=== PATIENT | female | born 1960 | race Caucasian/White ===

== ENCOUNTER → 2018-06-28 07:49 | Outpatient (CLI) | payer SELFPAY ==
[2018-06-28 10:11] LABS: Absolute Lymphocyte Count 2.14 X10^3/ul (0.83-4.51); Absolute Neutrophil Count 3.8 X10^3/uL (2.0-7.7); Basophil# 0.11 X10^3/uL; Basophil% 1.6 % (0-1); Eosinophil# 0.27 X10^3/uL; Eosinophils% 3.9 % (0-5); Hematocrit 47.4 % (37-47); Hemoglobin 16.3 g/dl (12.0-15.0); Lymphocyte # 2.14 X10^3/ul (4.0); Lymphocyte % 30.6 % (19-41); Mean Corp Hgb Conc 34.4 g/gl (32-36); Mean Corpuscular Hgb 31.5 pg (27.0-32.0); Mean Corpuscular Volume 91.5 fL (81-99); Mean Platelet Vol. 11.3 fl (6.2-12.0); Monocyte# 0.69 X10^3/uL; Monocyte% 9.9 % (0-10); Neutrophil # 3.77 X10^3/uL (2.7-7.7); Neutrophil % 53.9 % (47-70); Platelet Count 237 K/mm3 (150-450); RBC Distribution Width CV 12.3 % (11.6-14.6); RBC Distribution Width SD 40.8 fl (35.1-43.9); Red Blood Count 5.18 M/mm3 (4.2-5.4)
[2018-06-28 10:18] LABS: POSITIVE COUNT NO; POSITIVE DIFFERENTIAL NO; POSITIVE MORPHOLOGY NO
[2018-06-28 10:26] LABS: Color, Urine Yellow (Yellow); Glucose, Dipstick 1000 mg/dl (Normal); Ketone-Dipstick 15 mg/dl (Negative); Leukocyte Esterase-Dipstick Negative /ul (Negative); Nitrite-Dipstick Negative (Negative); Occult Blood-Urine Negative /ul (Negative); Protein-Dipstick 15 mg/dl (Negative); Specific Gravity, Urine 1.015 (1.002-1.030); Urine Bilirubin Dipstick Negative (Negative); Urine Clarity Clear (Clear); Urine Urobilinogen Normal (Normal)
[2018-06-28 10:35] LABS: ALB/GLOB Ratio 1.1 RATIO (0.9-2.4); AST(SGOT) 26 U/L (15-37); Alanine Aminotransfer ALT/SGPT 46 U/L (13-56); Albumin, Serum 3.7 g/dL (3.2-5.0); Alkaline Phosphatase 126 U/L (45-117); Anion Gap 7 (5-15); BUN 12 mg/dL (7-18); BUN/Creat Ratio 13.8 RATIO (10-20); Calcium,Total 8.7 mg/dL (8.5-10.1); Chloride 102 mmol/L (98-107); Cholesterol 226 mg/dL (200); Creatinine, Serum 0.87 mg/dL (0.55-1.02); EST Glomerular Filtration Rate 71 mL/min (>60); Est Glom Filt Rate - Afr Amer 86 mL/min (>60); Globulin 3.4 g/dL (2.2-4.2); Glucose 357 mg/dL (74-106); High Density Lipoprotein 35 mg/dL; Potassium 4.3 mmol/L (3.5-5.1); Protein, Total 7.1 g/dL (6.4-8.2); Sodium Level 136 mmol/L (136-145); Thyroid Stim Hormone (TSH) 2.28 uIU/mL (0.358-3.74); Triglycerides 249 mg/dL; Very Low Density Lipoprotein 50 mg/dL (5-40)
[2018-06-28 11:22] LABS: Hemoglobin A1c 12.1 % (4.2-6.3)
== END ==
PROVIDERS: Family Provider Family Medicine; PCP Family Medicine; Referring Provider Family Medicine; Visit Provider Family Medicine
DX: Z00.00 Encounter for general adult medical examination without abnormal findings (principal); R73.02 Impaired glucose tolerance (oral); E78.1 Pure hyperglyceridemia; I25.10 Atherosclerotic heart disease of native coronary artery without angina pectoris; I10 Essential (primary) hypertension; E03.9 Hypothyroidism, unspecified
CPT/HCPCS: 36415; 80053; 80061; 81002; 83036; 84443; 85025

== ENCOUNTER → 2018-10-09 08:33 | Outpatient (CLI) | payer SELFPAY ==
[2018-09-19 14:58] VITALS: BMI 34.1
[2018-10-09 10:38] LABS: Thyroid Stim Hormone (TSH) 2.11 uIU/mL (0.358-3.74)
[2018-10-09 15:11] LABS: Hemoglobin A1c 6.5 % (4.2-6.3)
== END ==
PROVIDERS: Family Provider Family Medicine; PCP Family Medicine; Referring Provider Family Medicine; Visit Provider Family Medicine
DX: E11.65 Type 2 diabetes mellitus with hyperglycemia (principal); E03.9 Hypothyroidism, unspecified
CPT/HCPCS: 36415; 83036; 84443

== ENCOUNTER → 2018-10-15 10:04 | Outpatient (CLI) | payer SELFPAY ==
[2018-09-19 14:58] VITALS: BMI 34.1
--- NOTE | 2018-10-15 10:05 | ECHOCS_ITS ---
Reason For Study: CAD/ASHD Procedure This was a 2D Doppler, Color Flow transthoracic echocardiogram. The study was technically difficult. Contrast injection was performed. Exam performed in department. Left Ventricle Normal LV size. Left ventricular systolic function is normal. The estimated ejection fraction is 60 %. Stage 1 diastolic dysfunction. No regional wall motion abnormalities noted. Right Ventricle Normal RV size. Normal systolic function. Atria Normal left atrium. Normal right atrium. Mitral Valve Bileaflet diffuse mitral valve thickening. Mild (1+) eccentric mitral valve insufficiency. Tricuspid Valve Normal tricuspid valve. Mild (1+) tricuspid valve insufficiency. Pulmonary artery systolic pressure is 28 mmHg. Aortic Valve Normal aortic valve. Trisinus/trileaflet aortic valve. Great Vessels Normal aortic root. The pulmonary artery is normal size. Normal inferior vena cava. Pericardium/Pleural No pericardial effusion. Medication Diluted definity 2ml given slow IV push to enhance endocardial definition. MMode/2D Measurements & Calculations LVIDd: 4.7 cm IVSd: 1.0 cm Ao root diam: 3.4 cm LVIDs: 2.8 cm LVPWd: 1.1 cm RVDd: 3.5 cm FS: 40.7 % LAV(MOD-bp): 28.2 ml LVAd ap4: 29.8 cm2 SV(MOD-sp4): 63.7 ml LAV(MOD-bp) Indexed: 14.2 ml/m2 EDV(MOD-sp4): 105.0 ml LAV(MOD-sp2): 30.0 ml EDV(sp4-el): 108.7 ml LAV(MOD-sp4): 27.0 ml LVAs ap4: 16.4 cm2 ESV(MOD-sp4): 41.3 ml ESV(sp4-el): 42.1 ml EF(MOD-sp4): 60.7 % EF(sp4-el): 61.3 % SV(sp4-el): 66.6 ml LA A4 area: 11.8 cm2 LA dimension(2D): 4.0 cm RA A4 area: 11.5 cm2 Doppler Measurements & Calculations MV E max primo: 55.0 cm/sec Lat Peak E' Primo: 8.0 cm/sec Med Peak E' Primo: 4.4 cm/sec MV A max primo: 84.7 cm/sec E/E' lat: 6.9 E/E' med: 12.5 MV E/A: 0.65 Ao V2 max: 146.2 cm/sec LV V1 max: 98.4 cm/sec PA V2 max: 90.6 cm/sec Ao max P.6 mmHg LV V1 max P.9 mmHg Ao V2 mean: 104.8 cm/sec Ao mean P.8 mmHg Ao V2 VTI: 28.4 cm TR max primo: 244.4 cm/sec TR max P.9 mmHg Interpretation Summary Normal LV size. Left ventricular systolic function is normal. The estimated ejection fraction is 60 %. Stage 1 diastolic dysfunction. Bileaflet diffuse mitral valve thickening. Mild (1+) eccentric mitral valve insufficiency. Ordering Physician: Kaleb Thompson Referring Physician: Jad Acevedo Performed By: Elba Denise, WILLY, RVT
== END ==
PROVIDERS: Family Provider Family Medicine; PCP Family Medicine; Referring Provider Internal Medicine Cardiovascular Disease; Visit Provider Internal Medicine Cardiovascular Disease
DX: I25.119 Atherosclerotic heart disease of native coronary artery with unspecified angina pectoris (principal); R07.9 Chest pain, unspecified
CPT/HCPCS: 93306; Q9957; A4216; C8929

== ENCOUNTER 2018-11-12 15:48 | Emergency (ER) | payer SELFPAY ==
[2018-09-19 14:58] VITALS: BMI 34.1
[2018-11-12 15:49] VITALS: BP 135/73; PULSE 72; RESP 18; TEMP 36.6; O2SAT 97; BMI 33.4
--- NOTE | 2018-11-12 16:07 | ED.DCSUM_ITS ---
History of Present Illness Chief Complaint: Laceration Informant: Patient Occurred: Today Mechanism/Context: Incised Current Severity: Gone Maximum Severity: 2/10 Worsened by: Nothing Relieved by: Not applicable Associated Symptoms: Negative for: Parasthesia, Weakness, Loss of Funtion Narrative: Patient is a middle-age fnnbf-fjeq-tynelxkw woman who presents with a laceration radial side right little finger near the webspace of the ring and little finger. She denies paresthesia, anesthesia or motor weakness. Tetanus status is unknown. She has no other complaints. Tetanus Immunization: Unknown - Patient states she will go to the health department tomorrow to get tetanus updated since she has to pay for all of her medical care. 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 (2) Essential (primary) hypertension Status: Chronic (3) Hyperlipidemia Status: Chronic Past Medical History - Allergies and Home Meds Allergies/Adverse Reactions: Allergies Zhhxnjj-Xem-Xdh Reductase Inhibitor Adverse Reaction (Verified 09/19/18 15:02) myalgias Primary Care Physician: Jad Acevedo MD [Primary Care Provider] - Prior records reviewed: Yes Surgical History: noncontributory Lives: Alone Smoking Status: Former smoker Alcohol: None Drugs: None Review of Systems General: Denies: Chills, Fever Musculoskeletal: Denies: Myalgias, Arthralgias, Swelling, Extremity Pain Skin: Reports: Wounds. Denies: Rash Neurological: Denies: Weakness, Parasthesia, Numbness Hematologic: Denies: Easy bruising, Easy bleeding Physical Exam Vital Signs/Narrative: Vital Signs Temp Pulse Resp BP Pulse Ox 11/12/18 15:49 97.8 F 72 18 135/73 H 97 Right Wrist: Negative for: Abrasion, Contusion, Deformity, Edema, Hematoma, Limited ROM, - Right Hand: Negative for: Abrasion, Contusion, Deformity, Edema, Hematoma, Limited ROM, - Right Finger: - - There is a 1 cm laceration proximal radial side of the right little finger. The extensor minimize tendons intact. Two-point termination is normal. The flexor mechanism is intact. Capillary refill is normal. There is no other evidence of trauma to the digits or hands.. Negative for: Abrasion, Contusion, Deformity, Hematoma, Limited ROM General: Well nourished, Well developed Head: Normocephalic, Atraumatic Eyes: Perrl, EOMI. Negative for: Pale conjunctiva, Scleral icterus ENT: No Trauma Cardiovascular: Regular rate, Regular rhythm Respiratory: No distress Skin: Normal color, No rash, No Trauma, Trauma - 1 cm laceration. 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 Plan is to clean wound and closed with Dermabond. She does not work today or tomorrow. Procedures - Lacerations No standard instances Length: 13.2 in Depth: Sub Q Shape: Linear Prep: Ludin Laceration Repair: Dermabond Irrigated (ml): 100 ED Disposition - Plan for ED Patient: Disposition: Home or Assisted Living Diagnosis: Laceration of right little finger Instructions: LACERATION, Extremity (Skin Glue) Referrals: Jad Acevedo MD [Primary Care Provider] - As Needed
--- NOTE | 2018-11-12 16:20 | ED.RN ---
DISCHARGE INSTRUCTIONS GIVEN TO AND REVIEWED WITH PATIENT, PATIENT DENIES QUESTIONS OR CONCERNS AND VOICES UNDERSTANDING OF DISCHARGE INSTRUCTIONS. PT AMBULATES OUT OF ROOM WITHOUT DIFFICULTY.
== END 2018-11-12 16:20 | disposition home or self-care (01) ==
PROVIDERS: Emergency Provider Emergency Medicine; Family Provider Family Medicine; PCP Family Medicine
DX: S61.216A Laceration without foreign body of right little finger without damage to nail, initial encounter (principal); W45.8XXA Other foreign body or object entering through skin, initial encounter; Y93.9 Activity, unspecified; Y92.9 Unspecified place or not applicable; Y99.9 Unspecified external cause status; I25.10 Atherosclerotic heart disease of native coronary artery without angina pectoris; E78.5 Hyperlipidemia, unspecified; I10 Essential (primary) hypertension; Z79.899 Other long term (current) drug therapy; Z79.82 Long term (current) use of aspirin; Z87.891 Personal history of nicotine dependence
CPT/HCPCS: 12001; 99282

== ENCOUNTER → 2020-06-29 | Outpatient (CLI) | payer SELFPAY ==
[2020-06-29 09:48] VITALS: BMI 37.0
[2020-07-02 03:06] LABS: HPV Genotype 16, Aptima Negative (Negative)
[2020-07-02 17:00] LABS: HPV APTIMA, High Risk Positive (Negative); HPV Genotype 18,45 Aptima Negative (Negative)
== END | disposition home or self-care (01) ==
LOC: LABSPEC 12:13
PROVIDERS: PCP Family Medicine; Referring Provider Obstetrics & Gynecology; Visit Provider Obstetrics & Gynecology
DX: Z12.4 Encounter for screening for malignant neoplasm of cervix (principal)
CPT/HCPCS: 87624; 88175; G0145

== ENCOUNTER → 2021-08-12 | Outpatient (CLI) | payer MEDICAID, SELFPAY ==
--- NOTE | 2021-08-12 09:35 | US_ITS ---
STUDY: ULTRASOUND BREAST - LEFT REASON FOR EXAM: Female, 60 years old. Abnormal screening mammogram. TECHNIQUE: Axial and longitudinal images of the LEFT breast were performed with a high resolution ultrasound transducer. # OF IMAGES: 12 COMPARISON: Comparison is made with prior mammogram done earlier today. FINDINGS: LEFT Breast: The mammographic abnormality corresponds to a 1.5 cm x 1.7 cm x 1.3 cm hypoechoic lobular irregular mass at the 2 o''clock position of the breast at 1 cm from nipple. Increased vascularity seen within it. Biopsy recommended. US/Breast Limited Unilateral IMPRESSION: 1.5 cm x 1.7 cm x 1.3 cm hypoechoic lobular irregular mass at the 2 o''clock position of the breast at 17 some nipple. Biopsy recommended. ASSESSMENT CATEGORY: BIRADS Category 4: Suspicious - Biopsy Should Be Considered. A letter regarding these results will be sent to the patient by the facility within 30 days. Electronically Signed: Andrade Zapien MD at 11:11 EDT ,
--- NOTE | 2021-08-12 09:38 | BI_ITS ---
MAMMOGRAPHY - BILATERAL DIAGNOSTIC REASON FOR EXAM: Female, 60 years old. Left breast lump. PERTINENT HISTORY: Non-contributory. Remote right stereotactic breast biopsy. TECHNIQUE: Digital bilateral breast cassandra (3D mammographic acquisition) in the CC and MLO projections. 2-D mediolateral oblique (MLO) and craniocaudad (CC) views of both breasts were obtained. CAD: Full Field Digital Mammography with Computer Added Detection was performed. COMPARISON: Comparison is made with prior abdomen examination dated 05/14/2012. FINDINGS: Breast Composition: There are scattered areas of fibroglandular density. The palpable abnormality corresponds to a 1.3 cm x 0.8 cm spiculated nodule in the upper lateral aspect of the left breast. Correlation with ultrasound is recommended. Stable appearance of the left axillary lymph nodes. No other significant abnormalities are identified. BI/DIAG MAMM W/CAD, BILAT IMPRESSION: 1.3 cm x 0.8 cm spiculated nodule in the upper lateral aspect of the left breast as described. Correlation with ultrasound is recommended. ASSESSMENT CATEGORY: BIRADS Category 0: Incomplete. Need additional imaging evaluation. A letter regarding these results will be sent to the patient by the facility within 30 days. Approximately 10% of breast cancers are not detected by mammography. A normal mammogram should not delay biopsy of a clinically suspicious abnormality. Electronically Signed: Andrade Zapien MD at 11:10 EDT ,
== END | disposition home or self-care (01) ==
PROVIDERS: PCP Family Medicine; Visit Provider Obstetrics & Gynecology
DX: N63.21 Unspecified lump in the left breast, upper outer quadrant (principal)
CPT/HCPCS: 77062; 76642; 77066; G0279

== ENCOUNTER → 2021-08-17 | Outpatient (CLI) | payer MEDICAID, SELFPAY ==
--- NOTE | 2021-08-17 | IMM_PTH ---
PATIENT: JONAH CARO LOC: [facility] U#:[id number] AGE/SX: 60/F ROOM: RE08/17/[address]: Dr. Jorge Alberto Mckeon MD : 1960 BED: DIS: 08/17/2021 SPEC #: [id number] RECD: 08/19/21 11:56 STATUS: SAAD REQ #: [id number] PREMA: 08/17/21 00:[address]: Jorge Alberto Mckeon DEPT: IMMUNOHISTOCHEMISTRY RECD BY: Nguyen Marrero ENTERED: 08/19/21 11:57 SP TYPE: IMMUNO OTHR DR: Dr. Jad Aceveod MD Tissues: Left breast, NOS Procedures: CALPONIN-1 (add) CK5-6 (add) CK8 (add) E-CAD (add) HER2 ALYSHA (add) KI-67 (add) P53 (add) VT (add) P40 (add) ER (initial) PHYSICIAN & INSTITUTION [address] [address] SPECIMEN INFORMATION: Tissue Source: Left breast Clinical Info: Left breast mass Specimen Number: [id number] CPT code: 79706, 94654 x6, 04292 x3 METHODOLOGY: Deparaffinized sections of prefer/formalin-fixed tissue or PAP/DQ stained slides are incubated with monoclonal/polyclonal antibodies/oligonucleotide probes. Localization is made via biotin free immunoperoxidase method. Appropriate controls are performed and reacted as expected. Results on target cell population are indicated in the following table: RESULTS: ANTIBODY / CLONE RESULT E-Cad (ECH-6) positive CK8 (76jdnxG67) positive Calponin-1 (TX279T) negative CK5-6 (D5 & 1684) negative P40 (BC28) negative P53 (DO-7) positive, weak, <10% Ki-67 (30-9) positive, moderate, ~50% MORPHOMETRIC ANALYSIS ER (clone 6F11) >95%, strong intensity VT (clone 16/1E2) variable 15-65%, weak to moderate intensity Her-2Neu (clone CB11) 0 The prognostic test for HER2 is performed on formalin-fixed paraffin embedded tissue. A 3+ (positive) staining pattern is defined as intense, homogeneous, complete, circumferential membranous staining in >10% of contiguous tumor cells. A similar weak (2+) staining pattern is interpreted as equivocal. SUSAN follow-up testing is recommended for all equivocal cases. Positivity/negativity for ER/VT is reported if > or < 1% of the tumor cells are immuno- reactive, respectively. The ASCO/CAP criteria is used for scoring. Reference: Journal of Clinical Oncology, 2013; 31:9920-7631 & 2010; 16:9972-2335. Duration of fixation: 28.5 Hrs; Sample Adequate: Yes. These assays have not been validated on decalcified tissues. Results should be interpreted with caution given the likelihood of false negativity on decalcified specimens. These tests were developed and their performance characteristics determined by [facility]. They may not have been cleared or approved by the U.S. Food and Drug Administration. The FDA has determined that such clearance or approval is not necessary. The above immunohistochemical/dualISH markers are ordered and reviewed by the Pathologist. INTERPRETATION: Left breast, core biopsy: Invasive ductal carcinoma, nuclear grade 2. Positive for estrogen receptors (favorable prognostic indicator). Positive for progesterone receptors (favorable prognostic indicator). Negative for overexpression of UDX2vyp. SJ:kyle 08/20/2021
--- NOTE | 2021-08-17 15:15 | BRBX_PTH ---
PATIENT: JONAH CARO LOC: [facility] U#:[id number] AGE/SX: 60/F ROOM: RE08/17/[address]: Dr. Jorge Alberto Mckeon MD : 1960 BED: DIS: 08/17/2021 SPEC #: [id number] RECD: 08/17/21 15:48 STATUS: SAAD REGerry #: [id number] PREMA: 08/17/21 15:[address]: Jorge Alberto Mckeon DEPT: SURGICAL PATHOLOGY RECD BY: Tracy Dupont ENTERED: 08/18/21 08:21 SP TYPE: BREAST BX OTHR DR: Dr. Jad Acevedo MD Tissues: Left breast, NOS Procedures: Surgery Specimen Level IV HEADER OPERATION: Left breast biopsy PRE-OP DIAGNOSIS: Left breast mass TISSUE SUBMITTED: Left breast tissue MICROSCOPIC DIAGNOSIS Left breast, core biopsy: Invasive ductal carcinoma, nuclear grade 2 (0.8 cm in greatest length). See comment. SJ:kyle 08/19/2021 COMMENT Immunohistochemistry ([id number]) supports the above diagnosis. ER/VT/Cgn6nfx studies are being performed on sections of tumor and the results from this study will be reported separately ([id number]). MICROSCOPIC DESCRIPTION Slides are reviewed. GROSS DESCRIPTION Received in fixative is one container labeled with the patient's name and designated left breast. The specimen consists of multiple elongated fragments of moses-yellow fibroadipose tissue that in aggregate measure 1.5 x 0.5 x 0.1 cm. The entire specimen is submitted in one cassette. / ZEKE:kyle 08/18/2021 TC:0 CPT: 56094 ADDENDUM ADDENDUM ADDENDUM ADDENDUM ADDENDUM ADDENDUM ADDENDUM ADDENDUM 10/26/2021 13:55 ADDENDUM 08/09/2022 09:51 ADDENDUM 10/26/2021 13:55 ADDENDUM 10/26/2021 13:55 ADDENDUM 10/26/2021 13:55 ADDENDUM 10/26/2021 13:55 An order for Oncotype testing was received from . This necessitated case review, block and slide selection by pathologist at [facility]. Breast Cancer Recurrence Score = 25 Results of the complete Oncotype testing ([employer] report) are viewable in EMR under: Reports - Pathology - Lab Pathology Report, Scanned. This addendum is added to incorporate an outside pathology consultation report. The case was examined at [facility] (#[id number]) and the following diagnosis was rendered. Left breast, core biopsy: Invasive ductal carcinoma, grade 2 (score: tubule 3, nuclear 2 mitotic 2), 0.9 cm in greatest length. Please see complete above mentioned consultation report in EMR
== END | disposition home or self-care (01) ==
LOC: LABSPEC 15:58
PROVIDERS: PCP Family Medicine; Visit Provider Surgery
DX: D05.12 Intraductal carcinoma in situ of left breast (principal)
CPT/HCPCS: 88305; 88341; 88342

== ENCOUNTER 2021-09-15 09:32 | Day surgery (SDC) | payer MEDICAID, SELFPAY ==
--- NOTE | 2021-09-10 12:04 | EKG12_ITS ---
Test Reason : PRE-OP Blood Pressure : / mmHG Vent. Rate : 080 BPM Atrial Rate : 080 BPM P-R Int : 158 ms QRS Dur : 084 ms QT Int : 378 ms P-R-T Axes : 021 -43 002 degrees QTc Int : 435 ms Normal sinus rhythm with sinus arrhythmia Left axis deviation Low voltage QRS Poor R wave progression Abnormal ECG Confirmed by SHANIA SANDY, CELSO ([id number]), magazine editor BRITTANY MEYER ([id number]) on 09/14/2021 10:23:06 AM Referred By: Luis Griffith Confirmed By:CELSO JAUREGUI MD
[2021-09-10 12:39] LABS: Hematocrit 43.8 % (37-47); Mean Corp Hgb Conc 34.2 g/dL (32-36); Mean Corpuscular Hgb 31.4 pg (27.0-32.0); Mean Corpuscular Volume 91.6 fL (81-99); Mean Platelet Vol. 10.8 fl (6.2-12.0); Platelet Count 267 K/mm3 (150-450); RBC Distribution Width CV 12.3 % (11.6-14.6); Red Blood Count 4.78 M/mm3 (4.2-5.4); White Blood Count 8.1 K/mm3 (4.4-11.0)
[2021-09-10 13:02] LABS: Prothrombin Time (Protime)PT. 12.5 SECONDS (11.7-14.9)
[2021-09-10 13:10] LABS: Hemoglobin A1c 10.6 % (3.8-5.6)
[2021-09-10 13:24] LABS: AST(SGOT) 29 U/L (15-37); Alanine Aminotransfer ALT/SGPT 47 U/L (13-56); Albumin, Serum 3.7 g/dL (3.2-5.0); Alkaline Phosphatase 129 U/L (45-117); Anion Gap 9 (5-15); BUN 12 mg/dL (7-18); BUN/Creat Ratio 13.7 RATIO (10-20); Bilirubin, Direct 0.12 mg/dL (0.00-0.30); Calcium,Total 9.1 mg/dL (8.5-10.1); Chloride 101 mmol/L (98-107); Creatinine, Serum 0.87 mg/dL (0.55-1.02); EST Glomerular Filtration Rate 70 mL/min (>60); Est Glom Filt Rate - Afr Amer 85 mL/min (>60); Globulin 3.3 g/dL (2.2-4.2); Glucose 332 mg/dL (74-106); Potassium 4.3 mmol/L (3.5-5.1); Sodium Level 136 mmol/L (136-145)
[2021-09-15] VITALS (9 sets, daily range): BP systolic 111–141; BP diastolic 81–96; PULSE 87–94; RESP 16; TEMP 36.1–36.6; O2SAT 92–100; BMI 35.2
--- NOTE | 2021-09-15 | AXNB_PTH ---
PATIENT: JONAH CARO [place] [facility] [id number] AGE/SX: 61/F ROOM: RE09/15/[address]: Dr. Luis Griffith MD : 1960 BED: DIS: 09/15/2021 SPEC #: [id number] RECD: 09/15/21 12:27 STATUS: SAAD REGerry #: [id number] PREMA: 09/15/21 00:[address]: Jorge Alberto Mckeon DEPT: SURGICAL PATHOLOGY RECD BY: Nguyen Marrero ENTERED: 09/15/21 12:49 SP TYPE: AX NODE BX OTHR DR: MD Dr. Jad Elliott MD Tissues: A - Axillary lymph node, NOS B - Left breast, NOS C - Left breast, NOS Procedures: Frozen Section (charge) Surgery Specimen Level IV Surgery Specimen Level V HEADER OPERATION: Biopsy, breast needle localization sentinel node PRE-OP DIAGNOSIS: Breast cancer left breast TISSUE SUBMITTED: A ? Left breast axillary sentinel lymph node tissue, FS, B ? Left breast mass, C ? Left breast new additional inferior lateral margin FROZEN SECTION DIAGNOSIS A. Left axillary sentinel lymph nodes, biopsy: Four out of four lymph nodes negative for carcinoma. AM:kyle 09/15/2021 MICROSCOPIC DIAGNOSIS A. Left axillary sentinel lymph nodes, biopsy: Four out of four lymph nodes negative for metastatic carcinoma. See comment. B. Left breast mass, lumpectomy with needle localization: Invasive ductal carcinoma. See cancer summary in the comment section. C. Left breast, additional inferior lateral margin: Benign breast tissue with focal fibrocystic changes, negative for carcinoma. SJ:kyle 09/20/2021 COMMENT A. The lymph nodes are negative for metastatic carcinoma on multiple H & E levels and immunohisto-chemical stains for cytokeratins ([id number]). BREAST CANCER SUMMARY Procedure - excision with needle localization Specimen laterality - left Tumor site ? upper outer quadrant as per EMR. Tumor size ? 2 x 2 x 1.5 cm Histologic type ? invasive ductal carcinoma, no special type. Histologic grade ([place] grade): Glandular/tubular differentiation score - 3 Nuclear pleomorphism score - 3 Mitotic count score - 2 Overall grade - grade 3 (score of 8) Tumor focality ? single focus of invasive carcinoma Ductal carcinoma in situ - present Negative for extensive intraductal component (EIC). Size (extent) of DCIS ? DCIS comprise <5% of the total tumor volume. Number of blocks with DCIS - 3 Number of blocks examined - 10 Architectural pattern ? solid and cribriform Nuclear grade - grade 2 (intermediate) Necrosis ? not identified Lobular carcinoma in situ - not identified Tumor extension: Skin ? skin is not present Nipple ? not applicable Skeletal muscle ? no skeletal muscle present. Margins: Invasive ductal carcinoma and ductal carcinoma in situ are 0.2 cm away from the closest inferior margin in the lumpectomy specimen; however, additional specimen submitted inferior lateral margin is negative for carcinoma. Overall, the tumor is about 1.7 cm away from the inferior lateral margin. Regional lymph nodes: Total number of lymph nodes examined - 4 Total number of sentinel lymph nodes examined - 4 Number of lymph nodes with macrometastases, micrometastases or isolated tumor cells ? 0 Treatment effect ? no known presurgical therapy. Lymphvascular invasion ? not identified Dermal lymphvascular invasion ? not applicable Distant metastasis ? not applicable Additional Pathologic Findings ? fibrocystic change and intraductal hyperplasia with focal atypia. Ancillary Studies: Previously performed on same tumor ([id number] / [id number]) ER: positive (>95%, strong intensity [place]: positive (variable 15-65%, weak to moderate intensity Vpd9pck: negative (0) Microcalcifications ? present in ductal carcinoma in situ. Clinical History ? Please make reference to previous specimen ([id number]) left breast, core biopsy with diagnosis of ?invasive ductal carcinoma?. PATHOLOGIC STAGE: pT1c pN0(sn) pMx The above summary is in compliance with [employer] [place] Pathology (CAP) Cancer Protocols Checklist and [place] Joint Committee on Cancer (AJCC), Staging Manual, 8th Ed. Case has been reviewed in consultation with Dr. Tobar who concurs with the above diagnosis. IDC:AM MICROSCOPIC DESCRIPTION Slides are reviewed. GROSS DESCRIPTION A - Received fresh for frozen section diagnosis labeled with the patient's name is a specimen designated left axillary sentinel lymph nodes. The specimen consists of a piece of adipose tissue containing nodules consistent with lymph nodes measuring 4.2 x 2.6 x 0.6 cm. Four lymph nodes are identified measuring 0.5 to 2 cm in greatest dimension. The lymph nodes are submitted in entirety for frozen section diagnosis in two cassettes as follows: 1 - two lymph nodes, 2 - two lymph nodes. / AM: 09/15/2021 B - Received fresh for OR consultation labeled with the patient's name is a specimen designated left breast mass. The specimen consists of a wire-guided lumpectomy specimen measuring 7 x 5.5 x 2 cm and weighing 39.7 gm. The specimen is differentially inked as follows: anterior - yellow, posterior - black, superior - blue, inferior - green, medial - red and lateral - orange. Serial sections reveal a white speculated mass measuring 2 x 2 x 1.5 cm and located 0.2 cm from the closest (inferior) margin of resection. The proximity of the lesion to margin is conveyed to the surgeon intraoperatively. Transaction Coordinator sections are submitted as follows: 1 & 2 - perpendicular margins, 3 - tumor with adjacent inferior margin, 4-6 - remainder of tumor, 7-10 - sales representative facility services sections of uninvolved breast parenchyma. Note, sections are submitted after additional fixation. / AM: 09/16/2021 C - Received in fixative is one container labeled with the patient's name and designated left breast additional inferior lateral margin. The specimen consists of an irregular fragment of yellow fatty tissue measuring 9.3 x 4 x 1.5 cm. A suture is present along one surface. This surface is inked in black ink. The opposite surface is inked in blue ink. Serial sections do not reveal mass lesions. The specimen is serially sectioned and totally submitted in nine cassettes. Note, the specimen is submitted after additional fixation. / AM: 09/16/2021 TC:0 CPT: 59957 x2, 15217, 09318, 32226,38390 ADDENDUM ADDENDUM ADDENDUM ADDENDUM ADDENDUM ADDENDUM ADDENDUM ADDENDUM ADDENDUM ADDENDUM ADDENDUM ADDENDUM ADDENDUM ADDENDUM ADDENDUM 08/09/2022 09:58 ADDENDUM 08/09/2022 09:58 ADDENDUM 08/09/2022 09:58 ADDENDUM 08/09/2022 09:58 ADDENDUM 08/09/2022 09:58 This addendum is added to incorporate an outside pathology consultation report. The case was examined at [facility] (#[id number]) and the following diagnosis was rendered. A. Left axillary sentinel lymph nodes, biopsy: Four lymph nodes, negative for carcinoma. B. Left breast mass, lumpectomy with needle localization. Invasive ductal carcinoma, grade 3. Ductal carcinoma in situ, intermediate nuclear grade. Lymphvascular invasion not identified. Prior biopsy site changes. Please see complete above mentioned consultation report in EMR
--- NOTE | 2021-09-15 | IMM_PTH ---
PATIENT: JONAH CARO LOC: [facility] [place] U#:[id number] AGE/SX: 61/F ROOM: RE09/15/[address]: Dr. Luis Griffith MD : 1960 BED: DIS: 09/15/2021 SPEC #: [id number] RECD: 09/20/21 14:40 STATUS: SAAD REQ #: [id number] PREMA: 09/15/21 00:[address]: Jorge Alberto Mckeon DEPT: IMMUNOHISTOCHEMISTRY RECD BY: Nguyen Marrero ENTERED: 09/20/21 14:41 SP TYPE: IMMUNO OTHR DR: MD Dr. Jad Elliott MD Tissues: A - Axillary lymph node, NOS Procedures: CK7 (add) Pankeratin (initial) Pankeratin (add) PHYSICIAN & INSTITUTION [place] [id number] SPECIMEN INFORMATION: Tissue Source: A ? Left axillary sentinel lymph nodes Clinical Info: Breast cancer left breast Specimen Number: [id number] A1 & A2 CPT code: 31015, 69445 x3 METHODOLOGY: Deparaffinized sections of prefer/formalin-fixed tissue or PAP/DQ stained slides are incubated with monoclonal/polyclonal antibodies/oligonucleotide probes. Localization is made via biotin free immunoperoxidase method. Appropriate controls are performed and reacted as expected. Results on target cell population are indicated in the following table: RESULTS: ANTIBODY / CLONE RESULT Block A1 AE1-3 (AE1/AE3/PCK26) negative CK7 (OV-TL12/30) negative Block A2 AE1-3 (AE1/AE3/PCK26) negative CK7 (OV-TL12/30) negative These tests were developed and their performance characteristics determined by [facility]. They may not have been cleared or approved by the U.S. Food and Drug Administration. The FDA has determined that such clearance or approval is not necessary. The above immunohistochemical/dualISH markers are ordered and reviewed by the Pathologist. INTERPRETATION: A. Left axillary sentinel lymph nodes, biopsy: Four out of four lymph nodes, negative for metastatic carcinoma. SJ:kyle 09/21/2021
--- NOTE | 2021-09-15 09:30 | NM_ITS ---
PROCEDURE: NUCLEAR MEDICINE Injection [place] Node - LEFT breast(s). REASON FOR EXAM: Female, 61 years old. Left breast cancer. TECHNIQUE: [place] node localization using radionuclide methods of the LEFT breast(s) was performed following subcutaneous administration of 1.1 mCi of of sulfur colloid Tc-99m. FINDINGS: 1.1 mCi of technetium labeled sulfur colloid was injected subcutaneously in 4 equal aliquots in the left periareolar region. NM/Lymph Node Injection Only IMPRESSION: 1.1 mCi of things suitable sulfur colloid was injected subcutaneously in 4 equal aliquots in the left periareolar region for left sentinel node imaging. Electronically Signed: Andrade Zapien MD at 10:16 EDT ,
[2021-09-15] MEDS: Lactated Ringers 1,000 ML 15 ML IV ×2 (10:08→14:25)
--- NOTE | 2021-09-15 10:59 | HP.PCM_ITS ---
History and Physical Date of Admission: 09/15/21 Intake Vital Signs ? 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 Is patient in pain?: No Allergies Iintpcb-VGJ-ErH Reductase Inhibitor [Glvmulz-Gud-Wvq Reductase Inhibitor] Adverse Reaction (Verified 08/12/21 14:19) myalgias Medications aspirin 81 mg tablet,delayed release 81 mg PO DAILY 09/19/18 [History Confirmed 08/24/21] levothyroxine 25 mcg tablet 25 mcg PO DAILY #90 tab 09/19/18 [History Confirmed 08/24/21] lisinopril 10 mg tablet 10 mg PO DAILY #90 tab 09/19/18 [History Confirmed 08/24/21] venlafaxine 150 mg capsule,extended release 24 hr 150 mg PO DAILY #90 cap 09/19/18 [History Confirmed 08/24/21] PFSH Medical History?(Updated 08/24/21 @ 10:[address] Jorge Alberto Mckeon MD) Atherosclerotic heart disease [place] coronary artery w/angina pectoris Breast cancer, left Essential (primary) hypertension History of abnormal cervical Pap smear Hyperlipidemia Hypothyroidism Obesity Type 2 diabetes mellitus Surgical History? H/O LEEP History of coronary artery stent placement (12/15/03) Family History? Father CAD (coronary artery disease) ?? ? CABG Myocardial infarctionGrandmother Diabetes Social History? household members:? none number of children:? 2 current occupational status:? employed current occupation:? [employer] history of recent travel:? No sexually active:? No Smoking Status:? Former smoker alcohol intake:? current alcohol intake frequency: a few times a week substance use type:? does not use what type of physical activity do you participate in:? walking frequency:? 3-4 times per week seatbelt use:? always do you feel safe at home:? Yes additional social history:? single ? HPI HPI HPI: JONAH CARO, is a 60 F who presents to the office today for discussion of left breast cancer.? Patient had a biopsy last week which showed left breast cancer the patient is here to discuss surgery. ROS General General: No weight change, appetite, fatigue, colon cancer, breast cancer or weakness HEENT HEENT: No difficulty swallowing, eye injury, eye surgery, swollen glands or hoarseness Endo Endocrine: No thyroid disease, diabetes mellitus, thyroid cancer, Hair loss, heat intolerance or cold intolerance Skin Skin: No rash or changing moles Breast Breast: Yes left breast lump; No right breast lump, nipple discharge, breast pain, abnormal mammogram, abnormal US or breast enlargement Musc Musculoskeletal: No back problems, arthritis, rheumatoid arthritis, gout or joint pain Cardio Cardiovascular: Yes heart disease, high blood pressure and heart stent; No murmur, pacemaker, atrial fibrillation, heart attack, palpitations, shortness of breat with exertion or chest pain Psych Psychiatric: Yes depression; No anxiety or hearing voices Resp Respiratory: No shortness of breath, No sleep apnea, No cough, No COPD, No asthma, No emphysema and No wheezing Gastro Gastrointestinal: No abdominal pain, No nausea or vomiting, No diarrhea, No constipation, No blood in stool, Yes acid reflux, No hemorrhoids, No ulcers, No gallbladder problem and No black,tarry stools Bill Hematologic: No blood thinners, No blood disorders, No bleeding, No anemia and No blood clots Neuro Neurologic: No system reviewed and no additional complaints, except as documente d, No as per HPI, No abnormal gait, No abnormal hearing, No abnormal movements, No abnormal speech, No behavioral changes, No burning sensations, No confusion, No convulsions, No disequilibrium, No dizziness, No localized weakness, No frequent falls, No headache(s), No lack of coordination, No loss of vision, No memory loss, No numbness, No other visual disturbances, No radicular pain, No restless legs, No sensory deficit, No syncope, No tingling, No tremor(s), No weakness and No other Exam Const General: cooperative Orientation: alert and oriented x3 HENMT Head: normal to inspection Neck Neck: normal visual inspection and full ROM Chest Chest palpation & inspection: normal inspection of the chest Breast Palpation: Yes breast mass lrb: Left Resp Effort & Inspection: normal respiratory effort Auscultation: clear to auscultation bilaterally Cardio Rate: regular rate Rhythm: regular rhythm GI Inspection: non-distended Palpation: soft and nontender Skin General: no rashes or lesions noted Neuro General: patient alert and patient oriented x3 Extrem General: full ROM Psych Appearance: grossly normal Mental Status: mental status grossly normal Assessment and Plan Assessment and Plan (1) Breast cancer, left breast: ?Status:?Acute ?Qualifiers: ?Breast location:?upper outer quadrant of breast??Estrogen receptor status:?positive??Patient sex:?female? Qualified Code(s):?C50.412 - Malignant neoplasm of upper-outer quadrant of left female breast; Z17.0 - Estrogen receptor positive status [ER+] ?Plan - Dr. Jorge Alberto Mckeon MD: Patient has breast cancer in the left breast.? I discussed partial mastectomy with sentinel lymph node biopsy with her.? I discussed the procedure in detail I did discuss the alternative of mastectomy with reconstruction as well.? I discussed the procedure as well as the risks.? I discussed the risks including not limited to bleeding, infection, lymphedema, nerve injury, seroma formation.? I also discussed the possibility of positive margins or need for axillary dissection.? Patient understands the risks and is willing to proceed. Jorge Alberto Mckeon MD Pager: [facility] [address] [place] [address], [address] [place] [address] Office: I have re-examined the patient. There are no clinical changes since date of exam.
[2021-09-15] MEDS: Bupivacaine Mpf 0.5% 30 ML VIAL (11:07)
[2021-09-15] MEDS: Cefazolin 2 GM in 0.9% Normal Saline 100 ML IV (12:06)
[2021-09-15 12:16] LABS: Bedside Glucose 245 mg/dL (74-106)
--- NOTE | 2021-09-15 12:33 | BI_ITS ---
SURGICAL BREAST SPECIMEN RADIOGRAPH CLINICAL: Document presence of tissue clip marker in biopsy specimen. FINDINGS: Specimen shows presence of tissue clip marker. Electronically Signed: Andrade Zapien MD at 13:11 EDT , BI/Breast Biopsy Specimen IMPRESSION: undefined
--- NOTE | 2021-09-15 13:01 | PCM.OPRPT ---
Report of Operation Date of Procedure: 09/15/21 Pre-Operative Diagnosis: Left breast cancer of the upper outer quadrant Post-Operative Diagnosis: Same Surgery/Procedure Performed:: 1. Ultrasound-guided wire localization 2. Left partial mastectomy 3. Left axillary sentinel lymph node biopsy Specimen's removed: Left axillary sentinel lymph nodes Left partial mastectomy New left inferior lateral margin Description of Procedure: Patient was brought back to the operating room and general anesthesia was induced. The left breast was prepped and draped in usual sterile fashion and using ultrasound a wire was placed into the mass. Next 5 cc of Lymphazurin was injected in the retroareolar space as well as 5 cc of saline and then the breast was massaged. The breast and axilla were then reprepped and redraped and an axillary incision was marked and then injected with local anesthetic. Scalpel was used to make an incision and deepened to the axillary fascia was then incised. Blue lymph nodes were encountered as well as being radioactive. 4 sentinel lymph nodes were removed and there was no more radioactive material or blue lymph nodes in the axilla. There were no further palpable lymph nodes in the axilla. All of these lymph nodes came back negative. The axillary fascia was closed with interrupted 3-0 Vicryl suture. The skin was closed with interrupted 3-0 Vicryl suture and running 4-0 Monocryl suture. Next attention was paid to the left breast and a skin marker was used to alicia an incision and it was injected with local anesthetic. A scalpel was used to make the incision and flaps were raised and the wire was brought into the incision. The mass was encountered and dissected free circumferentially using electrocautery and then sent for mammogram which indicated that the entire wire and clip were included. The inferior margin was close so new inferior lateral margin was taken and marked and sent for permanent pathology. The cavity was irrigated and suctioned dry and hemostasis was obtained using electrocautery. Next the incision was closed with interrupted 3-0 Vicryl suture and 4-0 running Monocryl suture. Glue was applied to both incisions and the patient was awoken and taken to PACU in stable condition and tolerated the procedure well. Admit VTE Documentation VTE Mechan Device Prophylaxis: SCD's
--- NOTE | 2021-09-15 13:03 | DCINST_ITS ---
Discharge Instructions Diet Discharge Diet: No restrictions Activity Discharge Activity: May Shower (tomorrow) Lifting Restrictions: 10 lbs for 1 week Dressing / Incision Call your doctor if your incision/area has: Continuous Slow Oozing, Sudden Increased Bleeding, Increased Pain/ Swelling, Increased Redness, Foul Smelling Discharge and Swelling at the incision site Call your doctor if you observe: Fever of 101 or Higher Cleanse incision/area with: Soap & Water Follow Up Care Please Follow Up With: Jorge Alberto Mckeon MD When: Please call to schedule 2 week follow up appointment. [phone] Test Results: Test results from this visit will be discussed in further detail at your follow- up appointment, if applicable. Discharge Plan Admission Attending Provider: Luis Griffith Primary Care Provider: Jad Acevedo Discharge Orders/Prescriptions Prescriptions: New oxycodone-acetaminophen [Percocet] 5-325 mg tablet 1 tab PO Q4H PRN (Reason: pain) 5 Days Qty: 30 0RF No Action venlafaxine 150 mg capsule,extended release 24hr 150 mg PO DAILY Qty: 90 lisinopril 10 mg tablet 10 mg PO DAILY Qty: 90 levothyroxine 25 mcg tablet 25 mcg PO DAILY Qty: 90 aspirin [Adult Low Dose Aspirin] 81 mg tablet,delayed release (DR/EC) 81 mg PO DAILY red yeast rice 600 mg Capsule 1,200 mg PO DAILY Rx Instructions: give with meal/snack cholecalciferol (vitamin D3) [Vitamin D3] 125 mcg (5,000 unit) Tablet 125 mcg PO DAILY Referrals / Follow Up: Jad Acevedo MD [Primary Care Provider] - Disposition Disposition (needs filled in before D/C Order can be placed): Home, Self Care
[2021-09-15 15:29] LABS: Bedside Glucose 250 mg/dL (74-106)
== END 2021-09-15 15:26 | disposition home or self-care (01) ==
LOC: SDC 09:33 → AC 09:34
PROVIDERS: Surgery; PCP Family Medicine; Referring Provider Anesthesiology; Visit Provider Anesthesiology
PROC: (CPT 19101; principal; 2021-09-15 11:55)
PROC: (CPT 19301; 2021-09-15 11:55)
DX: C50.412 Malignant neoplasm of upper-outer quadrant of left female breast (principal); I25.119 Atherosclerotic heart disease of native coronary artery with unspecified angina pectoris; E11.9 Type 2 diabetes mellitus without complications; Z17.0 Estrogen receptor positive status [ER+]; I10 Essential (primary) hypertension; E78.5 Hyperlipidemia, unspecified; E03.9 Hypothyroidism, unspecified; E66.9 Obesity, unspecified; M19.90 Unspecified osteoarthritis, unspecified site; F32.A Depression, unspecified; Z68.34 Body mass index [BMI] 34.0-34.9, adult; Z95.5 Presence of coronary angioplasty implant and graft; Z79.82 Long term (current) use of aspirin; Z79.899 Other long term (current) drug therapy; Z87.891 Personal history of nicotine dependence
CPT/HCPCS: 19301; 38500; 19285; 00404; 38792; 36415; 76098; 80048; 80076; 82962; 83036; 84443; 85027; 85610; 85730; 88305; 88307; 88331; 88341; 88342; 93005; A9541; J7120; J2405; Q9968

== ENCOUNTER → 2021-10-19 | Outpatient (CLI) | payer MEDICAID, SELFPAY ==
--- NOTE | 2021-10-19 14:26 | BD_ITS ---
STUDY: DUAL ENERGY X-RAY ABSORPTIOMETRY / DXA REASON FOR EXAM: Female, 61 years old. SCREENING TECHNIQUE: Bone Mineral Density (BMD) measurements of lumbar spine and bilateral hips were obtained. COMPARISON: None. FINDINGS: Lumbar Spine (L1-L4): g/cm2 (1.466) / T-score (4.1) / Z-score (5.5) Findings are suggestive of normal bone density with a low fracture risk. Left Femur Total: g/cm2 (1.204) / T-score (2.1) / Z-score (3.1) Left Femoral Neck: g/cm2 (0.883) / T-score (0.3) / Z-score (1.6) Right Femur Total: g/cm2 (1.121) / T-score (1.5) / Z-score (2.4) Right Femoral Neck: g/cm2 (0.905) / T-score (0.5) / Z-score (1.8) BD/Dexa Bone Density Study IMPRESSION: The patient is considered normal as outlined below according to World [employer]onal[employer] Organization (WHO) criteria with a low fracture risk. Reference Information: The T-score is the number of standard deviations above or below the standard which is normal for young adults at their peak bone mineral density. The World Health Organization (WHO) interprets the T-scores as follows: Above -1 Normal bone density Between -1 and -2.5 Osteopenia Equal to / or below -2.5 Osteoporosis As a practical clinical guideline, osteopenia may be graded as follows: Mild -1 through -1.5 Moderate -1.6 through -2.0 Severe -2.1 through -2.4 The Z-score is the number of standard deviations above or below age-matched controls. A Z-score of less than -1.5 would be considered abnormal. References: 1. NIH Osteoporosis and Related Bone Diseases www osteo.org 2. International Society for Clinical Densitometry www iscd.org 3. National Osteoporosis Foundation www nof.org Electronically Signed: Andrade Zapien MD at 15:42 EDT ,
== END | disposition home or self-care (01) ==
LOC: OPBD 14:18
PROVIDERS: PCP Family Medicine; Visit Provider Internal Medicine Hematology & Oncology
DX: Z13.820 Encounter for screening for osteoporosis (principal)
CPT/HCPCS: 77080

== ENCOUNTER → 2021-11-02 | Outpatient (CLI) | payer MEDICAID, SELFPAY ==
[2021-11-10 22:07] LABS: HPV Genotype 16, Aptima Negative (Negative)
[2021-11-11 08:52] LABS: HPV APTIMA, High Risk Positive (Negative); HPV Genotype 18,45 Aptima Negative (Negative)
== END | disposition home or self-care (01) ==
LOC: LABSPEC 14:56
PROVIDERS: PCP Family Medicine; Visit Provider Obstetrics & Gynecology
DX: Z12.4 Encounter for screening for malignant neoplasm of cervix (principal)
CPT/HCPCS: 87624; 88175; G0145

== ENCOUNTER 2022-05-16 06:26 | Day surgery (SDC) | payer MEDICAID, SELFPAY ==
[2022-05-16] VITALS (7 sets, daily range): BP systolic 89–113; BP diastolic 54–76; PULSE 74–90; RESP 16–18; TEMP 36.6–36.9; O2SAT 94–98; BMI 33.8
--- NOTE | 2022-05-16 | COLBX_PTH ---
PATIENT: JONAH CARO LOC: EN U#:[id number] AGE/SX: 61/F ROOM: RE05/16/[address]: Dr. Hiral Shelton MD : 1960 BED: DIS: 05/16/2022 SPEC #: [id number] RECD: 05/16/22 11:53 STATUS: SAAD REGerry #: [id number] PREMA: 05/16/22 00:[address]: Hiral Shelton DEPT: SURGICAL PATHOLOGY RECD BY: Wayne Crystal ENTERED: 05/16/22 11:54 SP TYPE: COLON BX DEEPTI DR: Dr. Jad Acevedo MD Tissues: A - Descending colon B - Sigmoid colon biopsy C - Rectum, NOS Procedures: Surgery Specimen Level IV HEADER OPERATION: Colonoscopy with biopsies ? open access (MAC) PRE-OP DIAGNOSIS: Screening TISSUE SUBMITTED: A ? Descending colon polyp biopsy, B ? Sigmoid colon polyp biopsy, C ? Rectal polyp biopsy MICROSCOPIC DIAGNOSIS A. Descending colon polyp, biopsy: Fragments of tubular adenoma. B. Sigmoid colon polyp, biopsy: Fragments of hyperplastic polyp. C. Rectal polyp, biopsy: Fragments of hyperplastic polyp. ZEKE:kyle 05/17/2022 MICROSCOPIC DESCRIPTION Slides are reviewed. GROSS DESCRIPTION A - Received in fixative is one container labeled with the patient's name and designated descending colon polyp biopsy. The specimen consists of multiple irregular fragments of light moses soft tissue that in aggregate measure 1.0 x 0.2 x 0.1 cm. The specimen is totally submitted in one cassette. B - Received in fixative is one container labeled with the patient's name and designated sigmoid colon polyp biopsy. The specimen consists of multiple irregular fragments of light moses soft tissue that in aggregate measure 1.5 x 0.5 x 0.1 cm. The specimen is totally submitted in one cassette. C - Received in fixative is one container labeled with the patient's name and designated rectal polyp biopsy. The specimen consists of multiple irregular fragments of light moses soft tissue that in aggregate measure 1.0 x 0.4 x 0.1 cm. The specimen is totally submitted in one cassette. / ZEKE:kyle 05/16/2022 TC:1 CPT: 88508 x3
[2022-05-16] MEDS: Lactated Ringers 1,000 ML 15 ML IV (06:45)
--- NOTE | 2022-05-16 07:24 | H&P.OPEN ---
[facility] - General General Date of Admission: 05/16/22 HPI Narrative JONAH CARO, is a 61 F who presents for colonoscopy. Patient never had previous colonoscopy. Patient did recently have breast cancer and tested positive for BRCA2 gene mutation. Patient denies any family history of colon cancer. Patient's bowel movements daily denies any blood. Patient denies any chronic abdominal pain/nausea/vomiting/reflux. [facility] Medical History Alcohol use Arthritis Atherosclerotic heart disease [place] coronary artery w/angina pectoris Back pain BRCA2 gene mutation positive Breast cancer, left Cancer Cardiology follow-up encounter Depression Diabetes mellitus Dietary restriction Easy bruising Encounter for education ER+ (estrogen receptor positive status) Essential (primary) hypertension Former smoker Heartburn High cholesterol History of abnormal cervical Pap smear History of echocardiogram History of stress test Hyperlipidemia Hypertension Hypothyroidism Obesity Polycythemia, secondary Restless legs Shortness of breath on exertion Thyroid disease Type 2 diabetes mellitus Wears contact lenses Wears glasses Home Medications aspirin 81 mg tablet,delayed release (Adult Low Dose Aspirin) 81 mg PO DAILY 09/19/18 [History Last Taken 09/14/21] levothyroxine 25 mcg tablet 25 mcg PO DAILY #90 tabs 09/19/18 [History Last Taken 05/16/22] lisinopril 10 mg tablet 10 mg PO DAILY #90 tabs 09/19/18 [History Last Taken 05/16/22] venlafaxine 150 mg capsule,extended release 24 hr 150 mg PO DAILY #90 caps 09/19/18 [History Last Taken Unknown] cholecalciferol (vitamin D3) 125 mcg (5,000 unit) tablet (Vitamin D3) 125 mcg PO DAILY 09/08/21 [History Last Taken Unknown] red yeast rice 600 mg capsule 1,200 mg PO DAILY 09/08/21 [History Last Taken Unknown] ascorbate calcium (vitamin C) 500 mg tablet 500 mg PO DAILY 11/02/21 [History Last Taken Unknown] zinc 50 mg tablet 50 mg PO DAILY 11/02/21 [History Last Taken Unknown] anastrozole 1 mg tablet 1 mg PO DAILY #90 tabs 03/23/22 [Rx Last Taken Unknown] metformin 500 mg tablet 500 mg PO BID 05/11/22 [History Last Taken Unknown] Allergy/AdvReac Type Severity Reaction Status Date / Time Tyqdhxs-HJB-QiY Reductase AdvReac myalgias Verified 05/16/22 06:57 Inhibitor [Bquzxse-Aql-Bik Reductase Inhibitor] Family History Father CAD (coronary artery disease) CABG Myocardial infarction Grandmother Diabetes Surgical History H/O LEEP History of cardiac catheterization History of coronary artery stent placement (12/15/03) History of hysteroscopy Status post left breast lumpectomy Social History household members: none number of children: 2 current occupational status: employed current occupation: [employer] history of recent travel: No sexually active: No Smoking Status: Former smoker how long ago did patient quit smokin years ago; [id number] alcohol intake: current alcohol intake frequency: a few times a month substance use type: does not use caffeine: Yes Type: coffee Number of servings: 2 seatbelt use: always do you feel safe at home: Yes additional social history: single Past Medical/Surgical History Planned Operation Planned Operative Procedure/s: COLONOSCOPY Previous Hospitalizations/Surgeries HX Hospitalizations: No Any Problems With Anesthesia: No You/Your Family Experience Fever (Hyperthermia) With Anes: No Cholinesterase deficiency: No Cardiovascular Hx of Irregular Heartbeat and/or Afib: No Hx Heart Attack: No Hx Congestive Heart Failure: No Hx Hypertension: Yes (CONTROLLED WITH MED) Hx Pacemaker: No Respiratory Hx Chronic Obstructive Pulmonary Disease (COPD): No Hx Asthma: No Hx Emphysema: No Hx Sleep Apnea: No Hx Respiratory Tract Infection/Cold (presently): No Do You Snore Loudly (louder than talking or can be heard): No Do You Often Feel Tired/ Fatigued/ Sleepy Dring Daytime?: No Has Anyone Observed You Stop Breathing During Sleep?: No Result (for STOP score): Negative Smoking Status: Former smoker Gastrointestinal Hx Gastroesophageal Reflux: Yes Controlled With Meds: Yes Hx Ulcer: No Neurological Hx Seizures: No Hx Head/Neck Injury: No Hx Headaches: No Hx Back Injury/Pain: No Does patient have nerve stimulator: No Reproduction : No Psycho/Social Hx Substance Use: No Hx Alcohol Use: Yes Miscellaneous Recent Exposure to Contagious Disease: No Allergies Drczlcj-HQB-HiQ Reductase Inhibitor [Ofarkia-Jrn-Olr Reductase Inhibitor] Adverse Reaction (Verified 05/16/22 06:57) myalgias Discharge Is Pt Admitted From a Assisted, or a Mcfp: No Who Could Help: RACHEL After D/C, Where Do you Plan to Go: Return Home Vital Signs Vital Signs Vital Signs: 05/16/22 06:58 05/16/22 06:58 Temperature 97.9 F Temperature Source Temporal Pulse Rate 90 Respiratory Rate 16 Respiratory Pattern Normal Blood Pressure 113/76 Blood Pressure Mean 88 Blood Pressure Source Monitor Blood Pressure Position Semi-Fowlers Blood Pressure Location Right Arm Pulse Ox 94 Oxygen Delivery Method Room Air Weight Weight: 197 lb 2.55 oz Body Mass Index (BMI) 33.8 Physical Exam Const alert, oriented x3 and no apparent distress HEENT normocephalic and head/scalp atraumatic Resp normal respiratory effort Cardio regular rate GI soft to palpation and non-tender; Negative for non-distended Palpation: Negative for guarding Extremity no clubbing, cyanosis or edema Neuro CN's II-XII intact bilaterally Psych mental status grossly normal Assessment & Plan Assessment/Plan (1) Encounter for screening for malignant neoplasm of colon: Surgery Risks - Colonoscopy Risks Include but are not Limited To: Risks include but are not limited to: Bleeding, perforation requiring further surgery, inability to complete colonoscopy requiring barium enema.
--- NOTE | 2022-05-16 08:22 | OP.COLON_ITS ---
Patient Name: Kerry Will Procedure Date: 05/16/2022 7:16 AM Date of : 1960 Age: 61 Procedure: Colonoscopy Indications: Screening for colorectal malignant neoplasm Providers: Hiral Shelton MD Referring MD: Hiral Shelton MD Medicines: Monitored Anesthesia Care Patient Profile: This is a 61 year old female. Last Colonoscopy: none. The patient's first colonoscopy is today. Complications: No immediate complications. Procedure: Pre-Anesthesia Assessment: - Prior to the procedure, a History and Physical was performed, and patient medications and allergies were reviewed. The patient's tolerance of previous anesthesia was also reviewed. The risks and benefits of the procedure and the sedation options and risks were discussed with the patient. All questions were answered, and informed consent was obtained. Prior Anticoagulants: The patient has taken aspirin, last dose was 2 days prior to procedure. ASA Grade Assessment: Per anesthesia. After reviewing the risks and benefits, the patient was deemed in satisfactory condition to undergo the procedure. After I obtained informed consent, the scope was passed under direct vision. Throughout the procedure, the patient's blood pressure, pulse, and oxygen saturations were monitored continuously. The Colonoscope was introduced through the anus and advanced to the cecum, identified by appendiceal orifice and ileocecal valve. The colonoscopy was somewhat difficult due to a tortuous colon. Successful completion of the procedure was aided by applying abdominal pressure. The patient tolerated the procedure well. The quality of the bowel preparation was good. Scope In: 7:34:27 AM Scope Withdrawal Time 0 hours 20 minutes 33 seconds Scope Out: 8:10:14 AM Total Procedure Duration Time 0 hours 35 minutes 47 seconds Findings: The perianal and digital rectal examinations were normal. A few small-mouthed diverticula were found in the sigmoid colon. Seven sessile polyps were found in the rectum, sigmoid colon and descending colon. The polyps were less than 5 mm in size. These polyps were removed with a cold biopsy forceps. Resection and retrieval were complete. The exam was otherwise without abnormality on direct and retroflexion views. Impression: - Diverticulosis in the sigmoid colon. - Seven less than 5 mm polyps in the rectum, in the sigmoid colon and in the descending colon, removed with a cold biopsy forceps. Resected and retrieved. - The examination was otherwise normal on direct and retroflexion views. Recommendation: - Discharge patient to home. - High fiber diet. - Continue present medications. - Await pathology results. - Repeat colonoscopy in 3 - 5 years for surveillance based on pathology results. Procedure Code(s): --- Professional --- G0121, PT, Colorectal cancer screening; colonoscopy on individual not meeting criteria for high risk Diagnosis Code(s): --- Professional --- Z12.11, Encounter for screening for malignant neoplasm of colon K62.1, Rectal polyp D12.4, Benign neoplasm of descending colon D12.5, Benign neoplasm of sigmoid colon K57.30, Diverticulosis of large intestine without perforation or abscess without bleeding CPT copyright 2017 [employer]. All rights reserved. The codes documented in this report are preliminary and upon engine oiler review may be revised to meet current compliance requirements. MD Hiral Brumfield MD 05/16/2022 8:22:05 AM This report has been signed electronically. Number of Addenda: 0 Note Initiated On: 05/16/2022 7:16 AM
--- NOTE | 2022-05-16 08:23 | OP.CCLET_ITS ---
05/16/2022 Jad Acevedo Re : Colonoscopy procedure for Kerry Will Dear Curtis This procedure was performed on Monday, May 16, 2022. My impressions and recommendations are as follows: Impressions : - Diverticulosis in the sigmoid colon. - Seven less than 5 mm polyps in the rectum, in the sigmoid colon and in the descending colon, removed with a cold biopsy forceps. Resected and retrieved. - The examination was otherwise normal on direct and retroflexion views. Recommendations : - Discharge patient to home. - High fiber diet. - Continue present medications. - Await pathology results. - Repeat colonoscopy in 3 - 5 years for surveillance based on pathology results. My findings are described in the full procedure note, which is enclosed. If I can be of further assistance, please feel free to contact me at Doctor phone number(s): , Work: . Sincerely, MD Hiral Brumfield MD 05/16/2022 8:22:05 AM This report has been signed electronically.
== END 2022-05-16 09:09 | disposition home or self-care (01) ==
LOC: EN 06:26 → AC 06:27
PROVIDERS: PCP Family Medicine; Referring Provider Surgery; Visit Provider Surgery
PROC: 0DJD8ZZ Inspection of Lower Intestinal Tract, Via Natural or Artificial Opening Endoscopic (ICD-10-PCS; CPT 45378; principal; 2022-05-16 07:25)
DX: Z12.11 Encounter for screening for malignant neoplasm of colon (principal); E11.9 Type 2 diabetes mellitus without complications; D12.4 Benign neoplasm of descending colon; K57.30 Diverticulosis of large intestine without perforation or abscess without bleeding; I10 Essential (primary) hypertension; K62.1 Rectal polyp; I25.10 Atherosclerotic heart disease of native coronary artery without angina pectoris; F32.A Depression, unspecified; E03.9 Hypothyroidism, unspecified; Z87.891 Personal history of nicotine dependence; Z95.5 Presence of coronary angioplasty implant and graft; Z79.82 Long term (current) use of aspirin; Z79.84 Long term (current) use of oral hypoglycemic drugs; Z79.899 Other long term (current) drug therapy
CPT/HCPCS: 45380; 88305; J7120; J2405

== ENCOUNTER → 2022-05-17 | Outpatient (CLI) | payer MEDICAID, SELFPAY ==
[2022-05-18 15:16] LABS: Cancer Antigen 125 20.8 U/mL (0.0-38.1)
== END | disposition home or self-care (01) ==
LOC: PAVLAB 10:35
PROVIDERS: PCP Family Medicine; Referring Provider Obstetrics & Gynecology; Visit Provider Obstetrics & Gynecology
DX: C50.412 Malignant neoplasm of upper-outer quadrant of left female breast (principal); Z15.01 Genetic susceptibility to malignant neoplasm of breast; Z15.09 Genetic susceptibility to other malignant neoplasm; Z17.0 Estrogen receptor positive status [ER+]
CPT/HCPCS: 36415; 86304

== ENCOUNTER → 2022-06-01 | Outpatient (CLI) | payer MEDICAID, SELFPAY ==
--- NOTE | 2022-06-01 12:15 | US_ITS ---
STUDY: ULTRASOUND OF THE FEMALE PELVIS - COMPLETE REASON FOR EXAM: Female, 61 years old. Abnormal genetic testing. Breast cancer. LMP: Unknown. TECHNIQUE: Transabdominal and Transvaginal TECHNICAL QUALITY: Adequate. COMPARISON: None. FINDINGS: The uterus is anteverted and is in a midline position. The uterus measures 6.4 x 4.5 x 3.0 cm. Normal uterine cervix. The endometrium measures 2 mm in thickness, and is hyperechoic. There is no demonstrated endometrial mass. There is a 0.7 x 0.6 x 0.7 cm heterogenous fibroid in the left lateral fundus. I.U.D. - The patient does not have an I.U.D. The right ovary is visualized. The right ovary measures 1.7 x 2.5 x 1.2 cm. There are multiple follicles of the right ovary without a dominant cyst. There is no visualized right adnexal mass or complex lesion. There is normal arterial and normal venous vascularity. The left ovary is visualized. The left ovary measures 3.7 x 3.5 x 2.3 cm. There is a 2.3 x 2.9 x 1.1 cm left ovarian cyst. There is no visualized left adnexal mass or complex lesion. There is normal arterial and normal venous vascularity. There is no fluid in the cul-de-sac. The pre void volume of the bladder was 74 ml. The urinary bladder appears grossly normal. Polycystic ovary disease: No. US/Pelvic (Non ) IMPRESSION: 1. Small uterine fibroid. 2. Left ovarian cyst. The right ovary appears normal. Electronically Signed: Jordy Patel DO at 16:40 EDT ,
== END | disposition home or self-care (01) ==
LOC: US 12:13
PROVIDERS: PCP Family Medicine; Visit Provider Obstetrics & Gynecology
DX: C50.412 Malignant neoplasm of upper-outer quadrant of left female breast (principal); Z17.0 Estrogen receptor positive status [ER+]; Z15.01 Genetic susceptibility to malignant neoplasm of breast; Z15.09 Genetic susceptibility to other malignant neoplasm
CPT/HCPCS: 76830; 76856

== ENCOUNTER → 2022-11-04 | Outpatient (CLI) | payer MEDICAID, SELFPAY ==
--- NOTE | 2022-11-04 15:59 | US_ITS ---
STUDY: ULTRASOUND OF THE FEMALE PELVIS - COMPLETE REASON FOR EXAM: Female, 62 years old. BRCA2 POSITIVE, Ovarian Cyst LMP: TECHNIQUE: Transabdominal and Transvaginal TECHNICAL QUALITY: Adequate. COMPARISON: 06/01/2022. FINDINGS: The uterus is anteverted and is in a midline position. The uterus measures 7.4 x 4.3 x 3.0 cm. Normal uterine cervix. The endometrium measures 3 mm in thickness, and is hyperechoic. There is no demonstrated endometrial mass. The uterus is diffusely heterogeneous consistent with diffuse leiomyomatous change. There are also at least 2 small fibroids measuring 0.9 and 1.3 cm. The right ovary is visualized. The right ovary measures 2.2 x 1.7 x 1.6 cm. There is no right ovarian cyst or ovarian mass. There is no visualized right adnexal mass or complex lesion. There is normal arterial and normal venous vascularity. The left ovary is visualized. The left ovary measures 3.9 x 2.9 x 2.5 cm. There is no left ovarian cyst or ovarian mass. There is a 3.3 cm probable cyst. There is a 2.8 cm possible solid lesion. There is normal arterial and normal venous vascularity. There is no fluid in the cul-de-sac. The pre void volume of the bladder was 92 ml. US/Pelvic w/ Transvaginal IMPRESSION: Diffusely heterogeneous uterus consistent with diffuse leiomyomatous change. Nonspecific possible solid lesion of the left ovary measuring 2.8 cm. Electronically Signed: Nguyễn Almeida MD at 22:57 EDT ,
== END | disposition home or self-care (01) ==
LOC: US 15:58
PROVIDERS: PCP Family Medicine; Referring Provider Obstetrics & Gynecology; Visit Provider Obstetrics & Gynecology
DX: N83.209 Unspecified ovarian cyst, unspecified side (principal)
CPT/HCPCS: 76830; 76856

== ENCOUNTER → 2022-11-08 | Outpatient (CLI) | payer MEDICAID, SELFPAY ==
--- NOTE | 2022-11-08 14:04 | EKG12_ITS ---
Test Reason : PRE OP Blood Pressure : / mmHG Vent. Rate : 091 BPM Atrial Rate : 091 BPM P-R Int : 152 ms QRS Dur : 086 ms QT Int : 348 ms P-R-T Axes : 056 -50 018 degrees QTc Int : 428 ms Normal sinus rhythm Left axis deviation Low voltage QRS Abnormal ECG Confirmed by GARLAND PATEL ([id number]), editor greeting card ASHVIN MULLER ([id number]) on 11/23/2022 12:46:13 PM Referred By: Pamela Burch Confirmed By:GARLAND PATEL
[2022-11-08 15:12] LABS: Hematocrit 46.7 % (37-47); Hemoglobin 15.4 g/dL (12.0-15.0); Mean Corpuscular Hgb 31.6 pg (27.0-32.0); Mean Corpuscular Volume 95.9 fL (81-99); Mean Platelet Vol. 11.2 fl (6.2-12.0); Platelet Count 255 K/mm3 (150-450); RBC Distribution Width CV 12.2 % (11.6-14.6); RBC Distribution Width SD 43.3 fl (35.1-43.9); Red Blood Count 4.87 M/mm3 (4.2-5.4); White Blood Count 12.9 K/mm3 (4.4-11.0)
[2022-11-08 15:49] LABS: Anion Gap 10 (5-15); BUN 15 mg/dL (7-18); BUN/Creat Ratio 16.6 RATIO (10-20); Calcium,Total 10.1 mg/dL (8.5-10.1); Chloride 100 mmol/L (98-107); EST Glomerular Filtration Rate 68 mL/min (>60); Est Glom Filt Rate - Afr Amer 82 mL/min (>60); Glucose 258 mg/dL (74-106); Potassium 4.3 mmol/L (3.5-5.1); Sodium Level 135 mmol/L (136-145)
[2022-11-08 16:56] LABS: Hemoglobin A1c 9.9 % (3.8-5.6)
[2022-11-10 04:08] LABS: Cancer Antigen 125 38.9 U/mL (0.0-38.1); Carcinoembryonic Antigen 18.9 ng/mL (0.0-4.7)
== END | disposition home or self-care (01) ==
LOC: PAT 12-08 16:29
PROVIDERS: Anesthesiology; PCP Family Medicine; Referring Provider Obstetrics & Gynecology; Visit Provider Obstetrics & Gynecology
DX: Z01.812 Encounter for preprocedural laboratory examination (principal); Z01.811 Encounter for preprocedural respiratory examination; Z15.01 Genetic susceptibility to malignant neoplasm of breast; Z15.09 Genetic susceptibility to other malignant neoplasm; R94.31 Abnormal electrocardiogram [ECG] [EKG]
CPT/HCPCS: 36415; 80048; 82378; 83036; 84443; 85027; 86304; 93005

== ENCOUNTER → 2022-11-21 | Outpatient (CLI) | payer MEDICAID, SELFPAY ==
[2022-11-21 12:47] LABS: Mucous, Urine 0 SEEN /hpf (<or=2+); Red Blood Cells-Urine 0 SEEN /hpf (0-5); Squamous Epithelial Cells - UA 0 SEEN /hpf (5-10)
[2022-11-21 15:22] LABS: Color, Urine Yellow (Yellow); Glucose, Dipstick 1000 mg/dl (Normal); Ketone-Dipstick Negative (Negative); Leukocyte Esterase-Dipstick 100 /ul (Negative); Nitrite-Dipstick Negative (Negative); Occult Blood-Urine 50 /ul (Negative); Protein-Dipstick Negative (Negative); Specific Gravity, Urine 1.015 (1.002-1.030); Urine Bilirubin Dipstick Negative (Negative); Urine Clarity Clear (Clear); Urine Urobilinogen Normal (Normal)
[2022-11-21 15:30] LABS: Bacteria 3+ /hpf (None Seen); White Blood Cells >100 SEEN /hpf (0-5)
== END | disposition home or self-care (01) ==
LOC: MTLAB 12:40
PROVIDERS: PCP Family Medicine; Referring Provider Nurse Practitioner Gerontology; Visit Provider Nurse Practitioner Gerontology
DX: R30.0 Dysuria (principal)
CPT/HCPCS: 81001; 87077; 87086; 87088; 87186

== ENCOUNTER → 2022-12-06 | Outpatient (CLI) | payer MEDICAID, SELFPAY | END | disposition home or self-care (01) | LOC: MTLAB 11:48 | PROVIDERS: PCP Family Medicine; Referring Provider Nurse Practitioner Gerontology; Visit Provider Nurse Practitioner Gerontology | DX: R30.0 Dysuria (principal) | CPT/HCPCS: 87086 ==

== ENCOUNTER → 2022-12-08 | Outpatient (CLI) | payer MEDICAID, SELFPAY ==
--- NOTE | 2022-12-08 06:51 | MRI_ITS ---
STUDY: MRI BRAIN WITH AND WITHOUT CONTRAST REASON FOR EXAM: Female, 62 years old. METS BREAST CANCER TO LIVER, RESTAGING, NO HEAD COMPLAINTS TECHNIQUE: Standardized multiplanar fat and water weighted pulse sequences were obtained. IV 17 cc Clariscan was administered for the contrast portion of the examination. COMPARISON: None. FINDINGS: Normal size of the ventricles and extra-axial spaces for the patient''s age. Normal white matter tracts of the supratentorial brain. Normal bilateral basal ganglia. Normal thalami. There is no extra-axial fluid accumulation. Normal flow voids within the major intracranial circulation suggesting patency by spin echo criteria. Normal venous enhancement. There is no enhancing intra-axial or extra-axial abnormality. Normal sella turcica, pituitary gland, infundibular stalk, optic chiasm and hypothalamus. Normal tectal plate and pineal gland. Normal midbrain, caroline and medulla. Normal cerebellum. Normal basal cisterns. Normal bilateral temporal bones. Normal bilateral internal auditory canals. No demonstrated orbital abnormality, within the constraints of a routine brain study. Normal visualized paranasal sinuses. Normal calvarium and skull base. Normal visualized soft tissue structures. Normal visualized upper cervical spine. MRI/Brain W/WO Contrast IMPRESSION: Normal unenhanced and enhanced MRI of the brain. Electronically Signed: Gael Bahena MD at 16:49 EDT ,
== END | disposition home or self-care (01) ==
LOC: MRI 06:36
PROVIDERS: PCP Family Medicine; Referring Provider Internal Medicine Hematology & Oncology; Visit Provider Internal Medicine Hematology & Oncology
DX: C50.912 Malignant neoplasm of unspecified site of left female breast (principal); C78.7 Secondary malignant neoplasm of liver and intrahepatic bile duct
CPT/HCPCS: 70553; A9575

== ENCOUNTER 2023-04-07 23:10 | Inpatient (IN) | payer MEDICAID, SELFPAY ==
[2023-04-07 23:11] VITALS: PULSE 90; RESP 16; TEMP 36.2; O2SAT 95; BMI 35.2
[2023-04-07 23:18] VITALS: BP 115/66
--- NOTE | 2023-04-07 23:22 | EDS_ITS ---
HPI History of Present Illness Chief Complaint: Weakness Detail of Chief Complaint: Poor p.o. 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 She underwent radiation therapy. She is presently under the care of Dr. Dawson Oconnor. She has metastasis to liver and pelvic bones. Family noted change in color of her skin this past Monday. She has had no solid intake since Monday. Minimal p.o. intake, mainly ice chips. She was prescribed nystatin oral suspension by her oncologist for thrush. Patient states she cannot swallow. She pointed to her daughter to give history because it hurts too much to speak. She has had very little urine output. She does give orthostatic symptoms. Patient does complain of generalized weakness. She has had weight loss. There is no documented fever. Patient denies respiratory or cardiac symptoms. Patient denies diarrhea or vo miting. Prior similar symptoms: No Recent Illness/Hospitalization: Yes PFSH [facility] Medical History Alcohol use Arthritis Atherosclerotic heart disease [place] coronary artery w/angina pectoris Back pain BRCA2 gene mutation positive Breast cancer, left Cancer Cardiology follow-up encounter Depression Diabetes mellitus Dietary restriction Encounter for education ER+ (estrogen receptor positive status) Essential (primary) hypertension Former smoker Heartburn High cholesterol History of abnormal cervical Pap smear History of echocardiogram History of stress test Hyperlipidemia Hypertension Hypothyroidism Metastasis to bone Metastasis to liver Obesity Polycythemia, secondary Restless legs Shortness of breath on exertion Thyroid disease Type 2 diabetes mellitus Wears contact lenses Wears glasses Home Medications aspirin 81 mg tablet,delayed release (Adult Low Dose Aspirin) 81 mg PO DAILY 09/19/18 [History Last Taken 11/07/22] levothyroxine 25 mcg tablet 25 mcg PO DAILY #90 tabs 09/19/18 [History Last Taken 05/16/22] lisinopril 10 mg tablet 10 mg PO DAILY #90 tabs 09/19/18 [History Last Taken 05/16/22] venlafaxine 150 mg capsule,extended release 24 hr 150 mg PO DAILY #90 caps 09/19/18 [History Last Taken Unknown] cholecalciferol (vitamin D3) 125 mcg (5,000 unit) tablet (Vitamin D3) 125 mcg PO DAILY 09/08/21 [History Last Taken Unknown] red yeast rice 600 mg capsule 1,200 mg PO DAILY 09/08/21 [History Last Taken Unknown] zinc 50 mg tablet 50 mg PO DAILY 11/02/21 [History Last Taken Unknown] metformin 500 mg tablet 1,000 mg PO DAILY 05/11/22 [History Last Taken Unknown] metformin 500 mg tablet 500 mg PO QHS 11/08/22 [History Last Taken Unknown] Allergy/AdvReac Type Severity Reaction Status Date / Time Zivxylf-WRL-VcQ Reductase AdvReac myalgias Verified 04/07/23 23:11 Inhibitor [Jjctcjq-Aeh-Vlc Reductase Inhibitor] Family History Father CAD (coronary artery disease) CABG Myocardial infarction Grandmother Diabetes Surgical History H/O LEEP History of cardiac catheterization History of coronary artery stent placement (12/15/03) History of hysterectomy History of hysteroscopy Hx of colonoscopy Status post left breast lumpectomy Social History household members: none number of children: 2 current occupational status: employed current occupation: [employer] history of recent travel: No sexually active: No Smoking Status: Former smoker how long ago did patient quit smokin years ago; [id number] alcohol intake: current alcohol intake frequency: a few times a month substance use type: does not use caffeine: Yes Type: coffee Number of servings: 2 seatbelt use: always do you feel safe at home: Yes additional social history: single ROS ROS ED Constitutional Constitutional ED: Reports weight loss; Denies chills, fever(s), subjective or sweats Eyes Eyes: Denies blurry vision, change in vision or diplopia ENT ENT ED: Reports sore throat; Denies ear pain or rhinorrhea Cardiovascular Cardiovascular: Denies chest pain or palpitations Respiratory/Chest Respiratory/Chest: Denies cough, dyspnea or dyspnea on exertion Gastrointestinal Gastrointestinal: Denies abdominal pain, constipation, diarrhea, melena, nausea or vomiting Genitourinary Genitourinary ED: Reports other Details: Decreased urine output and darker colored urine. ; Denies dysuria, hematuria or urinary frequency Musculoskeletal Musculoskeletal: Reports arthralgias and myalgias Integumentary Denies rash Neurologic Neurologic: Reports weakness; Denies headache(s) Hematologic/Lymphatic Hematologic/Lymphatic: Reports systems reviewed and no addt'l complaints, except as documented EXAM Physical Exam Const Vital Signs: 04/07/23 23:11 04/07/23 23:16 04/07/23 23:18 Temperature 97.2 F L Temperature Source Temporal Pulse Rate 90 Respiratory Rate 16 Respiratory Pattern Normal Blood Pressure 115/66 Blood Pressure Mean 82 Pulse Ox 95 Positive well nourished, well developed and obese Constitutional Narrative: Patient does not appear well. She does not appear toxic either. She is in no obvious distress. General Appearance ED: well developed Nutritional Appearance: obese HEENT Reports dry mucous membranes HEENT Narrative: Patient does have thrush. Nares are patent. Ears are normal. Mouth ED: Yes dry mucous membranes Mouth: dry mucous membranes Eyes PERRL and EOMs intact bilaterally General Eye ED: Yes pale conjunctiva and scleral icterus Neck no lymphadenopathy, supple and no JVD Chest Wall inspection of chest normal and palpation of chest normal Resp normal respiratory effort and clear to auscultation bilaterally Cardio regular rate, regular rhythm, S1 normal heart sound, S2 normal heart sound and no murmurs GI normal to inspection, nondistended, normoactive bowel sounds, non-tender, non- distended and no masses Auscultation: hypoactive bowel sounds Palpation: soft Back/Spine no CVA tenderness Extremity Extremity Narrative: Otherwise unremarkable. There is no clubbing or acrocyanosis. There is no delayed capillary refill. General Extremety ED: Yes edema General Extremity: edema Neuro CN's II-XII intact bilaterally and no sensory deficits noted Neuro Narrative: Unable to determine orientation because she cannot speak. Sensorium / Orientation: alert Motor Exam: strength 5/5 throughout Psych Mood & Affect: depressed Skin no rashes or lesions noted, no wounds and No skin turgor normal General Skin Exam: jaundice MDM MDM MDM Narrative Medical decision making narrative: Clinically patient appears dehydrated. IV fluids were ordered. Viscous Xylocaine was ordered for her mouth and throat discomfort. Comprehensive metabolic panel was obtained to assess total protein as well as liver enzymes and she is jaundiced. BMP to assess renal function electrolytes. CBC to rule out anemia. History & Record Review Additional record(s) reviewed:: Prior outpatient record ([email or web address]~:text=(1)%20Breast%20cancer ,the%20left%20breast.) and Prior labs Lab Data Attestation: I reviewed the patient's lab results. Lab results narrative: White count is elevated 21.6 thousand. Platelet count is 175,000. PT is 21.4 with INR 1.8. Sodium is 129. CO2 is 20 with an anion gap of 9. BUN and creatinine are elevated at 41 and 1.05 with a estimated BUN to creatinine ratio of 39:1. Lactate is elevated at 2.9. Total bili is 13.2. Alkaline phosphatase is elevated at 577. Albumin is low at 1.8. Patient's liver enzymes are abnormal due to breast cancer with metastasis to liver. Labs: Laboratory Results - last 24 hr 04/07/23 23:39 WBC 21.6 H RBC 3.59 L Hgb 13.0 Hct 36.0 L MCV 100.3 H MCH 36.2 H MCHC 36.1 H RDW Std Deviation 70.4 H RDW Coeff of Jenn 19.2 H Plt Count 175 MPV 12.1 H Neut % (Auto) Not Reportable PT 21.4 H INR 1.8 Sodium 129 L Potassium 4.2 Chloride 100 Carbon Dioxide 20.0 L Anion Gap 9 BUN 41 H Creatinine 1.05 H Estim Creat Clear Calc 62.17 Est GFR (MDRD) Af Amer 68 Est GFR (MDRD) Non-Af 57 L BUN/Creatinine Ratio 39.0 H Glucose 155 H Lactic Acid 2.9 H* Calcium 8.0 L Total Bilirubin 13.20 H AST 220 H ALT 71 H Alkaline Phosphatase 577 H Total Protein 6.2 L Albumin 1.8 L Globulin 4.4 H Albumin/Globulin Ratio 0.4 L Management Discussion w/another healthcare provider: Hospitalist (Dr. Taveras was made aware of patient's history, physical discussion with Dr. Galindo.) and Sprinkling System Installer (Spoke with Dr. Pierce covering for Dr. Oconnor. She informed me that patient was neutropenic on the . Her bilirubin that time was 10.) Treatment and Re-Evaluation :: Because patient is a cancer patient and receiving chemo with elevated white count blood culture and urine cultures were obtained. Will treat empirically with Zosyn. The hospitalist has been paged for admission and patient's oncologist. Discharge Plan Dx/Rx/DC Orders Clinical Impression: Leukocytosis, Essential (primary) hypertension, Type 2 diabetes mellitus, Jaundice, Malignant neoplasm of breast metastatic to liver, Acidosis, lactic, Acute hyponatremia, Acute prerenal azotemia Disposition Disposition: Acute Care Hospital [facility]
[2023-04-07] MEDS: 0.9% Normal Saline (1000mL) 1,000 ML 1000 ML IV (23:31)
[2023-04-07 23:50] LABS: Mean Corp Hgb Conc 36.1 g/dL (32-36); Mean Corpuscular Hgb 36.2 pg (27.0-32.0); Mean Corpuscular Volume 100.3 fL (81-99); Mean Platelet Vol. 12.1 fl (6.2-12.0); POSITIVE COUNT YES; POSITIVE DIFFERENTIAL YES; POSITIVE MORPHOLOGY YES; Platelet Count 175 K/mm3 (150-450); RBC Distribution Width CV 19.2 % (11.6-14.6); RBC Distribution Width SD 70.4 fl (35.1-43.9); Red Blood Count 3.59 M/mm3 (4.2-5.4); White Blood Count 21.6 K/mm3 (4.4-11.0)
--- OUTSIDE RECORDS SUMMARY | 2023-04-07 23:56 | XMS RPT_ITS | CCD ---
Author Name Unknown Address [address] [place] [address] [facility] Care Team Providers Care Crop Specialist Name Role Phone Addie SANDY, Ron Gleason Primary Care Provider Juju Dexter DO Unavailable Cassia Masters RN Unavailable Unavailable Addie SANDY, Ron Gleason Primary Care Provider Ron Real MD Primary Care Provider JARAD RODRIGUEZ Attending Unavailable JUJU DEXTER Referring Unavailable JUJU DEXTER Referring Unavailable IGNACIO ORTEZ Attending Unavailable JARAD RODRIGUEZ Attending Unavailable YESSI VALDEZ Referring Unavailable YESSI VALDEZ Attending Unavailable YESSI VALDEZ Referring Unavailable Hiral Shelton Unavailable Jarad Saba MD Unavailable Ron Real Primary Care Provider Marcelo UX ARCHITECT - CHIEF OPERATING OFFICER, Mara Unavailable JARAD SABA Admitting Unavailable JARAD SABA Attending Unavailable RON REAL Primary Care Unavailable JARAD SABA Attending Unavailable PAMELA LOPES Referring Unavailable RON REAL Primary Care Unavailable JARAD SABA Attending Unavailable PAMELA LOPES Referring Unavailable JARAD SABA Attending Unavailable RON REAL Primary Care Unavailable Addie SANDY, Ron Gleason Primary Care Provider Hiral Shelton MD Unavailable Dawson Tipton MD Unavailable Sharla Smith RN Unavailable RON REALORY Attending Unavailab le ADDIE, RON GLEASON Primary Care Unavailab le ADDIE, RON GLEASON Referring Unavailab le ADDIE, RON GLEASON Primary Care Unavailab le ADDIE, RON GLEASON Attending Unavailab le ADDIE, RON GLEASON Primary Care Unavailab le ADDIE, RON GLEASON Attending Unavailab le ADDIE, RON GLEASON Primary Care Unavailab le ADDIE, RON GLEASON Referring Unavailab le ADDIE, RON GLEASON Primary Care Unavailab le ADDIE, RON GLEASON Attending Unavailab le ADDIE, RON GLEASON Referring Unavailab le ADDIE, RON GLEASON Primary Care Unavailab le ADDIE, RON GLEASON Referring Unavailab le ADDIE, RON GLEASON Primary Care Unavailab le ADDIE, RON GLEASON Attending Unavailab le ADDIE, RON GLEASON Primary Care Unavailab le ABRAMOVICH, DAWSON Referring Unavailable ADDIE, RON GLEASON Primary Care Unavailab le ABRAMOVICH, DAWSON Referring Unavailable ADDIERON Primary Care Unavailab le ABRAMOVICH, DAWSON Referring Unavailable ADDIERON Primary Care Unavailab le ADDIE, RON GLEASON Primary Care Unavailab TAYLOR Corona Attending Unavailable ADDIERON Primary Care Unavailab le ABRAMOVICH, DAWSON Referring Unavailable ADDIERON Primary Care Unavailab le ABRAMOVICH, DAWSON Referring Unavailable ADDIERON Primary Care Unavailab le ADDIE, RON GLEASON Primary Care Unavailab le ABRAMOVICH, DAWSON Attending Unavailable ADDIERON Primary Care Unavailab le ADDIE, RON GLEASON Primary Care Unavailab le ABRAMOVICH, DAWSON Referring Unavailable ADDIERON Primary Care Unavailab le HOLBROOKJOI GARVIN Attending Unavailable ABRAMOVICH, DAWSON Referring Unavailable ADDIERON Primary Care Unavailab le ABRAMOVICH, DAWSON Referring Unavailable ADDIERON Primary Care Unavailab le ABRAMOVICH, DAWSON Referring Unavailable ADDIERON Primary Care Unavailab le ADDIE, RON GLEASON Primary Care Unavailab le ABRAMOVICH, DAWSON Referring Unavailable ADDIE, RON GLEASON Primary Care Unavailab le HOLBROOKJOI Referring Unavailable ADDIERON Primary Care Unavailab le ABRAMOVICH, DAWSON Referring Unavailable ADDIERON Primary Care Unavailab le ABRAMOVICH, DAWSON Referring Unavailable ADDIERON Primary Care Unavailab le ABRAMOVICH, DAWSON Referring Unavailable ABRAMOVICH, DAWSON Attending Unavailable RON REAL Primary Care Unavailab le ABRAMOVICH, DAWSON Referring Unavailable ADDIE RON GLEASON Primary Care Unavailab le ABRAMOVICH, DAWSON Referring Unavailable ADDIERON Primary [facility] Unavailab le ABRAMOVICH, DAWSON Attending Unavailable ADDIERON Primary [facility] Unavailab le ABRAMOVICH, DAWSON Referring Unavailable ADDIE RON GLEASON Primary Care Unavailab le ABRAMOVICH, DAWSON Referring Unavailable ADDIERON Primary Care Unavailab le Allergies Allergy Classification Reported Allergen(s) Allergy Type Date of Onset Reaction(s) Facility (20 sources) atorvastatin; Translations: [ATORVASTATIN] Drug Allergy 8 Unknown [facility] (20 sources) ezetimibe / Simvastatin; Translations: [EZETIMIBE-SIMV ASTATIN] Drug Allergy 8 Unknown [facility] (20 sources) rosuvastatin; Translations: [ROSUVASTATIN] Drug Allergy 8 Unknown [facility] (20 sources) HMG-CoA reductase inhibitor; Translations: [LDEBWEY-RAQ-XB A REDUCTASE INHIBITORS] Drug Allergy 2 Myalgia, Itching [facility] (19 sources) Hmg-Coa Reductase Inhibitors (Statins) Propensity to adverse reactions to drug 8 Itching, Other [facility] Medications Current Medications Medication Drug Class(es) Dates Sig (Normalized) Sig (Original) acetaminophen 500 mg oral tablet (6 sources) Start: 11-17-2022 End: 11-27-2022 take 1 tablet by mouth every six hours as needed for pain acetaminophen (Tylenol Extra Strength) 500 MG tablet Take 1 tablet (500 mg) by mouth every 6 hours as needed for mild pain (1-3) for up to 10 days. 30 tablet 0 11/17/2022 11/27/2022 Active Completed/Discontinued Medications Medication Drug Class(es) Dates Sig (Normalized) Sig (Original) ALPRAZolam 0.25 mg disintegrating oral tablet (2 sources) Benzodiazepine Start: 11-17-2022 End: 11-17-2022 ALPRAZolam (Xanax) disintegrating tablet 0.25 mg anastrozole 1 mg oral tablet (20 sources) Aromatase Inhibitor take 1 tablet by mouth once daily anastrozole (ARIMIDEX) 1 mg tablet Take 1 mg by mouth once daily. 0 Active Problems Active Problems Problem Classification Problem Date Documented Da te Episodic/Chronic Anxiety disorders (14 sources) Anxiety about treatment; Translations: [Generalized anxiety disorder] Onset: 11-15-2022 11-15-2022 Chronic Cancer of breast (20 sources) Malignant tumor of breast ; Translations: [Malignant neoplasm of unspecified site of unspecified female breast] Onset: 08-24-2021 02-28-2022 Chronic Cancer of breast (5 sources) History of malignant neoplasm of breast; Translations: [Personal history of malignant neoplasm of breast] Onset: 07-13-2022 Episodic Coronary atherosclerosis and other heart disease (20 sources) Coronary atherosclerosis; Translations: [Atherosclerotic heart disease of [place] coronary artery without angina pectoris] Onset: 09-15-2017 08-03-2021 Chronic Diabetes mellitus with complications (20 sources) Type II diabetes mellitus uncontrolled; Translations: [Uncontrolled type 2 diabetes mellitus] Onset: 09-15-2017 08-03-2021 Chronic Diabetes mellitus without complication (6 sources) Type 2 diabetes mellitus; Translations: [Type 2 diabetes mellitus without complications] Onset: 02-28-2022 Chronic Diabetes mellitus without complication (2 sources) Hyperglycemia, unspecified; Translations: [Hyperglycemia, unspecified] Onset: 11-15-2022 Episodic Disorders of lipid metabolism (20 sources) Hypertriglyceridemia ; Translations: [Pure hyperglyceridemia] Onset: 09-15-2017 08-03-2021 Chronic Essential hypertension (20 sources) Essential hypertension; Translations: [Essential (primary) hypertension] Onset: 02-28-2022 02-28-2022 Chronic Genitourinary symptoms and ill-defined conditions (7 sources) Dysuria; Translations: [Dysuria] 11-21-2022 Episodic Other gastrointestinal disorders (2 sources) Pelvic mass; Translations: [Intra-abdominal and pelvic swelling, mass and lump, unspecified site] 11-17-2022 Episodic Other gastrointestinal disorders (3 sources) Finding of abdominopelvic segment of trunk; Translations: [Intra-abdominal and pelvic swelling, mass and lump, unspecified site] Onset: 11-17-2022 11-17-2022 Episodic Other gastrointestinal disorders (1 source) Intra-abdominal and pelvic swelling, mass and lump, unspecified site; Translations: [Intra-abdominal and pelvic swelling, mass and lump, unspecified site] Onset: 11-17-2022 Episodic Other nutritional; endocrine; and metabolic disorders (4 sources) Obese class II; Translations: [Obesity, unspecified] Onset: 07-13-2022 07-13-2022 Chronic Other upper respiratory disease (20 sources) Allergic rhinitis; Translations: [Allergic rhinitis, unspecified] Onset: 09-15-2017 08-03-2021 Chronic Residual codes; unclassified (3 sources) Estrogen receptor positive tumor; Translations: [Estrogen receptor positive status [ER+]] Onset: 07-13-2022 Episodic Residual codes; unclassified (2 sources) Genetic susceptibility to malignant neoplasm of breast; Translations: [Genetic susceptibility to malignant neoplasm of breast] Onset: 07-13-2022 Episodic Residual codes; unclassified (4 sources) Genetic susceptibility to other malignant neoplasm; Translations: [Genetic susceptibility to other malignant neoplasm] Onset: 07-13-2022 Episodic Residual codes; unclassified (2 sources) Genetic susceptibility to malignant neoplasm of ovary; Translations: [Genetic susceptibility to malignant neoplasm of ovary] Onset: 07-13-2022 Episodic Residual codes; unclassified (1 source) Postoperative state; Translations: [Other specified postprocedural states] 12-04-2022 Episodic Residual codes; unclassified (2 sources) Other specified postprocedural states; Translations: [Other specified postprocedural states] Onset: 12-07-2022 Episodic Residual codes; unclassified (2 sources) Acquired absence of both cervix and uterus; Translations: [Acquired absence of both cervix and uterus] Onset: 11-17-2022 Episodic Residual codes; unclassified (1 source) Edema, unspecified; Translations: [Edema, unspecified type] Onset: 04-06-2023 Episodic Residual codes; unclassified (1 source) Localized edema; Translations: [Bilateral lower extremity edema] Onset: 04-06-2023 Episodic Secondary malignancies (1 source) Secondary malignant neoplasm of liver and intrahepatic bile duct; Translations: [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)] Onset: 01-04-2023 Chronic Thyroid disorders (4 sources) Acquired hypothyroidism; Translations: [Hypothyroidism, unspecified] Onset: 10-31-2022 Chronic Urinary tract infections (2 sources) Urinary tract infectious disease; Translations: [Urinary tract infection, site not specified] 11-25-2022 Episodic Past or Other Problems Problem Classification Problem Date Documented Date Episodic/Chronic Cancer of cervix (20 sources) Carcinoma in situ of uterine cervix; Translations: [Carcinoma in situ of cervix uteri] Onset: 06-21-2012 06-21-2012 Episodic Mood disorders (4 sources) Mood disorders Onset: 07-13-2022 Resolved: 07-13-2022 07-13-2022 Nonmalignant breast conditions (20 sources) Mammographic breast mass; Translations: [Unspecified lump in unspecified breast] Onset: 08-21-2021 09-19-2022 Episodic Other screening for suspected conditions (not mental disorders or infectious disease) (20 sources) Mammography abnormal; Translations: [Other abnormal and inconclusive findings on diagnostic imaging of breast] Onset: 06-09-2008 06-09-2008 Episodic Residual codes; unclassified (20 sources) Genetic susceptibility to cancer; Translations: [Genetic susceptibility to malignant neoplasm of breast] Onset: 05-17-2022 Episodic Residual codes; unclassified (20 sources) BRCA2 gene mutation positive; Translations: [Genetic susceptibility to malignant neoplasm of breast] Onset: 05-17-2022 Episodic Residual codes; unclassified (2 sources) Estrogen receptor positive status [ER+]; Translations: [Estrogen receptor positive status (ER+)] Onset: 02-28-2022 Episodic Results Test Name Value Interpretation Reference Range Facil ity Vital Signs Date Time Vital Sign Value Performing Clinician Facility 02-15-2023 09:20-0500 Body height 160 cm Ron Real MD Work Phone: [facility] 02-15-2023 09:20-0500 Body temperature 97.59 [degF] Ron Real MD Work Phone: [facility] 02-15-2023 09:20-0500 Body weight 83.28 kg Ron Real MD Work Phone: [facility] 12-06-2023 09:20-0500 Diastolic blood pressure 88 mm[Hg] Ron Real MD Work Phone: [facility] 02-15-2023 09:20-0500 Heart rate 92 /min Ron Real MD Work Phone: [facility] 02-15-2023 09:20-0500 Respiratory rate 18 /min Rno Real MD Work Phone: [facility] 02-15-2023 09:20-0500 SaO2% (BldA) [Mass fraction] 96 % Ron Real MD Work Phone: [facility] 02-15-2023 09:20-0500 Systolic blood pressure 134 mm[Hg] Ron Real MD Work Phone: [facility] 02-10-2023 14:27-0500 Body temperature 98.01 [degF] Taylor Reinoso APRN.CHIEF OPERATING OFFICER Work Phone: [facility] 02-10-2023 14:27-0500 Body weight 84.82 kg Taylor Reinoso APRN.CHIEF OPERATING OFFICER Work Phone: [facility] 02-10-2023 14:27-0500 Diastolic blood pressure 84 mm[Hg] Taylor Reinoso APRN.CHIEF OPERATING OFFICER Work Phone: [facility] 02-10-2023 14:27-0500 Heart rate 72 /min Taylor Reinoso APRN.CHIEF OPERATING OFFICER Work Phone: [facility] 02-10-2023 14:27-0500 Respiratory rate 18 /min Taylor Reinoso APRN.CHIEF OPERATING OFFICER Work Phone: [facility] 02-10-2023 14:27-0500 SaO2% (BldA) [Mass fraction] 99 % Taylor Reinoso APRN.CHIEF OPERATING OFFICER Work Phone: [facility] 02-10-2023 14:27-0500 Systolic blood pressure 136 mm[Hg] Taylor Reinoso APRN.CHIEF OPERATING OFFICER Work Phone: [facility] 02-08-2023 08:42-0500 Body temperature 98.49 [degF] Dawson Tipton MD Work Phone: [facility] 02-08-2023 08:42-0500 Body weight 84.37 kg Dawson Tipton MD Work Phone: [facility] 02-08-2023 08:42-0500 Diastolic blood pressure 83 mm[Hg] Dawson Tipton MD Work Phone: [facility] 02-08-2023 08:42-0500 Heart rate 77 /min Dawson Tipton MD Work Phone: [facility] 02-08-2023 08:42-0500 SaO2% (BldA) [Mass fraction] 99 % Dawson Tipton MD Work Phone: [facility] 02-08-2023 08:42-0500 Systolic blood pressure 116 mm[Hg] Dawson Tipton MD Work Phone: [facility] 01-25-2023 15:09-0500 Body temperature 97.3 [degF] Injection Wstr Work Phone: [facility] 01-25-2023 15:09-0500 Body weight 85.28 kg Injection Wstr Work Phone: [facility] 01-25-2023 15:09-0500 Diastolic blood pressure 85 mm[Hg] Injection Wstr Work Phone: [facility] 01-25-2023 15:09-0500 Heart rate 82 /min Injection Wstr Work Phone: [facility] 01-25-2023 15:09-0500 Systolic blood pressure 130 mm[Hg] Injection Wstr Work Phone: [facility] 01-11-2023 11:38-0400 Body temperature 98.1 [degF] Injection Wstr Work Phone: [facility] 01-11-2023 11:38-0400 Body weight 85.73 kg Injection Wstr Work Phone: [facility] 01-11-2023 11:38-0400 Diastolic blood pressure 86 mm[Hg] Injection Wstr Work Phone: [facility] 01-11-2023 11:38-0400 Heart rate 72 /min Injection Wstr Work Phone: [facility] 01-11-2023 11:38-0400 Systolic blood pressure 144 mm[Hg] Injection Wstr Work Phone: [facility] 01-03-2023 09:08-0400 Body height 160.7 cm Dawson Tipton MD Work Phone: [facility] 01-03-2023 09:08-0400 Body temperature 97.11 [degF] Dawson Tipton MD Work Phone: [facility] 01-03-2023 09:08-0400 Body weight 85.96 kg Dawson Tipton MD Work Phone: [facility] 01-03-2023 09:08-0400 Diastolic blood pressure 89 mm[Hg] Dawson Tipton MD Work Phone: [facility] 01-03-2023 09:08-0400 Heart rate 77 /min Dawson Tipton MD Work Phone: [facility] 01-03-2023 09:08-0400 SaO2% (BldA) [Mass fraction] 98 % Dawson Tipton MD Work Phone: [facility] 01-03-2023 09:08-0400 Systolic blood pressure 132 mm[Hg] Dawson Tipton MD Work Phone: [facility] 12-24-2022 12:23-0400 Body temperature 98.1 [degF] Taylor Reinoso APRN.CHIEF OPERATING OFFICER Work Phone: [facility] 12-24-2022 12:23-0400 Body weight 86.91 kg Taylor Reinoso APRN.CHIEF OPERATING OFFICER Work Phone: [facility] 12-24-2022 12:23-0400 Diastolic blood pressure 86 mm[Hg] Taylor Reinoso APRN.CHIEF OPERATING OFFICER Work Phone: [facility] 12-24-2022 12:23-0400 Heart rate 77 /min Taylor Reinoso APRN.CHIEF OPERATING OFFICER Work Phone: [facility] 12-24-2022 12:23-0400 Respiratory rate 18 /min Taylor Reinoso UX ARCHITECT.CHIEF OPERATING OFFICER Work Phone: [facility] 12-24-2022 12:23-0400 SaO2% (BldA) [Mass fraction] 98 % Tayloryoly Reinoso APRN.CHIEF OPERATING OFFICER Work Phone: [facility] 12-24-2022 12:23-0400 Systolic blood pressure 134 mm[Hg] Taylor Kemar FENTON.CHIEF OPERATING OFFICER Work Phone: [facility] 12-07-2022 11:31-0400 Body height 162.6 cm Jarad Saba MD Work Phone: [facility] 12-07-2022 11:31-0400 Body mass index (BMI) [Ratio] 33.13 kg/m2 Jarad Saba MD Work Phone: [facility] 12-07-2022 11:31-0400 Body weight 87.54 kg Jarad Saba MD Work Phone: [facility] 12-07-2022 11:31-0400 Diastolic blood pressure 83 mm[Hg] Jarad Saba MD Work Phone: [facility] 12-07-2022 11:31-0400 Heart rate 79 /min Jarad Saba MD Work Phone: [facility] 12-07-2022 11:31-0400 Systolic blood pressure 120 mm[Hg] Jarad Saba MD Work Phone: [facility] 11-17-2022 17:15-0400 Diastolic blood pressure 89 mm[Hg] Jarad Saba MD Work Phone: [facility] 11-17-2022 17:15-0400 Heart rate 76 /min Jarad Saba MD Work Phone: [facility] 11-17-2022 17:15-0400 Respiratory rate 18 /min Jarad Saba MD Work Phone: [facility] 11-17-2022 17:15-0400 SaO2% (BldA) [Mass fraction] 94 % Jarad Saba MD Work Phone: [facility] 11-17-2022 17:15-0400 Systolic blood pressure 138 mm[Hg] Jarad Saba MD Work Phone: [facility] 11-17-2022 15:42-0400 Body temperature 97.2 [degF] Jarad Saba MD Work Phone: [facility] 10-31-2022 10:21-0400 Body height 162.6 cm Ron Real MD Work Phone: [facility] 10-31-2022 10:210400 Body temperature 98.1 [degF] Ron Real MD Work Phone: [facility] 10-31-2022 10:21-0400 Body weight 89.93 kg Ron Real MD Work Phone: [facility] 10-31-2022 10:21-0400 Diastolic blood pressure 78 mm[Hg] Ron Real MD Work Phone: [facility] 10-31-2022 10:21-0400 Heart rate 73 /min Ron Real MD Work Phone: [facility] 10-31-2022 10:21-0400 Respiratory rate 16 /min Ron Real MD Work Phone: [facility] 10-31-2022 10:21-0400 SaO2% (BldA) [Mass fraction] 99 % Ron Real MD Work Phone: [facility] 10-31-2022 10:21-0400 Systolic blood pressure 128 mm[Hg] Ron Real MD Work Phone: [facility] 07-13-2022 14:12-0400 Body temperature 97.9 [degF] Ignacio Ortez MD Work Phone: [facility] 07-13-2022 13:55-0400 Body height 161.3 cm Ignacio Ortez MD Work Phone: [facility] 07-13-2022 13:55-0400 Body mass index (BMI) [Ratio] 35.01 kg/m2 Ignacio Ortez MD Work Phone: [facility] 07-13-2022 13:55-0400 Body weight 91.1 kg Ignacio Ortez MD Work Phone: [facility] 07-13-2022 13:55-0400 Diastolic blood pressure 79 mm[Hg] Ignacio Ortez MD Work Phone: [facility] 07-13-2022 13:55-0400 Heart rate 85 /min Ignacio Ortez MD Work Phone: [facility] 07-13-2022 13:55-0400 Systolic blood pressure 139 mm[Hg] Ignacio Ortez MD Work Phone: [facility] 07-13-2022 10:43-0400 Body height 161.3 cm Jarad Rodriguez MD Work Phone: [facility] 07-13-2022 10:43-0400 Body mass index (BMI) [Ratio] 35.01 kg/m2 Jarad Rodriguez MD Work Phone: [facility] 07-13-2022 10:43-0400 Body temperature 97.59 [degF] Jarad Rodriguez MD Work Phone: [facility] 07-13-2022 10:43-0400 Body weight 91.08 kg Jarad Rodriguez MD Work Phone: [facility] 07-13-2022 10:43-0400 Diastolic blood pressure 79 mm[Hg] Jarad Rodriguez MD Work Phone: [facility] 07-13-2022 10:43-0400 Heart rate 85 /min Jarad Rodriguez MD Work Phone: [facility] 07-13-2022 10:43-0400 Systolic blood pressure 139 mm[Hg] Jarad Rodriguez MD Work Phone: [facility] 06-08-2022 16:35-0400 Body height 162.6 cm Ron Real MD Work Phone: [facility] 06-08-2022 16:35-0400 Body temperature 97.11 [degF] Ron Real MD Work Phone: [facility] 06-08-2022 16:35-0400 Body weight 91.17 kg Ron Real MD Work Phone: [facility] 06-08-2022 16:35-0400 Diastolic blood pressure 82 mm[Hg] Ron Real MD Work Phone: [facility] 06-08-2022 16:35-0400 Heart rate 81 /min Ron Real MD Work Phone: [facility] 06-08-2022 16:35-0400 Respiratory rate 18 /min Ron Real MD Work Phone: [facility] 06-08-2022 16:35-0400 SaO2% (BldA) [Mass fraction] 97 % Ron Real MD Work Phone: [facility] 06-08-2022 16:35-0400 Systolic blood pressure 130 mm[Hg] Ron Real MD Work Phone: [facility] 02-28-2022 10:07-0500 Body height 162.6 cm Ron Real MD Work Phone: [facility] 02-28-2022 10:07-0500 Body temperature 97.59 [degF] Ron Real MD Work Phone: [facility] 02-28-2022 10:07-0500 Body weight 90.99 kg Ron Real MD Work Phone: [facility] 02-28-2022 10:07-0500 Diastolic blood pressure 84 mm[Hg] Ron Real MD Work Phone: [facility] 02-28-2022 10:07-0500 Heart rate 84 /min Ron Real MD Work Phone: [facility] 02-28-2022 10:07-0500 Respiratory rate 18 /min Ron Real MD Work Phone: [facility] 02-28-2022 10:07-0500 SaO2% (BldA) [Mass fraction] 98 % Ron Real MD Work Phone: [facility] 02-28-2022 10:07-0500 Systolic blood pressure 124 mm[Hg] Ron Real MD Work Phone: [facility] 04-12-2021 13:19-0500 Body temperature 97.7 [degF] Ron Real MD Work Phone: [facility] 04-12-2021 13:19-0500 Body weight 97.64 kg Ron Real MD Work Phone: [facility] 04-12-2021 13:19-0500 Diastolic blood pressure 74 mm[Hg] Ron Real MD Work Phone: [facility] 04-12-2021 13:19-0500 Heart rate 80 /min Ron Real MD Work Phone: [facility] 04-12-2021 13:19-0500 Respiratory rate 14 /min Ron Real MD Work Phone: [facility] 04-12-2021 13:19-0500 SaO2% (BldA) [Mass fraction] 94 % Ron Real MD Work Phone: [facility] 04-12-2021 13:19-0500 Systolic blood pressure 122 mm[Hg] Ron Real MD Work Phone: [facility] Encounters Encounter Date Encounter Type Care Provider Facility Start: 04-06-2023 End: 04-06-2023 ambulatory JOI HOLBROOK Facility:[facility] Start: 04-06-2023 End: 04-06-2023 ambulatory RON REAL Facility:[facility] Start: 04-06-2023 End: 04-07-2023 ambulatory DAWSON LERNERMYAnastasiia Facility:[facility] Start: 04-02-2023 End: 04-02-2023 ambulatory RON REAL Facility:[facility] Start: 03-30-2023 End: 03-30-2023 ambulatory DAWSON TIPTON Facility:[facility] Start: 03-29-2023 End: 03-30-2023 ambulatory DAWSON HORAN Facility:[facility] Start: 03-28-2023 End: 03-28-2023 ambulatory DAWSON HORAN Facility:[facility] Start: 03-27-2023 End: 03-27-2023 [facility] Start: 03-24-2023 End: 03-25-2023 ambulatory DAWSON ELMY Facility:[facility] Start: 03-17-2023 End: 03-18-2023 ambulatory DAWSON HORAN Facility:[facility] Start: 03-08-2023 End: 03-08-2023 [facility] Start: 02-22-2023 Telephone encounter Ron Real MD Work Phone: [facility] [place] Procedures Date Procedure Procedure Detail Performing Clinician Start: 02-10-2023 Urnls dip stick/tabl et rgnt auto w/o microscopy Paige Perea PA-C Work Phone: Start: 12-24-2022 Urnls dip stick/tabl et rgnt auto w/o microscopy Kelsie Preston UX ARCHITECT.CHIEF OPERATING OFFICER Work Phone: Start: 11-17-2022 Glucose quantitative blood xcpt reagent strip Jarad Saba MD Work Phone: Start: 11-17-2022 Glucose quantitative blood xcpt reagent strip Jarad Saba MD Work Phone: Start: 07-13-2022 End: 07-13-2022 Diagnostic mammography computer-aided detcj bi Yessi Valdez UX ARCHITECT-CHIEF OPERATING OFFICER Work Phone: Start: 05-16-2022 Colonoscopy Ron cabrera MD Work Phone: Start: 08-12-2021 Mammography Jarad castellanos MD Work Phone: Start: 05-14-2012 Mammography Ron cabrera MD Work Phone: H/O: hysterectomy S/P hysterectomy Armando Saba MD Work Phone: Plan of Treatment Date Care Activity Detail Author Start: 05-16-2032 Screening for malignant neoplasm of colon [facility] Start: 05-16-2025 Colonoscopy COLONOSCOPY [facility] Start: 05-16-2025 COLORECTAL CANCER SCREENING COLORECTAL CANCER SCREENING [facility] Start: 05-16-2025 Screening for malignant neoplasm of colon [facility] Start: 02-16-2024 Annual PCP Team Chronic Disease Visit Annual PCP Team Chronic Disease Visit [facility] Start: 02-07-2024 Hepatitis B surface antibody level LDL Cholesterol [facility] Start: 11-01-2023 ANNUAL PCP TEAM CHRONIC DISEASE VISIT ANNUAL PCP TEAM CHRONIC DISEASE VISIT [facility] Start: 11-01-2023 BP CONTROLLED (<130/80) BP CONTROLLED (<130/80) [facility] Start: 09-20-2023 ANNUAL PCP TEAM CHRONIC DISEASE VISIT ANNUAL PCP TEAM CHRONIC DISEASE VISIT [facility] Start: 08-07-2023 Hemoglobin A1c measurement HbA1C [facility] Start: 08-07-2023 Hemoglobin A1c/Hemoglobin.total in Blood HbA1C [facility] Start: 07-14-2023 Mammography [facility] Start: 07-14-2023 Screening for malignant neoplasm of breast [facility] Start: 06-09-2023 ANNUAL PCP TEAM CHRONIC DISEASE VISIT ANNUAL PCP TEAM CHRONIC DISEASE VISIT [facility] Start: 05-17-2023 End: 08-16-2023 Comprehensive metabolic 2000 panel - Serum or Plasma COMP METABOLIC PANEL Lab Routine Pure hypercholesterolemia Diabetes beginning in adulthood (type 2/adult onset) (HCC) Expected: 05/17/2023, Expires: 08/16/2023 [facility] Work Phone: Payers Date Payer Category Payer Unknown ADRIEN JURADO xx [id number] 2022-Present [address] [address] [place] [address] [id number] 2020 Medicaid [id number] 2020 Unknown [id number] 1960 Unknown [id number] 1960 Unknown [id number] 1960 Unknown [id number] 1960 Unknown [id number] Social History Date Type Detail Facility Start: 03-26-2012 End: 01-03-2023 Tobacco smoking status NHIS Ex-smoker [facility] End: 03-13-2003 History of tobacco use Current smoker [facility] Start: 08-03-2021 End: 02-15-2023 Alcohol intake Current drinker of alcohol (finding) [facility] Start: 1960 Sex Assigned At Not on file C [facility] End: 03-13-2003 History of tobacco use Cigarette Smoker [facility] Start: 03-26-2012 End: 01-03-2023 Tobacco use and exposure Smokeless tobacco non-user [facility] Start: 07-13-2022 End: 09-19-2022 Cigarettes smoked current (pack per day) - Reported 0.5 [facility] Start: 09-19-2022 End: 02-15-2023 Tobacco use panel [facility] National Score (1-100), lower number is lower risk 99 [facility] Start: 09-19-2022 Education 15 [facility] Start: 09-19-2022 Gender identity Identifies as female gender (finding) [facility] Start: 09-19-2022 Sexual orientation Heterosexual (fin ding) [facility] Start: 11-11-2022 Tobacco smoking stat us NHIS Never smoked tobacco [facility] Start: 11-15-2022 Alcohol Comment 4 drinks a month [facility] Start: 11-07-2022 End: 11-17-2022 Exposure to SARS-CoV-2 (event) Not sure [facility] Start: 02-08-2023 Alcohol Comment occ [facility] NEGATED: Highlighted rowStart: JONOF History of tobacco use Passive smoker [facility] Medical Equipment Procedure Code Equipment Code Equipment Origin al Text Equipment Identifier Dates [id number] Start: 10-08-2018 Clinical Notes 11-25-2021 to 04-06-2023 Telephone Encounter - Denae Cervantes LPN - 02/22/2023 2:54 PM ESTTelephone Encounter - Denae Cervantes LPN - 02/20/2023 1:47 PM ESTTelephone Encounter - Shira Harman ARCH SUPPORT TECHNICIAN - 02/16/2023 2:09 PM EST Note Date & Type Note Facility 04-06-2023 Note HNO ID: [id number] Author: JOI HOLBROOK, ? Service: ? Author Type: Nurse Practitioner Type: Progress Notes Filed: 04/06/2023 17:07 Note Text: Kerry Will 1960 04/06/2023 HISTORY OF PRESENT ILLNESS: Kerry Will is a 62 year old female history of left breast cancer dx in August 2021, lumpectomy in October 2021 pT1cNo Oncotype 25, received adjuvant RT, then placed on anastrozole. She is BRCA2 positive. 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 ER+/RI-/Her2 0. PET show liver lesions, also breast uptake and several pelvic bone lesions. She saw her oncologist at [facility], recommended elacestrant. She came here for another opinion. Reviewed all findings, she feels well. Do not see ESR1 mutation assay was done. She elected to receive treatment here, faslodex and ibrance. Started January 2023 Here for follow up, family thought she looked yellow. Checked cmp, bili elevated. CT scan shows interval worsening of liver disease Interval History: Ms. Will presents today with her sister for evaluation prior to weekly taxol. Started C1D1 on 03/29/2023. She reports that since Monday she has had severe mouth pain, ulcerations and fatigue. Was seen in urgent care on Monday and dx with thrush. She was provided nystatin rinse, which she feels has helped mildly. Today she is barely able to open her mouth, due to pain and feels that this skin is stretching. Not eating or drinking more than a few oz since Monday. 04/01/23. She feels that she may be slightly more jaundice than she was last week. Bilateral lower extremities swollen. Labs pending: Plan to hold treatment. Continue with hydration today. Denies fevers, chills or NS. No SOB, CP, N/V/C/D. Denies DALY, dizziness. No abdominal pain. 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 03/13/2012 Coronary atherosclerosis of unspecified type of vessel, twin hills or graft Coronary artery disease Depression Diabetes mellitus (HCC) Esophageal reflux Hypothyroidism Mixed hyperlipidemia Hyperlipidemia PMH - PAST MEDICAL HISTORY OF abnormal pap-althea 1 Unspecified essential hypertension Essential hypertension PAST SURGICAL HISTORY Procedure Laterality Date BREAST LUMPECTOMY HX Left 2021 BX BREAST PERC VACUUM/ROTN 07/01/2008 right CONIZATION OF CERVIX; COLD KNIFE/LASER 03/13/2012 atypical endocervical glandular cells HYSTERECTOMY HX HYSTEROSCOPY WBX WWO D AND C ANDOR POLYPECTOMY 03/13/2012 INSERT INTRACORONARY STENT 03/13/2004 [facility] LOCALN CLIP,PERC,DURING BREAST BX 07/01/2008 right FAMILY HISTORY Problem Relation Age of Onset Skin Cancer Mother Heart disease Father Hypertension Father Dementia Father Kidney Disease Father Renal Disease Father Cancer Paternal Aunt OVARIAN Breast Cancer Paternal Aunt Social History Tobacco Use Smoking status: Former Packs/day: 0.50 Years: 10.00 Additional pack years: 0.00 Total pack years: 5.00 Types: Cigarettes Quit date: 02/14/2001 Years since quittin.1 Passive exposure: Never Smokeless tobacco: Never Vaping Use Vaping Use: Never used Substance Use Topics Alcohol use: Yes Comment: occ Drug use: No ALLERGIES: ALLERGIES Allergen Reactions Atorvastatin Unknown Rosuvastatin Unknown Vytorin 12/20 [Ezet* Unknown Ihbrnik-Eya-Bfo Red* Myalgia, Itching CURRENT OUTPATIENT MEDICATIONS: nystatin (MYCOSTATIN) 100,000 unit/mL suspension Take 5 mL by mouth four times daily. 1tsp swish in mouth for several minutes, then swallow (or expectorate) 4 times daily until gone. prochlorperazine (COMPAZINE) 10 mg tablet Take 1 tablet by mouth every 6 hours as needed. levothyroxine (SYNTHROID) 25 mcg tablet Take 1 tablet by mouth once daily lisinopril (ZESTRIL) 10 mg tablet Take 1 tablet by mouth once daily Coenzyme Q10 (CO Q-10) 200 mg cap Take 1 capsule by mouth once daily. ondansetron (ZOFRAN) 8 mg tablet Take 1 tablet by mouth every 8 hours as needed. Vitamin E, dl, acetate, 1,000 unit capsule Take 1 capsule by mouth once daily. Milk Thistle 150 mg cap Take 1 capsule by mouth once daily. venlafaxine ER (EFFEXOR XR) 150 mg 24 hr capsule Take 1 capsule by mouth once daily. metFORMIN ER (GLUCOPHAGE XR) 500 mg 24 hr tablet Take 2 tablets by mouth twice daily. loratadine (CLARITIN) 10 mg tablet Take 1 tablet by mouth once daily. Cinnamon Bark 500 mg cap Take 1 capsule by mouth once daily. Zinc 50 mg tab Take 1 tablet by mouth once daily. Red Yeast Rice Extract 600 mg cap Take 1 capsule by mouth once daily. cholecalciferol (VITAMIN D3) 5,000 unit tab Take 2,000 Units by mouth once daily. blood sugar diagnostic (FREESTYLE LITE STRIPS) test strip Use as instructed Lancets lancets [facility] LANCETS ORIGINAL ASPIRIN 81 (more content not included)... [facility] 04-02-2023 Note HNO ID: [id number] Author: BIBI BROUSSARD PA Service: ? Author Type: Physician Social Welfare Research Worker Type: Progress Notes Filed: 04/02/2023 14:58 Note Text: This note was created using [employer]. Subjective Kerry Will is a 62 year old female. HPI 62-year-old female presents for mouth pain. Patient states it started a couple of days ago. She is still to build to drink fluids. She reports pain with eating. She states she has a little bit of sore throat as well. No fevers. She does have cancer and is in chemotherapy. She states she was recently on steroids. No recent antibiotics. 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 03/13/2012 Coronary atherosclerosis of unspecified type of vessel, twin hills or graft Coronary artery disease Depression Diabetes mellitus (HCC) Esophageal reflux Hypothyroidism Mixed hyperlipidemia Hyperlipidemia PMH - PAST MEDICAL HISTORY OF abnormal pap-althea 1 Unspecified essential hypertension Essential hypertension PAST SURGICAL HISTORY Procedure Laterality Date BREAST LUMPECTOMY HX Left 2021 BX BREAST PERC VACUUM/ROTN 07/01/2008 right CONIZATION OF CERVIX; COLD KNIFE/LASER 03/13/2012 atypical endocervical glandular cells HYSTERECTOMY HX HYSTEROSCOPY WBX WWO D AND C ANDOR POLYPECTOMY 03/13/2012 INSERT INTRACORONARY STENT 03/13/2004 [facility] LOCALZTN CLIP,PERC,DURING BREAST BX 07/01/2008 right ALLERGIES Atorvastatin, Rosuvastatin, Vytorin 12/20 [Ezetimibe-Simvastatin], and Ycrsbfo-Ddl-Ykz Reductase Inhibitors MEDICATIONS prochlorperazine (COMPAZINE) 10 mg tablet Take 1 tablet by mouth every 6 hours as needed. levothyroxine (SYNTHROID) 25 mcg tablet Take 1 tablet by mouth once daily lisinopril (ZESTRIL) 10 mg tablet Take 1 tablet by mouth once daily Coenzyme Q10 (CO Q-10) 200 mg cap Take 1 capsule by mouth once daily. ondansetron (ZOFRAN) 8 mg tablet Take 1 tablet by mouth every 8 hours as needed. Vitamin E, dl, acetate, 1,000 unit capsule Take 1 capsule by mouth once daily. Milk Thistle 150 mg cap Take 1 capsule by mouth once daily. palbociclib (IBRANCE) 125 mg tablet Take 1 tablet (125 mg) by mouth once daily. Take for 21 days on, followed by 7 days off. Take with or without food. venlafaxine ER (EFFEXOR XR) 150 mg 24 hr capsule Take 1 capsule by mouth once daily. metFORMIN ER (GLUCOPHAGE XR) 500 mg 24 hr tablet Take 2 tablets by mouth twice daily. loratadine (CLARITIN) 10 mg tablet Take 1 tablet by mouth once daily. Cinnamon Bark 500 mg cap Take 1 capsule by mouth once daily. Zinc 50 mg tab Take 1 tablet by mouth once daily. Red Yeast Rice Extract 600 mg cap Take 1 capsule by mouth once daily. cholecalciferol (VITAMIN D3) 5,000 unit tab Take 2,000 Units by mouth once daily. blood sugar diagnostic (FREESTYLE LITE STRIPS) test strip Use as instructed Lancets lancets [facility] LANCETS ORIGINAL ASPIRIN 81 MG TAB Take 81 mg by mouth once daily. nystatin (MYCOSTATIN) 100,000 unit/mL suspension Take 5 mL by mouth four times daily. 1tsp swish in mouth for several minutes, then swallow (or expectorate) 4 times daily until gone. FAMILY HISTORY Problem Relation Age of Onset Skin Cancer Mother Heart disease Father Hypertension Father Dementia Father Kidney Disease Father Renal Disease Father Cancer Paternal Aunt OVARIAN Breast Cancer Paternal Aunt Social History Tobacco Use Smoking status: Former Packs/day: 0.50 Years: 10.00 Additional pack years: 0.00 Total pack years: 5.00 Types: Cigarettes Quit date: 02/14/2001 Years since quittin.1 Passive exposure: Never Smokeless tobacco: Never Vaping Use Vaping Use: Never used Substance Use Topics Alcohol use: Yes Comment: occ Drug use: No Review of Systems Constitutional: Negative for chills and fever. HENT: Positive for mouth sores and sore throat. Negative for congestion and ear pain. Respiratory: Negative for cough and shortness of breath. Cardiovascular: Negative for chest pain. Gastrointestinal: Negative for abdominal pain, diarrhea and vomiting. Objective BP 148/90 Pulse 110 Temp 36.5 ?C (97.7 ?F) Resp 21 Wt 92 kg (202 lb 12.8 oz) LMP 02/01/2010 SpO2 96% BMI 35.92 kg/m? Physical Exam Vitals and nursing note reviewed. Constitutional: General: She is not in acute distress. Appearance: Normal appearance. She is not toxic-appearing. HENT: Right Ear: Tympanic membrane and ear canal normal. Left Ear: Tympanic membrane and ear canal normal. Nose: Nose normal. Mouth/Throat: Mouth: Mucous membranes are moist. Oral lesions present. Pharynx: No oropharyngeal exudate or posterior oropharyngeal erythema. Comments: White lesions noted on the buccal mucosa and several white lesions noted on the tongue. No throat lesions. Mucous membranes slightly sticky, but not dry. Eyes: Conjunctiva/sclera: Conjunctivae normal. Cardiovascu (more content not included)... [facility] 03-29-2023 Note HNO ID: [id number] Author: SHANNON DOE RN Service: ? Author Type: Registered Nurse Type: Progress Notes Filed: 03/29/2023 13:29 Note Text: Assessment unchanged from Dr Tipton office visit on 03/28/23 [facility] 03-28-2023 Note HNO ID: [id number] Author: DAWSON TIPTON MD Service: ? Author Type: Physician Type: Progress Notes Filed: 03/28/2023 14:43 Note Text: (Elements copied from my note dated February 08, 2023, have been reviewed and updated where appropriate, and all reflect current assessment and medical decision making from today's encounter, March 28, 2023) HISTORY OF PRESENT ILLNESS: Kerry Will is a 62 year old female history of left breast cancer dx in August 2021, lumpectomy in October 2021 pT1cNo Oncotype 25, received adjuvant RT, then placed on anastrozole. She is BRCA2 positive. 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 ER+/RI-/Her2 0. PET show liver lesions, also breast uptake and several pelvic bone lesions. She saw her oncologist at [facility], recommended elacestrant. She came here for another opinion. Reviewed all findings, she feels well. Do not see ESR1 mutation assay was done. She elected to receive treatment here, faslodex and ibrance. Started January 2023 Here for follow up, family thought she looked yellow. Checked cmp, bili elevated. CT scan shows interval worsening of liver disease CLINICAL IMPRESSION: Recurrent breast cancer metastatic to liver and bone. Progressive liver mets. Concern for organ function impairment RECOMMENDATION/PLAN: 1. Stop endocrine therapy 2. Switch to weekly taxol 3. Consider subsequent switch to olaparib when LFT improved 4. Guardant testing Written and verbal health teaching given to patient, patient verbalizes understanding and agrees with treatment plan. 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 03/13/2012 Coronary atherosclerosis of unspecified type of vessel, twin hills or graft Coronary artery disease Depression Diabetes mellitus (HCC) Esophageal reflux Hypothyroidism Mixed hyperlipidemia Hyperlipidemia PMH - PAST MEDICAL HISTORY OF abnormal pap-althea 1 Unspecified essential hypertension Essential hypertension PAST SURGICAL HISTORY Procedure Laterality Date BREAST LUMPECTOMY HX Left 2021 BX BREAST PERC VACUUM/ROTN 07/01/2008 right CONIZATION OF CERVIX; COLD KNIFE/LASER 03/13/2012 atypical endocervical glandular cells HYSTERECTOMY HX HYSTEROSCOPY WBX WWO D AND C ANDOR POLYPECTOMY 03/13/2012 INSERT INTRACORONARY STENT 03/13/2004 [facility] LOCALZTN CLIP,PERC,DURING BREAST BX 07/01/2008 right FAMILY HISTORY Problem Relation Age of Onset Skin Cancer Mother Heart disease Father Hypertension Father Dementia Father Kidney Disease Father Renal Disease Father Cancer Paternal Aunt OVARIAN Breast Cancer Paternal Aunt Social History Tobacco Use Smoking status: Former Packs/day: 0.50 Years: 10.00 Additional pack years: 0.00 Total pack years: 5.00 Types: Cigarettes Quit date: 02/14/2001 Years since quittin.1 Passive exposure: Never Smokeless tobacco: Never Vaping Use Vaping Use: Never used Substance Use Topics Alcohol use: Yes Comment: occ Drug use: No ALLERGIES: ALLERGIES Allergen Reactions Atorvastatin Unknown Rosuvastatin Unknown Vytorin 12/20 [Ezet* Unknown Oiwucjj-Idi-Ruq Red* Myalgia, Itching CURRENT OUTPATIENT MEDICATIONS: levothyroxine (SYNTHROID) 25 mcg tablet Take 1 tablet by mouth once daily lisinopril (ZESTRIL) 10 mg tablet Take 1 tablet by mouth once daily Coenzyme Q10 (CO Q-10) 200 mg cap Take 1 capsule by mouth once daily. ondansetron (ZOFRAN) 8 mg tablet Take 1 tablet by mouth every 8 hours as needed. Vitamin E, dl, acetate, 1,000 unit capsule Take 1 capsule by mouth once daily. Milk Thistle 150 mg cap Take 1 capsule by mouth once daily. palbociclib (IBRANCE) 125 mg tablet Take 1 tablet (125 mg) by mouth once daily. Take for 21 days on, followed by 7 days off. Take with or without food. venlafaxine ER (EFFEXOR XR) 150 mg 24 hr capsule Take 1 capsule by mouth once daily. metFORMIN ER (GLUCOPHAGE XR) 500 mg 24 hr tablet Take 2 tablets by mouth twice daily. loratadine (CLARITIN) 10 mg tablet Take 1 tablet by mouth once daily. Cinnamon Bark 500 mg cap Take 1 capsule by mouth once daily. Zinc 50 mg tab Take 1 tablet by mouth once daily. Red Yeast Rice Extract 600 mg cap Take 1 capsule by mouth once daily. cholecalciferol (VITAMIN D3) 5,000 unit tab Take 2,000 Units by mouth once daily. blood sugar diagnostic (FREESTYLE LITE STRIPS) test strip Use as instructed Lancets lancets [facility] LANCETS ORIGINAL ASPIRIN 81 MG TAB Take 81 mg by mouth once daily. prochlorperazine (COMPAZINE) 10 mg tablet Take 1 tablet by mouth every 6 hours as needed. REVIEW OF SYSTEMS: GENERAL: No fever, night sweats, weight loss or malaise. All other reviewed and negative other than HPI. PHYSICAL EXAMINATION: VITAL SIGNS: BP 130/88 Pulse 1 (more content not included)... [facility] 03-27-2023 Note HNO ID: [id number] Author: MERA BURROWS RT(R) Service: ? Author Type: Rn Critical Care Type: Progress Notes Filed: 03/27/2023 14:59 Note Text: Radiology Service Progress Note DATE OF SERVICE: March 27, 2023 TIME: 2:59 PM PATIENT IDENTITY VERIFICATION COMPLETED USING TWO (2) STANDARD IDENTIFIERS: Name and Date of confirmed by patient verbally. FALL SCREENING: Has the patient had 2 falls in the last year or 1 fall with injury or currently using an Ambulatory Assistive Device (Walker, Cane, Wheelchair, Crutches, etc.)? No PATIENT GENDER DATA: Female. status: : No status: NO. PATIENT RELEVANT IMPLANT DATA REVIEWED: Yes ALLERGIES: Reviewed and unchanged CONTRAST ALLERGY: NO. EXAM: CT -CONTRAST INDUCED NEPHROPATHY RISK FACTORS: Patient age > 60 years CREATININE: Creatinine Date Value Ref Range Status 03/24/2023 0.79 0.58 - 0.96 mg/dL Final 02/06/2023 0.76 0.51 - 0.95 mg/dL Final Comment: Patients receiving either N-Acetylcysteine (NAC) or Metamizole prior to venipuncture, may have falsely depressed results. 02/28/2022 0.68 0.51 - 0.95 mg/dL Final Comment: Patients receiving either N-Acetylcysteine (NAC) or Metamizole prior to venipuncture, may have falsely depressed results. Estimated Glomerular Filtration Rate Date Value Ref Range Status 03/24/2023 85 >=60 mL/min/1.73m? Final Comment: Estimated Glomerular Filtration Rate (eGFR) is calculated using the 2020 CKD-EPI creatinine equation. This equation utilizes serum creatinine, sex, and age as parameters. The creatinine assay has traceable calibration to isotope dilution-mass spectrometry. Refer to KDIGO guidelines for clinical interpretation. In patients with unstable renal function, e.g. those with acute kidney injury, the eGFR may not accurately reflect actual GFR. P.O.C.T. RESULTS: POC done: Yes, See Lab Tab March 27, 2023 TREATMENT: N/A PERIPHERAL IV DATA: Ambulatory: A peripheral IV was started in the Right antecubital site with a Angio cath: 22 gauge. RADIOLOGY DEPARTMENT: CT; Exam(s) Completed: Chest Abdomen Pelvis SIGNATURE: RT Zana(R) PATIENT NAME: Kerry Will DATE: March 27, 2023 TIME: 2:59 PM [facility] 03-10-2023 Note HNO ID: [id number] Author: MICHAEL BEY RPh Service: ? Author Type: ? Type: Progress Notes Filed: 03/17/2023 14:33 Note Text: SHIPMENT RESCHEDULED: delivery on monday [facility] Refill Assessment Medication(s): Ibrance Reviewed telephone note on 02/16/23. Note states Per Dr. Tipton- yes she can start Monday. No new labs since last shipment. Next clinic visit is NOT scheduled. Will reach out to tx team regarding monitoring and f/u. ALLERGIES Allergen Reactions Atorvastatin Unknown Rosuvastatin Unknown Vytorin 12/20 [Ezet* Unknown Ldabrij-Jua-Uzs Red* Myalgia, Itching Ibrance cycles (28DS: 21 on / 7 off) are as follows: C1D1 ~01/20/23 C2D1 02/20/23 C3D1 03/20/23 C4D1 04/17/23 Addendum March 16, 2023 2:49 PM : FROILAN Magdaleno, states I will call patient and ask her to come in for labs. Thjorge LVM to pt about lab recommendation and to reschedule shipment to Monday. Will await pt call back to confirm plan Addendum March 17, 2023 2:31 PM : Reviewed 03/17 labs. [facility] will ship 03/17 for 03/18 delivery. Patient's current medication list and adherence status to current therapy were reviewed by Specialty Pharmacy clinical pharmacist to identify any new drug interactions or non-compliance to therapy. Therapy continues to be appropriate for disease, patient response, and medical condition. Verification of therapeutic benefit and effectiveness with current therapy was completed. Adverse events, barriers in adherence, and side effects were assessed and addressed if applicable. Will proceed with refill with no changes in therapy - patient progressing towards achieving therapeutic goals based on medication-specific laboratory parameters, disease state markers and outcomes. Rn Critical Care Assessment Patient confirmed: Yes Med/dose confirmed: Yes Supplies needed: No supplies needed Missed doses: No Estimated days supply on hand: 3 Next cycle/dose due: 03/20/22 Copay amount: 0 Delivery method: FedEx Signature required: Waived on patient request Delivery address: [address] [place] [address] [address] [facility] [id number] Delivery date: 03/16/23 Questions or concerns for the pharmacist?: No Michael Bey, AndreaD Clinical Pharmacist, Oncology [facility] P: , F: Pool: P [facility] Pool #: [id number] [facility] Visit Assessment - Hematology/Oncology: Assessment to use: Refill Vaccination Assessment: Date of influenza vaccination reminder: 01/12/2023 Date of most recent vaccination assessment: 01/12/2023 Treatment Plan Information: Treatment Plan Information: Dx: 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 Take for 21 days on, followed by 7 days off. Take with or without food. Admin/Storage: Take at same time each day, swallow whole, avoid grapefruit, keep in blister pack A/E: Bone marrow suppression, GI (nausea, vomiting, diarrhea, stomatitis), pulmonary toxicity, fatigue, alopecia, skin rash, asthenia Emetic potential: minimal-low D/I: No major Lab: CBC with differential (prior to treatment initiation, every 2 weeks for first 2 cycles, then prior to each cycle, and as clinically indicated; if neutropenia is limited to grades 1 or 2 in the first 6 cycles, monitor every 3 months [prior to the beginning of a cycle] and as clinically indicated for subsequent cycles); test prior to treatment initiation (in females of reproductive potential); monitor for signs/symptoms of interstitial lung disease/pneumonitis and infection. Vaccine assessment: Patient is overdue for some routine vaccinations, enrolled in rate[employer] reminders Please consider Hepatitis B screening if appropriate as recommended now per [facility] in patients anticipating systemic anticancer therapy. Estimated Start Date Info: Refill Assessment: Lab monitoring inclusive of CBC, Chem-7, and other labs as pertinent for therapy: Yes Chemo cycle timing assessment: Yes Screening for infection: Yes Adverse reactions and mitigation: Yes Medication changes and interaction assessment: Yes Assessment of injection issues: N/A Additional Assessment: Assessment of continued need for prophylactic medications at regular intervals: Yes Radiology procedure timing to assess for disease progression: Yes Scheduled future appointments: Yes Evita Modi (Sales Professional Bilingual) [facility] 02-22-2023 Miscellaneous Notes Referral sent to [facility] due to insurance Fax confirmation received Denae Cervantes LPN February 22, 2023 2:55 PM documented in this encounter [facility] 02-20-2023 Miscellaneous Notes Last Office Visit: 02-15-2023 Next Scheduled Office Visit: 08-21-2023 Requested Prescriptions Pending Prescriptions Disp Refills levothyroxine (SYNTHROID) 25 mcg tablet [Pharmacy Med Name: Levothyroxine Sodium 25 MCG Oral Tablet] 90 tablet 3 Sig: Take 1 tablet by mouth once daily lisinopril (ZESTRIL) 10 mg tablet [Pharmacy Med Name: Lisinopril 10 MG Oral Tablet] 90 tablet 3 Sig: Take 1 tablet by mouth once daily Denae Cervantes LPN February 20, 2023 1:49 PM documented in this encounter [facility] 02-16-[address] Tipton- yes she can start Monday. Patient informed she can start Ibrance on Monday. Shira Harman LPN Patient states she still has a little residual urinary frequency and burning but it's improving every day. Hold off on restarting Ibrance? Shira Harman LPN Left message on VM to call office back in regards to Dr Tipton's message. Pau Chavez LPN Images from the original note were not included. documented in this encounter [facility] 02-15-2023 Note HNO ID: [id number] Author: Ron Real MD Service: ? Author Type: Physician Type: Progress Notes Filed: 02/15/2023 10:50 AM Note Text: This note was created using [employer]. Subjective Kerry Will is a 62 year old female. Kerry presents today for follow-up for multiple medical problems. See list. Her chronic medical problems are stable. Her diabetes has improved. Her A1c was 7.5. However she has been noncompliant with the regimen. She stopped taking Amaryl because she did not like how it made her feel. Additionally she only increased her metformin to 1500 mg daily. She has lost weight. She has improved her diabetic diet. She is not taking any cholesterol medication and her LDL is 190. She declines referral to endocrinology for IV cholesterol therapy. She would like to try again to take Crestor. Her previous reaction was it made her muscles sore and skin itchy. She had a mild reaction to the medication. Review of Systems Constitutional: Negative. HENT: Negative. Eyes: Negative. Respiratory: Negative. Cardiovascular: Negative. Gastrointestinal: Negative. Endocrine: Negative. Genitourinary: Negative. Musculoskeletal: Negative. Skin: Negative. Allergic/Immunologic: Negative. Neurological: Negative. Hematological: Negative. Psychiatric/Behavioral: Negative. Objective BP 134/88 (BP Site: Right Arm, BP Position: Sitting, BP Cuff Size: Regular Adult) Pulse 92 Temp 36.4 ?C (97.6 ?F) (Temporal) Resp 18 Ht 160 cm (5' 3 ) Wt 83.3 kg (183 lb 9.6 oz) LMP 02/01/2010 SpO2 96% BMI 32.52 kg/m? Physical Exam Vitals reviewed. Constitutional: Appearance: Normal appearance. HENT: Head: Normocephalic and atraumatic. Nose: Nose normal. Eyes: Extraocular Movements: Extraocular movements intact. Pupils: Pupils are equal, round, and reactive to light. Cardiovascular: Rate and Rhythm: Normal rate and regular rhythm. Pulmonary: Effort: Pulmonary effort is normal. Breath sounds: Normal breath sounds. Abdominal: General: Bowel sounds are normal. Palpations: Abdomen is soft. Musculoskeletal: General: Normal range of motion. Cervical back: Normal range of motion and neck supple. Skin: General: Skin is warm and dry. Capillary Refill: Capillary refill takes less than 2 seconds. Neurological: General: No focal deficit present. Mental Status: She is alert and oriented to person, place, and time. Mental status is at baseline. Psychiatric: Mood and Affect: Mood normal. Behavior: Behavior normal. Assessment and Plan Encounter Diagnosis ICD-10-CM 1. Pure hypercholesterolemia E78.00 LIPID PANEL BASIC COMP METABOLIC PANEL 2. Diabetes beginning in adulthood (type 2/adult onset) ([facility]) E11.9 HGB A1C COMP METABOLIC PANEL Begin Crestor 10 mg daily. Increase metformin to 2000 mg daily. Add co-Q10. Recheck labs in 3 months. Improve diabetic diet. Increase exercise. Ron Real MD [facility] 02-15-2023 Note HNO ID: [id number] Author: Denae Cervantes LPN Service: ? Author Type: LICENSED NURSE Type: Progress Notes Filed: 02/15/2023 10:50 AM Note Text: Patient is in office for follow up for diabetes. Last Office Visit: 10-31-2022 Patient was advised: Increase her metformin to 1000 mg twice daily and add Amaryl 2 mg daily. Recheck A1c in 3 months. Labs completed on 02-06-2023 showed A1c is greatly improved. Cholesterol is elevated. Consult to endocrinology for possible IV therapy for treatment of her elevated cholesterol due to having allergy to statins was placed. Patient has been taking Metformin 1000 mg in the morning and 500 mg at night. Patient stated she has no idea what Amaryl is. Chart is noted that patient reported No longer taking 01-03-2023. Patient also is currently on Macrobid for a UTI. No refills needed Denae Cervantes LPN February 15, 2023 9:23 AM [facility] 02-15-2023 History of Present illness Narrative This note was created using [employer]. Subjective Kerry Will is a 62 year old female. Kerry presents today for follow-up for multiple medical problems. See list. Her chronic medical problems are stable. Her diabetes has improved. Her A1c was 7.5. However she has been noncompliant with the regimen. She stopped taking Amaryl because she did not like how it made her feel. Additionally she only increased her metformin to 1500 mg daily. She has lost weight. She has improved her diabetic diet. She is not taking any cholesterol medication and her LDL is 190. She declines referral to endocrinology for IV cholesterol therapy. She would like to try again to take Crestor. Her previous reaction was it made her muscles sore and skin itchy. She had a mild reaction to the medication. Review of Systems Constitutional: Negative. HENT: Negative. Eyes: Negative. Respiratory: Negative. Cardiovascular: Negative. Gastrointestinal: Negative. Endocrine: Negative. Genitourinary: Negative. Musculoskeletal: Negative. Skin: Negative. Allergic/Immunologic: Negative. Neurological: Negative. Hematological: Negative. Psychiatric/Behavioral: Negative. Objective BP 134/88 (BP Site: Right Arm, BP Position: Sitting, BP Cuff Size: Regular Adult) Pulse 92 Temp 36.4 C (97.6 F) (Temporal) Resp 18 Ht 160 cm (5' 3 ) Wt 83.3 kg (183 lb 9.6 oz) LMP 02/01/2010 SpO2 96% BMI 32.52 kg/m Physical Exam Vitals reviewed. Constitutional: Appearance: Normal appearance. HENT: Head: Normocephalic and atraumatic. Nose: Nose normal. Eyes: Extraocular Movements: Extraocular movements intact. Pupils: Pupils are equal, round, and reactive to light. Cardiovascular: Rate and Rhythm: Normal rate and regular rhythm. Pulmonary: Effort: Pulmonary effort is normal. Breath sounds: Normal breath sounds. Abdominal: General: Bowel sounds are normal. Palpations: Abdomen is soft. Musculoskeletal: General: Normal range of motion. Cervical back: Normal range of motion and neck supple. Skin: General: Skin is warm and dry. Capillary Refill: Capillary refill takes less than 2 seconds. Neurological: General: No focal deficit present. Mental Status: She is alert and oriented to person, place, and time. Mental status is at baseline. Psychiatric: Mood and Affect: Mood normal. Behavior: Behavior normal. Assessment and Plan Encounter Diagnosis ICD-10-CM 1. Pure hypercholesterolemia E78.00 LIPID PANEL BASIC COMP METABOLIC PANEL 2. Diabetes beginning in adulthood (type 2/adult onset) ([facility]ERLY [facility]) E11.9 HGB A1C COMP METABOLIC PANEL Begin Crestor 10 mg daily. Increase metformin to 2000 mg daily. Add co-Q10. Recheck labs in 3 months. Improve diabetic diet. Increase exercise. Ron Real MD Patient is in office for follow up for diabetes. Last Office Visit: 10-31-2022 Patient was advised: Increase her metformin to 1000 mg twice daily and add Amaryl 2 mg daily. Recheck A1c in 3 months. Labs completed on 02-06-2023 showed A1c is greatly improved. Cholesterol is elevated. Consult to endocrinology for possible IV therapy for treatment of her elevated cholesterol due to having allergy to statins was placed. Patient has been taking Metformin 1000 mg in the morning and 500 mg at night. Patient stated she has no idea what Amaryl is. Chart is noted that patient reported No longer taking 01-03-2023. Patient also is currently on Macrobid for a UTI. No refills needed Denae Cervantes LPN February 15, 2023 9:23 AM documented in this encounter [facility] 02-14-2023 Miscellaneous Notes Patient notified of result information on My Chart. Notification will be sent to this nurse if message has not been read within 2 days. Patient will be contacted by another form of communication if notification of not reading My Chart message is received. Denae Cervantes LPN February 14, 2023 9:14 AM Message left for patient to phone office at earliest convenience in regards to results. Denae Cervantes LPN February 10, 2023 12:53 PM Message left for patient to phone office at earliest convenience in regards to results. Denae Cervantes LPN February 07, 2023 2:36 PM ----- Message from Ron Real MD sent at 02/07/2023 10:29 AM EST ----- A1c is greatly improved. Good job. Cholesterol is elevated. Consult to endocrinology for possible IV therapy for treatment of her elevated cholesterol as she has allergy to statins. documented in this encounter [facility] 02-13-2023 Miscellaneous Notes Preethi Care Coordination FOLLOW-UP NOTE Patient identified by name and date of . YES Spoke to patient Summary: (Reason for follow-up) UTI and need a CBC this week Concerns: (New Barriers to care) Call to patient for update on UTI. She states she is feeling better, her UTI symptoms are better. Denies fever/chills. She is aware that she also needs to complete a CBC this week and will have that drawn on Monday. She is aware that we will watch for those results and call if abnormal and needs to hold next cycle. Patient verbalized when to seek Medical Attention and an understanding of after- hours phone number and process: Yes Care Coordination Plan: Will watch for CBC on Monday, check results prior to starting next cycle. Patient will also call in prior to start next cycle if UTI symptoms don't continue to improve or if any new/concerning symptoms. Sharla Smith RN February 13, 2023 documented in this encounter [facility] 02-11-2023 Miscellaneous Notes Patient given results and verbalized understanding of instructions given. Gale Pan Patient was negative for yeast, trichomonas, and bacterial vaginosis. Still waiting on urine culture documented in this encounter [facility] 02-10-2023 Note HNO ID: [id number] Author: Taylor Reinoso APRN.CNP Service: ? Author Type: Nurse Practitioner Type: Progress Notes Filed: 02/10/2023 2:45 PM Note Text: CC: Patient presents with: burning with urination: Burning and urgency off and on x 2 weeks HPI Kerry Will is a 62 year old female who presents with complaint of possible UTI. These symptoms have been present for 14 days on and off. Associated symptoms: burning and urgency Denies: fever, chills, sweats, abdominal pain, and flank pain Treatments: nothing The ROS was otherwise negative. PMH, Medications, labs, allergies, and recent past visits with PCP were reviewed and updated as able. PHYSICAL EXAM: BP 136/84 Pulse 72 Temp 36.7 ?C (98 ?F) (Tympanic) Resp 18 Wt 84.8 kg (187 lb) LMP 02/01/2010 SpO2 99% BMI 32.86 kg/m? 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 03/13/2012 Coronary atherosclerosis of unspecified type of vessel, twin hills or graft Coronary artery disease Depression Diabetes mellitus (HCC) Esophageal reflux Hypothyroidism Mixed hyperlipidemia Hyperlipidemia PMH - PAST MEDICAL HISTORY OF abnormal pap-althea 1 Unspecified essential hypertension Essential hypertension PAST SURGICAL HISTORY Procedure Laterality Date BREAST LUMPECTOMY HX Left 2021 BX BREAST PERC VACUUM/ROTN 07/01/2008 right CONIZATION OF CERVIX; COLD KNIFE/LASER 03/13/2012 atypical endocervical glandular cells HYSTERECTOMY HX HYSTEROSCOPY WBX WWO D AND C ANDOR POLYPECTOMY 03/13/2012 INSERT INTRACORONARY STENT 03/13/2004 [facility] LOCALZTN CLIP,PERC,DURING BREAST BX 07/01/2008 right ALLERGIES Atorvastatin, Rosuvastatin, Vytorin 12/20 [Ezetimibe-Simvastatin], and Mnwujkf-Ozi-Xwx Reductase Inhibitors MEDICATIONS ondansetron (ZOFRAN) 8 mg tablet Take 1 tablet by mouth every 8 hours as needed. Vitamin E, dl, acetate, 1,000 unit capsule Take 1 capsule by mouth once daily. Milk Thistle 150 mg cap Take 1 capsule by mouth once daily. palbociclib (IBRANCE) 125 mg tablet Take 1 tablet (125 mg) by mouth once daily. Take for 21 days on, followed by 7 days off. Take with or without food. venlafaxine ER (EFFEXOR XR) 150 mg 24 hr capsule Take 1 capsule by mouth once daily. metFORMIN ER (GLUCOPHAGE XR) 500 mg 24 hr tablet Take 2 tablets by mouth twice daily. loratadine (CLARITIN) 10 mg tablet Take 1 tablet by mouth once daily. Cinnamon Bark 500 mg cap Take 1 capsule by mouth once daily. Zinc 50 mg tab Take 1 tablet by mouth once daily. levothyroxine (SYNTHROID) 25 mcg tablet Take 1 tablet by mouth once daily lisinopril (ZESTRIL, PRINIVIL) 10 mg tablet Take 1 tablet by mouth once daily Red Yeast Rice Extract 600 mg cap Take 1 capsule by mouth once daily. cholecalciferol (VITAMIN D3) 5,000 unit tab Take 2,000 Units by mouth once daily. blood sugar diagnostic (FREESTYLE LITE STRIPS) test strip Use as instructed Lancets lancets [facility] LANCETS ORIGINAL ASPIRIN 81 MG TAB Take 81 mg by mouth once daily. FAMILY HISTORY Problem Relation Age of Onset Skin Cancer Mother Heart disease Father Hypertension Father Dementia Father Kidney Disease Father Renal Disease Father Cancer Paternal Aunt OVARIAN Breast Cancer Paternal Aunt Social History Tobacco Use Smoking status: Former Packs/day: 0.50 Years: 10.00 Additional pack years: 0.00 Total pack years: 5.00 Types: Cigarettes Quit date: 02/14/2001 Years since quittin.0 Passive exposure: Never Smokeless tobacco: Never Vaping Use Vaping Use: Never used Substance Use Topics Alcohol use: Yes Comment: occ Drug use: No ASSESSMENT/PLAN: 1. Burning with urination - ICD9: 788.1, ICD10: R30.0 - UA DIP, URINE (POC) - URINE CULTURE - BACTERIAL VAGINOSIS NAAT - GARDENIA/TRICHOMONAS NAAT Self swab NO TREATMENT AT THIS TIME. Potential red flag symptoms discussed with the patient. Reviewed appropriate action plan to take if red flag symptoms occur. Patient agreeable to treatment plan. Taylor Reinoso APRN.[facility] 02-10-2023 History of Present illness Narrative CC: Patient presents with: burning with urination: Burning and urgency off and on x 2 weeks HPI Kerry Will is a 62 year old female who presents with complaint of possible UTI. These symptoms have been present for 14 days on and off. Associated symptoms: burning and urgency Denies: fever, chills, sweats, abdominal pain, and flank pain Treatments: nothing The ROS was otherwise negative. PMH, Medications, labs, allergies, and recent past visits with PCP were reviewed and updated as able. 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 03/13/2012 Coronary atherosclerosis of unspecified type of vessel, twin hills or graft Coronary artery disease Depression Diabetes mellitus (HCC) Esophageal reflux Hypothyroidism Mixed hyperlipidemia Hyperlipidemia PMH - PAST MEDICAL HISTORY OF abnormal pap-althea 1 Unspecified essential hypertension Essential hypertension PAST SURGICAL HISTORY Procedure Laterality Date BREAST LUMPECTOMY HX Left 2021 BX BREAST PERC VACUUM/ROTN 07/01/2008 right CONIZATION OF CERVIX; COLD KNIFE/LASER 03/13/2012 atypical endocervical glandular cells HYSTERECTOMY HX HYSTEROSCOPY WBX WWO D AND C ANDOR POLYPECTOMY 03/13/2012 INSERT INTRACORONARY STENT 03/13/2004 [facility] LOCALZTN CLIP,PERC,DURING BREAST BX 07/01/2008 right ALLERGIES Atorvastatin, Rosuvastatin, Vytorin 10/10 [Ezetimibe-Simvastatin], and Acujwkg-Dkb-Xjq Reductase Inhibitors MEDICATIONS ondansetron (ZOFRAN) 8 mg tablet Take 1 tablet by mouth every 8 hours as needed. Vitamin E, dl, acetate, 1,000 unit capsule Take 1 capsule by mouth once daily. Milk Thistle 150 mg cap Take 1 capsule by mouth once daily. palbociclib (IBRANCE) 125 mg tablet Take 1 tablet (125 mg) by mouth once daily. Take for 21 days on, followed by 7 days off. Take with or without food. venlafaxine ER (EFFEXOR XR) 150 mg 24 hr capsule Take 1 capsule by mouth once daily. metFORMIN ER (GLUCOPHAGE XR) 500 mg 24 hr tablet Take 2 tablets by mouth twice daily. loratadine (CLARITIN) 10 mg tablet Take 1 tablet by mouth once daily. Cinnamon Bark 500 mg cap Take 1 capsule by mouth once daily. Zinc 50 mg tab Take 1 tablet by mouth once daily. levothyroxine (SYNTHROID) 25 mcg tablet Take 1 tablet by mouth once daily lisinopril (ZESTRIL, PRINIVIL) 10 mg tablet Take 1 tablet by mouth once daily Red Yeast Rice Extract 600 mg cap Take 1 capsule by mouth once daily. cholecalciferol (VITAMIN D3) 5,000 unit tab Take 2,000 Units by mouth once daily. blood sugar diagnostic (FREESTYLE LITE STRIPS) test strip Use as instructed Lancets lancets CVS LANCETS ORIGINAL ASPIRIN 81 MG TAB Take 81 mg by mouth once daily. FAMILY HISTORY Problem Relation Age of Onset Skin Cancer Mother Heart disease Father Hypertension Father Dementia Father Kidney Disease Father Renal Disease Father Cancer Paternal Aunt OVARIAN Breast Cancer Paternal Aunt Social History Tobacco Use Smoking status: Former Packs/day: 0.50 Years: 10.00 Additional pack years: 0.00 Total pack years: 5.00 Types: Cigarettes Quit date: 02/14/2001 Years since quittin.0 Passive exposure: Never Smokeless tobacco: Never Vaping Use Vaping Use: Never used Substance Use Topics Alcohol use: Yes Comment: occ Drug use: No ASSESSMENT/PLAN: 1. Burning with urination - ICD9: 788.1, ICD10: R30.0 - UA DIP, URINE (POC) - URINE CULTURE - BACTERIAL VAGINOSIS NAAT - GARDENIA/TRICHOMONAS NAAT Self swab NO TREATMENT AT THIS TIME. Potential red flag symptoms discussed with the patient. Reviewed appropriate action plan to take if red flag symptoms occur. Patient agreeable to treatment plan. Taylor Reinoso APRN.CHIEF OPERATING OFFICER documented in this encounter [facility] 02-10-2023 Note HNO ID: [id number] Author: Denae Ash Service: ? Author Type: ? Type: Progress Notes Filed: 02/17/2023 12:40 PM Note Text: SHIPMENT RESCHEDULED: delivery on 02/18/23 [facility] Refill Assessment Medication(s): Ibrance Reviewed OV note on 02/08, chart notes. Pt started on macrobid x 5 days for UTI. Labs reviewed. Next clinic visit scheduled 03/08 for faslodex.Messaged office regarding labs prior to cycle, starting macrobid. ALLERGIES Allergen Reactions Atorvastatin Unknown Rosuvastatin Unknown Vytorin 12/20 [Ezet* Unknown Rbxrync-Zuz-Efb Red* Myalgia, Itching Addendum February 14, 2023 8:06 AM : Will contact patient to discuss if delivery 02/15 ok Sharla Smith, Candis Hernandez, [facility] Dr. Tipton aware and ok to ship. We will also call patient to have labs this week prior to starting and review before she starts next cycle. thank you for making us aware. She was to have had a CBC on 02/06/23 but it was missed. Nydia Marques, Jessica, BCACP Clinical Pharmacist, Oncology [facility] P: , F: Pool: P [facility] Pool #: [id number] Addendum February 17, 2023 12:34 PM : 02/16/23 Telephone note states Patient states she still has a little residual urinary frequency and burning but it's improving every day...Per Dr. Tipton- yes she can start Monday. Reviewed 02/16 labs. Ibrance cycles (28DS: 21 on / 7 off) are as follows: C1D1 ~01/20/23 C2D1 02/20/23 C3D1 03/20/23 Michael Bey, AndreaD Clinical Pharmacist, Oncology [facility] P: , F: Pool: P [facility] Pool #: [id number] Patient's current medication list and adherence status to current therapy were reviewed by Specialty Pharmacy clinical pharmacist to identify any new drug interactions or non-compliance to therapy. Therapy continues to be appropriate for disease, patient response, and medical condition. Verification of therapeutic benefit and effectiveness with current therapy was completed. Adverse events, barriers in adherence, and side effects were assessed and addressed if applicable. Will proceed with refill with no changes in therapy - patient progressing towards achieving therapeutic goals based on medication-specific laboratory parameters, disease state markers and outcomes. Rn Critical Care Assessment Patient confirmed: Yes Med/dose confirmed: Yes Supplies needed: No supplies needed Missed doses: No Estimated days supply on hand: 0 (Took last dose yesterday) Next cycle/dose due: 02/17/23 Copay amount: 0 Delivery method: FedEx Signature required: Waived on patient request Delivery address: [address] [place] [address] [address] [facility] [id number] Delivery date: 02/14/23 Questions or concerns for the pharmacist?: No [facility] Visit Assessment - Hematology/Oncology: Ivent complete: No Assessment to use: Refill Vaccination Assessment: Date of influenza vaccination reminder: 01/12/2023 Date of most recent vaccination assessment: 01/12/2023 Treatment Plan Information: Treatment Plan Information: Dx: 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 Take for 21 days on, followed by 7 days off. Take with or without food. Admin/Storage: Take at same time each day, swallow whole, avoid grapefruit, keep in blister pack A/E: Bone marrow suppression, GI (nausea, vomiting, diarrhea, stomatitis), pulmonary toxicity, fatigue, alopecia, skin rash, asthenia Emetic potential: minimal-low D/I: No major Lab: CBC with differential (prior to treatment initiation, every 2 weeks for first 2 cycles, then prior to each cycle, and as clinically indicated; if neutropenia is limited to grades 1 or 2 in the first 6 cycles, monitor every 3 months [prior to the beginning of a cycle] and as clinically indicated for subsequent cycles); test prior to treatment initiation (in females of reproductive potential); monitor for signs/symptoms of interstitial lung disease/pneumonitis and infection. Vaccine assessment: Patient is overdue for some routine vaccinations, enrolled in [employer] reminders Please consider Hepatitis B screening if appropriate as recommended now per [facility] in patients anticipating systemic anticancer therapy. Estimated Start Date Info: Refill Assessment: Lab monitoring inclusive of CBC, Chem-7, and other labs as pertinent for therapy: Yes Chemo cycle timing assessment: Yes Screening for infection: Yes Adverse reactions and mitigation: Yes Medication changes and interaction assessment: Yes Assessment of injection issues: N/A Additional Assessment: Assessment of continued need for prophylactic medications at regular intervals: Jaime (more content not included)... [facility] 02-10-2023 History of Present illness Narrative [facility] Refill Assessment Medication(s): Ibrance Patient's current medication list and adherence status to current therapy were reviewed by Specialty Pharmacy clinical pharmacist to identify any new drug interactions or non-compliance to therapy. Therapy continues to be appropriate for disease, patient response, and medical condition. Verification of therapeutic benefit and effectiveness with current therapy was completed. Adverse events, barriers in adherence, and side effects were assessed and addressed if applicable. Will proceed with refill with no changes in therapy - patient progressing towards achieving therapeutic goals based on medication-specific laboratory parameters, disease state markers and outcomes. Rn Critical Care Assessment Patient confirmed: Yes Med/dose confirmed: Yes Supplies needed: No supplies needed Missed doses: No Estimated days supply on hand: 0 (Took last dose yesterday) Next cycle/dose due: 02/17/23 Copay amount: 0 Delivery method: FedEx Signature required: Waived on patient request Delivery address: [address] [place] [address] [address] [facility] [id number] Delivery date: 02/14/23 Questions or concerns for the pharmacist?: No [facility] Visit Assessment - Hematology/Oncology: Assessment to use: Refill Vaccination Assessment: Date of influenza vaccination reminder: 01/12/2023 Date of most recent vaccination assessment: 01/12/2023 Treatment Plan Information: Treatment Plan Information: Dx: 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 Take for 21 days on, followed by 7 days off. Take with or without food. Admin/Storage: Take at same time each day, swallow whole, avoid grapefruit, keep in blister pack A/E: Bone marrow suppression, GI (nausea, vomiting, diarrhea, stomatitis), pulmonary toxicity, fatigue, alopecia, skin rash, asthenia Emetic potential: minimal-low D/I: No major Lab: CBC with differential (prior to treatment initiation, every 2 weeks for first 2 cycles, then prior to each cycle, and as clinically indicated; if neutropenia is limited to grades 1 or 2 in the first 6 cycles, monitor every 3 months [prior to the beginning of a cycle] and as clinically indicated for subsequent cycles); test prior to treatment initiation (in females of reproductive potential); monitor for signs/symptoms of interstitial lung disease/pneumonitis and infection. Vaccine assessment: Patient is overdue for some routine vaccinations, enrolled in [employer] reminders Please consider Hepatitis B screening if appropriate as recommended now per [facility] in patients anticipating systemic anticancer therapy. Estimated Start Date Info: Denae Ash documented in this encounter [facility] 02-08-2023 Note HNO ID: [id number] Author: Gale Nelson RT(R) Service: ? Author Type: Technologist Type: Progress Notes Filed: 02/08/2023 9:47 AM Note Text: Radiology Service Progress Note PATIENT NAME: Kerry Will DATE OF SERVICE: February 08, 2023 TIME: 9:47 AM PATIENT IDENTITY VERIFICATION COMPLETED USING TWO (2) IDENTIFIERS: Name and Date of confirmed by patient verbally. FALL SCREENING: Has the patient had 2 falls in the last year or 1 fall with injury or currently using an Ambulatory Assistive Device (Walker, Cane, Wheelchair, Crutches, etc.)? No PATIENT GENDER DATA: Female. status: : No status: NO. PATIENT RELEVANT IMPLANT DATA REVIEWED: Not Applicable RADIOLOGY DEPARTMENT: General X-ray: Exam(s) Completed: Pelvis X-Ray: Pelvis with Hip Left PERIPHERAL IV DATA: Not applicable SIGNED BY: Gale Nelson, RT(R) February 08, 2023 9:47 AM [facility] 02-08-2023 Note HNO ID: [id number] Author: Dawson Tipton MD Service: ? Author Type: Physician Type: Progress Notes Filed: 02/09/2023 1:43 PM Note Text: (Elements copied from my note dated January 03, 2023, have been reviewed and updated where appropriate, and all reflect current assessment and medical decision making from today's encounter, February 08, 2023) HISTORY OF PRESENT ILLNESS: Kerry Will is a 62 year old female history of left breast cancer dx in August 2021, lumpectomy in October 2021 pT1cNo Oncotype 25, received adjuvant RT, then placed on anastrozole. She is BRCA2 positive. 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 ER+/RI-/Her2 0. PET show liver lesions, also breast uptake and several pelvic bone lesions. She saw her oncologist at [facility], recommended elacestrant. She came here for another opinion. Reviewed all findings, she feels well. Do not see ESR1 mutation assay was done. She elected to receive treatment here, faslodex and ibrance. She feels well, Reviewed TM Having some lateral left hip pain with standing for long time Discussed also that breast lesin seen on PET is in close approximation to her original cancer site, no lumpectomy planned at this time, we will need to re image down the line, if this does not respond to endocrine therapy, a biopsy is then warranted CLINICAL IMPRESSION: Recurrent breast cancer metastatic to liver and bone. Left iliac wing pain RECOMMENDATION/PLAN: 1. Continue faslodex and ibrance 2. PIK3CA testing also warranted. 3. Olaparib in event of ET refractoriness 4. Left hip films Written and verbal health teaching given to patient, patient verbalizes understanding and agrees with treatment plan. 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 03/13/2012 Coronary atherosclerosis of unspecified type of vessel, twin hills or graft Coronary artery disease Depression Diabetes mellitus (HCC) Esophageal reflux Hypothyroidism Mixed hyperlipidemia Hyperlipidemia PMH - PAST MEDICAL HISTORY OF abnormal pap-althea 1 Unspecified essential hypertension Essential hypertension PAST SURGICAL HISTORY Procedure Laterality Date BREAST LUMPECTOMY HX Left 2021 BX BREAST PERC VACUUM/ROTN 07/01/2008 right CONIZATION OF CERVIX; COLD KNIFE/LASER 03/13/2012 atypical endocervical glandular cells HYSTERECTOMY HX HYSTEROSCOPY WBX WWO D AND C ANDOR POLYPECTOMY 03/13/2012 INSERT INTRACORONARY STENT 03/13/2004 [facility] LOCALZTN CLIP,PERC,DURING BREAST BX 07/01/2008 right FAMILY HISTORY Problem Relation Age of Onset Skin Cancer Mother Heart disease Father Hypertension Father Dementia Father Kidney Disease Father Renal Disease Father Cancer Paternal Aunt OVARIAN Breast Cancer Paternal Aunt Social History Tobacco Use Smoking status: Former Packs/day: 0.50 Years: 10.00 Additional pack years: 0.00 Total pack years: 5.00 Types: Cigarettes Quit date: 02/14/2001 Years since quittin.9 Passive exposure: Never Smokeless tobacco: Never Vaping Use Vaping Use: Never used Substance Use Topics Alcohol use: Yes Comment: occ Drug use: No ALLERGIES: ALLERGIES Allergen Reactions Atorvastatin Unknown Rosuvastatin Unknown Vytorin 12/20 [Ezet* Unknown Ikavlie-Hwk-Mey Red* Myalgia, Itching CURRENT OUTPATIENT MEDICATIONS: ondansetron (ZOFRAN) 8 mg tabletTake 1 tablet by mouth every 8 hours as needed.Disp: 20 tabletRfl: 2 Vitamin E, dl, acetate, 1,000 unit capsuleTake 1 capsule by mouth once daily.Disp: Rfl: Milk Thistle 150 mg capTake 1 capsule by mouth once daily.Disp: Rfl: palbociclib (IBRANCE) 125 mg tabletTake 1 tablet (125 mg) by mouth once daily. Take for 21 days on, followed by 7 days off. Take with or without food.Disp: 21 tabletRfl: 11 venlafaxine ER (EFFEXOR XR) 150 mg 24 hr capsuleTake 1 capsule by mouth once daily.Disp: 90 capsuleRfl: 3 metFORMIN ER (GLUCOPHAGE XR) 500 mg 24 hr tabletTake 2 tablets by mouth twice daily.Disp: 360 tabletRfl: 3 loratadine (CLARITIN) 10 mg tabletTake 1 tablet by mouth once daily.Disp: Rfl: Cinnamon Bark 500 mg capTake 1 capsule by mouth once daily.Disp: Rfl: Zinc 50 mg tabTake 1 tablet by mouth once daily.Disp: Rfl: levothyroxine (SYNTHROID) 25 mcg tabletTake 1 tablet by mouth once dailyDisp: 30 tabletRfl: 11 lisinopril (ZESTRIL, PRINIVIL) 10 mg tabletTake 1 tablet by mouth once dailyDisp: 30 tabletRfl: 11 Red Yeast Rice Extract 600 mg capTake 1 capsule by mouth once daily.Disp: Rfl: cholecalciferol (VITAMIN D3) 5,000 unit tabTake 2,000 Units by mouth once daily.Disp: Rfl: ASPIRIN 81 MG TABTake 81 mg by mouth once daily.Disp: Rfl: 0 blood sugar diagnostic (FREESTYLE LITE STRIPS) test stripUse as instructedDisp: 100 EachRfl: 0 L (more content not included)... [facility] 02-08-2023 Nurse Note Pt here for injection of Faslodex. Given IM in B/L buttocks. Pt tolerated well. For all other information regarding today, see today's OV note with Dr Tipton. documented in this encounter [facility] 02-08-2023 History of Present illness Narrative Radiology Service Progress Note PATIENT NAME: Kerry Will DATE OF SERVICE: February 08, 2023 TIME: 9:47 AM PATIENT IDENTITY VERIFICATION COMPLETED USING TWO (2) IDENTIFIERS: Name and Date of confirmed by patient verbally. FALL SCREENING: Has the patient had 2 falls in the last year or 1 fall with injury or currently using an Ambulatory Assistive Device (Walker, Cane, Wheelchair, Crutches, etc.)? No PATIENT GENDER DATA: Female. status: : No status: NO. PATIENT RELEVANT IMPLANT DATA REVIEWED: Not Applicable RADIOLOGY DEPARTMENT: General X-ray: Exam(s) Completed: Pelvis X-Ray: Pelvis with Hip Left PERIPHERAL IV DATA: Not applicable SIGNED BY: RT Ismael(R) February 08, 2023 9:47 AM documented in this encounter [facility] 02-08-2023 History of Present illness Narrative (Elements copied from my note dated January 03, 2023, have been reviewed and updated where appropriate, and all reflect current assessment and medical decision making from today's encounter, February 08, 2023) HISTORY OF PRESENT ILLNESS: Kerry Will is a 62 year old female history of left breast cancer dx in August 2021, lumpectomy in October 2021 pT1cNo Oncotype 25, received adjuvant RT, then placed on anastrozole. She is BRCA2 positive. 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 ER+/RI-/Her2 0. PET show liver lesions, also breast uptake and several pelvic bone lesions. She saw her oncologist at [facility], recommended elacestrant. She came here for another opinion. Reviewed all findings, she feels well. Do not see ESR1 mutation assay was done. She elected to receive treatment here, faslodex and ibrance. She feels well, Reviewed TM Having some lateral left hip pain with standing for long time Discussed also that breast lesin seen on PET is in close approximation to her original cancer site, no lumpectomy planned at this time, we will need to re image down the line, if this does not respond to endocrine therapy, a biopsy is then warranted CLINICAL IMPRESSION: Recurrent breast cancer metastatic to liver and bone. Left iliac wing pain RECOMMENDATION/PLAN: 1. Continue faslodex and ibrance 2. PIK3CA testing also warranted. 3. Olaparib in event of ET refractoriness 4. Left hip films Written and verbal health teaching given to patient, patient verbalizes understanding and agrees with treatment plan. 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 03/13/2012 Coronary atherosclerosis of unspecified type of vessel, twin hills or graft Coronary artery disease Depression Diabetes mellitus (HCC) Esophageal reflux Hypothyroidism Mixed hyperlipidemia Hyperlipidemia PMH - PAST MEDICAL HISTORY OF abnormal pap-althea 1 Unspecified essential hypertension Essential hypertension PAST SURGICAL HISTORY Procedure Laterality Date BREAST LUMPECTOMY HX Left 2021 BX BREAST PERC VACUUM/ROTN 07/01/2008 right CONIZATION OF CERVIX; COLD KNIFE/LASER 03/13/2012 atypical endocervical glandular cells HYSTERECTOMY HX HYSTEROSCOPY WBX WWO D AND C ANDOR POLYPECTOMY 03/13/2012 INSERT INTRACORONARY STENT 03/13/2004 [facility] LOCALZTN CLIP,PERC,DURING BREAST BX 07/01/2008 right FAMILY HISTORY Problem Relation Age of Onset Skin Cancer Mother Heart disease Father Hypertension Father Dementia Father Kidney Disease Father Renal Disease Father Cancer Paternal Aunt OVARIAN Breast Cancer Paternal Aunt Social History Tobacco Use Smoking status: Former Packs/day: 0.50 Years: 10.00 Additional pack years: 0.00 Total pack years: 5.00 Types: Cigarettes Quit date: 02/14/2001 Years since quittin.9 Passive exposure: Never Smokeless tobacco: Never Vaping Use Vaping Use: Never used Substance Use Topics Alcohol use: Yes Comment: occ Drug use: No ALLERGIES: ALLERGIES Allergen Reactions Atorvastatin Unknown Rosuvastatin Unknown Vytorin 12/20 [Ezet* Unknown Yzivntx-Rxa-Qyh Red* Myalgia, Itching CURRENT OUTPATIENT MEDICATIONS: ondansetron (ZOFRAN) 8 mg tablet^Take 1 tablet by mouth every 8 hours as needed.^Disp: 20 tablet^Rfl: 2 Vitamin E, dl, acetate, 1,000 unit capsule^Take 1 capsule by mouth once daily.^Disp: ^Rfl: Milk Thistle 150 mg cap^Take 1 capsule by mouth once daily.^Disp: ^Rfl: palbociclib (IBRANCE) 125 mg tablet^Take 1 tablet (125 mg) by mouth once daily. Take for 21 days on, followed by 7 days off. Take with or without food.^Disp: 21 tablet^Rfl: 11 venlafaxine ER (EFFEXOR XR) 150 mg 24 hr capsule^Take 1 capsule by mouth once daily.^Disp: 90 capsule^Rfl: 3 metFORMIN ER (GLUCOPHAGE XR) 500 mg 24 hr tablet^Take 2 tablets by mouth twice daily.^Disp: 360 tablet^Rfl: 3 loratadine (CLARITIN) 10 mg tablet^Take 1 tablet by mouth once daily.^Disp: ^Rfl: Cinnamon Bark 500 mg cap^Take 1 capsule by mouth once daily.^Disp: ^Rfl: Zinc 50 mg tab^Take 1 tablet by mouth once daily.^Disp: ^Rfl: levothyroxine (SYNTHROID) 25 mcg tablet^Take 1 tablet by mouth once daily^Disp: 30 tablet^Rfl: 11 lisinopril (ZESTRIL, PRINIVIL) 10 mg tablet^Take 1 tablet by mouth once daily^Disp: 30 tablet^Rfl: 11 Red Yeast Rice Extract 600 mg cap^Take 1 capsule by mouth once daily.^Disp: ^Rfl: cholecalciferol (VITAMIN D3) 5,000 unit tab^Take 2,000 Units by mouth once daily.^Disp: ^Rfl: ASPIRIN 81 MG TAB^Take 81 mg by mouth once daily.^Disp: ^Rfl: 0 blood sugar diagnostic (FREESTYLE LITE STRIPS) test strip^Use as instructed^Disp: 100 Each^Rfl: 0 Lancets lancets^[employer] LANCETS ORIGINAL^Disp: ^Rfl: REVIEW OF SYSTEMS: GENERAL: No fever, night sweats, weight loss or malaise. All other reviewed and negative other than HPI. PHYSICAL EXAMINATION: VITAL SIGNS: BP 116/83 Pulse 77 Temp 98.5 Wt 186 lb (84.4kg) SpO2 99% LMP 02/01/2010 GENERAL APPEARANCE: Well appearing, in no acute distress, alert and oriented x3, well-hydrated, well nourished. I spent a total of 30 minutes on the date of the service which included preparing to see the patient, [id number] patient care, completing clinical documentation, obtaining and/or reviewing separately obtained history, counseling and educating the patient/family/caregiver, independently interpreting results (not separately reported), and communicating results to the patient/family/caregiver. Electronically Signed: Dawson Tipton MD February 08, 2023 documented in this encounter [facility] 01-30-2023 Note HNO ID: [id number] Author: Ann Diego RN Service: ? Author Type: Registered Nurse Type: Progress Notes Filed: 01/30/2023 10:26 AM Note Text: IRB #[id number] Randomized Non-Inferiority Trial Comparing Overall Survival of Patients Monitored with Serum Tumor Marker Directed Disease Monitoring (STMDDM) Versus Usual Care in Patients with Metastatic Hormone Receptor Positive Her-2 Negative Breast Cancer Registration Information: Informed Consent Signed 01/25/2023 Registered Step 1 01/30/2023 Randomization Date: TBD but can register by 03/08/2023 expires by 05/30/2022 Study ID: [id number] Treatment ARM: TBD Consent to optional samples N/A but Yes, to future research contact Treatment Ibrance 01/20/2023 Fulvestrant 01/11/2023 Ann Diego RN [facility] 01-27-2023 Miscellaneous Notes ORAL ANTI-CANCER AGENTS FOLLOW-UP PHONE CALL/VISIT Patient identified by name and date of . YES [facility] SYMPTOM ASSESSMENT Headache: No Visual Changes: No Dizziness: No Do you have any periods of confusion? No Mood changes: No Mouth or throat pain: No Appetite: no changes in appetite, appetite good Taste changes: No Nausea: No Vomiting: No Heartburn: No. Weight gain/loss: No Episodes of palpitations/chest discomfort/pressure/pain No Shortness of breath: No Cough: No Diarrhea: no Constipation: no Bladder/Urinary Changes: None Pain: No=0 (pain 0 on a scale of 0-10). Fever: No Chills: No Cold sensitivity: No Numbness/weakness: No Edema: No Skin changes: No Itching: No Yellowing of skin or eyes: No Musculoskeletal/joint changes/issues No Bleeding issues: No Activity Level (0-100%): same as baseline Does the patient need interventions or same day appointment:No ADDITIONAL FOLLOW UP: The next outreach call is due on: as needed and was scheduled No, appointment made The following lab tests are due: 02/08/23 Verified patient is aware of next appointment in the cancer center: Yes. Verified patient verbalized how to correctly refill the oral agent prescription. Yes Does the patient have any financial difficulties affording this medication? No Patient verbalizes understanding of when to seek Medical Attention? YES Patient verbalizes understanding of after-hours and weekend phone number? YES Patient verbalized importance of medication compliance in taking the oral agent as prescribed. Patient instructed to call if unable to comply. Sharla Smith RN documented in this encounter [facility] 01-26-2023 Note HNO ID: [id number] Author: Lillie Figueroa RN Service: ? Author Type: Registered Nurse Type: Progress Notes Filed: 01/26/2023 3:05 PM Note Text: Summary: RN 2nd Check for eligibility IRB# [id number] [facility] [place] [facility] 1703 2nd check for eligibility by RN completed. YES All inclusion / exclusion criteria have been reviewed and confirmed according to protocol. 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 YES Current informed consent signed. YES Lillie Figueroa RN [facility] 01-26-2023 History of Present illness Narrative Summary: RN 2nd Check for eligibility IRB# [id number] [facility] [place] [facility] 1703 2nd check for eligibility by RN completed. YES All inclusion / exclusion criteria have been reviewed and confirmed according to protocol. 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 YES Current informed consent signed. YES Lillie Figueroa RN IRB #[id number] Randomized Non-Inferiority Trial Comparing Overall Survival of Patients Monitored with Serum Tumor Marker Directed Disease Monitoring (STMDDM) Versus Usual Care in Patients with Metastatic Hormone Receptor Positive Her-2 Negative Breast Cancer Registration Information: Informed Consent Signed 01/25/2023 Registered Step 1 TBD Randomization Date: D Study ID: [id number] Treatment ARM: TBD Consent to optional samples N/A but Yes, to future research contact Pt presents for SCREENING VISIT for Step 1 for the S1703 Study. Informed Consent signed on 01/25/2023, prior to any study related procedures being performed that are not SOC. Patient is willing and able to comply with the protocol for the duration of the study including undergoing treatment and scheduled visits and examinations. 01/25/2023 Weight 85.3 kg (188 lb) BSA 0 BMI 0 Temp 36.3 C (97.3 F) Pulse 82 BP 130/85 5.1 STEP 1 REGISTRATION Disease Related Criteria a. Patients must have a diagnosis of hormone receptor positive (ER+ and/or RI+), HER-2 negative, metastatic (M1) breast cancer and must be receiving or plan to receive first-line systemic treatment for metastatic disease. (Systemic treatment is any treatment meant to treat the whole body such as endocrine therapy +/-targeted therapy +/- chemotherapy). NOTE: Participants are eligible if they have either de-samuel metastatic breast cancer and/or recurrent breast cancer from an earlier stage that is now metastatic. Per Dawson Tipton note 01/20/2023 - HER2 negative, RI -, ER pos. Ibrance started 01/20/2023 and Fulvestrant started 01/11/2023 All previous treatment was at [facility] - In exteral documents M1 - liver lesions and pelvic bone lesions. b. Patients must be registered to Step 1 between 14 days prior to and 60 days after start of first-line systemic treatment for metastatic disease. Registration exp 03/12/2023 Clinical/Laboratory Criteria c. Patients (women and men) must be ? 18 years of age : 1960 d. Patients must have been tested for the following breast cancer specific STMs after diagnosis of metastatic disease and within 14 days of initiation of first-line systemic treatment for metastatic disease: CEA (must be tested) CA 15-3 or CA27.29 (at least one of these must be tested). At least one of the tested STMs must have been ? 1.5 x the institutional upper limit of normal at this time. Testing all three STMs is encouraged but only two are required. Patients must plan to have the same two STMs tested for the duration that the patient is on protocol-specified disease monitoring. CEA was 60.1 on 01/11/2023. CA 15-3 was 1,339.0 on 01/11/2023. CA 27.29 was 2,533.0 on 01/11/2023. e. Patients must have systemic radiographic imaging at any time prior to initiation of systemic therapy or within 30 days after initiation of systemic therapy. Imaging must be done prior to Step 1 registration. Modality of imaging is at the discretion of the treating physician. NM whole body scan on 10/19/2022 MRI 12/08/2022 and PET 12/06/2022 Note: As this is a pragmatic trial, there is no limit on how long imaging may be done prior to Step 1 registration. Date of imaging will be collected on the S1703 Baseline Imaging Results form. Note: The treating physician may order additional imaging tests at any point prior to randomization at their discretion. f. Patients must be willing to obtain disease monitoring (imaging and/or serum tumor markers) from a consistent facility in which the registering site has access to the results for the duration of the study intervention (312 weeks after Step 2 randomization). Imaging and STMs do not need to be completed at the same facility. Patient agrees 01/25/2023 g. Patients with known cirrhosis, untreated B12 deficiency, thalassemia, or sickle cell anemia are not eligible as these could cause falsely elevated STM levels. Not noted in medical history/Patient denies 01/25/2023 h. Patients with known brain or leptomeningeal metastases are not eligible as they may require regular radiographic monitoring to assess treatment response.Not noted in medical history/Patient denies 01/25/2023 i. Patients must not be currently enrolled or plan to participate in a first-line treatment trial for metastatic breast cancer with a defined monitoring schedule.Not noted in medical history/Patient denies 01/25/2023 j. Patients who are able to complete questionnaires in Citizen [place] or [place] must participate in patient-reported outcome (PRO) assessments as outlined in Section Primary language is Citizen [place] k. Patients must not be due to the potential harm to the fetus from radiation exposure from radiographic imaging. (Postmenopausal) l. Except for breast cancer (and previous history of breast cancer), no other prior malignancy is allowed with the following exceptions: Adequately treated basal (or squamous cell) skin cancer Not noted in medical history/Patient denies 01/25/2023 Any cancer from which the patient has been disease free for five years Not noted in medical history/Patient denies 01/25/2023 Prior Stage 0 or pre-cancerous lesions that have been removed with clear margins Not noted in medical history/Patient denies 01/25/2023 Prior/Concurrent Therapy Criteria m. Patients must not have received prior systemic therapy for metastatic breast cancer, except for their current line of therapy.Not noted in medical history/Patient denies 01/25/2023 Regulatory Criteria n. Patients must have decision making capacity and be able to provide informed consent. The patient signed informed consent on 01/25/2023 o. Patients must be informed of the investigational nature of this study and must sign and give written informed consent in accordance with institutional and federal guidelines. Use of legally-authorized claims service representative is not permissible for this study. Remote consent is allowed with adequate documentation, as outlined in Section 18.2. The patient signed informed consent on 01/25/2023 p. As a part of the OPEN registration process (see Section 13.4 for OPEN access instructions) the treating institution's identity is provided in order to ensure that the current (within 365 days) date of institutional review board approval for this study has been entered in the system. 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 03/13/2012 Coronary atherosclerosis of unspecified type of vessel, twin hills or graft >5 years Coronary artery disease Depression Diabetes mellitus (HCC) >10 years Esophageal reflux >5 years Hypothyroidism Mixed hyperlipidemia >5 years Hyperlipidemia PMH - PAST MEDICAL HISTORY OF 2012 abnormal pap-althea 1 Unspecified essential hypertension >5 years Essential hypertension PAST SURGICAL HISTORY Procedure Laterality Date BREAST LUMPECTOMY HX Left 2021 BX BREAST PERC VACUUM/ROTN 07/01/2008 right CONIZATION OF CERVIX; COLD KNIFE/LASER 03/13/2012 atypical endocervical glandular cells HYSTERECTOMY HX HYSTEROSCOPY WBX WWO D AND C ANDOR POLYPECTOMY 03/13/2012 INSERT INTRACORONARY STENT 03/13/2004 [facility] LOCALZN CLIP,PERC,DURING BREAST BX 07/01/2008 right Current Outpatient Medications Medication Sig Start/Stop Use ondansetron (ZOFRAN) 8 mg tablet Take 1 tablet by mouth every 8 hours as needed. Start:01/20/2023 Nausea Vitamin E, dl, acetate, 1,000 unit capsule Take 1 capsule by mouth once daily. Start:01/12/2023 Supplement Milk Thistle 150 mg cap Take by mouth. EnejmF90/2/2023 Supplement palbociclib (IBRANCE) 125 mg tablet Take 1 tablet (125 mg) by mouth once daily. Take for 21 days on, followed by 7 days off. Take with or without food. Start:01/20/2023 Metastatic disease venlafaxine ER (EFFEXOR XR) 150 mg 24 hr capsule Take 1 capsule by mouth once daily. Start:11/28/2022 Depression metFORMIN ER (GLUCOPHAGE XR) 500 mg 24 hr tablet Take 2 tablets by mouth twice daily. Start:10/31/2022 Diabetes loratadine (CLARITIN) 10 mg tablet Take 1 tablet by mouth once daily. 2021 Allergies Cinnamon Bark 500 mg cap Take 1 capsule by mouth once daily. 2021 Supplement Zinc 50 mg tab Take 1 tablet by mouth once daily. Start:11/02/2022 levothyroxine (SYNTHROID) 25 mcg tablet Take 1 tablet by mouth once daily Start:04/25/2022 Thyroid lisinopril (ZESTRIL, PRINIVIL) 10 mg tablet Take 1 tablet by mouth once daily Start:04/25/2022 HTN Red Yeast Rice Extract 600 mg cap Take 1 capsule by mouth once daily. Start:09/08/2021 Supplement cholecalciferol (VITAMIN D3) 5,000 unit tab Take 2,000 Units by mouth once daily. Start:09/08/2021 Supplement blood sugar diagnostic (FREESTYLE LITE STRIPS) test strip Use as instructed Start:01/24/2022 Diabetes Lancets lancets [facility] LANCETS ORIGINAL Start:01/24/2022 Diabetes ASPIRIN 81 MG TAB Take one (1) tablet daily . Start:02/14/2005 Preventative No current facility-administered medications for this visit. RTC: 2 weeks for injection. Patient expresses understanding to call with any questions or concerns in the interim and understanding of all instructions provided. Patient has the contact information for treating physician, research staff and the 24-hour Bbivjuqtci-On-Gzsv number [phone]) for the Heme/Onc Fellow. Ann Diego RN January 25, 2023 documented in this encounter [facility] 01-25-2023 Note HNO ID: [id number] Author: Ann Diego RN Service: ? Author Type: Registered Nurse Type: Progress Notes Filed: 01/26/2023 3:05 PM Note Text: IRB #[id number] Randomized Non-Inferiority Trial Comparing Overall Survival of Patients Monitored with Serum Tumor Marker Directed Disease Monitoring (STMDDM) Versus Usual Care in Patients with Metastatic Hormone Receptor Positive Her-2 Negative Breast Cancer Registration Information: Informed Consent Signed 01/25/2023 Registered Step 1 TBD Randomization Date: TBD Study ID: TBD Treatment ARM: TBD Consent to optional samples N/A but Yes, to future research contact Pt presents for SCREENING VISIT for Step 1 for the S1703 Study. Informed Consent signed on 01/25/2023, prior to any study related procedures being performed that are not SOC. Patient is willing and able to comply with the protocol for the duration of the study including undergoing treatment and scheduled visits and examinations. 01/25/2023 Weight 85.3 kg (188 lb) BSA 0 BMI 0 Temp 36.3 ?C (97.3 ?F) Pulse 82 BP 130/85 5.1 STEP 1 REGISTRATION Disease Related Criteria a. Patients must have a diagnosis of hormone receptor positive (ER+ and/or RI+), HER-2 negative, metastatic (M1) breast cancer and must be receiving or plan to receive first-line systemic treatment for metastatic disease. (Systemic treatment is any treatment meant to treat the whole body such as endocrine therapy +/-targeted therapy +/- chemotherapy). NOTE: Participants are eligible if they have either de-samuel metastatic breast cancer and/or recurrent breast cancer from an earlier stage that is now metastatic. Per Dawson Tipton note 01/20/2023 - HER2 negative, RI -, ER pos. Ibrance started 01/20/2023 and Fulvestrant started 01/11/2023 All previous treatment was at [facility] - In exteral documents M1 - liver lesions and pelvic bone lesions. b. Patients must be registered to Step 1 between 14 days prior to and 60 days after start of first-line systemic treatment for metastatic disease. Registration exp 03/12/2023 Clinical/Laboratory Criteria c. Patients (women and men) must be ? 18 years of age : 1960 d. Patients must have been tested for the following breast cancer specific STMs after diagnosis of metastatic disease and within ?14 days of initiation of first-line systemic treatment for metastatic disease: CEA (must be tested) CA 15-3 or CA27.29 (at least one of these must be tested). At least one of the tested STMs must have been ? 1.5 x the institutional upper limit of normal at this time. Testing all three STMs is encouraged but only two are required. Patients must plan to have the same two STMs tested for the duration that the patient is on protocol-specified disease monitoring. CEA was 60.1 on 01/11/2023. CA 15-3 was 1,339.0 on 01/11/2023. CA 27.29 was 2,533.0 on 01/11/2023. e. Patients must have systemic radiographic imaging at any time prior to initiation of systemic therapy or within 30 days after initiation of systemic therapy. Imaging must be done prior to Step 1 registration. Modality of imaging is at the discretion of the treating physician. NM whole body scan on 10/19/2022 MRI 12/08/2022 and PET 12/06/2022 Note: As this is a pragmatic trial, there is no limit on how long imaging may be done prior to Step 1 registration. Date of imaging will be collected on the S1703 Baseline Imaging Results form. Note: The treating physician may order additional imaging tests at any point prior to randomization at their discretion. f. Patients must be willing to obtain disease monitoring (imaging and/or serum tumor markers) from a consistent facility in which the registering site has access to the results for the duration of the study intervention (312 weeks after Step 2 randomization). Imaging and STMs do not need to be completed at the same facility. Patient agrees 01/25/2023 g. Patients with known cirrhosis, untreated B12 deficiency, thalassemia, or sickle cell anemia are not eligible as these could cause falsely elevated STM levels. Not noted in medical history/Patient denies 01/25/2023 h. Patients with known brain or leptomeningeal metastases are not eligible as they may require regular radiographic monitoring to assess treatment response.Not noted in medical history/Patient denies 01/25/2023 i. Patients must not be currently enrolled or plan to participate in a first-line treatment trial for metastatic breast cancer with a defined monitoring schedule.Not noted in medical history/Patient denies 01/25/2023 j. Patients who are able to complete questionnaires in [place] or [place] must participate in patient-reported outcome (PRO) assessments as outlined in Section Primary language is [place] k. Patients must not be due to the potential harm to the fetus from radiation exposure from radiographic imaging. (Postmenopausal) l. Except for breast cancer (and previo (more content not included)... [facility] 01-25-2023 Nurse Note Pt here for injection of Faslodex. Given IM in B/L buttocks. Pt tolerated well. Pau Chavez LPN documented in this encounter [facility] 01-20-2023 Miscellaneous Notes The following approved medication requests have been transmitted electronically. Requested Prescriptions Signed Prescriptions Disp Refills ondansetron (ZOFRAN) 8 mg tablet 20 tablet 2 Sig: Take 1 tablet by mouth every 8 hours as needed. Authorizing Provider: NORA HERNANDEZ APRN.CHIEF OPERATING OFFICER Patient completed lab. She will start Ibrance on 01/20/23. Rx for Zofran attached. Melisa Smith RN Patient returned called and will be today 01/19 to complete labs Call to patient, no answer. Left message that we need to have baseline CBC prior to start if she could come in tomorrow. Ask patient to call me in the am to review instructions and verify when she can come in for lab. Melisa Smith RN Patient has received Ibrance. She is requesting instructions on when to start taking. documented in this encounter [facility] 01-19-2023 Miscellaneous Notes Patient started/will start taking Ibrance on 01/20/23. Melisa Smith RN ORAL ANTI-CANCER AGENTS EDUCATION patient called today for oral medication education of Ibrance for Breast Cancer READINESS TO LEARN Cognitive Ability: Alert and oriented Motivation to Learn: Interested Family Support: Unable to assess - Family not present Instruction Provided to: Patient Patient learns best by: Multiple Methods Factors affecting learning: None Physical limitation affecting learning: None KEARNEY ASSESSMENT: 1.) Verified that patient knows that the oral agents are for cancer and are taken by mouth. Yes 2.) Medication review completed during visit. Yes 3.) Patient is able to swallow pills. Yes 4.) Patient is able to read the drug label/information. Yes 5.) Patient is able to open the medication bottles and packages. Yes 6.) Has patient taken other pills for cancer? No 7.) Is patient experiencing any symptoms that would affect their ability to keep down pills, for example nausea or vomiting? No 8.) Verified that patient understands prescription delivery, benefit investigation and refill process. Yes DRUG-SPECIFIC EDUCATION: 1.) Verified patient knows the drug name. Yes 2.) Verified patient understands the dose and schedule of oral anti cancer agent. Yes 3.) Verified patient knows what to do if a medication dose is missed. Yes 4.) Verified patient understands where to store the drug. Yes 5.) Verified patient understands potential side effects and how to manage them. Yes 6.)Verified patient understands handling precautions of oral anti cancer agent. Yes 7.) Verified patient was given written instructions and understands when and whom to call with questions. Yes 8.) Verified patient understands where and how to return drug. Yes 9.) Verified patient received drug specific adult education handout and neutropenic wallet card Yes EVALUATE: The patient demonstrated an understanding of all the above education using the teach-back method. Yes Instructed to call us with any questions, concerns, and/or unresolved symptoms. Will continue to follow up and provide reinforcement of teaching topics as needed. Sharla Smith RN documented in this encounter [facility] 01-11-2023 Note HNO ID: [id number] Author: Ann Diego RN Service: ? Author Type: Registered Nurse Type: Progress Notes Filed: 01/11/2023 12:43 PM Note Text: Informed Consent Presentation IRB# [id number] Title: Randomized Non-Inferiority Trial Comparing Overall Survival of Patients Monitored with Serum Tumor Marker Directed Disease Monitoring (STMDDM) Versus Usual Care in Patients with Metastatic Hormone Receptor Positive Her-2 Negative Breast Cancer Consent expiration date 03/01/2023 Spoke with patient at the request of Dr. Dawson Tipton M.D. . Treatment plan, including all testing, potential risks/benefits, side effects and management, treatment alternatives, and follow-up explained. Roles of the clinical trial personnel to be involved and the financial responsibilities regarding procedures and medications were discussed. Discussed the importance of effective contraception during and following completion of active therapy for NA. Initial questions were answered and a copy of the informed consent was given to patient with the instructions to read it and call with any additional questions. Contact information for the research nurse was given to the patient. The patient verbalized appropriate understanding of all the aforementioned information presented. Time of Presentation: 11:20AM / January 11, 2023 Ann Diego RN [facility] 01-11-2023 History of Present illness Narrative Informed Consent Presentation IRB# [id number] Title: Randomized Non-Inferiority Trial Comparing Overall Survival of Patients Monitored with Serum Tumor Marker Directed Disease Monitoring (STMDDM) Versus Usual Care in Patients with Metastatic Hormone Receptor Positive Her-2 Negative Breast Cancer Consent expiration date 03/01/2023 Spoke with patient at the request of Dr. Dawson Tipton M.D. . Treatment plan, including all testing, potential risks/benefits, side effects and management, treatment alternatives, and follow-up explained. Roles of the clinical trial personnel to be involved and the financial responsibilities regarding procedures and medications were discussed. Discussed the importance of effective contraception during and following completion of active therapy for NA. Initial questions were answered and a copy of the informed consent was given to patient with the instructions to read it and call with any additional questions. Contact information for the research nurse was given to the patient. The patient verbalized appropriate understanding of all the aforementioned information presented. Time of Presentation: 11:20AM / January 11, 2023 Ann Diego RN documented in this encounter [facility] 01-11-2023 Nurse Note Patient presents with: Imm/Inj Pt is identified by name and birthdate: Yes. Allergies and medications reviewed. Latex allergy? No. Does this patient have: Unplanned weight loss or gain of greater than 10 pounds, or a change of appetite over the last year? No Does the patient have any concerns about safety in the home/falls? Not at risk for falls Has the patient fallen in the past year? No Does the patient have difficulty performing or completing routine daily living activities? No Does this patient have concerns about personal safety? No Is patient having pain? Pain: No=0 (pain 0 on a scale of 0-10). Health Maintenance: Reviewed and updated. Does patient have MyChart access or Caregiver proxy: yes Pt/Caregiver willingness and readiness to learn assessed: Yes. Barriers: none faslodex injection administered, bilateral buttocks,tolerated well, no immediate adverse reactions noted. Hilary Simms LPN documented in this encounter [facility] 01-06-2023 Miscellaneous Notes Spoke with patient and scheduled as directed. Annabella Payne PSS- schedule patient for Faslodex D1, D15 and D 29 with an OV on D29 as well. The healthcare insurance sales agent can contact the patient regarding the Ibrance. Shira Harman LPN Patient returned call and was not aware of her needing to take Ibrance. Please advise patient re: Ibrance and advise PSS as to when to schedule Faslodex in relation to Ibrance. Additionally, patient states she is having a tooth extracted on 01/10. Please advise. Annabella Payne 1ST ATTEMPT LM When pt returns call please assist in scheduling injections and follow up OV. START QMO FASLODEX /AUTH EXP 03/12/23* I can see with day 29 dose faslodex. Melisa she'll need to be on ibrance too. I'll send on rx to specialty. Dr Garcia Per note below please advise on when follow up apt is needed Ok lets start her when feasible, I'll place beacon order now, should have prior auth in a week or so. Dawson Tipton MD January 04, 2023 Patient called stating she would like to take Faslodex injections. Also asked when follow up appt is needed. Please enter orders and advise. documented in this encounter [facility] 01-04-2023 Note HNO ID: [id number] Author: Mariola Patiño, FROILAN Service: ? Author Type: Registered Nurse Type: Progress Notes Filed: 01/06/2023 12:29 PM Note Text: [facility] received prescription(s) for Ibrance from Dr. Tipton's office. The PA was initiated via CMM and pending signature from [facility]. Plan Name: [facility] [place]: [id number] Timeline: URGENT SHANTAL Dey, RN January 06, 2023 9:58 AM Addendum January 06, 2023 12:29 PM : Signed and submitted via fax. Artur Wells PharmD Clinical Pharmacist, Oncology [facility] P: ; F: Pool: P [facility] Pool #: [id number] [facility] 01-04-2023 Note HNO ID: [id number] Author: Candis Marques RPh Service: ? Author Type: Pharmacist Type: Progress Notes Filed: 01/13/2023 7:48 AM Note Text: [facility] received prescription(s) for Ibrance from Dr. Tipton's office. Benefits investigation was conducted, indicating that a prior authorization is required. PA was approved with details listed below. Plan Name: Jonnie Ferraro Agent/[place]: [id number] Phone/ PA reference number: [id number] Approval Dates: 01/06/23 - 01/05/24 Pt's copay is $0. Shipment has been arranged, and pt will receive medication(s) on 01/16. Pt has been instructed to follow-up with clinic to confirm start date. A full drug interaction report was conducted, and no major interactions. I reviewed with Kerry appropriate dose and dosing frequency, administration directions (Take 1 tablet (125 mg) by mouth once daily. Take for 21 days on, followed by 7 days off. Take with or without food.), potential side effects, ability to self-administer and proper storage and handling requirements. S/he expressed understanding of the information we provided today, and received our contact information for the pharmacy if s/he had any other questions. 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 03/13/2012 Coronary atherosclerosis of unspecified type of vessel, twin hills or graft Coronary artery disease Depression Diabetes mellitus (HCC) Esophageal reflux Hypothyroidism Mixed hyperlipidemia Hyperlipidemia PMH - PAST MEDICAL HISTORY OF abnormal pap-althea 1 Unspecified essential hypertension Essential hypertension ALLERGIES Allergen Reactions Atorvastatin Unknown Rosuvastatin Unknown Vytorin 12/20 [Ezet* Unknown Zrktimu-Nfl-Nju Red* Myalgia, Itching Problem List Noted Noted By Resolved Resolved By 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) 01/04/2023 Dawson Tipton MD No Genetic susceptibility to other malignant neoplasm 05/17/2022 Modesta Kamara LPN No BRCA2 gene mutation positive 05/17/2022 Modesta Kamara LPN No Essential (primary) hypertension 02/28/2022 Ron Real MD No Malignant neoplasm of breast (HCC) 08/24/2021 Ron Real MD No Breast mass seen on mammogram 08/21/2021 Modesta Kamara LPN No Allergic rhinitis 09/15/2017 Iqbal Pipe Cleaning Machine Operator, Ana Rosa No Atherosclerosis of coronary artery 09/15/2017 Iqbal Pipe Cleaning Machine Operator, Ana Rosa No Hypertriglyceridemia 09/15/2017 Iqbal Pipe Cleaning Machine Operator, Ana Rosa No Uncontrolled type 2 diabetes mellitus 09/15/2017 Iqbal Pipe Cleaning Machine Operator, Ana Rosa No 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 06/21/2012 Pamela Lopes MD No Atypical endocervical cells on Pap smear 04/23/2012 Pamela Lopes MD No Abnormal mammogram, unspecified 06/09/2008 Rod Alcazar MD No Diabetes beginning in adulthood (type 2/adult onset) (HCC) 02/28/2022 Ron Real MD 02/28/2022 Ron Real MD Rn Critical Care Assessment Patient confirmed: Yes Med/dose confirmed: Yes Supplies needed: Welcome packet Missed doses: No Estimated days supply on hand: 0 Next cycle/dose due: 01/16/23 Copay amount: 0 Copay form of payment: Credit card on file Payment confirmed: Yes Delivery method: FedEx Signature required: Waived on patient request Delivery address: [address] [place] [address] [address] [facility] [id number] Delivery date: 01/16/23 [facility] Visit Assessment - Hematology/Oncology: Ivent complete: No Assessment to use: Initial Vaccination Assessment: Annual influenza vaccination reminder: Yes Date of influenza vaccination reminder: 01/12/2023 Vaccination assessment completed: Yes Date of most recent vaccination assessment: 01/12/2023 Treatment Plan Information: Treatment Plan Information: Dx: 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 Take for 21 days on, followed by 7 days off. Take with or without food. Admin/Storage: Take at same time each day, swallow whole, avoid grapefruit, keep in blister pack A/E: Bone marrow suppression, GI (nausea, vomiting, diarrhea, stomatitis), pulmonary toxicity, fatigue, alopecia, skin rash, asthenia Emetic potential: minimal-low D/I: No major Lab: CBC with differential (prior to treatment initiation, every 2 weeks for first 2 cycles, then prior to each cycle, and as clinically indicated; if neutropenia is limited to grades 1 or 2 in the first 6 cycles, monitor every 3 months [prior to the beginning of a cycle] and as clinically indicated for subsequent cycles); test prior to treatment initiation (in females of reproductive potential); monitor for signs/symptoms of interstitial lung disease/pneumoniti (more content not included)... [facility] 01-04-2023 Note HNO ID: [id number] Author: Vipul Tobin Service: ? Author Type: ? Type: Progress Notes Filed: 01/04/2023 4:34 PM Note Text: [facility] received prescription(s) for Ibrance from Dr. Tipton's office. Benefits investigation was conducted, indicating that a prior authorization is required by patient's insurance plan with [place] [employer]. Encounter will be updated once prior authorization has been submitted by [facility]. Juju Tobin [facility] 01-04-2023 Note HNO ID: [id number] Author: Farhana Guillaume Service: ? Author Type: ? Type: Progress Notes Filed: 01/06/2023 5:00 PM Note Text: [facility] received prescription(s) for Ibrance from Dr. Tipton's office. Benefits investigation was conducted, indicating that a prior authorization is required. MARIFER was approved with details listed below. Plan Name: [facility] Plan Agent/[place]: [id number] Phone/ PA reference number: [id number] Approval Dates: 01/06/23 - 01/05/24 Prescriptions will now be processed through [facility] for determination of next steps. Farhana Guillaume Addendum January 06, 2023 5:00 PM : Pt's copay is $0. Note will be updated once pt is contacted and delivery is confirmed. Artur Wells PharmD Clinical Pharmacist, Oncology [facility] P: ; F: Pool: P CC [facility] ON[facility] Pool #: [id number] [facility] 01-04-2023 History of Present illness Narrative [facility] received prescription(s) for Ibrance from Dr. Tipton's office. Benefits investigation was conducted, indicating that a prior authorization is required by patient's insurance plan with [place] [employer]. Encounter will be updated once prior authorization has been submitted by [facility]. Juju Tobin neuro intensivist physician documented in this encounter [facility] 01-03-2023 Note HNO ID: [id number] Author: Dawson Tipton MD Service: ? Author Type: Physician Type: Progress Notes Filed: 01/03/2023 3:03 PM Note Text: HISTORY OF PRESENT ILLNESS: Kerry Will is a 62 year old female history of left breast cancer dx in August 2021, lumpectomy in October 2021 pT1cNo Oncotype 25, received adjuvant RT, then placed on anastrozole. She is BRCA2 positive. 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 ER+/RI-/Her2 0. PET show liver lesions, also breast uptake and several pelvic bone lesions. She saw her oncologist at [facility], recommended elacestrant. She is here for another opinion. Reviewed all findings, she feels well. Do not see ESR1 mutation assay was done. CLINICAL IMPRESSION: Recurrent breast cancer metastatic to liver and bone. RECOMMENDATION/PLAN: 1. Would favor stopping anastrozole, then faslodex along with palbocilib at this juncture, adding in bisphosphonate subsequently. Explained this is same idea as elcestrasant, but would add in CDK4/6 inhibitor. 2. She'll consider how and where she wishes to proceed, and let me know. 3. PIK3CA testing also warranted. 4. Olaparib in event of ET refractoriness Written and verbal health teaching given to patient, patient verbalizes understanding and agrees with treatment plan. 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 03/13/2012 Coronary atherosclerosis of unspecified type of vessel, twin hills or graft Coronary artery disease Depression Diabetes mellitus (HCC) Esophageal reflux Hypothyroidism Mixed hyperlipidemia Hyperlipidemia PMH - PAST MEDICAL HISTORY OF abnormal pap-althea 1 Unspecified essential hypertension Essential hypertension PAST SURGICAL HISTORY Procedure Laterality Date BREAST LUMPECTOMY HX Left 2021 BX BREAST PERC VACUUM/ROTN 07/01/2008 right CONIZATION OF CERVIX; COLD KNIFE/LASER 03/13/2012 atypical endocervical glandular cells HYSTERECTOMY HX HYSTEROSCOPY WBX WWO D AND C ANDOR POLYPECTOMY 03/13/2012 INSERT INTRACORONARY STENT 03/13/2004 [facility] LOCALZTN CLIP,PERC,DURING BREAST BX 07/01/2008 right FAMILY HISTORY Problem Relation Age of Onset Skin Cancer Mother Heart disease Father Hypertension Father Dementia Father Kidney Disease Father Renal Disease Father Cancer Paternal Aunt OVARIAN Breast Cancer Paternal Aunt Social History Tobacco Use Smoking status: Former Packs/day: 0.50 Years: 10.00 Additional pack years: 0.00 Total pack years: 5.00 Types: Cigarettes Quit date: 02/14/2001 Years since quittin.8 Passive exposure: Never Smokeless tobacco: Never Vaping Use Vaping Use: Never used Substance Use Topics Alcohol use: Yes Drug use: No ALLERGIES: ALLERGIES Allergen Reactions Atorvastatin Unknown Rosuvastatin Unknown Vytorin 12/20 [Ezet* Unknown Fmcmzhh-Viy-Fbq Red* Myalgia, Itching CURRENT OUTPATIENT MEDICATIONS: venlafaxine ER (EFFEXOR XR) 150 mg 24 hr capsule Take 1 capsule by mouth once daily. metFORMIN ER (GLUCOPHAGE XR) 500 mg 24 hr tablet Take 2 tablets by mouth twice daily. loratadine (CLARITIN) 10 mg tablet Take 1 tablet by mouth once daily. Cinnamon Bark 500 mg cap Take 1 capsule by mouth once daily. Zinc 50 mg tab Take 1 tablet by mouth once daily. anastrozole (ARIMIDEX) 1 mg tablet Take 1 mg by mouth once daily. levothyroxine (SYNTHROID) 25 mcg tablet Take 1 tablet by mouth once daily lisinopril (ZESTRIL, PRINIVIL) 10 mg tablet Take 1 tablet by mouth once daily Red Yeast Rice Extract 600 mg cap Take 1 capsule by mouth once daily. cholecalciferol (VITAMIN D3) 5,000 unit tab Take 2,000 Units by mouth once daily. blood sugar diagnostic (FREESTYLE LITE STRIPS) test strip Use as instructed Lancets lancets [facility] LANCETS ORIGINAL ASPIRIN 81 MG TAB Take one (1) tablet daily . glimepiride (AMARYL) 2 mg tablet Take 1 tablet by mouth daily with breakfast. dulaglutide (TRULICITY) 0.75 mg/0.5 mL pen injector Inject 0.75 mg subcutaneously one time a week. (Patient not taking: Reported on 10/31/2022) REVIEW OF SYSTEMS: GENERAL: No fever, night sweats, weight loss or malaise. All other reviewed and negative other than HPI. PHYSICAL EXAMINATION: VITAL SIGNS: BP 132/89 Pulse 77 Temp (Src) 97.1 (Temporal) Ht 5' 3.25 (1.61m) Wt 189 lb 8 oz (86.0kg) SpO2 98% LMP 02/01/2010 BMI 33.29 kg/(m2). GENERAL APPEARANCE: Well appearing, in no acute distress, alert and oriented x3, well-hydrated, well nourished. I spent a total of 60 minutes on the date of the service which included preparing to see the patient, [id number] patient care, completing clinical documentation, obtaining and/or reviewing separately obtained history, counseling and educating the patient/family/caregiver, (more content not included)... [facility] 01-03-2023 History of Present illness Narrative HISTORY OF PRESENT ILLNESS: Kerry Will is a 62 year old female history of left breast cancer dx in August 2021, lumpectomy in October 2021 pT1cNo Oncotype 25, received adjuvant RT, then placed on anastrozole. She is BRCA2 positive. 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 ER+/RI-/Her2 0. PET show liver lesions, also breast uptake and several pelvic bone lesions. She saw her oncologist at [facility], recommended elacestrant. She is here for another opinion. Reviewed all findings, she feels well. Do not see ESR1 mutation assay was done. CLINICAL IMPRESSION: Recurrent breast cancer metastatic to liver and bone. RECOMMENDATION/PLAN: 1. Would favor stopping anastrozole, then faslodex along with palbocilib at this juncture, adding in bisphosphonate subsequently. Explained this is same idea as elcestrasant, but would add in CDK4/6 inhibitor. 2. She'll consider how and where she wishes to proceed, and let me know. 3. PIK3CA testing also warranted. 4. Olaparib in event of ET refractoriness Written and verbal health teaching given to patient, patient verbalizes understanding and agrees with treatment plan. 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 03/13/2012 Coronary atherosclerosis of unspecified type of vessel, twin hills or graft Coronary artery disease Depression Diabetes mellitus (HCC) Esophageal reflux Hypothyroidism Mixed hyperlipidemia Hyperlipidemia PMH - PAST MEDICAL HISTORY OF abnormal pap-althea 1 Unspecified essential hypertension Essential hypertension PAST SURGICAL HISTORY Procedure Laterality Date BREAST LUMPECTOMY HX Left 2021 BX BREAST PERC VACUUM/ROTN 07/01/2008 right CONIZATION OF CERVIX; COLD KNIFE/LASER 03/13/2012 atypical endocervical glandular cells HYSTERECTOMY HX HYSTEROSCOPY WBX WWO D AND C ANDOR POLYPECTOMY 03/13/2012 INSERT INTRACORONARY STENT 03/13/2004 [facility] LOCALN CLIP,PERC,DURING BREAST BX 07/01/2008 right FAMILY HISTORY Problem Relation Age of Onset Skin Cancer Mother Heart disease Father Hypertension Father Dementia Father Kidney Disease Father Renal Disease Father Cancer Paternal Aunt OVARIAN Breast Cancer Paternal Aunt Social History Tobacco Use Smoking status: Former Packs/day: 0.50 Years: 10.00 Additional pack years: 0.00 Total pack years: 5.00 Types: Cigarettes Quit date: 02/14/2001 Years since quittin.8 Passive exposure: Never Smokeless tobacco: Never Vaping Use Vaping Use: Never used Substance Use Topics Alcohol use: Yes Drug use: No ALLERGIES: ALLERGIES Allergen Reactions Atorvastatin Unknown Rosuvastatin Unknown Vytorin 12/20 [Ezet* Unknown Ctksjmt-Xij-Ruh Red* Myalgia, Itching CURRENT OUTPATIENT MEDICATIONS: venlafaxine ER (EFFEXOR XR) 150 mg 24 hr capsule Take 1 capsule by mouth once daily. metFORMIN ER (GLUCOPHAGE XR) 500 mg 24 hr tablet Take 2 tablets by mouth twice daily. loratadine (CLARITIN) 10 mg tablet Take 1 tablet by mouth once daily. Cinnamon Bark 500 mg cap Take 1 capsule by mouth once daily. Zinc 50 mg tab Take 1 tablet by mouth once daily. anastrozole (ARIMIDEX) 1 mg tablet Take 1 mg by mouth once daily. levothyroxine (SYNTHROID) 25 mcg tablet Take 1 tablet by mouth once daily lisinopril (ZESTRIL, PRINIVIL) 10 mg tablet Take 1 tablet by mouth once daily Red Yeast Rice Extract 600 mg cap Take 1 capsule by mouth once daily. cholecalciferol (VITAMIN D3) 5,000 unit tab Take 2,000 Units by mouth once daily. blood sugar diagnostic (FREESTYLE LITE STRIPS) test strip Use as instructed Lancets lancets [facility] LANCETS ORIGINAL ASPIRIN 81 MG TAB Take one (1) tablet daily . glimepiride (AMARYL) 2 mg tablet Take 1 tablet by mouth daily with breakfast. dulaglutide (TRULICITY) 0.75 mg/0.5 mL pen injector Inject 0.75 mg subcutaneously one time a week. (Patient not taking: Reported on 10/31/2022) REVIEW OF SYSTEMS: GENERAL: No fever, night sweats, weight loss or malaise. All other reviewed and negative other than HPI. PHYSICAL EXAMINATION: VITAL SIGNS: BP 132/89 Pulse 77 Temp (Src) 97.1 (Temporal) Ht 5' 3.25 (1.61m) Wt 189 lb 8 oz (86.0kg) SpO2 98% LMP 02/01/2010 BMI 33.29 kg/(m^2). GENERAL APPEARANCE: Well appearing, in no acute distress, alert and oriented x3, well-hydrated, well nourished. I spent a total of 60 minutes on the date of the service which included preparing to see the patient, [id number] patient care, completing clinical documentation, obtaining and/or reviewing separately obtained history, counseling and educating the patient/family/caregiver, independently interpreting results (not separately reported), and communicating results to the patient/family/caregiver. Electronically Signed: Dawson Tipton MD January 03, 2023 2:40 PM documented in this encounter [facility] 12-30-2022 Note HNO ID: [id number] Author: Ann Diego RN Service: ? Author Type: Registered Nurse Type: Progress Notes Filed: 12/30/2022 11:36 AM Note Text: Kerry Will was reviewed for potential clinical trial [id number] by the [facility] on 12/30/22. Per initial review, patient has disease type Breast and appears to be preliminarily eligible and further testing/procedures required to determine final eligibility. Requesting green party notified. Ann Diego RN [facility] 12-30-2022 Note HNO ID: [id number] Author: Ann Diego RN Service: ? Author Type: Registered Nurse Type: Progress Notes Filed: 12/30/2022 11:36 AM Note Text: Kerry Will was reviewed for potential clinical trial enrollment [id number] by the [facility] on 12/30/22. Per initial review, patient has disease type Breast and appears to be not eligible based on started treatment elsewhere . Requesting green party notified. Ann Diego RN [facility] 12-30-2022 History of Present illness Narrative Kerry Will was reviewed for potential clinical trial enrollment on [facility] #[id number] by the [facility] on 12/30/22. Per initial review, patient has disease type Breast and appears to be preliminarily eligible and further testing/procedures required to determine final eligibility. Requesting green party notified. Ann Diego RN Kerry Will was reviewed for potential clinical trial enrollment on [facility] #[id number] by the [facility] on 12/30/22. Per initial review, patient has disease type Breast and appears to be not eligible based on started treatment elsewhere . Requesting green party notified. Ann Diego RN documented in this encounter [facility] 12-24-2022 Note HNO ID: [id number] Author: Taylor Reinoso APRN.CHIEF OPERATING OFFICER Service: ? Author Type: Nurse Practitioner Type: Progress Notes Filed: 12/24/2022 12:32 PM Note Text: CC: Patient presents with: UTI: Dysuria, burning with urination x1 day HPI Kerry Will is a 62 year old female who presents with complaint of possible UTI. These symptoms have been present for 1 days. Associated symptoms: burning, urgency, and pressure Denies: fever, chills, sweats, abdominal pain, and flank pain Treatments: nothing The ROS was otherwise negative. PMH, Medications, labs, allergies, and recent past visits with PCP were reviewed and updated as able. PHYSICAL EXAM: BP 134/86 Pulse 77 Temp 36.7 ?C (98.1 ?F) Resp 18 Wt 86.9 kg (191 lb 9.6 oz) LMP 02/01/2010 SpO2 98% BMI 32.89 kg/m? 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 2012 Coronary atherosclerosis of unspecified type of vessel, twin hills or graft Coronary artery disease Esophageal reflux Hypothyroidism Mixed hyperlipidemia Hyperlipidemia PMH - PAST MEDICAL HISTORY OF abnormal pap-althea 1 Unspecified essential hypertension Essential hypertension PAST SURGICAL HISTORY Procedure Laterality Date BX BREAST PERC VACUUM/ROTN 07/01/08 right CONIZATION OF CERVIX; COLD KNIFE/LASER 2012 atypical endocervical glandular cells HYSTEROSCOPY WBX WWO D AND C ANDOR POLYPECTOMY 2013 INSERT INTRACORONARY STENT 2004 [facility] LOCALZTN CLIP,PERC,DURING BREAST BX 07/01/08 right ALLERGIES Atorvastatin, Rosuvastatin, Vytorin 12/20 [Ezetimibe-Simvastatin], and Tkqbkbq-Uji-Nam Reductase Inhibitors MEDICATIONS anastrozole (ARIMIDEX) 1 mg tablet Take 1 mg by mouth once daily. ASPIRIN 81 MG TAB Take one (1) tablet daily . blood sugar diagnostic (FREESTYLE LITE STRIPS) test strip Use as instructed cholecalciferol (VITAMIN D3) 5,000 unit tab Take 2,000 Units by mouth once daily. Cinnamon Bark 500 mg cap Take 1,000 mg by mouth. dulaglutide (TRULICITY) 0.75 mg/0.5 mL pen injector Inject 0.75 mg subcutaneously one time a week. (Patient not taking: Reported on 10/31/2022) glimepiride (AMARYL) 2 mg tablet Take 1 tablet by mouth daily with breakfast. Lancets lancets [facility] LANCETS ORIGINAL levothyroxine (SYNTHROID) 25 mcg tablet Take 1 tablet by mouth once daily lisinopril (ZESTRIL, PRINIVIL) 10 mg tablet Take 1 tablet by mouth once daily loratadine (CLARITIN) 10 mg tablet Take 1 tablet by mouth once daily. metFORMIN ER (GLUCOPHAGE XR) 500 mg 24 hr tablet Take 2 tablets by mouth twice daily. nitrofurantoin monohydrate and macrocrystal (MACROBID) 100 mg capsule Take 1 capsule by mouth two times a day for 5 days. Red Yeast Rice Extract 600 mg cap Take by mouth. venlafaxine ER (EFFEXOR XR) 150 mg 24 hr capsule Take 1 capsule by mouth once daily. Zinc 50 mg tab Take 1 tablet by mouth once daily. FAMILY HISTORY Problem Relation Age of Onset Skin Cancer Mother Heart disease Father Hypertension Father Dementia Father Kidney Disease Father Renal Disease Father Cancer Paternal Aunt OVARIAN Social History Tobacco Use Smoking status: Former Types: Cigarettes Quit date: 02/14/2001 Years since quittin.8 Passive exposure: Never Smokeless tobacco: Never Vaping Use Vaping Use: Never used Substance Use Topics Alcohol use: Yes Drug use: No ASSESSMENT/PLAN: 1. Burning with urination - ICD9: 788.1, ICD10: R30.0 - UA DIP, URINE (POC) - URINE CULTURE - NITROFURANTOIN MONOHYDRATE AND MACROCRYSTAL 100 MG ORAL CAP Prescription instructions reviewed with patient as applicable. Potential red flag symptoms discussed with the patient. Reviewed appropriate action plan to take if red flag symptoms occur. Patient agreeable to treatment plan. Taylor Reinoso APRN.[facility] 12-24-2022 History of Present illness Narrative CC: Patient presents with: UTI: Dysuria, burning with urination x1 day HPI Kerry Will is a 62 year old female who presents with complaint of possible UTI. These symptoms have been present for 1 days. Associated symptoms: burning, urgency, and pressure Denies: fever, chills, sweats, abdominal pain, and flank pain Treatments: nothing The ROS was otherwise negative. PMH, Medications, labs, allergies, and recent past visits with PCP were reviewed and updated as able. 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 2012 Coronary atherosclerosis of unspecified type of vessel, twin hills or graft Coronary artery disease Esophageal reflux Hypothyroidism Mixed hyperlipidemia Hyperlipidemia PMH - PAST MEDICAL HISTORY OF abnormal pap-althea 1 Unspecified essential hypertension Essential hypertension PAST SURGICAL HISTORY Procedure Laterality Date BX BREAST PERC VACUUM/ROTN 07/01/08 right CONIZATION OF CERVIX; COLD KNIFE/LASER 2012 atypical endocervical glandular cells HYSTEROSCOPY WBX WWO D AND C ANDOR POLYPECTOMY 2013 INSERT INTRACORONARY STENT 2004 [facility] LOCALTN CLIP,PERC,DURING BREAST BX 07/01/08 right ALLERGIES Atorvastatin, Rosuvastatin, Vytorin 12/20 [Ezetimibe-Simvastatin], and Tadwucy-Ogs-Woe Reductase Inhibitors MEDICATIONS anastrozole (ARIMIDEX) 1 mg tablet Take 1 mg by mouth once daily. ASPIRIN 81 MG TAB Take one (1) tablet daily . blood sugar diagnostic (FREESTYLE LITE STRIPS) test strip Use as instructed cholecalciferol (VITAMIN D3) 5,000 unit tab Take 2,000 Units by mouth once daily. Cinnamon Bark 500 mg cap Take 1,000 mg by mouth. dulaglutide (TRULICITY) 0.75 mg/0.5 mL pen injector Inject 0.75 mg subcutaneously one time a week. (Patient not taking: Reported on 10/31/2022) glimepiride (AMARYL) 2 mg tablet Take 1 tablet by mouth daily with breakfast. Lancets lancets [facility] LANCETS ORIGINAL levothyroxine (SYNTHROID) 25 mcg tablet Take 1 tablet by mouth once daily lisinopril (ZESTRIL, PRINIVIL) 10 mg tablet Take 1 tablet by mouth once daily loratadine (CLARITIN) 10 mg tablet Take 1 tablet by mouth once daily. metFORMIN ER (GLUCOPHAGE XR) 500 mg 24 hr tablet Take 2 tablets by mouth twice daily. nitrofurantoin monohydrate and macrocrystal (MACROBID) 100 mg capsule Take 1 capsule by mouth two times a day for 5 days. Red Yeast Rice Extract 600 mg cap Take by mouth. venlafaxine ER (EFFEXOR XR) 150 mg 24 hr capsule Take 1 capsule by mouth once daily. Zinc 50 mg tab Take 1 tablet by mouth once daily. FAMILY HISTORY Problem Relation Age of Onset Skin Cancer Mother Heart disease Father Hypertension Father Dementia Father Kidney Disease Father Renal Disease Father Cancer Paternal Aunt OVARIAN Social History Tobacco Use Smoking status: Former Types: Cigarettes Quit date: 02/14/2001 Years since quittin.8 Passive exposure: Never Smokeless tobacco: Never Vaping Use Vaping Use: Never used Substance Use Topics Alcohol use: Yes Drug use: No ASSESSMENT/PLAN: 1. Burning with urination - ICD9: 788.1, ICD10: R30.0 - UA DIP, URINE (POC) - URINE CULTURE - NITROFURANTOIN MONOHYDRATE & MACROCRYSTAL 100 MG ORAL CAP Prescription instructions reviewed with patient as applicable. Potential red flag symptoms discussed with the patient. Reviewed appropriate action plan to take if red flag symptoms occur. Patient agreeable to treatment plan. 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 She also is having some nausea after she eats. She is going to try small frequent meals and see if that helps. She is also going to take it easier as wont probably feel back to normal for 6 to 8 weeks. She will call if sxs do not improve. 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 She also is having some nausea after she eats. She is going to try small frequent meals and see if that helps. She is also going to take it easier as wont probably feel back to normal for 6 to 8 weeks. She will call if sxs do not improve. Patient called stating she had a hysterectomy 3 weeks ago, but ever since then, she keeps being nauseous after eating. States the nausea is getting worse and worse. Concerned because she doesn't know if this is because of the hysterectomy or her liver cancer. Told patient a message was going to be sent to the nurses. Please advise pt how to proceed. documented in this encounter [facility] 12-13-2022 Telephone encounter Note Patient called stating she had a hysterectomy 3 weeks ago, but ever since then, she keeps being nauseous after eating. States the nausea is getting worse and worse. Concerned because she doesn't know if this is because of the hysterectomy or her liver cancer. Told patient a message was going to be sent to the nurses. Please advise pt how to proceed. [facility] 12-08-2022 Telephone encounter Note Called pt with negative culture. Pt is feeling much better today. [facility] 12-08-2022 Miscellaneous Notes Called pt with negative culture. Pt is feeling much better today. Addended by: HANNA VELASQUEZ on: 12/06/2022 09:29 AM Modules accepted: Orders Spoke with pt and she would like to have orders faxed to [facility] on [facility]. Faxed [phone] Pt mentioned that she had surgery a few weeks ago. Pt mentioned that she had a UTI and it went away. Pt mentioned that the UTI is back. Pt mentioned that she would like to do a urine sample. Pt mentioned that the last medication (the bactrim) that she took made her sick and had to throw it away. Patient wants to know if there is anything that she can take to. Patient mentioned that she have a PET scan at 9:45 am and she might be away from her phone for about an hour to an hour and a half. Called patient and told patient ok to stop taking Bactrim. Patient did complete 5 days. Symptoms have resolved. Patient verbalizes understanding Bactrim is making pt throw up past two nights. Takes pt two hours to start feeling better in the am. Pt took 5 of the 7 prescribed days. Has 4 pills left. Wants to know if she should take something else. Pt states all her UTI all all gone. Patient mentioned that she have 4 prescription left. Her prescription is Smz-tempef 800 mg. Patient mentioned that it makes her feel sick. Patient wants to know if there is something else she needs to take. Patient would like a call back. documented in this encounter [facility] 12-08-2022 Telephone encounter Note Patient with negative urine culture results. Patient states she is feeling better today. Encouraged to call with any new symptoms or concerns [employer] Phone: 12-08-2022 Miscellaneous Notes Patient with negative urine culture results. Patient states she is feeling better today. Encouraged to call with any new symptoms or concerns documented in this encounter [employer] 12-07-2022 Telephone encounter Note Call the lab and erick to find out about urinary analysis results. They did state that they only did the culture and it will not be resulted until tomorrow. We will follow-up with them tomorrow to get results of urine culture. [employer] Phone: 12-07-2022 Miscellaneous Notes Call the lab and erick to find out about urinary analysis results. They did state that they only did the culture and it will not be resulted until tomorrow. We will follow-up with them tomorrow to get results of urine culture. documented in this encounter [employer] 12-07-2022 History of Present illness Narrative Postop visit Patient underwent robotic hysterectomy BSO for BRCA2 positivity as well as a pelvic mass. Since surgery she has noted some discomfort with passing her water. Was placed on an antibiotic that did not help. A repeat urinalysis is pending. Intraoperatively she is noted to have multiple liver metastasis. Biopsy of the liver was performed. Final Diagnosis A - Peritoneal Washings - Washing, Cytology: NO MALIGNANT CELLS IDENTIFIED. Lymphocytosis present. A. LIVER, BIOPSY: -METASTATIC CARCINOMA CONSISTENT WITH PATIENT'S KNOWN HISTORY OF BREAST CARCINOMA B. UTERUS CERVIX BILATERAL TUBES AND OVARIES: -CERVIX WITH ACUTE AND CHRONIC CERVICITIS -INACTIVE/ATROPHIC ENDOMETRIUM -SEROSAL ENDOMETRIOSIS -BILATERAL OVARIES WITH ENDOMETRIOTIC CYSTS -BILATERAL FALLOPIAN TUBES WITH NO SIGNIFICANT HISTOPATHOLOGIC CHANGES Patient does have an appointment with her medical oncologist and is undergone a PET scan. On exam the abdominal incisions are healing nicely A) status post robotic hysterectomy BSO and liver biopsy, finding of metastatic breast cancer. Results have been sent to her medical oncologist. P) we will follow-up on the urinalysis and culture. documented in this encounter [facility] 12-06-2022 Note Addended by: HANNA JAMIL on: 12/06/2022 09:29 AM Modules accepted: Orders [facility] 12-06-2022 Note Addended by: HANNA JAMIL on: 12/06/2022 09:29 AM Modules accepted: Orders [facility] 12-06-2022 Note Addended by: HANNA JAMIL on: 12/06/2022 09:29 AM Modules accepted: Orders [facility] 12-06-2022 Note Addended by: HANNA JAMIL on: 12/06/2022 09:29 AM Modules accepted: Orders [facility] 12-06-2022 Miscellaneous Notes Addended by: HANNA VELASQUEZ on: 12/06/2022 09:29 AM Modules accepted: Orders Spoke with pt and she would like to have orders faxed to [facility] on [facility]. Faxed [phone] Pt mentioned that she had surgery a few weeks ago. Pt mentioned that she had a UTI and it went away. Pt mentioned that the UTI is back. Pt mentioned that she would like to do a urine sample. Pt mentioned that the last medication (the bactrim) that she took made her sick and had to throw it away. Patient wants to know if there is anything that she can take to. Patient mentioned that she have a PET scan at 9:45 am and she might be away from her phone for about an hour to an hour and a half. Called patient and told patient ok to stop taking Bactrim. Patient did complete 5 days. Symptoms have resolved. Patient verbalizes understanding Bactrim is making pt throw up past two nights. Takes pt two hours to start feeling better in the am. Pt took 5 of the 7 prescribed days. Has 4 pills left. Wants to know if she should take something else. Pt states all her UTI all all gone. Patient mentioned that she have 4 prescription left. Her prescription is Smz-tempef 800 mg. Patient mentioned that it makes her feel sick. Patient wants to know if there is something else she needs to take. Patient would like a call back. documented in this encounter [facility] 12-06-2022 Telephone encounter Note Spoke with pt and she would like to have orders faxed to [facility] on [facility]. Faxed [phone] [facility] 12-06-2022 Telephone encounter Note Pt mentioned that she had surgery a few weeks ago. Pt mentioned that she had a UTI and it went away. Pt mentioned that the UTI is back. Pt mentioned that she would like to do a urine sample. Pt mentioned that the last medication (the bactrim) that she took made her sick and had to throw it away. Patient wants to know if there is anything that she can take to. Patient mentioned that she have a PET scan at 9:45 am and she might be away from her phone for about an hour to an hour and a half. [employer] [facility] 11-30-2022 Telephone encounter Note Called patient and told patient ok to stop taking Bactrim. Patient did complete 5 days. Symptoms have resolved. Patient verbalizes understanding [employer] [facility] Work Phone: 11-30-2022 Miscellaneous Notes Called patient and told patient ok to stop taking Bactrim. Patient did complete 5 days. Symptoms have resolved. Patient verbalizes understanding Bactrim is making pt throw up past two nights. Takes pt two hours to start feeling better in the am. Pt took 5 of the 7 prescribed days. Has 4 pills left. Wants to know if she should take something else. Pt states all her UTI all all gone. Patient mentioned that she have 4 prescription left. Her prescription is Smz-tempef 800 mg. Patient mentioned that it makes her feel sick. Patient wants to know if there is something else she needs to take. Patient would like a call back. documented in this encounter [facility] 11-30-2022 Telephone encounter Note Bactrim is making pt throw up past two nights. Takes pt two hours to start feeling better in the am. Pt took 5 of the 7 prescribed days. Has 4 pills left. Wants to know if she should take something else. Pt states all her UTI all all gone. [facility] 11-30-2022 Telephone encounter Note Patient mentioned that she have 4 prescription left. Her prescription is Smz-tempef 800 mg. Patient mentioned that it makes her feel sick. Patient wants to know if there is something else she needs to take. Patient would like a call back. [facility] 11-28-2022 Miscellaneous Notes Patient called requesting the following refill. Requested Prescriptions Pending Prescriptions Disp Refills venlafaxine ER (EFFEXOR XR) 150 mg 24 hr capsule 90 capsule 3 Sig: Take 1 capsule by mouth once daily. Patient last appointment: 10/31/2022 Next appointment 02/06/2023 Patient Phone numbers: [phone] (home) [phone] (work) Request is for script(s) to be escript to [facility] pharmacy. Modesta Kamara LPN documented in this encounter [facility] 11-25-2022 Note Addended by: FATOU MCCORMACK on: 11/25/2022 01:40 PM Modules accepted: Orders [facility] 11-25-2022 Note Addended by: FATOU MCCORMACK on: 11/25/2022 01:40 PM Modules accepted: Orders [facility] 11-25-2022 Note Addended by: FATOU MCCORMACK on: 11/25/2022 01:40 PM Modules accepted: Orders [facility] 11-25-2022 Miscellaneous Notes Addended by: FATOU MAXWELL on: 11/25/2022 01:40 PM Modules accepted: Orders Spoke to patient and urine is positive. Will call in Bactrim per Rachelle Arredondo CNP. Patient verbalizes understanding. Patient called into the office to get her results from the urine test. Patient mentioned that she took the test on Monday (November 21) in [place]. Patient would like a call back. Pt had surgery on 11/17/22. Pt has burning with voiding. Pt informed to drinks lots of fluids. Order put in for U/A and urine culture for [facility] lab in [place]. Faxed orders to [phone]. While on the phone with patient to r/s her appointment, patient mentioned that she doesn't know if she have a UTI or something. Patient mentioned that she is having burning feeling. Patient would like a call back. documented in this encounter [facility] 11-25-2022 Telephone encounter Note Spoke to patient and urine is positive. Will call in Bactrim per Rachelle Arredondo CNP. Patient verbalizes understanding. T [facility] 11-25-2022 Telephone encounter Note Patient called into the office to get her results from the urine test. Patient mentioned that she took the test on Monday (November 21) in [place]. Patient would like a call back. [facility] 11-21-2022 Telephone encounter Note Pt had surgery on 11/17/22. Pt has burning with voiding. Pt informed to drinks lots of fluids. Order put in for U/A and urine culture for [facility] lab in [place]. Faxed orders to [phone]. T [facility] 11-21-2022 Telephone encounter Note While on the phone with patient to r/s her appointment, patient mentioned that she doesn't know if she have a UTI or something. Patient mentioned that she is having burning feeling. Patient would like a call back. T [facility] 11-17-2022 Note Patient's family to bedside. Discharge instructions and educational material provided to patient. All questions answered at this time [facility] 11-17-2022 Note Formatting of this n ote might be different from the original. Patient ambulated to bathroom, tolerated fairly well.Discharge criteria met. Patient states she is ready to go home. T [facility] 11-17-2022 Note Formatting of this n ote might be different from the original. Patient ambulated to bathroom, tolerated fairly well.Discharge criteria met. Patient states she is ready to go home. [facility] 11-17-2022 Miscellaneous Notes Patient ambulated to bathroom, tolerated fairly well.Discharge criteria met. Patient states she is ready to go home. Patient's family to bedside. Discharge instructions and educational material provided to patient. All questions answered at this time Date of surgery 11/17/2022 Preoperative diagnosis BRCA2 positive, pelvic mass Postop diagnosis same plus liver lesions consistent with metastasis Surgery robotic hysterectomy BSO, liver biopsy Surgeon Jayant Anesthesia General Description of findings; the patient had multiple umbilicated and nodular growths on the liver capsule in both lobes. There was no peritoneal disease found. There appeared to be a left endometrioma with evidence of old endometriosis in the cul-de-sac. No evidence of ovarian carcinoma was found. Description of operation Patient identified brought to the operating room and after ministration of general anesthetic underwent abdominal perineal vaginal prep and drape Moody cath is inserted and compression stockings on a running sponge stick was placed in the vagina the Moody catheter in the bladder. She was in the [facility]. Using a knife a small incision made in the left upper quadrant using the mySBX system abdominal cavity was entered under direct vision insufflated with CO2 and under direct vision da David ports were placed under direct vision. A 5 mm port was placed in the right upper quadrant as well. Washings were obtained the above findings were noted in the liver and using the punch biopsy instrument, several biopsies were obtained of the liver lesions. These were handed off the field. Trendelenburg was then used to displace the bowel about the pelvis. No intraperitoneal disease was found. The omentum and peritoneal surfaces were all smooth and normal. The left tube and ovary was adherent to the sigmoid colon consistent with endometriosis. The right round ligament was identified, it was open the anterior process of the broad ligament open the ureter identified the ovarian vessels on the right were coagulated and divided above the ureter. Similar dissection then ensued on the left side. The bladder was dissected inferiorly. This then allowed the ovary to be dissected out of the cul-de-sac using monopolar and bipolar cautery a. No evidence of enterotomy was noted. The uterine vessels were then skeletonized coagulated and divided as were the upper cardinal ligaments. Colpotomy incision was then made on top of the sponge and the the uterus cervix tubes and ovaries removed out through the vagina. The cuff was closed using a running 0 V-Loc suture the pelvis was irrigated hemostasis was noted. All inches removed the abdominal cavity the da David undocked the trocars removed the defects in the skin were closed subcuticular 4-0 Monocryl and Dermabond. The Moody was removed to 400 cc of clear urine and she was taken to the cover room in stable condition by anesthesia. 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 (Removed) Specimens ID Source Type Tests Collected By Collected At Frozen? Priority Lab ID 1 Liver Tissue TISSUE EXAM Jarad Saba MD 11/17/22 [id number] No Routine Description: LIVER BIOPSIES 2 Peritoneal Washings Wash NON-GYNECOLOGIC CYTOLOGY Jarad Saba MD 11/17/22 1451 No Routine Description: PELVIC WASHINGS 3 Uterus Tissue TISSUE EXAM Jarad Saba MD 11/17/22 1511 No Routine Description: UTERUS, CERVIX, BILATERAL TUBES AND OVARIES Implants Staff: Blanket Folder: Rosa Oakes RN Scrub Person: Gina Mccartney; Mary Reich Findings: liver lesions c/w mets Complications: None; patient tolerated the procedure well. Specimens Collected: Order Name Source Comment Collection Info Order Time HCG QUALITATIVE URINE Urine, Clean Catch Discontinue this order if: 1. patient is older than 55 years old 2. has had a prior hysterectomy 3. today's surgery is for treatment of known or suspected ectopic or loss. 4. patient has a known intrauterine but this is a needed surgery. 11/17/2022 12:43 PM POTASSIUM WITH MG REFLEX For patients on dialysis to draw potassium day of surgery 11/17/2022 12:43 PM PROTHROMBIN TIME If patient on coumadin within 4 days prior. 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 HX OF BREAST CANCER WITH LIVER LESIONS. BREAST CANCER AT [place]. 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 HX OF BREAST CANCER WITH LIVER LESIONS. BREAST CANCER AT [place]. Collected By: Jarad Saba MD 11/17/2022 2:51 PM Wound Class: Class II: Clean-Contaminated Blood Products: None Prophylactic Antibiotics: Procedure appropriate prophylactic antibiotic(s) given within 1 hour of surgical incision (two hours if receiving Vancomycin or flouroquinolone) PRE-PROCEDURE ROUNDING COMPLETE. documented in this encounter [facility] 11-17-2022 Note Patient: Kerry monk Procedure Summary Date: 11/17/22 Room / Location: [address] Operating Room Anesthesia Start: 1410 Anesthesia Stop: 154 Procedures: ROBOTIC ASSISTED TOTAL LAPAROSCOPIC HYSTERECTOMY, BILATERAL SALPINGO-OOPHORECTOMY, POSSIBLE STAGING (Abdomen) LYMPHADENECTOMY FOR STAGING PELVIC AND PARA-AORTIC (Abdomen) Diagnosis: Intra-abdominal and pelvic swelling, mass and lump, unspecified site 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 (Intra-abdominal and pelvic swelling, mass and lump, unspecified site [R19.00]) (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 Anesthesia Post Evaluation Patient location during evaluation: PACU Patient participation: waiting for patient participation Level of consciousness: sleepy but conscious Pain management: satisfactory to patient Airway patency: patent Dental Injury: no Cardiovascular status: acceptable, blood pressure returned to baseline and hemodynamically stable Respiratory status: acceptable, spontaneous ventilation, nasal airway and face mask Hydration status: euvolemic Nausea/Vomiting: controlled No notable events documented. Patient can be discharged once all PACU criteria has been met. [facility] 11-17-2022 Note Patient: Kerry monk Procedure Summary Date: 11/17/22 Room / Location: [address] Operating Room Anesthesia Start: 1410 Anesthesia Stop: 154 Procedures: ROBOTIC ASSISTED TOTAL LAPAROSCOPIC HYSTERECTOMY, BILATERAL SALPINGO-OOPHORECTOMY, POSSIBLE STAGING (Abdomen) LYMPHADENECTOMY FOR STAGING PELVIC AND PARA-AORTIC (Abdomen) Diagnosis: Intra-abdominal and pelvic swelling, mass and lump, unspecified site 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 (Intra-abdominal and pelvic swelling, mass and lump, unspecified site [R19.00]) (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 Anesthesia Post Evaluation Patient location during evaluation: PACU Patient participation: waiting for patient participation Level of consciousness: sleepy but conscious Pain management: satisfactory to patient Multimodal analgesia pain management approach Airway patency: patent Two or more strategies used to mitigate risk of obstructive sleep apnea Cardiovascular status: acceptable and hemodynamically stable Respiratory status: acceptable, face mask and nasal airway Hydration status: acceptable No notable events documented. MIPS #430 PONV Patient received an inhalational anesthetic (4554F) Patient does not exhibit three or more risk factors for PONV (X0430)) MIPS # 424 Perioperative Temperature Management Anesthesia time was 60 minutes or longer (4255F) Anesthesai administered was General (inhalational or TIVA) or Neuraxial block (X0424) At least one body temperature greater than 95.8F/35.5C achieved within the 30 mins immediately prior to or the 15 minutes immediately following anesthesia end time (G9771) MIPS #477 Multimodal Pain Management Emergent case Exlusion- Stop here (M1142) MIPS #404 Anesthesiology Smoking Abstinence The patient is not a current smoker (e.g. cigarette, cigar, pipe, e-cigarette/vaping/marijuana) If no stop here (G9644) I completed my handoff to the receiving clinician during which we: 1. Identified the patient 2. Identified the responsible provider 3. Reviewed the pertinent medical history 4. Discussed the surgical course 5. Reviewed intra-op anesthesia management and issues during anesthesia 6. Set expectations for post-procedure period 7. Allowed opportunity for questions and acknowledgement of understanding. [facility] 11-17-2022 Note Formatting of this n ote might be different from the original. Patient's family to bedside. Discharge instructions and educational material provided to patient. All questions answered at this time [facility] 11-17-2022 Note Formatting of this n ote might be different from the original. Patient's family to bedside. Discharge instructions and educational material provided to patient. All questions answered at this time [facility] 11-17-2022 Note Airway Date/Time: 11/17/2022 2:25 PM Urgency: scheduled Airway not difficult General Information and Staff Patient location during procedure: Procedural Resident/FIRE WARDEN: Thee Winter CRNA Performed: FIRE WARDEN Performed by: Thee Winter FIRE WARDEN Authorized by: Thee Winter CRNA Indications and Patient Condition Indications for airway management: anesthesia Sedation level: Asleep Preoxygenated: yes Patient position: sniffing MILS maintained throughout Mask difficulty assessment: 1 - vent by mask Final Airway Details Final airway type: endotracheal airway Successful airway: ETT Cuffed: yes Successful intubation technique: direct laryngoscopy Facilitating devices/methods: intubating stylet Endotracheal tube insertion site: oral Blade: Allison Blade size: #3 ETT size (mm): 7.0 Cormack-Lehane Classification: grade I - full view of glottis Placement verified by: chest auscultation and capnometry Measured from: lips ETT to lips (cm): 21 Number of attempts at approach: 1 [facility] 11-17-2022 Note Peripheral Block Time Out: 11/17/2022 2:15 PM Patient location during procedure: Procedural Start time: 11/17/2022 2:15 PM End time: 11/17/2022 2:17 PM Reason for block: at surgeon's request and post-op pain management Staffing Performed: [place] Resident/FIRE WARDEN: Sam Haile APRN - [place] Preanesthetic Checklist Completed: patient identified, IV checked, site marked, risks and benefits discussed, surgical consent, monitors and equipment checked, pre-op evaluation and timeout performed Region: [place] Primary: TAP (Bupivacaine 0.375%/ Epi 1:200,000/ Dex 0.1mg/mL 40ml divided evenly bilateral) Secondary: Upper rectus (Bupivacaine 0.375%/ Epi 1:200,000/ Dex 0.1mg/mL 20ml divided evenly bilateral) Peripheral Block Patient position: supine Prep: ChloraPrep Patient monitoring: heart rate, phototypesetting equipment monitor, continuous pulse ox and continuous capnometry O2: ETT/LMA Laterality: bilateral Injection technique: single-shot Guidance: ultrasound guided -image retained in chart, tip of the needle identified by ultraound during injection. Needle Needle: 21G X 110 mm Additional Notes 11/17/2022 2:15 PM Assessment Injection assessment: negative aspiration for heme, no paresthesia on injection and incremental injection Heart rate change: no Slow fractionated injection: yes Required Documentation: Relevant anatomy identified (Nerves, Vessels, Muscles), Negative for blood on aspiration, Local anesthetic injected incrementally with intermittent aspiration every 5 mL, Normal resistance with injection, No EKG changes noted, No symptoms of toxicity, Local anesthetic spread visualized around nerves or plane. and Local anesthetic injected without difficultyMedications [id number]-dessushoawg-jznpjnkg ine (TAP) syringe - Injection 60 mL - 11/17/2022 2:15:00 PM [facility] 11-17-2022 Note H&P reviewed. The pa tient was examined and there are no changes to the H&P. [facility] 11-17-2022 Note PRE-PROCEDURE ROUNDING COMPLETE. [facility] 11-17-2022 Note Formatting of this n ote might be different from the original. Date of surgery 11/17/2022 Preoperative diagnosis BRCA2 positive, pelvic mass Postop diagnosis same plus liver lesions consistent with metastasis Surgery robotic hysterectomy BSO, liver biopsy Surgeon Jayant Anesthesia General Description of findings; the patient had multiple umbilicated and nodular growths on the liver capsule in both lobes. There was no peritoneal disease found. There appeared to be a left endometrioma with evidence of old endometriosis in the cul-de-sac. No evidence of ovarian carcinoma was found. Description of operation Patient identified brought to the operating room and after ministration of general anesthetic underwent abdominal perineal vaginal prep and drape Moody cath is inserted and compression stockings on a running sponge stick was placed in the vagina the Moody catheter in the bladder. She was in the [facility]. Using a knife a small incision made in the left upper quadrant using the mySBX system abdominal cavity was entered under direct vision insufflated with CO2 and under direct vision da David ports were placed under direct vision. A 5 mm port was placed in the right upper quadrant as well. Washings were obtained the above findings were noted in the liver and using the punch biopsy instrument, several biopsies were obtained of the liver lesions. These were handed off the field. Trendelenburg was then used to displace the bowel about the pelvis. No intraperitoneal disease was found. The omentum and peritoneal surfaces were all smooth and normal. The left tube and ovary was adherent to the sigmoid colon consistent with endometriosis. The right round ligament was identified, it was open the anterior process of the broad ligament open the ureter identified the ovarian vessels on the right were coagulated and divided above the ureter. Similar dissection then ensued on the left side. The bladder was dissected inferiorly. This then allowed the ovary to be dissected out of the cul-de-sac using monopolar and bipolar cautery a. No evidence of enterotomy was noted. The uterine vessels were then skeletonized coagulated and divided as were the upper cardinal ligaments. Colpotomy incision was then made on top of the sponge and the the uterus cervix tubes and ovaries removed out through the vagina. The cuff was closed using a running 0 V-Loc suture the pelvis was irrigated hemostasis was noted. All inches removed the abdominal cavity the da David undocked the trocars removed the defects in the skin were closed subcuticular 4-0 Monocryl and Dermabond. The Moody was removed to 400 cc of clear urine and she was taken to the cover room in stable condition by anesthesia. [facility] 11-17-2022 Note Formatting of this n ote is different from the original. 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 (Removed) Specimens ID Source Type Tests Collected By Collected At Frozen? Priority Lab ID 1 Liver Tissue TISSUE EXAM Jarad Saba MD 11/17/22 1445 No Routine Description: LIVER BIOPSIES 2 Peritoneal Washings Wash NON-GYNECOLOGIC CYTOLOGY Jarad Saba MD 11/17/22 1451 No Routine Description: PELVIC WASHINGS 3 Uterus Tissue TISSUE EXAM Jarad Saba MD 11/17/22 1511 No Routine Description: UTERUS, CERVIX, BILATERAL TUBES AND OVARIES Implants Staff: Blanket Folder: Rosa Oakes RN Scrub Person: Gina Reich Findings: liver lesions c/w mets Complications: None; patient tolerated the procedure well. Specimens Collected: Order Name Source Comment Collection Info Order Time HCG QUALITATIVE URINE Urine, Clean Catch Discontinue this order if: 1. patient is older than 55 years old 2. has had a prior hysterectomy 3. today's surgery is for treatment of known or suspected ectopic or loss. 4. patient has a known intrauterine but this is a needed surgery. 11/17/2022 12:43 PM POTASSIUM WITH MG REFLEX For patients on dialysis to draw potassium day of surgery 11/17/2022 12:43 PM PROTHROMBIN TIME If patient on coumadin within 4 days prior. 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 HX OF BREAST CANCER WITH LIVER LESIONS. BREAST CANCER AT [place]. 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 HX OF BREAST CANCER WITH LIVER LESIONS. BREAST CANCER AT [place]. Collected By: Jarad Saba MD 11/17/2022 2:51 PM Wound Class: Class II: Clean-Contaminated Blood Products: None Prophylactic Antibiotics: Procedure appropriate prophylactic antibiotic(s) given within 1 hour of surgical incision (two hours if receiving Vancomycin or flouroquinolone) [facility] 11-17-2022 Note Formatting of this n ote might be different from the original. Date of surgery 11/17/2022 Preoperative diagnosis BRCA2 positive, pelvic mass Postop diagnosis same plus liver lesions consistent with metastasis Surgery robotic hysterectomy BSO, liver biopsy Surgeon Jayant Anesthesia General Description of findings; the patient had multiple umbilicated and nodular growths on the liver capsule in both lobes. There was no peritoneal disease found. There appeared to be a left endometrioma with evidence of old endometriosis in the cul-de-sac. No evidence of ovarian carcinoma was found. Description of operation Patient identified brought to the operating room and after ministration of general anesthetic underwent abdominal perineal vaginal prep and drape Moody cath is inserted and compression stockings on a running sponge stick was placed in the vagina the Moody catheter in the bladder. She was in the [facility]. Using a knife a small incision made in the left upper quadrant using the mySBX system abdominal cavity was entered under direct vision insufflated with CO2 and under direct vision da David ports were placed under direct vision. A 5 mm port was placed in the right upper quadrant as well. Washings were obtained the above findings were noted in the liver and using the punch biopsy instrument, several biopsies were obtained of the liver lesions. These were handed off the field. Trendelenburg was then used to displace the bowel about the pelvis. No intraperitoneal disease was found. The omentum and peritoneal surfaces were all smooth and normal. The left tube and ovary was adherent to the sigmoid colon consistent with endometriosis. The right round ligament was identified, it was open the anterior process of the broad ligament open the ureter identified the ovarian vessels on the right were coagulated and divided above the ureter. Similar dissection then ensued on the left side. The bladder was dissected inferiorly. This then allowed the ovary to be dissected out of the cul-de-sac using monopolar and bipolar cautery a. No evidence of enterotomy was noted. The uterine vessels were then skeletonized coagulated and divided as were the upper cardinal ligaments. Colpotomy incision was then made on top of the sponge and the the uterus cervix tubes and ovaries removed out through the vagina. The cuff was closed using a running 0 V-Loc suture the pelvis was irrigated hemostasis was noted. All inches removed the abdominal cavity the da David undocked the trocars removed the defects in the skin were closed subcuticular 4-0 Monocryl and Dermabond. The Moody was removed to 400 cc of clear urine and she was taken to the cover room in stable condition by anesthesia. [facility] 11-17-2022 Note Formatting of this n ote is different from the original. 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] * Genetic susceptibility to other malignant neoplasm [Z15.09] Post-op Diagnosis * Intra-abdominal and pelvic swelling, mass and lump, unspecified site [R19.00] * Genetic susceptibility to malignant neoplasm of breast [Z15.01] * Genetic susceptibility to other malignant neoplasm [Z15.09] Procedures ROBOTIC ASSISTED TOTAL LAPAROSCOPIC HYSTERECTOMY, BILATERAL SALPINGO-OOPHORECTOMY, POSSIBLE STAGING 51710 - RI LAPS TOTAL HYSTERECT 250 GM/< W/RMVL TUBE/OVARY LYMPHADENECTOMY FOR STAGING PELVIC AND PARA-AORTIC 36060 - RI LMTD LMPHADEC STAGING SPX PEL&PARA-AORTIC Liver biopsy Surgeons * Jarad Saba - Primary Procedure Summary Anesthesia: General ASA: II Estimated Blood Loss: 10 mL Drains: [REMOVED] Urethral Catheter Non-latex 16 Fr. (Removed) Specimens ID Source Type Tests Collected By Collected At Frozen? Priority Lab ID 1 Liver Tissue TISSUE EXAM Jarad Saba MD 11/17/22 1445 No Routine Description: LIVER BIOPSIES 2 Peritoneal Washings Wash NON-GYNECOLOGIC CYTOLOGY Jarad Saba MD 11/17/22 1451 No Routine Description: PELVIC WASHINGS 3 Uterus Tissue TISSUE EXAM Jarad Saba MD 11/17/22 1511 No Routine Description: UTERUS, CERVIX, BILATERAL TUBES AND OVARIES Implants Staff: Blanket Folder: Rosa Oakes RN Scrub Person: Gina Reich Findings: liver lesions c/w mets Complications: None; patient tolerated the procedure well. Specimens Collected: Order Name Source Comment Collection Info Order Time HCG QUALITATIVE URINE Urine, Clean Catch Discontinue this order if: 1. patient is older than 55 years old 2. has had a prior hysterectomy 3. today's surgery is for treatment of known or suspected ectopic or loss. 4. patient has a known intrauterine but this is a needed surgery. 11/17/2022 12:43 PM POTASSIUM WITH MG REFLEX For patients on dialysis to draw potassium day of surgery 11/17/2022 12:43 PM PROTHROMBIN TIME If patient on coumadin within 4 days prior. 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 HX OF BREAST CANCER WITH LIVER LESIONS. BREAST CANCER AT [place]. 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 HX OF BREAST CANCER WITH LIVER LESIONS. BREAST CANCER AT [place]. Collected By: Jarad Saba MD 11/17/2022 2:51 PM Wound Class: Class II: Clean-Contaminated Blood Products: None Prophylactic Antibiotics: Procedure appropriate prophylactic antibiotic(s) given within 1 hour of surgical incision (two hours if receiving Vancomycin or flouroquinolone) [facility] 11-17-2022 Attending History and physical note H&P reviewed. The patient was examined and there are no changes to the H&P. Source Note - Ermelinda Wytat APRN - CHIEF OPERATING OFFICER - 11/15/2022 11:00 AM EDT Comprehensive Pre Surgical History and Physical ?1350 11/15/22- ADDENDUM: Lab called and CBC/ A1c clotted- orders placed for re-draw on DOS Name: Kerry Will : 1960 (Age-62 y.o.) Date of Service: Pt seen/examined on 11/15/2022 Procedure Information Date/Time: 11/17/22 1430 Procedures: ROBOTIC ASSISTED TOTAL LAPAROSCOPIC HYSTERECTOMY, BILATERAL SALPINGO-OOPHORECTOMY, POSSIBLE STAGING (Abdomen) LYMPHADENECTOMY FOR STAGING PELVIC AND PARA-AORTIC (Abdomen) Location: [facility] OR [address] [place] [address] Operating Room Surgeons: Jarad Saba MD Chief Complaint: Intra-abdominal and pelvic swelling, mass and lump, unspecified site 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 ASSESSMENT/PLAN: Patient is considered low/intermediate risk for this intermediate risk procedure/surgery () with no reducible risk factors. Based on the above evaluation, the benefits of the planned procedure likely exceed the risks. The patient is medically optimized to proceed with the planned procedure without any further cardiopulmonary testing. 1) Intra-abdominal and pelvic swelling, mass and lump, unspecified site 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 - Managed per surgery 2) Diabetes Metformin Amaryl Trulicity A1c collected in PAT EKG/ labs completed in PAT 3) HTN/ CAD/ Hx stent 19 years ago Lisinopril ASA 81mg (will continue d/t hx of stent) BP Readings from Last 3 Encounters: 11/15/22 (!) 146/92 4) Hypothyroidism Synthroid 25mcg Visit Type: Pre-Admission Testing Visit Labs Ordered: YES - PER PAT PROTOCOL Sleep Referral Ordered: NO - NEGATIVE SCREEN PER SLEEP REFERRAL PROTOCOL Total time spent (which include face to face and non face to face encounters) : 30 minutes Toxic drug monitoring/narrow therapeutic index drug monitoring : # Drug name : multiple # Route administered : oral # Method of monitoring : labs/ ekg PAT Protocol referenced includes: 1. Anesthesia Lab Protocol Orders 2. Perioperative Cardiovascular Risk Assessment 3. Anesthesia Assessment 4. Pain Assessment and Acute Pain Service Consult (if appropriate) 5. Medical Clearance/Consult from Internal Medicine (IMS) 6. Shower/Wash Order (for designated surgeries) 7. MERY Screen and Sleep Clinic Referral (if appropriate) History Of Present Illness: 62 y.o. female who we are asked to see/evaluate by Dr. Sabafor pre-operative evaluation prior to above procedure. ? Denies history of [place], CHF, TIA, CVA Past Medical History: Past Medical History: No date: Alcohol use No date: Anemia No date: Atherosclerotic heart disease No date: BRCA2 gene mutation positive No date: Breast cancer, left (HCC) No date: Diabetes mellitus (HCC) No date: GERD (gastroesophageal reflux disease) No date: High cholesterol No date: Hyperlipemia No date: Hypertension No date: Hypotension No date: RLS (restless legs syndrome) No date: SOB (shortness of breath) on exertion No date: Thyroid disease Past Surgical History: Past Surgical History: 2021: BREAST LUMPECTOMY; Left Comment: with radiation No date: CARDIAC CATH PROCEDURE (HISTORICAL) No date: CERVICAL BIOPSY W/ LOOP ELECTRODE EXCISION No date: CORONARY ANGIOPLASTY WITH STENT PLACEMENT Comment: x1 age 43 No date: HYSTEROSCOPY Medications Prior to Admission: Prior to Admission medications Medication Sig Start Date End Date Taking? Authorizing Provider amoxicillin (Amoxil) 875 MG tablet Take 875 mg by mouth 2 times daily. 01/25/22 Historical Provider, anastrozole (Arimidex) 1 MG tablet Take 1 mg by mouth in the morning. Historical Provider, ascorbic acid (Vitamin C) 1000 MG tablet Take by mouth. Historical Provider, aspirin 81 MG chewable tablet Chew 81 mg in the morning. Historical Provider, Calcium Ascorbate 500 MG tablet Take 500 mg by mouth. 11/02/21 Historical Provider, cholecalciferol (D3-5) 5,000 Units tablet Take by mouth. 09/08/21 Historical Provider, cinnamon 500 MG capsule Take 1,000 mg by mouth. Historical Provider, dulaglutide (Trulicity) 0.75 MG/0.5ML solution pen-injector Inject 0.75 mg under the skin once a week. 08/25/22 08/25/23 Historical Provider, glimepiride (Amaryl) 2 MG tablet Take 1 tablet by mouth daily (with breakfast). 10/31/22 10/31/23 Historical Provider, glucose blood (FREESTYLE LITE) test strip Use as instructed 01/24/22 Historical Provider, levothyroxine (Synthroid, Levoxyl) 25 MCG tablet Take 1 tablet by mouth daily. 04/25/22 Historical Provider, lisinopril 10 MG tablet Take 1 tablet by mouth daily. 04/25/22 Historical Provider, loratadine (Claritin) 10 MG tablet Take 1 tablet by mouth in the morning. Historical Provider, metFORMIN XR (Glucophage-XR) 500 MG 24 hr tablet Take 1,000 mg by mouth in the morning and 1,000 mg in the evening. 10/31/22 10/31/23 Historical Provider, Red Yeast Rice Extract 600 MG capsule Take by mouth. Historical Provider, Specialty Vitamins Products (Anton R3) tablet Take by mouth. Historical Provider, venlafaxine XR (Effexor XR) 150 MG 24 hr capsule Take 150 mg by mouth in the morning. Historical Provider, zinc, chelated, 50 MG tablet Take by mouth. Historical Provider, CHRONIC NARCOTIC USE: No Allergies: Statins If patient has opioid allergy, is it okay to take Acetaminophen: Yes Social History: TOBACCO: reports that she quit smoking about 21 years ago. Her smoking use included cigarettes. She has a 7.50 pack-year smoking history. She has never used smokeless tobacco. ETOH: reports current alcohol use. Social History Substance and Sexual Activity Drug Use Never Family History: No family history on file. REVIEW OF SYSTEMS: Review of Systems Constitutional: Negative for chills and fever. HENT: Negative for trouble swallowing. Respiratory: Negative for cough and shortness of breath. Cardiovascular: Negative for chest pain and leg swelling. Gastrointestinal: Negative for abdominal pain, nausea and vomiting. Skin: Negative for rash. Neurological: Negative for seizures and weakness. Physical Exam: Physical Exam Constitutional: Appearance: Normal appearance. HENT: Head: Normocephalic and atraumatic. Mouth/Throat: Mouth: Mucous membranes are moist. Pharynx: Oropharynx is clear. Eyes: Pupils: Pupils are equal, round, and reactive to light. Cardiovascular: Rate and Rhythm: Normal rate. Pulses: Normal pulses. Pulmonary: Effort: Pulmonary effort is normal. Abdominal: General: Bowel sounds are normal. Musculoskeletal: General: Normal range of motion. Cervical back: Normal range of motion. Skin: General: Skin is warm and dry. Capillary Refill: Capillary refill takes less than 2 seconds. Neurological: General: No focal deficit present. Mental Status: She is alert and oriented to person, place, and time. Psychiatric: Behavior: Behavior normal. Vitals: Vitals Value Taken Time BP 146/92 11/15/22 1133 Temp 36.4 C (97.5 F) 11/15/22 1133 Pulse 85 11/15/22 1133 Resp 18 11/15/22 1133 SpO2 97 % 11/15/22 1133 Labs: Per surgeon and PAT protocol Pete's Simple Cardiac Risk Index: PETE'S SIMPLE CARDIAC RISK SCORE: 1 Interpretation: 0 Points Class I 0.5% 1 Point Class II 1.3% 2 Points Class III 3.6% 3+ Points Class IV 9.1% PAT Pain Score: Postop Pain Management Plan (Pain consult ordered?): Pain consult not indicated at this time ? EKG: per PAT protocol Interpretation Summary IMPRESSION: Sinus rhythm Left anterior fascicular block Low voltage, precordial leads Consider anterior infarct ECG Measurements QRSD Interval: 91 ms QT Interval: 363 ms QTC Interval: 421 ms Heart Rate: 81 bpm P [place]: 34 degrees QRS [place]: -51 degrees T Wave [place]: -2 degrees ECHO and EF:None on file No components found for: LVEF, LVEFMODE METS >4 Electronically signed by: JOSSY Gold CNP Date: 11/15/2022 at 11:54 AM [employer] Phone: 11-17-2022 History and physical note H&P reviewed. The patient was examined and there are no changes to the H&P. Source Note - JOSSY Gold CNP - 11/15/2022 11:00 AM EDT Comprehensive Pre Surgical History and Physical ?1350 11/15/22- ADDENDUM: Lab called and CBC/ A1c clotted- orders placed for re-draw on DOS Name: Kerry Will : 1960 (Age-62 y.o.) Date of Service: Pt seen/examined on 11/15/2022 Procedure Information Date/Time: 11/17/22 1430 Procedures: ROBOTIC ASSISTED TOTAL LAPAROSCOPIC HYSTERECTOMY, BILATERAL SALPINGO-OOPHORECTOMY, POSSIBLE STAGING (Abdomen) LYMPHADENECTOMY FOR STAGING PELVIC AND PARA-AORTIC (Abdomen) Location: [facility] OR [address] [place] [address] Operating Room Surgeons: Jarad Saba MD Chief Complaint: Intra-abdominal and pelvic swelling, mass and lump, unspecified site 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 ASSESSMENT/PLAN: Patient is considered low/intermediate risk for this intermediate risk procedure/surgery () with no reducible risk factors. Based on the above evaluation, the benefits of the planned procedure likely exceed the risks. The patient is medically optimized to proceed with the planned procedure without any further cardiopulmonary testing. 1) Intra-abdominal and pelvic swelling, mass and lump, unspecified site 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 - Managed per surgery 2) Diabetes Metformin Amaryl Trulicity A1c collected in PAT EKG/ labs completed in PAT 3) HTN/ CAD/ Hx stent 19 years ago Lisinopril ASA 81mg (will continue d/t hx of stent) BP Readings from Last 3 Encounters: 11/15/22 (!) 146/92 4) Hypothyroidism Synthroid 25mcg Visit Type: Pre-Admission Testing Visit Labs Ordered: YES - PER PAT PROTOCOL Sleep Referral Ordered: NO - NEGATIVE SCREEN PER SLEEP REFERRAL PROTOCOL Total time spent (which include face to face and non face to face encounters) : 30 minutes Toxic drug monitoring/narrow therapeutic index drug monitoring : # Drug name : multiple # Route administered : oral # Method of monitoring : labs/ ekg PAT Protocol referenced includes: 1. Anesthesia Lab Protocol Orders 2. Perioperative Cardiovascular Risk Assessment 3. Anesthesia Assessment 4. Pain Assessment and Acute Pain Service Consult (if appropriate) 5. Medical Clearance/Consult from Internal Medicine (IMS) 6. Shower/Wash Order (for designated surgeries) 7. MERY Screen and Sleep Clinic Referral (if appropriate) History Of Present Illness: 62 y.o. female who we are asked to see/evaluate by Dr. Sabafor pre-operative evaluation prior to above procedure. ? Denies history of [place], CHF, TIA, CVA Past Medical History: Past Medical History: No date: Alcohol use No date: Anemia No date: Atherosclerotic heart disease No date: BRCA2 gene mutation positive No date: Breast cancer, left (HCC) No date: Diabetes mellitus (HCC) No date: GERD (gastroesophageal reflux disease) No date: High cholesterol No date: Hyperlipemia No date: Hypertension No date: Hypotension No date: RLS (restless legs syndrome) No date: SOB (shortness of breath) on exertion No date: Thyroid disease Past Surgical History: Past Surgical History: 2021: BREAST LUMPECTOMY; Left Comment: with radiation No date: CARDIAC CATH PROCEDURE (HISTORICAL) No date: CERVICAL BIOPSY W/ LOOP ELECTRODE EXCISION No date: CORONARY ANGIOPLASTY WITH STENT PLACEMENT Comment: x1 age 43 No date: HYSTEROSCOPY Medications Prior to Admission: Prior to Admission medications Medication Sig Start Date End Date Taking? Authorizing Provider amoxicillin (Amoxil) 875 MG tablet Take 875 mg by mouth 2 times daily. 01/25/22 Historical Provider, anastrozole (Arimidex) 1 MG tablet Take 1 mg by mouth in the morning. Historical Provider, ascorbic acid (Vitamin C) 1000 MG tablet Take by mouth. Historical Provider, aspirin 81 MG chewable tablet Chew 81 mg in the morning. Historical Provider, Calcium Ascorbate 500 MG tablet Take 500 mg by mouth. 11/02/21 Historical Provider, cholecalciferol (D3-5) 5,000 Units tablet Take by mouth. 09/08/21 Historical Provider, cinnamon 500 MG capsule Take 1,000 mg by mouth. Historical Provider, dulaglutide (Trulicity) 0.75 MG/0.5ML solution pen-injector Inject 0.75 mg under the skin once a week. 08/25/22 08/25/23 Historical Provider, glimepiride (Amaryl) 2 MG tablet Take 1 tablet by mouth daily (with breakfast). 10/31/22 10/31/23 Historical Provider, glucose blood (FREESTYLE LITE) test strip Use as instructed 01/24/22 Historical Provider, levothyroxine (Synthroid, Levoxyl) 25 MCG tablet Take 1 tablet by mouth daily. 04/25/22 Historical Provider, lisinopril 10 MG tablet Take 1 tablet by mouth daily. 04/25/22 Historical Provider, loratadine (Claritin) 10 MG tablet Take 1 tablet by mouth in the morning. Historical Provider, metFORMIN XR (Glucophage-XR) 500 MG 24 hr tablet Take 1,000 mg by mouth in the morning and 1,000 mg in the evening. 10/31/22 10/31/23 Historical Provider, Red Yeast Rice Extract 600 MG capsule Take by mouth. Historical Provider, Specialty Vitamins Products ([place] R3) tablet Take by mouth. Historical Provider, venlafaxine XR (Effexor XR) 150 MG 24 hr capsule Take 150 mg by mouth in the morning. Historical Provider, zinc, chelated, 50 MG tablet Take by mouth. Historical Provider, CHRONIC NARCOTIC USE: No Allergies: Statins If patient has opioid allergy, is it okay to take Acetaminophen: Yes Social History: TOBACCO: reports that she quit smoking about 21 years ago. Her smoking use included cigarettes. She has a 7.50 pack-year smoking history. She has never used smokeless tobacco. ETOH: reports current alcohol use. Social History Substance and Sexual Activity Drug Use Never Family History: No family history on file. REVIEW OF SYSTEMS: Review of Systems Constitutional: Negative for chills and fever. HENT: Negative for trouble swallowing. Respiratory: Negative for cough and shortness of breath. Cardiovascular: Negative for chest pain and leg swelling. Gastrointestinal: Negative for abdominal pain, nausea and vomiting. Skin: Negative for rash. Neurological: Negative for seizures and weakness. Physical Exam: Physical Exam Constitutional: Appearance: Normal appearance. HENT: Head: Normocephalic and atraumatic. Mouth/Throat: Mouth: Mucous membranes are moist. Pharynx: Oropharynx is clear. Eyes: Pupils: Pupils are equal, round, and reactive to light. Cardiovascular: Rate and Rhythm: Normal rate. Pulses: Normal pulses. Pulmonary: Effort: Pulmonary effort is normal. Abdominal: General: Bowel sounds are normal. Musculoskeletal: General: Normal range of motion. Cervical back: Normal range of motion. Skin: General: Skin is warm and dry. Capillary Refill: Capillary refill takes less than 2 seconds. Neurological: General: No focal deficit present. Mental Status: She is alert and oriented to person, place, and time. Psychiatric: Behavior: Behavior normal. Vitals: Vitals Value Taken Time BP 146/92 11/15/22 1133 Temp 36.4 C (97.5 F) 11/15/22 1133 Pulse 85 11/15/22 1133 Resp 18 11/15/22 1133 SpO2 97 % 11/15/22 1133 Labs: Per surgeon and PAT protocol Pete's Simple Cardiac Risk Index: PETE'S SIMPLE CARDIAC RISK SCORE: 1 Interpretation: 0 Points Class I 0.5% 1 Point Class II 1.3% 2 Points Class III 3.6% 3+ Points Class IV 9.1% PAT Pain Score: Postop Pain Management Plan (Pain consult ordered?): Pain consult not indicated at this time ? EKG: per PAT protocol Interpretation Summary IMPRESSION: Sinus rhythm Left anterior fascicular block Low voltage, precordial leads Consider anterior infarct ECG Measurements QRSD Interval: 91 ms QT Interval: 363 ms QTC Interval: 421 ms Heart Rate: 81 bpm P [place]: 34 degrees QRS [place]: -51 degrees T Wave [place]: -2 degrees ECHO and EF:None on file No components found for: LVEF, LVEFMODE METS >4 Electronically signed by: Ermelinda Wyatt, UX ARCHITECT - CHIEF OPERATING OFFICER Date: 11/15/2022 at 11:54 AM documented in this encounter [facility] 11-17-2022 Note Formatting of this n ote might be different from the original. PRE-PROCEDURE ROUNDING COMPLETE. [facility] 11-17-2022 Note Formatting of this n ote might be different from the original. PRE-PROCEDURE ROUNDING COMPLETE. [facility] 11-15-2022 Note Patient: Kerry monk Procedure Information Date/Time: 11/17/22 1430 Procedures: ROBOTIC ASSISTED TOTAL LAPAROSCOPIC HYSTERECTOMY, BILATERAL SALPINGO-OOPHORECTOMY, POSSIBLE STAGING (Abdomen) LYMPHADENECTOMY FOR STAGING PELVIC AND PARA-AORTIC (Abdomen) Location: [facility] [address] [place] [address] Operating Room Surgeons: Jarad Saba MD Past Medical History: Past Medical History: No date: Alcohol use No date: Anemia No date: Atherosclerotic heart disease No date: BRCA2 gene mutation positive No date: Breast cancer, left (HCC) No date: Diabetes mellitus (HCC) No date: GERD (gastroesophageal reflux disease) No date: High cholesterol No date: Hyperlipemia No date: Hypertension No date: Hypotension No date: RLS (restless legs syndrome) No date: SOB (shortness of breath) on exertion No date: Thyroid disease Past Surgical History: Past Surgical History: 2021: BREAST LUMPECTOMY; Left Comment: with radiation No date: CARDIAC CATH PROCEDURE (HISTORICAL) No date: CERVICAL BIOPSY W/ LOOP ELECTRODE EXCISION No date: CORONARY ANGIOPLASTY WITH STENT PLACEMENT Comment: x1 age 43 No date: HYSTEROSCOPY Social History: TOBACCO: reports that she quit smoking about 21 years ago. Her smoking use included cigarettes. She has a 7.50 pack-year smoking history. She has never used smokeless tobacco. ETOH: reports current alcohol use. Social History Substance and Sexual Activity Drug Use Never Family History: No family history on file. Screening: Postmenopausal Clinical information reviewed: Tobacco Allergies Meds Med Hx Surg Hx OB Status Fam Hx Soc Hx Physical Exam Airway Mallampati: II TM distance: >3 FB Neck ROM: full Mouth Open: normal Cardiovascular Dental (+) Upper Partials Pulmonary Abdominal Anesthesia Plan patient is NPO appropriate Any family history or previous problems with anesthesia no ASA 2 general and regional Any family history or previous problems with anesthesia no The patient is not a current smoker. Anesthetic plan and risks discussed with patient. Blood Glucose Bgt 223 4 units given Insulin Sliding Scale: low ERAS Type Short ERAS MERY Screening negative Labs: Per protocol/ surgeon's orders EKG per protocol [facility] 11-15-2022 Note Comprehensive Pre [place] rgical History and Physical ?1350 11/15/22- ADDENDUM: Lab called and CBC/ A1c clotted- orders placed for re-draw on DOS Name: Kerry Will : 1960 (Age-62 y.o.) Date of Service: Pt seen/examined on 11/15/2022 Procedure Information Date/Time: 11/17/22 1430 Procedures: ROBOTIC ASSISTED TOTAL LAPAROSCOPIC HYSTERECTOMY, BILATERAL SALPINGO-OOPHORECTOMY, POSSIBLE STAGING (Abdomen) LYMPHADENECTOMY FOR STAGING PELVIC AND PARA-AORTIC (Abdomen) Location: [facility] [address] [place] [address] Operating Room Surgeons: Jarad Saba MD Chief Complaint: Intra-abdominal and pelvic swelling, mass and lump, unspecified site 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 ASSESSMENT/PLAN: Patient is considered low/intermediate risk for this intermediate risk procedure/surgery () with no reducible risk factors. Based on the above evaluation, the benefits of the planned procedure likely exceed the risks. The patient is medically optimized to proceed with the planned procedure without any further cardiopulmonary testing. 1) Intra-abdominal and pelvic swelling, mass and lump, unspecified site 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 - Managed per surgery 2) Diabetes Metformin Amaryl Trulicity A1c collected in PAT EKG/ labs completed in PAT 3) HTN/ CAD/ Hx stent 19 years ago Lisinopril ASA 81mg (will continue d/t hx of stent) BP Readings from Last 3 Encounters: 11/15/22 (!) 146/92 4) Hypothyroidism Synthroid 25mcg Visit Type: Pre-Admission Testing Visit Labs Ordered: YES - PER PAT PROTOCOL Sleep Referral Ordered: NO - NEGATIVE SCREEN PER SLEEP REFERRAL PROTOCOL Total time spent (which include face to face and non face to face encounters) : 30 minutes Toxic drug monitoring/narrow therapeutic index drug monitoring : # Drug name : multiple # Route administered : oral # Method of monitoring : labs/ ekg PAT Protocol referenced includes: 1. Anesthesia Lab Protocol Orders 2. Perioperative Cardiovascular Risk Assessment 3. Anesthesia Assessment 4. Pain Assessment and Acute Pain Service Consult (if appropriate) 5. Medical Clearance/Consult from Internal Medicine ([facility]) 6. Shower/Wash Order (for designated surgeries) 7. MERY Screen and Sleep Clinic Referral (if appropriate) History Of Present Illness: 62 y.o. female who we are asked to see/evaluate by Dr. Sabafor pre-operative evaluation prior to above procedure. ? Denies history of [place], CHF, TIA, CVA Past Medical History: Past Medical History: No date: Alcohol use No date: Anemia No date: Atherosclerotic heart disease No date: BRCA2 gene mutation positive No date: Breast cancer, left (HCC) No date: Diabetes mellitus (HCC) No date: GERD (gastroesophageal reflux disease) No date: High cholesterol No date: Hyperlipemia No date: Hypertension No date: Hypotension No date: RLS (restless legs syndrome) No date: SOB (shortness of breath) on exertion No date: Thyroid disease Past Surgical History: Past Surgical History: 2021: BREAST LUMPECTOMY; Left Comment: with radiation No date: CARDIAC CATH PROCEDURE (HISTORICAL) No date: CERVICAL BIOPSY W/ LOOP ELECTRODE EXCISION No date: CORONARY ANGIOPLASTY WITH STENT PLACEMENT Comment: x1 age 43 No date: HYSTEROSCOPY Medications Prior to Admission: Prior to Admission medications Medication Sig Start Date End Date Taking? Authorizing Provider amoxicillin (Amoxil) 875 MG tablet Take 875 mg by mouth 2 times daily. 01/25/22 Historical Provider, anastrozole (Arimidex) 1 MG tablet Take 1 mg by mouth in the morning. Historical Provider, ascorbic acid (Vitamin C) 1000 MG tablet Take by mouth. Historical Provider, aspirin 81 MG chewable tablet Chew 81 mg in the morning. Historical Provider, Calcium Ascorbate 500 MG tablet Take 500 mg by mouth. 11/02/21 Historical Provider, cholecalciferol (D3-5) 5,000 Units tablet Take by mouth. 09/08/21 Historical Provider, cinnamon 500 MG capsule Take 1,000 mg by mouth. Historical Provider, dulaglutide (Trulicity) 0.75 MG/0.5ML solution pen-injector Inject 0.75 mg under the skin once a week. 08/25/22 08/25/23 Historical Provider, glimepiride (Amaryl) 2 MG tablet Take 1 tablet by mouth daily (with breakfast). 10/31/22 10/31/23 Historical Provider, glucose blood (FREESTYLE LITE) test strip Use as instructed 01/24/22 Historical Provider, levothyroxine (Synthroid, Levoxyl) 25 MCG tablet Take 1 tablet by mouth daily. 04/25/22 Historical Provider, lisinopril 10 MG tablet Take 1 tablet by mouth daily. 04/25/22 Historical Provider, loratadine (Claritin) 10 MG tablet Take 1 tablet by mouth in the morning. Historical Provider, MD Nye (more content not included)... [facility] 11-15-2022 Note Comprehensive Pre [place] rgical History and Physical ?1350 11/15/22- ADDENDUM: Lab called and CBC/ A1c clotted- orders placed for re-draw on DOS Name: Kerry Will : 1960 (Age-62 y.o.) Date of Service: Pt seen/examined on 11/15/2022 Procedure Information Date/Time: 11/17/22 1430 Procedures: ROBOTIC ASSISTED TOTAL LAPAROSCOPIC HYSTERECTOMY, BILATERAL SALPINGO-OOPHORECTOMY, POSSIBLE STAGING (Abdomen) LYMPHADENECTOMY FOR STAGING PELVIC AND PARA-AORTIC (Abdomen) Location: [address] Operating Room Surgeons: Jarad Saba MD Chief Complaint: Intra-abdominal and pelvic swelling, mass and lump, unspecified site 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 ASSESSMENT/PLAN: Patient is considered low/intermediate risk for this intermediate risk procedure/surgery () with no reducible risk factors. Based on the above evaluation, the benefits of the planned procedure likely exceed the risks. The patient is medically optimized to proceed with the planned procedure without any further cardiopulmonary testing. 1) Intra-abdominal and pelvic swelling, mass and lump, unspecified site 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 - Managed per surgery 2) Diabetes Metformin Amaryl Trulicity A1c collected in PAT EKG/ labs completed in PAT 3) HTN/ CAD/ Hx stent 19 years ago Lisinopril ASA 81mg (will continue d/t hx of stent) BP Readings from Last 3 Encounters: 11/15/22 (!) 146/92 4) Hypothyroidism Synthroid 25mcg Visit Type: Pre-Admission Testing Visit Labs Ordered: YES - PER PAT PROTOCOL Sleep Referral Ordered: NO - NEGATIVE SCREEN PER SLEEP REFERRAL PROTOCOL Total time spent (which include face to face and non face to face encounters) : 30 minutes Toxic drug monitoring/narrow therapeutic index drug monitoring : # Drug name : multiple # Route administered : oral # Method of monitoring : labs/ ekg PAT Protocol referenced includes: 1. Anesthesia Lab Protocol Orders 2. Perioperative Cardiovascular Risk Assessment 3. Anesthesia Assessment 4. Pain Assessment and Acute Pain Service Consult (if appropriate) 5. Medical Clearance/Consult from Internal Medicine ([facility]) 6. Shower/Wash Order (for designated surgeries) 7. MERY Screen and Sleep Clinic Referral (if appropriate) History Of Present Illness: 62 y.o. female who we are asked to see/evaluate by Dr. Sabafor pre-operative evaluation prior to above procedure. ? Denies history of [place], CHF, TIA, CVA Past Medical History: Past Medical History: No date: Alcohol use No date: Anemia No date: Atherosclerotic heart disease No date: BRCA2 gene mutation positive No date: Breast cancer, left (HCC) No date: Diabetes mellitus (HCC) No date: GERD (gastroesophageal reflux disease) No date: High cholesterol No date: Hyperlipemia No date: Hypertension No date: Hypotension No date: RLS (restless legs syndrome) No date: SOB (shortness of breath) on exertion No date: Thyroid disease Past Surgical History: Past Surgical History: 2021: BREAST LUMPECTOMY; Left Comment: with radiation No date: CARDIAC CATH PROCEDURE (HISTORICAL) No date: CERVICAL BIOPSY W/ LOOP ELECTRODE EXCISION No date: CORONARY ANGIOPLASTY WITH STENT PLACEMENT Comment: x1 age 43 No date: HYSTEROSCOPY Medications Prior to Admission: Prior to Admission medications Medication Sig Start Date End Date Taking? Authorizing Provider amoxicillin (Amoxil) 875 MG tablet Take 875 mg by mouth 2 times daily. 01/25/22 Historical Provider, anastrozole (Arimidex) 1 MG tablet Take 1 mg by mouth in the morning. Historical Provider, ascorbic acid (Vitamin C) 1000 MG tablet Take by mouth. Historical Provider, aspirin 81 MG chewable tablet Chew 81 mg in the morning. Historical Provider, Calcium Ascorbate 500 MG tablet Take 500 mg by mouth. 11/02/21 Historical Provider, cholecalciferol (D3-5) 5,000 Units tablet Take by mouth. 09/08/21 Historical Provider, cinnamon 500 MG capsule Take 1,000 mg by mouth. Historical Provider, dulaglutide (Trulicity) 0.75 MG/0.5ML solution pen-injector Inject 0.75 mg under the skin once a week. 08/25/22 08/25/23 Historical Provider, glimepiride (Amaryl) 2 MG tablet Take 1 tablet by mouth daily (with breakfast). 10/31/22 10/31/23 Historical Provider, glucose blood (FREESTYLE LITE) test strip Use as instructed 01/24/22 Historical Provider, levothyroxine (Synthroid, Levoxyl) 25 MCG tablet Take 1 tablet by mouth daily. 04/25/22 Historical Provider, lisinopril 10 MG tablet Take 1 tablet by mouth daily. 04/25/22 Historical Provider, loratadine (Claritin) 10 MG tablet Take 1 tablet by mouth in the morning. Historical Provider, MD Nye (more content not included)... [facility] 11-11-2022 Telephone encounter Note PAT: 11.15.2022 at 11 am SX: 11.17.2022 at 2:30 pm arrival at 12:30 Post op 12.07.2022 at 8 am Folder and instructions given [facility] 11-11-2022 Miscellaneous Notes PAT: 11.15.2022 at 11 am SX: 11.17.2022 at 2:30 pm arrival at 12:30 Post op 12.07.2022 at 8 am Folder and instructions given documented in this encounter [facility] 11-11-2022 Note HPI: Kerry Will is a pleasant 62 y.o. female who presents in consultation from Dr. Lopes for further evaluation and management of BRCA2 positivity along with an increasing left ovarian mass. She initiallypresented with breast carcinoma. The patient is BRCA2 positive. Recently underwent ultrasound that showed an increased size of the left ovarian mass from 2.5 to 3.5 cm with a solid component. Noted a gummy greenish discharge last week. However denies any vaginal bleeding. Denies any left lower quadrant pain, abdominal bloating, distention, change in bowel or bladder habits or appetite. Had a cardiac stent placed a long time ago. Denies any current history of angina. 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 Most recent Paps have been negative. Past Medical History: Diagnosis Date ? Alcohol use ? Anemia ? Atherosclerotic heart disease ? BRCA2 gene mutation positive ? Breast cancer, left (HCC) ? Diabetes mellitus (HCC) ? GERD (gastroesophageal reflux disease) ? High cholesterol ? Hyperlipemia ? Hypertension ? Hypotension ? RLS (restless legs syndrome) ? SOB (shortness of breath) on exertion ? Thyroid disease Past Surgical History: Procedure Laterality Date ? BREAST LUMPECTOMY ? CARDIAC CATH PROCEDURE (HISTORICAL) ? CERVICAL BIOPSY W/ LOOP ELECTRODE EXCISION ? CORONARY ANGIOPLASTY WITH STENT PLACEMENT ? HYSTEROSCOPY Stent 18 years ago No family history on file. 2 pat aunts with breast cancer Social History Tobacco Use ? Smoking status: Never ? Smokeless tobacco: Never Substance and Sexual Activity ? Alcohol use: Yes ? Drug use: Never Current Outpatient Medications Medication Sig Dispense Refill ? anastrozole (Arimidex) 1 MG tablet Take 1 mg by mouth in the morning. ? ascorbic acid (Vitamin C) 1000 MG tablet Take by mouth. ? aspirin 81 MG chewable tablet Chew 81 mg in the morning. ? Calcium Ascorbate 500 MG tablet Take 500 mg by mouth. ? cholecalciferol (D3-5) 5,000 Units tablet Take by mouth. ? cinnamon 500 MG capsule Take 1,000 mg by mouth. ? dulaglutide (Trulicity) 0.75 MG/0.5ML solution pen-injector Inject 0.75 mg under the skin once a week. ? glimepiride (Amaryl) 2 MG tablet Take 1 tablet by mouth daily (with breakfast). ? glucose blood (FREESTYLE LITE) test strip Use as instructed ? levothyroxine (Synthroid, Levoxyl) 25 MCG tablet Take 1 tablet by mouth daily. ? lisinopril 10 MG tablet Take 1 tablet by mouth daily. ? loratadine (Claritin) 10 MG tablet Take 1 tablet by mouth in the morning. ? metFORMIN XR (Glucophage-XR) 500 MG 24 hr tablet Take 1,000 mg by mouth in the morning and 1,000 mg in the evening. ? Red Yeast Rice Extract 600 MG capsule Take by mouth. ? Specialty Vitamins Products ([place] R3) tablet Take by mouth. ? venlafaxine XR (Effexor XR) 150 MG 24 hr capsule Take 150 mg by mouth in the morning. ? zinc, chelated, 50 MG tablet Take by mouth. ? amoxicillin (Amoxil) 875 MG tablet Take 875 mg by mouth 2 times daily. No current facility-administered medications for this visit. Allergies as of 11/11/2022 - Reviewed 11/11/2022 Allergen Reaction Noted ? Statins Itching and Other 09/15/2017 Review of Systems: Review of Systems Constitutional: Negative for appetite change and unexpected weight change. Gastrointestinal: Negative for abdominal distention and abdominal pain. Genitourinary: Positive for vaginal discharge. Negative for vaginal bleeding. Hematological: Negative for adenopathy. Ht 1.626 m (5' 4 ) Wt 70.8 kg (156 lb) BMI 26.78 kg/m? Physical Exam: Physical Exam Vitals and nursing note reviewed. Exam conducted with a broadband engineer present. Constitutional: Appearance: Normal appearance. Cardiovascular: Rate and Rhythm: Normal rate and regular rhythm. Pulmonary: Effort: Pulmonary effort is normal. Breath sounds: Normal breath sounds. Abdominal: General: Abdomen is flat. Palpations: Abdomen is soft. Genitourinary: General: Normal vulva. Labia: Right: No lesion. Left: No lesion. Urethra: No urethral lesion. Vagina: Normal. No vaginal discharge. Cervix: No discharge, lesion or cervical bleeding. Uterus: Normal. Adnexa: Right adnexa normal and left adnexa normal. Lymphadenopathy: Lower Body: No right inguinal adenopathy. No left inguinal adenopathy. Skin: General: Skin is warm and dry. Neurological: Mental Status: She is alert. Psychiatric: Mood and Affect: Mood normal. Behavior: Behavior normal. Radiology review; most recent ultrasound is personally been reviewed. It does show a very suspicious looking left ovary with a large solid component, and what appears to be an excrescence inside as well. ASSESSMENT/PLAN: Diagnosis Plan 1. Pelvic mass in female 2. BRCA2 gene mutation positive Discussed with patient that we should move with at least laparoscopic BSO but with positive high risk HPV we al (more content not included)... [facility] 10-31-2022 Note HNO ID: [id number] Author: Ron Real MD Service: ? Author Type: Physician Type: Progress Notes Filed: 10/31/2022 11:12 AM Note Text: This note was created using NoteWriter. Subjective Kerry Will is a 62 year old female presenting today for preoperative clearance prior to laparoscopic bilateral salpingo-oophorectomy related to BRCA 2 gene mutation positive status with personal history of breast cancer. She is not having a hysterectomy at this time. Laparoscopic bilateral salpingo-oophorectomy surgery is scheduled for 11/15/[address] Pamela Lopes. Kerry denies previous history of difficulty with anesthesia. She has no personal or familial history of malignant hyperthermia. She denies cardiac, neurologic, and pulmonary symptoms today. Kerry does have type 2 diabetes and continues on metformin. She was previously on Trulicity but discontinued this medication 3 to 4 weeks ago due to adverse effects. Her current fasting blood sugars are reading between 116 to 200 mg/dL. Her most recent A1c was 10.2 on 06/08/2022. Review of Systems Constitutional: Negative. HENT: Negative. Eyes: Negative. Respiratory: Negative. Cardiovascular: Negative. Gastrointestinal: Negative. Endocrine: Negative. Genitourinary: Negative. Musculoskeletal: Negative. Skin: Negative. Allergic/Immunologic: Negative. Neurological: Negative. Hematological: Negative. Psychiatric/Behavioral: Negative. Objective BP 128/78 (BP Site: Right Arm, BP Position: Sitting, BP Cuff Size: Large Adult) Pulse 73 Temp 36.7 ?C (98.1 ?F) (Temporal) Resp 16 Ht 162.6 cm (5' 4 ) Wt 89.9 kg (198 lb 4 oz) LMP 02/01/2010 SpO2 99% BMI 34.03 kg/m? Physical Exam Constitutional: General: She is not in acute distress. Appearance: Normal appearance. HENT: Head: Normocephalic and atraumatic. Right Ear: External ear normal. Left Ear: External ear normal. Nose: Nose normal. Mouth/Throat: Mouth: Mucous membranes are moist. Pharynx: Oropharynx is clear. Eyes: Extraocular Movements: Extraocular movements intact. Pupils: Pupils are equal, round, and reactive to light. Cardiovascular: Rate and Rhythm: Normal rate and regular rhythm. Pulses: Normal pulses. Heart sounds: Normal heart sounds. Pulmonary: Effort: Pulmonary effort is normal. No respiratory distress. Breath sounds: Normal breath sounds. Abdominal: General: Bowel sounds are normal. Palpations: Abdomen is soft. Musculoskeletal: General: Normal range of motion. Cervical back: Normal range of motion and neck supple. Skin: General: Skin is warm and dry. Capillary Refill: Capillary refill takes less than 2 seconds. Neurological: General: No focal deficit present. Mental Status: She is alert and oriented to person, place, and time. Psychiatric: Mood and Affect: Mood normal. Behavior: Behavior normal. Assessment and Plan Encounter Diagnosis ICD-10-CM 1. Preoperative clearance Z01.818 2. Personal history of breast cancer Z85.3 3. BRCA2 gene mutation positive Z15.01 Z15.09 4. Diabetes beginning in adulthood (type 2/adult onset) (HCC) E11.9 COMP METABOLIC PANEL HGB A1C 5. Acquired hypothyroidism E03.9 TSH BLD 6. Pure hypercholesterolemia E78.00 LIPID PANEL BASIC (Z01.818) Preoperative clearance (primary encounter diagnosis) Comment: Patient is medically maximized for surgical procedure. Plan: Surgical clearance for bilateral laparoscopic salpingo-oophorectomy is granted. (Z85.3) Personal history of breast cancer Comment: Stable. Per patient, mastectomy and reconstruction to take place after ovaries and tubes have been removed. Plan: Continue to follow with oncology and surgery. (Z15.01, Z15.09) BRCA2 gene mutation positive Comment: Ongoing. Plan: Continue to follow with oncology. (E11.9) Diabetes beginning in adulthood (type 2/adult onset) (HCC) Comment: Ongoing. Most recent A1c of 10.2 on 06/08/2022. Patient reports fasting blood sugars are currently ranging between 116 and 200 mg/dL. Plan: COMP METABOLIC PANEL, HGB A1C Labs as above in 3 months. Initiate diabetic diet. Continue to monitor sugars at home and record. Increase metformin XR to 2 tabs twice daily and add Amaryl 2 mg daily. (E03.9) Acquired hypothyroidism Comment: Stability to be determined. Plan: TSH BLD Labs as above in 3 months. Continue present medications. (E78.00) Pure hypercholesterolemia Comment: Stability to be determined. Plan: LIPID PANEL BASIC Labs as above in 3 months. Continue low-fat, low-cholesterol diet. Kerry will follow-up in 3 months or sooner as needed. Obtain lab work prior to visit. Melissa Miranda APRN.KULDEEP Patient was seen and examined in conjunction with Melissa Miranda CNP. I agree with the above assessment evaluation. Patient is medically maximized for procedure. She is to increase her metformin to 1000 mg twice daily and add Amaryl 2 mg daily. Rechec (more content not included)... [facility] 10-31-2022 Note HNO ID: [id number] Author: Leela Douglas LPN Service: ? Author Type: LICENSED NURSE Type: Progress Notes Filed: 10/31/2022 11:12 AM Note Text: Patient in the office today for a pre-op exam. She scheduled for a laparoscopic bilateral salpingo-oophorectomy for BRCA 2 positive on 11/15/[address] Pamela Lopes MD. No refills needed today. Patient denies any concerns with the up coming procedure today. Patient reports surgery was scheduled on 11/29/2022 but was moved up to 11/15/2022. Our office has surgical clearance. Leela Douglas LPN October 31, 2022 10:24 AM [facility] 10-31-2022 Miscellaneous Notes No surgical clearance provided for patient's up coming procedure. Today's signed and dated office note containing surgical clearance approval successfully faxed today to [facility] at fax # [phone]. All documentation noted above to be scanned into patient's chart. Leela Douglas LPN October 31, 2022 11:49 AM documented in this encounter [facility] 10-31-2022 History of Present illness Narrative This note was created using [employer]. Subjective Kerry Will is a 62 year old female presenting today for preoperative clearance prior to laparoscopic bilateral salpingo-oophorectomy related to BRCA 2 gene mutation positive status with personal history of breast cancer. She is not having a hysterectomy at this time. Laparoscopic bilateral salpingo-oophorectomy surgery is scheduled for 11/15/[address] Pamela Lopes. Kerry denies previous history of difficulty with anesthesia. She has no personal or familial history of malignant hyperthermia. She denies cardiac, neurologic, and pulmonary symptoms today. Kerry does have type 2 diabetes and continues on metformin. She was previously on Trulicity but discontinued this medication 3 to 4 weeks ago due to adverse effects. Her current fasting blood sugars are reading between 116 to 200 mg/dL. Her most recent A1c was 10.2 on 06/08/2022. Review of Systems Constitutional: Negative. HENT: Negative. Eyes: Negative. Respiratory: Negative. Cardiovascular: Negative. Gastrointestinal: Negative. Endocrine: Negative. Genitourinary: Negative. Musculoskeletal: Negative. Skin: Negative. Allergic/Immunologic: Negative. Neurological: Negative. Hematological: Negative. Psychiatric/Behavioral: Negative. Objective BP 128/78 (BP Site: Right Arm, BP Position: Sitting, BP Cuff Size: Large Adult) Pulse 73 Temp 36.7 C (98.1 F) (Temporal) Resp 16 Ht 162.6 cm (5' 4 ) Wt 89.9 kg (198 lb 4 oz) LMP 02/01/2010 SpO2 99% BMI 34.03 kg/m Physical Exam Constitutional: General: She is not in acute distress. Appearance: Normal appearance. HENT: Head: Normocephalic and atraumatic. Right Ear: External ear normal. Left Ear: External ear normal. Nose: Nose normal. Mouth/Throat: Mouth: Mucous membranes are moist. Pharynx: Oropharynx is clear. Eyes: Extraocular Movements: Extraocular movements intact. Pupils: Pupils are equal, round, and reactive to light. Cardiovascular: Rate and Rhythm: Normal rate and regular rhythm. Pulses: Normal pulses. Heart sounds: Normal heart sounds. Pulmonary: Effort: Pulmonary effort is normal. No respiratory distress. Breath sounds: Normal breath sounds. Abdominal: General: Bowel sounds are normal. Palpations: Abdomen is soft. Musculoskeletal: General: Normal range of motion. Cervical back: Normal range of motion and neck supple. Skin: General: Skin is warm and dry. Capillary Refill: Capillary refill takes less than 2 seconds. Neurological: General: No focal deficit present. Mental Status: She is alert and oriented to person, place, and time. Psychiatric: Mood and Affect: Mood normal. Behavior: Behavior normal. Assessment and Plan Encounter Diagnosis ICD-10-CM 1. Preoperative clearance Z01.818 2. Personal history of breast cancer Z85.3 3. BRCA2 gene mutation positive Z15.01 Z15.09 4. Diabetes beginning in adulthood (type 2/adult onset) (HCC) E11.9 COMP METABOLIC PANEL HGB A1C 5. Acquired hypothyroidism E03.9 TSH BLD 6. Pure hypercholesterolemia E78.00 LIPID PANEL BASIC (Z01.818) Preoperative clearance (primary encounter diagnosis) Comment: Patient is medically maximized for surgical procedure. Plan: Surgical clearance for bilateral laparoscopic salpingo-oophorectomy is granted. (Z85.3) Personal history of breast cancer Comment: Stable. Per patient, mastectomy and reconstruction to take place after ovaries and tubes have been removed. Plan: Continue to follow with oncology and surgery. (Z15.01, Z15.09) BRCA2 gene mutation positive Comment: Ongoing. Plan: Continue to follow with oncology. (E11.9) Diabetes beginning in adulthood (type 2/adult onset) ([facility]) Comment: Ongoing. Most recent A1c of 10.2 on 06/08/2022. Patient reports fasting blood sugars are currently ranging between 116 and 200 mg/dL. Plan: COMP METABOLIC PANEL, HGB A1C Labs as above in 3 months. Initiate diabetic diet. Continue to monitor sugars at home and record. Increase metformin XR to 2 tabs twice daily and add Amaryl 2 mg daily. (E03.9) Acquired hypothyroidism Comment: Stability to be determined. Plan: TSH BLD Labs as above in 3 months. Continue present medications. (E78.00) Pure hypercholesterolemia Comment: Stability to be determined. Plan: LIPID PANEL BASIC Labs as above in 3 months. Continue low-fat, low-cholesterol diet. Kerry will follow-up in 3 months or sooner as needed. Obtain lab work prior to visit. Melissa Miranda APRN.KULDEEP Patient was seen and examined in conjunction with Melissa Miranda CNP. I agree with the above assessment evaluation. Patient is medically maximized for procedure. She is to increase her metformin to 1000 mg twice daily and add Amaryl 2 mg daily. Recheck A1c in 3 months. Patient in the office today for a pre-op exam. She scheduled for a laparoscopic bilateral salpingo-oophorectomy for BRCA 2 positive on 11/15/[address] Pamela Lopes MD. No refills needed today. Patient denies any concerns with the up coming procedure today. Patient reports surgery was scheduled on 11/29/2022 but was moved up to 11/15/2022. Our office has surgical clearance. Leela Douglas LPN October 31, 2022 10:24 AM documented in this encounter [facility] 10-10-2022 Miscellaneous Notes Patient notified of information, verbalized understanding Denae Cervantes LPN October 10, 2022 4:05 PM Half life is 5 days so it will take 20-25 days for medication to be completely out of the system. If she is on this for diabetes I would recommend she make a follow up with Dr. Real to be put on an additional medication for diabetic control Patient believed that Trulicity was causing her panic attacks, therefore patient took herself off of medication. Patient would like to know how long until medication is out of her system completely Denae Cervantes LPN October 10, 2022 9:55 AM documented in this encounter [facility] 09-19-2022 Note HNO ID: [id number] Author: Ron Real MD Service: ? Author Type: Physician Type: Progress Notes Filed: 09/19/2022 1:28 PM Note Text: This note was created using CiR[employer]. Subjective Kerry Will is a 62 year old female. Kerry presents today for follow-up for her diabetes. She has only been on a Trulicity for 1 month. Her sugars have improved so far on her current dose. She is tolerating medication well now. She has no other complaints today. Review of Systems Constitutional: Negative. HENT: Negative. Eyes: Negative. Respiratory: Negative. Cardiovascular: Negative. Gastrointestinal: Negative. Endocrine: Negative. Genitourinary: Negative. Musculoskeletal: Negative. Skin: Negative. Allergic/Immunologic: Negative. Neurological: Negative. Hematological: Negative. Psychiatric/Behavioral: Negative. Objective [facility] 02/01/2010 Physical Exam Vitals reviewed. Constitutional: Appearance: Normal appearance. HENT: Head: Normocephalic and atraumatic. Nose: Nose normal. Eyes: Extraocular Movements: Extraocular movements intact. Pupils: Pupils are equal, round, and reactive to light. Cardiovascular: Rate and Rhythm: Normal rate and regular rhythm. Pulmonary: Effort: Pulmonary effort is normal. Breath sounds: Normal breath sounds. Abdominal: General: Bowel sounds are normal. Palpations: Abdomen is soft. Musculoskeletal: General: Normal range of motion. Cervical back: Normal range of motion and neck supple. Skin: General: Skin is warm and dry. Capillary Refill: Capillary refill takes less than 2 seconds. Neurological: General: No focal deficit present. Mental Status: She is alert and oriented to person, place, and time. Mental status is at baseline. Psychiatric: Mood and Affect: Mood normal. Behavior: Behavior normal. Assessment and Plan Encounter Diagnosis ICD-10-CM 1. Diabetes beginning in adulthood (type 2/adult onset) ([facility]) E11.9 HGB A1C 2. Pure hypercholesterolemia E78.00 COMP METABOLIC PANEL LIPID PANEL BASIC 3. Hypertension, essential I10 COMP METABOLIC PANEL 4. Acquired hypothyroidism E03.9 TSH BLD Continue present medications. Monitor sugars regularly. Check A1c in 2 months along with TSH. Ron Real MD [facility] 09-19-2022 History of Present illness Narrative This note was created using [employer]. Subjective Kerry Will is a 62 year old female. Kerry presents today for follow-up for her diabetes. She has only been on a Trulicity for 1 month. Her sugars have improved so far on her current dose. She is tolerating medication well now. She has no other complaints today. Review of Systems Constitutional: Negative. HENT: Negative. Eyes: Negative. Respiratory: Negative. Cardiovascular: Negative. Gastrointestinal: Negative. Endocrine: Negative. Genitourinary: Negative. Musculoskeletal: Negative. Skin: Negative. Allergic/Immunologic: Negative. Neurological: Negative. Hematological: Negative. Psychiatric/Behavioral: Negative. Objective [facility] 02/01/2010 Physical Exam Vitals reviewed. Constitutional: Appearance: Normal appearance. HENT: Head: Normocephalic and atraumatic. Nose: Nose normal. Eyes: Extraocular Movements: Extraocular movements intact. Pupils: Pupils are equal, round, and reactive to light. Cardiovascular: Rate and Rhythm: Normal rate and regular rhythm. Pulmonary: Effort: Pulmonary effort is normal. Breath sounds: Normal breath sounds. Abdominal: General: Bowel sounds are normal. Palpations: Abdomen is soft. Musculoskeletal: General: Normal range of motion. Cervical back: Normal range of motion and neck supple. Skin: General: Skin is warm and dry. Capillary Refill: Capillary refill takes less than 2 seconds. Neurological: General: No focal deficit present. Mental Status: She is alert and oriented to person, place, and time. Mental status is at baseline. Psychiatric: Mood and Affect: Mood normal. Behavior: Behavior normal. Assessment and Plan Encounter Diagnosis ICD-10-CM 1. Diabetes beginning in adulthood (type 2/adult onset) (HCC) E11.9 HGB A1C 2. Pure hypercholesterolemia E78.00 COMP METABOLIC PANEL LIPID PANEL BASIC 3. Hypertension, essential I10 COMP METABOLIC PANEL 4. Acquired hypothyroidism E03.9 TSH BLD Continue present medications. Monitor sugars regularly. Check A1c in 2 months along with TSH. Ron Real MD Patient is in office for follow up for diabetes. Patient was last seen in office on 06-08-2022. Patient was started on Trulicity She is tolerating Trulicity well now, the first week she was nauseated and very tired, this week she is feeling better Modesta Kamara LPN September 19, 2022 10:58 AM documented in this encounter [facility] 09-19-2022 Note HNO ID: [id number] Author: Modesta Kamara LPN Service: ? Author Type: LICENSED NURSE Type: Progress Notes Filed: 09/19/2022 1:28 PM Note Text: Patient is in office for follow up for diabetes. Patient was last seen in office on 06-08-2022. Patient was started on Trulicity She is tolerating Trulicity well now, the first week she was nauseated and very tired, this week she is feeling better Modesta Kamara LPN September 19, 2022 10:58 AM [facility] 08-25-2022 Miscellaneous Notes Patient notified of change by VM Changed to Trulicity. Ozempic has been denied, coverage is provided when the patient has 120 day trial with 3 of the preferred. Byetta (5 mcg and 10 mcg),Victoza (18 mg/3mL pen),Trulicity (0.75 mg, 1.5 mg, 3 mg, and 4.5 mg), Farxiga 5 and 10 mg, Invokana 100 and 300 mg, Jardiance 10 and 25 mg. PENDING, Ozempic (0.25 or 0.5 MG/DOSE) 2MG/3ML pen-injectors [place]: [id number] Cover My Meds documented in this encounter [facility] 07-28-2022 Note Request received for second opinion consultation by Yessi Valdez APRN-KULDEEP. Please review breast slides from outside institution. Dr. Rodriguez 07/13. Preoperative Diagnosis: Breast cancer left breast. [facility] documented as of this encounter (statuses as of 02/28/2022) [facility]12-19-2022 History of Past illness Narrative* Problem Noted Date Resolved Date Diabetes beginning in adulthood (type 2/adult on set) 02/28/2022 02/28/2022 documented as of this encounter (statuses as of 03/04/2022) [facility]2022 History of Past illness Narrative* Problem Noted Date Resolved Date Diabetes beginning in adulthood (type 2/adult on set) 02/28/2022 02/28/2022 documented as of this encounter (statuses as of 03/16/2022) [facility]20[facility] History of Past illness Narrative* Problem Noted Date Resolved Date Diabetes beginning in adulthood (type 2/adult on set) 02/28/2022 02/28/2022 documented as of this encounter (statuses as of 04/25/2022) [facility] History of Past illness Narrative* Problem Noted Date Resolved Date Diabetes beginning in adulthood (type 2/adult on set) 02/28/2022 02/28/2022 documented as of this encounter (statuses as of 05/04/2022) [facility] History of Past illness Narrative* Problem Noted Date Resolved Date Diabetes beginning in adulthood (type 2/adult on set) 02/28/2022 02/28/2022 documented as of this encounter (statuses as of 05/13/2022) [facility] History of Past illness Narrative* Problem Noted Date Resolved Date Diabetes beginning in adulthood (type 2/adult on set) 02/28/2022 02/28/2022 documented as of this encounter (statuses as of 06/09/2022) [facility] History of Past illness Narrative* Problem Noted Date Resolved Date Diabetes beginning in adulthood (type 2/adult on set) 02/28/2022 02/28/2022 documented as of this encounter (statuses as of 06/11/2022) [facility] History of Past illness Narrative* Problem Noted Date Resolved Date Diabetes beginning in adulthood (type 2/adult on set) 02/28/2022 02/28/2022 documented as of this encounter (statuses as of 06/21/2022) [facility] History of Past illness Narrative* Problem Noted Date Resolved Date Diabetes beginning in adulthood (type 2/adult on set) 02/28/2022 02/28/2022 documented as of this encounter (statuses as of 08/25/2022) [address]19-2022 History of Past illness Narrative* Problem Noted Date Diagnosed Date Resolved Date Diabetes beginning in adulth ood (type 2/adult onset) 02/28/2022 02/28/2022 documented as of this encounter (statuses as of 09/19/2022) [facility] History of Past illness Narrative* Problem Noted Date Diagnosed Date Resolved Date Diabetes beginning in adulth ood (type 2/adult onset) 02/28/2022 02/28/2022 documented as of this encounter (statuses as of 10/11/2022) [facility] History of Past illness Narrative* Problem Noted Date Diagnosed Date Resolved Date Diabetes beginning in adulth ood (type 2/adult onset) 02/28/2022 02/28/2022 documented as of this encounter (statuses as of 10/31/2022) [facility] History of Past illness Narrative* Problem Noted Date Diagnosed Date Resolved Date Diabetes beginning in adulth ood (type 2/adult onset) 02/28/2022 02/28/2022 documented as of this encounter (statuses as of 10/31/2022) [facility] History of Past illness Narrative* Problem Noted Date Diagnosed Date Resolved Date Diabetes beginning in adulth ood (type 2/adult onset) 02/28/2022 02/28/2022 documented as of this encounter (statuses as of 11/10/2022) [facility] History of Past illness Narrative* Problem Noted Date Diagnosed Date Resolved Date Diabetes beginning in adulth ood (type 2/adult onset) 02/28/2022 02/28/2022 documented as of this encounter (statuses as of 11/25/2022) [facility] History of Past illness Narrative* Problem Noted Date Diagnosed Date Resolved Date Diabetes beginning in adulth ood (type 2/adult onset) 02/28/2022 02/28/2022 documented as of this encounter (statuses as of 11/29/2022) [facility] History of Past illness Narrative* Problem Noted Date Diagnosed Date Resolved Date Diabetes beginning in adulth ood (type 2/adult onset) 02/28/2022 02/28/2022 documented as of this encounter (statuses as of 12/24/2022) [facility] History of Past illness Narrative* Problem Noted Date Diagnosed Date Resolved Date Diabetes beginning in adulth ood (type 2/adult onset) 02/28/2022 02/28/2022 documented as of this encounter (statuses as of 12/30/2022) [facility] History of Past illness Narrative* Problem Noted Date Diagnosed Date Resolved Date Diabetes beginning in adulth ood (type 2/adult onset) 02/28/2022 02/28/2022 documented as of this encounter (statuses as of 01/03/2023) [facility] History of Past illness Narrative* Problem Noted Date Diagnosed Date Resolved Date Diabetes beginning in adulth ood (type 2/adult onset) 02/28/2022 02/28/2022 documented as of this encounter (statuses as of 01/05/2023) [facility] History of Past illness Narrative* Problem Noted Date Diagnosed Date Resolved Date Diabetes beginning in adulth ood (type 2/adult onset) 02/28/2022 02/28/2022 documented as of this encounter (statuses as of 01/10/2023) [facility] History of Past illness Narrative* Problem Noted Date Diagnosed Date Resolved Date Diabetes beginning in adulth ood (type 2/adult onset) 02/28/2022 02/28/2022 documented as of this encounter (statuses as of 01/11/2023) [facility] History of Past illness Narrative* Problem Noted Date Diagnosed Date Resolved Date Diabetes beginning in adulth ood (type 2/adult onset) 02/28/2022 02/28/2022 documented as of this encounter (statuses as of 01/12/2023) [facility] History of Past illness Narrative* Problem Noted Date Diagnosed Date Resolved Date Diabetes beginning in adulth ood (type 2/adult onset) 02/28/2022 02/28/2022 documented as of this encounter (statuses as of 01/20/2023) [facility] History of Past illness Narrative* Problem Noted Date Diagnosed Date Resolved Date Diabetes beginning in adulth ood (type 2/adult onset) 02/28/2022 02/28/2022 documented as of this encounter (statuses as of 01/25/2023) [facility] History of Past illness Narrative* Problem Noted Date Diagnosed Date Resolved Date Diabetes beginning in adulth ood (type 2/adult onset) 02/28/2022 02/28/2022 documented as of this encounter (statuses as of 01/26/2023) [facility] History of Past illness Narrative* Problem Noted Date Diagnosed Date Resolved Date Diabetes beginning in adulth ood (type 2/adult onset) 02/28/2022 02/28/2022 documented as of this encounter (statuses as of 01/27/2023) [facility] History of Past illness Narrative* Problem Noted Date Diagnosed Date Resolved Date Diabetes beginning in adulth ood (type 2/adult onset) 02/28/2022 02/28/2022 documented as of this encounter (statuses as of 02/01/2023) [facility] History of Past illness Narrative* Problem Noted Date Diagnosed Date Resolved Date Diabetes beginning in adulth ood (type 2/adult onset) 02/28/2022 02/28/2022 documented as of this encounter (statuses as of 02/06/2023) [facility] History of Past illness Narrative* Problem Noted Date Diagnosed Date Resolved Date Diabetes beginning in adulth ood (type 2/adult onset) 02/28/2022 02/28/2022 documented as of this encounter (statuses as of 02/07/2023) [facility] History of Past illness Narrative* Problem Noted Date Diagnosed Date Resolved Date Diabetes beginning in adulth ood (type 2/adult onset) 02/28/2022 02/28/2022 documented as of this encounter (statuses as of 02/08/2023) [facility] History of Past illness Narrative* Problem Noted Date Diagnosed Date Resolved Date Diabetes beginning in adulth ood (type 2/adult onset) 02/28/2022 02/28/2022 documented as of this encounter (statuses as of 02/09/2023) [facility] History of Past illness Narrative* Problem Noted Date Diagnosed Date Resolved Date Diabetes beginning in adulth ood (type 2/adult onset) 02/28/2022 02/28/2022 documented as of this encounter (statuses as of 02/09/2023) [facility] History of Past illness Narrative* Problem Noted Date Diagnosed Date Resolved Date Diabetes beginning in adulth ood (type 2/adult onset) 02/28/2022 02/28/2022 documented as of this encounter (statuses as of 02/10/2023) [facility]12-19-2022 History of Past illness Narrative* Problem Noted Date Diagnosed Date Resolved Date Diabetes beginning in adulth ood (type 2/adult onset) 02/28/2022 02/28/2022 documented as of this encounter (statuses as of 02/11/2023) [facility]12-19-2022 History of Past illness Narrative* Problem Noted Date Diagnosed Date Resolved Date Diabetes beginning in adulth ood (type 2/adult onset) 02/28/2022 02/28/2022 documented as of this encounter (statuses as of 02/14/2023) [facility]-19[facility]2022 History of Past illness Narrative* Problem Noted Date Diagnosed Date Resolved Date Diabetes beginning in adulth ood (type 2/adult onset) 02/28/2022 02/28/2022 documented as of this encounter (statuses as of 02/14/2023) [facility]2022 History of Past illness Narrative* Problem Noted Date Diagnosed Date Resolved Date Diabetes beginning in adulth ood (type 2/adult onset) 02/28/2022 02/28/2022 documented as of this encounter (statuses as of 02/15/2023) [facility]20[facility] History of Past illness Narrative* Problem Noted Date Diagnosed Date Resolved Date Diabetes beginning in adulth ood (type 2/adult onset) 02/28/2022 02/28/2022 documented as of this encounter (statuses as of 02/16/2023) [facility]20[facility] History of Past illness Narrative* Problem Noted Date Diagnosed Date Resolved Date Diabetes beginning in adulth ood (type 2/adult onset) 02/28/2022 02/28/2022 documented as of this encounter (statuses as of 02/21/2023) [facility] History of Past illness Narrative* Problem Noted Date Diagnosed Date Resolved Date Diabetes beginning in adulth ood (type 2/adult onset) 02/28/2022 02/28/2022 documented as of this encounter (statuses as of 02/23/2023) [place] [address]-19-2022 NoteHNO ID: [id number] Author: Ron Real MD Service: ? Author Type: Physician Type: Progress Notes Filed: 02/28/2022 1:16 PM Note Text: This note was created using [employer]. Subjective Kerry Will is a 61 year old female. Kerry presents today for follow-up for multiple medical problems. See list. Her chronic medical problems have been stable. She has had recent breast cancer surgery and radiation. During this time her sugars were elevated she reports. They have been in the 250-300 range. She was off her medicines due to lack of insurance. She now has insurance. Review of Systems Constitutional: Negative. HENT: Negative. Eyes: Negative. Respiratory: Negative. Cardiovascular: Negative. Gastrointestinal: Negative. Endocrine: Negative. Genitourinary: Negative. Musculoskeletal: Negative. Skin: Negative. Allergic/Immunologic: Negative. Neurological: Negative. Hematological: Negative. Psychiatric/Behavioral: Negative. Objective BP 124/84 (BP Site: Right Arm, BP Position: Sitting, BP Cuff Size: Large Adult) Pulse 84 Temp 36.4 ?C (97.6 ?F) (Temporal) Resp 18 Ht 162.6 cm (5' 4 ) Wt 91 kg (200 lb 9.6 oz) LMP 02/01/2010 SpO2 98% BMI 34.43 kg/m? Physical Exam Vitals reviewed. Constitutional: Appearance: Normal appearance. HENT: Head: Normocephalic and atraumatic. Nose: Nose normal. Eyes: Extraocular Movements: Extraocular movements intact. Pupils: Pupils are equal, round, and reactive to light. Cardiovascular: Rate and Rhythm: Normal rate and regular rhythm. Pulmonary: Effort: Pulmonary effort is normal. Breath sounds: Normal breath sounds. Abdominal: General: Bowel sounds are normal. Palpations: Abdomen is soft. Musculoskeletal: General: Normal range of motion. Cervical back: Normal range of motion and neck supple. Skin: General: Skin is warm and dry. Capillary Refill: Capillary refill takes less than 2 seconds. Neurological: General: No focal deficit present. Mental Status: She is alert and oriented to person, place, and time. Mental status is at baseline. Psychiatric: Mood and Affect: Mood normal. Behavior: Behavior normal. Assessment and Plan Kerry was seen today for follow up. Diagnoses and all orders for this visit: Diabetes beginning in adulthood (type 2/adult onset) (FORMERLY [facility]) - COMP METABOLIC PANEL; Future - HGB A1C; Future Hypertriglyceridemia - LIPID PANEL BASIC; Future - COMP METABOLIC PANEL; Future Atherosclerosis of [place] coronary artery of [place] heart without angina pectoris Screening for deficiency anemia - CBC + DIFF; Future Labs as above. Adjust medications as necessary.[facility]12-[facility]2022 NoteHNO ID: [id number] Author: Denae Cervantes LPN Service: ? Author Type: LICENSED NURSE Type: Progress Notes Filed: 02/28/2022 1:16 PM Note Text: Patient stated that she had recent lumpectomy of left breast. Patient stated that during blood work for procedure she was informed her blood sugar was too high. Patient is currently not on any Diabetic medications. Patient currently taking medication for the next 5 years since cancer, but does not know the name of medication Denae Cervantes LPN February 28, 2022 10:04 [facility]12-19-2022 History of Present illness Narrative* Ron Real MD - 02/28/2022 10:26 AM EST This note was created using [employer]. Subjective Kerry Will is a 61 year old female. Kerry presents today for follow- up for multiple medical problems. See list. Her chronic medical problems have been stable. She has had recent breast cancer surgery and radiation. During this time her sugars were elevated she reports. They have been in the 250-300 range. She was off her medicines due to lack of insurance. She now has insurance. Review of Systems Constitutional: Negative. HENT: Negative. Eyes: Negative. Respiratory: Negative. Cardiovascular: Negative. Gastrointestinal: Negative. Endocrine: Negative. Genitourinary: Negative. Musculoskeletal: Negative. Skin: Negative. Allergic/Immunologic: Negative. Neurological: Negative. Hematological: Negative. Psychiatric/Behavioral: Negative. Objective BP 124/84 (BP Site: Right Arm, BP Position: Sitting, BP Cuff Size: Large Adult) Pulse 84 Temp 36.4 C (97.6 F) (Temporal) Resp 18 Ht 162.6 cm (5' 4 ) Wt 91 kg (200 lb 9.6 oz) LMP 02/01/2010 SpO2 98% BMI 34.43 kg/m Physical Exam Vitals reviewed. Constitutional: Appearance: Normal appearance. HENT: Head: Normocephalic and atraumatic. Nose: Nose normal. Eyes: Extraocular Movements: Extraocular movements intact. Pupils: Pupils are equal, round, and reactive to light. Cardiovascular: Rate and Rhythm: Normal rate and regular rhythm. Pulmonary: Effort: Pulmonary effort is normal. Breath sounds: Normal breath sounds. Abdominal: General: Bowel sounds are normal. Palpations: Abdomen is soft. Musculoskeletal: General: Normal range of motion. Cervical back: Normal range of motion and neck supple. Skin: General: Skin is warm and dry. Capillary Refill: Capillary refill takes less than 2 seconds. Neurological: General: No focal deficit present. Mental Status: She is alert and oriented to person, place, and time. Mental status is at baseline. Psychiatric: Mood and Affect: Mood normal. Behavior: Behavior normal. Assessment and Plan Kerry was seen today for follow up. Diagnoses and all orders for this visit: Diabetes beginning in adulthood (type 2/adult onset) (FORMERLY [facility]) - COMP METABOLIC PANEL; Future - HGB A1C; Future Hypertriglyceridemia - LIPID PANEL BASIC; Future - COMP METABOLIC PANEL; Future Atherosclerosis of [place] coronary artery of [place] heart without angina pectoris Screening for deficiency anemia - CBC + DIFF; Future Labs as above. Adjust medications as necessary. * Denae Cervantes LPN - 02/28/2022 9:58 AM EST Patient stated that she had recent lumpectomy of left breast. Patient stated that during blood workfor procedure she was informed her blood sugar was too high. Patient is currently not on any Diabetic medications. Patient currently taking medication for the next 5 years since cancer, but does not know the name of medication Denae Cervantes LPN February 28, 2022 10:04 AM [facility] Miscellaneous Notes* Telephone Encounter - Denae Cervantes LPN - 01/24/2022 10:14 AM EST Patient phoned office requesting Freestyle Lite test strips. Stated that she has been checking blood sugar, per Dr. Real's request to avoid medication. Patient aware of needing an appointment, she is due. Denae Cervantes LPN January 24, 2022 10:15 AM [facility] Miscellaneous Notes* Telephone Encounter - Denae Cervantes LPN - 11/25/2021 2:21 PM EDT Requested Prescriptions Pending Prescriptions Disp Refills venlafaxine ER (EFFEXOR XR) 150 mg 24 hr capsule [Pharmacy Med Name: Venlafaxine HCl ER 150 MG OralCapsule Extended Release 24 Hour] 90 capsule 3 Sig: Take 1 capsule by mouth once daily Denae Cervantes LPN November 25, 2021 2:22 PM [facility]* Diagnosis Diabetes beginning in adulthood (type 2/adult onset) (FORM[facility]LY [facility])- Primary Hypertriglyceridemia Pure hyperglyceridemia Atherosclerosis of [place] coronary artery of [place] heart without angina pectoris Screening for deficiency anemia Screening for other and unspecified deficiency anemia [facility]* Diagnosis Diabetes beginning in adulthood (type 2/adult onset) (FORM[facility]LY [facility])- Primary Acquired hypothyroidism Unspecified hypothyroidism Atherosclerosis of [place] coronary artery of [place] heart without angina pectoris [facility]* Diagnosis 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, unspecified estrogen receptor status Estrogen receptor positive status (ER+) Estrogen receptor positive status [ER+] [facility] Personal history of malignant neoplasm of breast- Primary 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, unspecified estrogen receptor status Estrogen receptor positive status (ER+) Estrogen receptor positive status [ER+] 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 Pre-op testing Preoperative examination, unspecified Genetic susceptibility to malignant neoplasm of breast Personal history of malignant neoplasm of breast 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 [facility] Diagnosis Genetic susceptibility to malignant neoplasm of breast Personal history of malignant neoplasm of breast 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 [facility]* Diagnosis Diabetes beginning in adulthood (type 2/adult onset) (HCC)- Primary Pure hypercholesterolemia Hypertension, essential Unspecified essential hypertension Acquired hypothyroidism Unspecified hypothyroidism [facility]* Diagnosis Preoperative clearance- Primary Preoperative examination, unspecified Personal history of breast cancer Personal history of malignant neoplasm of breast BRCA2 gene mutation positive Diabetes beginning in adulthood (type 2/adult onset) (HCC) Acquired hypothyroidism Unspecified hypothyroidism Pure hypercholesterolemia [facility]* Diagnosis Pelvic mass in female- Primary Intra-abdominal and pelvic swelling, mass and lump, unspecified site 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 S/P hysterectomy Acquired absence of both cervix and uterus [facility] Diagnosis Dysuria Urinary tract infection with hematuria, site unspecified [facility]* Diagnosis Dysuria Post-operative state- Primary Other postprocedural status documented [facility]* Diagnosis Post-operative state- Primary Other postprocedural status [facility]* Diagnosis Dysuria [facility]* Diagnosis Burning with urination- Primary Dysuria [facility]* Diagnosis 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)- Primary [facility]* Diagnosis 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) (HCC)- Primary [facility]* Diagnosis 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)- Primary [facility]* Diagnosis 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)- Primary [facility]* Diagnosis 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)- Primary [facility]* Diagnosis Pure hypercholesterolemia- Primary [facility]* Diagnosis 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)- Primary [facility]* Diagnosis 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) documented [facility]* Diagnosis 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)- Primary [facility]* Diagnosis 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 note* Diagnosis Pure hypercholesterolemia- Primary Diabetes beginning in adulthood (type 2/adult onset) (HCC) documented in this encounter [facility] Discharge instructions* Attachments The following attachments cannot be sent through Care Everywhere. * Hysterectomy Discharge Instructions (Citizen Of [place]) [facility] Diagnostic Procedure Only (Routine) - Closed Specialty Diagnoses / Procedures Referred By Mary cee Referred To Contact XR IMAGING Diagnoses 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) Procedures XR HIP GENERAL 3V PELV/AP/LAT LEFT RADEX HIP UNILATERAL WITH PELVIS 2-[address] [place] [address] [place] [address] [place] [address] Referral ID Status Reason Start Date Expiration Date V isits Requested Visits Authorized [id number] Closed Auto-Generate d Referral 02/08/2023 03/09/2024 1 1 [facility] for visit Narrative* Diagnostic Procedure Only (Routine) - Closed Specialty Diagnoses / Procedures Referred By Mary cee Referred To Contact XR IMAGING Diagnoses 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) Procedures XR HIP GENERAL 3V PELV/AP/LAT LEFT RADEX HIP UNILATERAL WITH PELVIS 2-[place] [address] [place] [id number] [place] [address] Referral ID Status Reason Start Date Expiration Date V isits Requested Visits Authorized [id number] Closed Auto-Generate d Referral 02/08/2023 03/09/2024 1 1 [facility] Reason for Referral Specialty Diagnoses / Procedures Referred By Contac t Referred To Contact Ron Real MD [address] [place] [address] Referral ID Status Reason Start Date Expiration Date Visits Re quested Visits Authorized [id number] Closed 1 1 Specialty Diagnoses / Procedures Referred By Contac t Referred To Contact Diagnoses Pre-op testing Procedures ECG Yessi Valdez APRN-CHIEF OPERATING OFFICER [address] [facility] [address] [place] [address] Referral ID Status Reason Start Date Expiration Date V isits Requested Visits Authorized [id number] New Request 07/13/2022 08/07/2023 1 1 Specialty Diagnoses / Procedures Referred By Contac t Referred To Contact Diagnoses Genetic susceptibility to malignant neoplasm of breast Personal history of malignant neoplasm of breast 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 Procedures MRI BREAST BILATERAL WITH AND WITHOUT CONTRAST CHG MRI BREAST WITHOUT&WITH CONTRAST W/CAD BILATERAL Yessi Valdez APRN-CHIEF OPERATING OFFICER [address] [facility] [address] [place] [address] Referral ID Status Reason Start Date Expiration Date V isits Requested Visits Authorized [id number] New Request 07/13/2022 08/07/2023 1 1 Specialty Diagnoses / Procedures Referred By Contac t Referred To Contact Diagnoses Genetic susceptibility to malignant neoplasm of breast Personal history of malignant neoplasm of breast 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 Procedures MAMMO DIAGNOSTIC WITH YANE BILATERAL Yessi Valdez APRN-CHIEF OPERATING OFFICER [address] [facility] [address] [place] [address] Referral ID Status Reason Start Date Expiration Date V isits Requested Visits Authorized [id number] New Request 07/13/2022 08/07/2023 1 1 Specialty Diagnoses / Procedures Referred By Contac t Referred To Contact Endocrinology Diagnoses Pure hypercholesterolemia Procedures CONSULT TO ENDOCRINOLOGY OFFICE/OUTPATIENT NEW HIGH MDM 60-74 MINUTES Ron Real MD [address] [place] [address] Referral ID Status Reason Start Date Expiration Date Visits Requested Visits Authorized [id number] Authorized PCP Requested Referral 3 02/07/2024 1 1 Summary Purpose Family History No Family History Records FoundNo Family History Records FoundNo Family History Records FoundNo Family History Records Found Advance Directives No Advanced Directives Records FoundLatest Code Status on File Code Status Date Activated Date Inactivated Comments Full Code 11/17/2022 12:43 PM 11/17/2022 8:01 PM Latest Code Status on File Code Status Date Activated Date Inactivated Comments Full Code 11/17/2022 12:43 PM 11/17/2022 8:01 PM Medications Administered Section Inactive Administered Medications - up to 3 most recent administrations Medication Order MAR Action Action Date Dose Rate Site fulvestrant 500 mg injection (FASLODEX) 500 mg, INTRAMUSCULAR, ONCE, 1 dose, On Mon01/11/23 at 1130, Hazardous Chemotherapy Drug: Use appropriate PPE. Refrigerate. Given 01/11/2023 11:41 AM EDT 500 mg Buttocks, Left Inactive Administered Medications - up to 3 most recent administrations Medication Order MAR Action Action Date Dose Rate Site fulvestrant 500 mg injection (FASLODEX) 500 mg, INTRAMUSCULAR, ONCE, 1 dose, On Mon01/25/23 at 1530, Hazardous Chemotherapy Drug: Use appropriate PPE. Refrigerate. Given 01/25/2023 3:30 PM EST 500 mg Buttocks, Left Inactive Administered Medications - up to 3 most recent administrations Medication Order MAR Action Action Date Dose Rate Site fulvestrant 500 mg injection (FASLODEX) 500 mg, INTRAMUSCULAR, ONCE, 1 dose, On Mon02/08/23 at 0900, Hazardous Chemotherapy Drug: Use appropriate PPE. Refrigerate. Given 02/08/2023 9:10 AM EST 500 mg Buttocks, Left Additional Source Comments Source Comments (unrecognize d section and content) In the event this informatio n is protected by the Federal Confidentiality of Alcohol and Drug Abuse Patient Records regulations: The Federal rules restrict any use of the information to criminally investigate or prosecute any alcohol or drug abuse patient.[facility] the event this information is protected by the Federal Confidentiality of Alcohol and Drug Abuse Patient Records regulations: The Federal rules restrict any use of the information to criminally investigate or prosecute any alcohol or drug abuse patient.[facility] the event this information is protected by the Federal Confidentiality of Alcohol and Drug Abuse Patient Records regulations: The Federal rules restrict any use of the information to criminally investigate or prosecute any alcohol or drug abuse patient.[facility] the event this information is protected by the Federal Confidentiality of Alcohol and Drug Abuse Patient Records regulations: The Federal rules restrict any use of the information to criminally investigate or prosecute any alcohol or drug abuse patient.[facility]In the event this information is protected by the Federal Confidentiality of Alcohol and Drug Abuse Patient Records regulations: The Federal rules restrict any use of the information to criminally investigate or prosecute any alcohol or drug abuse patient.[facility]In the event this information is protected by the Federal Confidentiality of Alcohol and Drug Abuse Patient Records regulations: The Federal rules restrict any use of the information to criminally investigate or prosecute any alcohol or drug abuse patient.[facility] the event this information is protected by the Federal Confidentiality of Alcohol and Drug Abuse Patient Records regulations: The Federal rules restrict any use of the information to criminally investigate or prosecute any alcohol or drug abuse patient.[facility] the event this information is protected by the Federal Confidentiality of Alcohol and Drug Abuse Patient Records regulations: The Federal rules restrict any use of the information to criminally investigate or prosecute any alcohol or drug abuse patient.[facility] the event this information is protected by the Federal Confidentiality of Alcohol and Drug Abuse Patient Records regulations: The Federal rules restrict any use of the information to criminally investigate or prosecute any alcohol or drug abuse patient.[facility] the event this information is protected by the Federal Confidentiality of Alcohol and Drug Abuse Patient Records regulations: The Federal rules restrict any use of the information to criminally investigate or prosecute any alcohol or drug abuse patient.[facility] the event this information is protected by the Federal Confidentiality of Alcohol and Drug Abuse Patient Records regulations: The Federal rules restrict any use of the information to criminally investigate or prosecute any alcohol or drug abuse patient.[facility] the event this information is protected by the Federal Confidentiality of Alcohol and Drug Abuse Patient Records regulations: The Federal rules restrict any use of the information to criminally investigate or prosecute any alcohol or drug abuse patient.[facility] the event this information is protected by the Federal Confidentiality of Alcohol and Drug Abuse Patient Records regulations: The Federal rules restrict any use of the information to criminally investigate or prosecute any alcohol or drug abuse patient.[facility] the event this information is protected by the Federal Confidentiality of Alcohol and Drug Abuse Patient Records regulations: The Federal rules restrict any use of the information to criminally investigate or prosecute any alcohol or drug abuse patient.[facility] the event this information is protected by the Federal Confidentiality of Alcohol and Drug Abuse Patient Records regulations: The Federal rules restrict any use of the information to criminally investigate or prosecute any alcohol or drug abuse patient.[facility] the event this information is protected by the Federal Confidentiality of Alcohol and Drug Abuse Patient Records regulations: The Federal rules restrict any use of the information to criminally investigate or prosecute any alcohol or drug abuse patient.[facility] HealthIn the event this information is protected by the Federal Confidentiality of Alcohol and Drug Abuse Patient Records regulations: The Federal rules restrict any use of the information to criminally investigate or prosecute any alcohol or drug abuse patient.[facility] HealthIn the event this information is protected by the Federal Confidentiality of Alcohol and Drug Abuse Patient Records regulations: The Federal rules restrict any use of the information to criminally investigate or prosecute any alcohol or drug abuse patient.[facility] HealthIn the event this information is protected by the Federal Confidentiality of Alcohol and Drug Abuse Patient Records regulations: The Federal rules restrict any use of the information to criminally investigate or prosecute any alcohol or drug abuse patient.[facility] HealthIn the event this information is protected by the Federal Confidentiality of Alcohol and Drug Abuse Patient Records regulations: The Federal rules restrict any use of the information to criminally investigate or prosecute any alcohol or drug abuse patient.[facility] HealthIn the event this information is protected by the Federal Confidentiality of Alcohol and Drug Abuse Patient Records regulations: The Federal rules restrict any use of the information to criminally investigate or prosecute any alcohol or drug abuse patient.[facility] HealthIn the event this information is protected by the Federal Confidentiality of Alcohol and Drug Abuse Patient Records regulations: The Federal rules restrict any use of the information to criminally investigate or prosecute any alcohol or drug abuse patient.[facility] HealthIn the event this information is protected by the Federal Confidentiality of Alcohol and Drug Abuse Patient Records regulations: The Federal rules restrict any use of the information to criminally investigate or prosecute any alcohol or drug abuse patient.[facility] HealthIn the event this information is protected by the Federal Confidentiality of Alcohol and Drug Abuse Patient Records regulations: The Federal rules restrict any use of the information to criminally investigate or prosecute any alcohol or drug abuse patient.[facility] HealthIn the event this information is protected by the Federal Confidentiality of Alcohol and Drug Abuse Patient Records regulations: The Federal rules restrict any use of the information to criminally investigate or prosecute any alcohol or drug abuse patient.[facility] HealthIn the event this information is protected by the Federal Confidentiality of Alcohol and Drug Abuse Patient Records regulations: The Federal rules restrict any use of the information to criminally investigate or prosecute any alcohol or drug abuse patient.[facility] HealthIn the event this information is protected by the Federal Confidentiality of Alcohol and Drug Abuse Patient Records regulations: The Federal rules restrict any use of the information to criminally investigate or prosecute any alcohol or drug abuse patient.[facility] HealthIn the event this information is protected by the Federal Confidentiality of Alcohol and Drug Abuse Patient Records regulations: The Federal rules restrict any use of the information to criminally investigate or prosecute any alcohol or drug abuse patient.[facility] HealthIn the event this information is protected by the Federal Confidentiality of Alcohol and Drug Abuse Patient Records regulations: The Federal rules restrict any use of the information to criminally investigate or prosecute any alcohol or drug abuse patient.[facility] HealthIn the event this information is protected by the Federal Confidentiality of Alcohol and Drug Abuse Patient Records regulations: The Federal rules restrict any use of the information to criminally investigate or prosecute any alcohol or drug abuse patient.[facility] HealthIn the event this information is protected by the Federal Confidentiality of Alcohol and Drug Abuse Patient Records regulations: The Federal rules restrict any use of the information to criminally investigate or prosecute any alcohol or drug abuse patient.[facility] HealthIn the event this information is protected by the Federal Confidentiality of Alcohol and Drug Abuse Patient Records regulations: The Federal rules restrict any use of the information to criminally investigate or prosecute any alcohol or drug abuse patient.[facility] HealthIn the event this information is protected by the Federal Confidentiality of Alcohol and Drug Abuse Patient Records regulations: The Federal rules restrict any use of the information to criminally investigate or prosecute any alcohol or drug abuse patient.[facility] HealthIn the event this information is protected by the Federal Confidentiality of Alcohol and Drug Abuse Patient Records regulations: The Federal rules restrict any use of the information to criminally investigate or prosecute any alcohol or drug abuse patient.[facility] HealthIn the event this information is protected by the Federal Confidentiality of Alcohol and Drug Abuse Patient Records regulations: The Federal rules restrict any use of the information to criminally investigate or prosecute any alcohol or drug abuse patient.[facility] HealthIn the event this information is protected by the Federal Confidentiality of Alcohol and Drug Abuse Patient Records regulations: The Federal rules restrict any use of the information to criminally investigate or prosecute any alcohol or drug abuse patient.[facility] HealthIn the event this information is protected by the Federal Confidentiality of Alcohol and Drug Abuse Patient Records regulations: The Federal rules restrict any use of the information to criminally investigate or prosecute any alcohol or drug abuse patient.[facility] HealthIn the event this information is protected by the Federal Confidentiality of Alcohol and Drug Abuse Patient Records regulations: The Federal rules restrict any use of the information to criminally investigate or prosecute any alcohol or drug abuse patient.[facility] HealthIn the event this information is protected by the Federal Confidentiality of Alcohol and Drug Abuse Patient Records regulations: The Federal rules restrict any use of the information to criminally investigate or prosecute any alcohol or drug abuse patient.[facility] HealthIn the event this information is protected by the Federal Confidentiality of Alcohol and Drug Abuse Patient Records regulations: The Federal rules restrict any use of the information to criminally investigate or prosecute any alcohol or drug abuse patient.[facility] the event this information is protected by the Federal Confidentiality of Alcohol and Drug Abuse Patient Records regulations: The Federal rules restrict any use of the information to criminally investigate or prosecute any alcohol or drug abuse patient.[facility] HealthIn the event this information is protected by the Federal Confidentiality of Alcohol and Drug Abuse Patient Records regulations: The Federal rules restrict any use of the information to criminally investigate or prosecute any alcohol or drug abuse patient.[facility] HealthIn the event this information is protected by the Federal Confidentiality of Alcohol and Drug Abuse Patient Records regulations: The Federal rules restrict any use of the information to criminally investigate or prosecute any alcohol or drug abuse patient.[facility] HealthIn the event this information is protected by the Federal Confidentiality of Alcohol and Drug Abuse Patient Records regulations: The Federal rules restrict any use of the information to criminally investigate or prosecute any alcohol or drug abuse patient.[facility] HealthIn the event this information is protected by the Federal Confidentiality of Alcohol and Drug Abuse Patient Records regulations: The Federal rules restrict any use of the information to criminally investigate or prosecute any alcohol or drug abuse patient.[facility] HealthIn the event this information is protected by the Federal Confidentiality of Alcohol and Drug Abuse Patient Records regulations: The Federal rules restrict any use of the information to criminally investigate or prosecute any alcohol or drug abuse patient.[facility] Care Teams (unrecognized sec tion and content) Crop Specialist Relationship Specialty Start Date End Date Ron Real MD [address] [place], [place] [address] PCP - General 05/28/03 Crop Specialist Relationship Specialty Start Date End Date Ron Real MD [address] [place] [address] PCP - General 05/28/03 Crop Specialist Relationship Specialty Start Date End Date Ron Real MD [address] [place] [address] PCP - General 05/28/03 Crop Specialist Relationship Specialty Start Date End Date Ron Real MD [address] [place] [address] PCP - General 05/28/03 Crop Specialist Relationship Specialty Start Date End Date Ron Real MD [address] [place] [address] PCP - General 05/28/03 Crop Specialist Relationship Specialty Start Date End Date Ron Real MD [address] [place] [address] PCP - General 05/28/03 Crop Specialist Relationship Specialty Start Date End Date Ron Real MD [address] [place] [address] PCP - General 05/28/03 Crop Specialist Relationship Specialty Start Date End Date Ron Real MD [address] [place] [address] PCP - General 05/28/03 Crop Specialist Relationship Specialty Start Date End Date Ron Real MD [address] [place] [address] PCP - General 05/28/03 Crop Specialist Relationship Specialty Start Date End Date Juju Dexter DO [address] [place] [phone] Radiation Oncologist Radiation Oncology 05/17/22 Cassia Masters, FROILAN Registered Nurse 05/17/22 Crop Specialist Relationship Specialty Start Date End Date Juju Dexter DO [address] [place] [phone] Radiation Oncologist Radiation Oncology 05/17/22 Cassia Masters, RN Registered Nurse 05/17/22 Crop Specialist Relationship Specialty Start Date End Date Juju Dexter, DO [address] [place] [phone] Radiation Oncologist Radiation Oncology 05/17/22 Cassia Masters, RN Registered Nurse 05/17/22 Crop Specialist Relationship Specialty Start Date End Date Juju Dexter, DO [address] [place] [phone] Radiation Oncologist Radiation Oncology 05/17/22 Cassia Masters, RN Registered Nurse 05/17/22 Crop Specialist Relationship Specialty Start Date End Date Ron Real MD [address] [place] [address] PCP - General 05/28/03 Crop Specialist Relationship Specialty Start Date End Date Ron Real MD [address] [place] [address] PCP - General 05/28/03 Crop Specialist Relationship Specialty Start Date End Date Ron Real MD [address] [place] [address] PCP - General 05/28/03 Crop Specialist Relationship Specialty Start Date End Date Ron Real MD [address] [place] [address] PCP - General 05/28/03 Hiral Shelton [address] [place] [phone] General Surgery 05/16/22 Crop Specialist Relationship Specialty Start Date End Date Ron Real MD [address] [place] [address] PCP - General 05/28/03 Hiral Shelton [address] [facility] [address] [place] [phone] General Surgery 05/16/22 Crop Specialist Relationship Specialty Start Date End Date Ron Real MD [address] [place], [place] [address] PCP - General 05/28/03 Hiral Shelton [address] [place] [phone] General Surgery 05/16/22 Crop Specialist Relationship Specialty Start Date End Date Ron Real [address] [place] [phone] PCP - General Family Medicine 11/11/22 Jarad Saba MD [facility], [address] [place], [place] [phone] Consulting Physician Gynecologic Oncology 11/10/22 Crop Specialist Relationship Specialty Start Date End Date Ron Real [address] [place] [phone] PCP - General Family Medicine 11/11/22 Jarad Saba MD [address] [facility], [address] [place], [place] [phone] Consulting Physician Gynecologic Oncology 11/10/22 Crop Specialist Relationship Specialty Start Date End Date Ron Real [address] [place] [phone] PCP - General Family Medicine 11/11/22 Jarad Saba MD [address] [facility] [place], [place] [phone] Consulting Physician Gynecologic Oncology 11/10/22 Crop Specialist Relationship Specialty Start Date End Date Ron Real MD [address] [place], [place] [address] PCP - General 05/28/03 Hiral Shelton [address] [place] [phone] General Surgery 05/16/22 Crop Specialist Relationship Specialty Start Date End Date Ron Real [address] [place] [phone] PCP - General Family Medicine 11/11/22 Jarad Saba MD [address] [facility], [address] [place], [place] [phone] Consulting Physician Gynecologic Oncology 11/10/22 Crop Specialist Relationship Specialty Start Date End Date Ron Real [address] [place] [phone] PCP - General Family Medicine 11/11/22 Jarad Saba MD [address] [facility], [address] [place], [place] [id number] Consulting Physician Gynecologic Oncology 11/10/22 Crop Specialist Relationship Specialty Start Date End Date Ron Real [address] [place] [phone] PCP - General Family Medicine 11/11/22 Jarad Saba MD [address] [facility] [place] [address] Consulting Physician Gynecologic Oncology 11/10/22 Mara Robertson APRN - CHIEF OPERATING OFFICER [address] [facility] [address] [place] [address] Nurse Practitioner Nurse Practitioner 12/07/22 Crop Specialist Relationship Specialty Start Date End Date AddieRon lock [address] [place] [phone] PCP - General Family Medicine 11/11/22 Jarad Saba MD [address] [facility] [place] [address] Consulting Physician Gynecologic Oncology 11/10/22 Mara Robertson APRN - CHIEF OPERATING OFFICER [address] [facility] [address] [place] [address] Nurse Practitioner Nurse Practitioner 12/07/22 Crop Specialist Relationship Specialty Start Date End Date Ron Real [address] [place] [phone] PCP - General Family Medicine 11/11/22 Jarad Saba MD [address] [facility] [place] [address] Consulting Physician Gynecologic Oncology 11/10/22 Mara Robertson APRN - CHIEF OPERATING OFFICER [address] [facility] [place] [address] Nurse Practitioner Nurse Practitioner 12/07/22 Crop Specialist Relationship Specialty Start Date End Date Ron Real MD [address] [place] [address] PCP - General 05/28/03 Hiral Shelton [address] [place] [address] General Surgery 05/16/22 Crop Specialist Relationship Specialty Start Date End Date Ron Real MD [address] [place] [address] PCP - General 05/28/03 Hiral Shelton MD [address] [place] [address] General Surgery 05/16/22 Dawson Tipton MD [address] [place] [address] Hematology/Oncology 01/04/23 Sharla Smith, FROILAN [address] [place] [address] Hematology/Oncology 01/04/23 Crop Specialist Relationship Specialty Start Date End Date Ron Real MD [address] [place] [address] PCP - General 05/28/03 Hiral Shelton MD [address] [place] [address] General Surgery 05/16/22 Dawson Tipton MD [address] [place] [address] Hematology/Oncology 01/04/23 Sharla Smith RN [address] [place] [address] Hematology/Oncology 01/04/23 Crop Specialist Relationship Specialty Start Date End Date Ron Real MD [address] [place] [address] PCP - General 05/28/03 Hiral Shelton MD [address] [place] [address] General Surgery 05/16/22 Dawson Tipton MD [address] [place] [address] Hematology/Oncology 01/04/23 Sharla Smith RN [address] [place] [address] Hematology/Oncology 01/04/23 Crop Specialist Relationship Specialty Start Date End Date Ron Real MD [address] [place] [address] PCP - General 05/28/03 Hiral Shelton MD [address] [place] [address] General Surgery 05/16/22 Dawson Tipton MD [address] [place] [address] Hematology/Oncology 01/04/23 Sharla Smith, FROILAN [address] [place] [address] Hematology/Oncology 01/04/23 Crop Specialist Relationship Specialty Start Date End Date Ron Real MD [address] [place] [address] PCP - General 05/28/03 Hiral Shelton MD [address] [place] [address] General Surgery 05/16/22 Dawson Tipton MD [address] [place] [address] Hematology/Oncology 01/04/23 Sharla Smith, FROILAN [address] [place] [address] Hematology/Oncology 01/04/23 Crop Specialist Relationship Specialty Start Date End Date Ron Real MD [address] [place] [address] PCP - General 05/28/03 Hiral Shelton MD [address] [place] [address] General Surgery 05/16/22 Dawson Tipton MD [address] [place] [address] Hematology/Oncology 01/04/23 Sharla Smith, RN [address] [place] [address] Hematology/Oncology 01/04/23 Crop Specialist Relationship Specialty Start Date End Date Ron Real MD [address] [place] [address] PCP - General 05/28/03 Hiral Shelton MD [address] [place] [address] General Surgery 05/16/22 Dawson Titpon MD [address] [place] [address] Hematology/Oncology 01/04/23 Sharla Smith, FROILAN [address] [place] [address] Hematology/Oncology 01/04/23 Crop Specialist Relationship Specialty Start Date End Date Ron Real MD [address] [place] [address] PCP - General 05/28/03 Hiral Shelton MD [address] [place] [address] General Surgery 05/16/22 Dawson Tipton MD [address] [place] [address] Hematology/Oncology 01/04/23 Sharla Smith, FROILAN [address] [place] [address] Hematology/Oncology 01/04/23 Crop Specialist Relationship Specialty Start Date End Date Ron Real MD [address] [place] [address] PCP - General 05/28/03 Hiral Shelton MD [address] [place] [address] General Surgery 05/16/22 Dawson Tipton MD [address] [place] [address] Hematology/Oncology 01/04/23 Sharla Smith RN [address] [place] [address] Hematology/Oncology 01/04/23 Crop Specialist Relationship Specialty Start Date End Date Ron Real MD [address] [place] [address] PCP - General 05/28/03 Hiral Shelton MD [address] [place] [address] General Surgery 05/16/22 Dawson Tipton MD [address] [place] [address] Hematology/Oncology 01/04/23 Sharla Smith, FROILAN [address] [place] [address] Hematology/Oncology 01/04/23 Crop Specialist Relationship Specialty Start Date End Date Ron Real MD [address] [place] [address] PCP - General 05/28/03 Hiral Shelton MD [address] [place] [address] General Surgery 05/16/22 Dawson Tipton MD [address] [place] [address] Hematology/Oncology 01/04/23 Sharla Smith RN [address] [place] [address] Hematology/Oncology 01/04/23 Crop Specialist Relationship Specialty Start Date End Date Ron Real MD [address] [place] [address] PCP - General 05/28/03 Hiral Shelton MD [address] [place] [address] General Surgery 05/16/22 Dawson Tipton MD [address] [place] [address] Hematology/Oncology 01/04/23 Sharla Smith, FROILAN [address] [place] [address] Hematology/Oncology 01/04/23 Crop Specialist Relationship Specialty Start Date End Date Ron Real MD [address] [place] [address] PCP - General 05/28/03 Hiral Shelton MD [address] [place] [address] General Surgery 05/16/22 Dawson Tipton MD [address] [place] [address] Hematology/Oncology 01/04/23 Sharla Smith, RN [address] [place] [address] Hematology/Oncology 01/04/23 Crop Specialist Relationship Specialty Start Date End Date Ron Real MD [address] [place] [address] PCP - General 05/28/03 Hiral Shelton MD [address] [place] [address] General Surgery 05/16/22 Dawson Tipton MD [address] [place] [address] Hematology/Oncology 01/04/23 Sharla Smith, RN [address] [place] [address] Hematology/Oncology 01/04/23 Reason for Visit (unrecogniz ed section and content) Specialty Diagnoses / Procedures Referred By Contac t Referred To Contact Family Medicine / FAMILY MEDICINE Diagnoses 3 Month Follow Up Procedures EST PATIENT Ron Real MD [address] [place] [address] Ron Real MD [address] [place] [address] Referral ID Status Reason Start Date Expiration Date Visits Requested Visits Authorized [id number] Pending Review OON/Self Pay Override 06/08/2022 09/06/2022 1 1 Reason Comments Refill Request Reason Comments Orders Reason Comments Results Reason Comments Orders Reason Comments New Patient Specialty Diagnoses / Procedures Referred By [facility] Referred To Contact Plastic Surgery Diagnoses 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, unspecified estrogen receptor status Estrogen receptor positive status (ER+) Juju Dexter DO [address] [facility] [address] [place] [address] [facility] [address] [place] [address] Referral ID Status Reason Start Date Expiration Date V isits Requested Visits Authorized [id number] New Request 05/17/2022 06/11/2023 1 1 Reason Comments New Patient Surgical consultatio n for possible lazara mastectomies - BRCA2 mutation positive Specialty Diagnoses / Procedures Referred By [facility] Referred To Contact Breast Clinic Diagnoses 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, unspecified estrogen receptor status Estrogen receptor positive status (ER+) Juju Dexter DO [address] [facility] [address] [place] [address] [facility] [address] [place] [address] Referral ID Status Reason Start Date Expiration Date V isits Requested Visits Authorized [id number] New Request 05/17/2022 06/11/2023 1 1 Specialty Diagnoses / Procedures Referred By [facility] Referred To Contact Diagnoses Genetic susceptibility to malignant neoplasm of breast Personal history of malignant neoplasm of breast 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 Procedures MAMMO DIAGNOSTIC WITH YANE Yessi Ya UX ARCHITECT-CHIEF OPERATING OFFICER [address] [facility] [address] [place] [address] Referral ID Status Reason Start Date Expiration Date V isits Requested Visits Authorized [id number] New Request 07/13/2022 08/07/2023 1 1 Specialty Diagnoses / Procedures Referred By Contac t Referred To Contact Diagnoses Genetic susceptibility to malignant neoplasm of breast Personal history of malignant neoplasm of breast 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 Procedures MRI BREAST BILATERAL WITH AND WITHOUT CONTRAST CHG MRI BREAST WITHOUT&WITH CONTRAST W/CAD BILATERAL Nisha Valdeze Cori, UX ARCHITECT-CHIEF OPERATING OFFICER [address] [facility] [address] [place] [address] Referral ID Status Reason Start Date Expiration Date Visits Requested Visits Authorized [id number] Authorized - Kemar 07/13/2022 08/07/2023 1 1 Reason Comments DENIED, Ozempic Orders Reason Comments Alcohol Problem F/U Diabetes 3 Month Reason Comments Medication Problem Reason Comments Pre-Op Exam Reason Comments Office Note with Clearance Approval Reason Onset Date Comments surgery scheduling 11/11/2022 Scheduled at [facility] Specialty Diagnoses / Procedures Referred By Contac t Referred To Contact Diagnoses Intra-abdominal and pelvic swelling, mass and lump, unspecified site 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 Intra-abdominal and pelvic swelling, mass and lump, unspecified site [R19.00] Genetic susceptibility to malignant neoplasm of breast [Z15.01] Genetic susceptibility to other malignant neoplasm [Z15.09] Procedures RI LAPS TOTAL HYSTERECT 250 GM/< W/RMVL TUBE/OVARY RI LMTD LMPHADEC STAGING SPX PEL&PARA-AORTIC ROBOTIC ASSISTED TOTAL LAPAROSCOPIC HYSTERECTOMY, BILATERAL SALPINGO-OOPHORECTOMY, POSSIBLE STAGING LYMPHADENECTOMY FOR STAGING PELVIC AND PARA-AORTIC Jarad Saba MD [address] [place] [address] [facility] [address] [place] [address] Referral ID Status Reason Start Date Expiration Date Visits Re quested Visits Authorized [id number] Reason Onset Date Comments Refill Request 11/28/2022 Reason Comments Post-op Visit Reason Onset Date Comments Nausea 12/13/2022 Reason Comments UTI Dysuria, burning wit h urination x1 day Reason Comments Research Reason Comments New Patient Evaluation Reason Onset Date Comments SPP Oral Oncology/hematology - Treatment Referra l 01/04/2023 Ibrance 125mg Insurance Authorization 01/04/2023 Pending PA Reason Comments Appointment Reason Comments Research Consent Presentation [id number] Reason Comments Imm/Inj Specialty Diagnoses / Procedures Referred By Contac t Referred To Contact Diagnoses 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) Procedures INJECTION, [place] [id number] [place] [id number] [facility] [address] [place] [address] Referral ID Status Reason Start Date Expiration Date V isits Requested Visits Authorized [id number] Authorized 01/04/2023 03/12/2023 1 99 Reason Comments Care Coordination Reason Comments Research Step 1 Screening Reason Comments Care Coordination ORAL ANTI-CANCER AGE NTS FOLLOW-UP PHONE CALL/VISIT Reason Comments Patient Update Reason Comments Established Patient Specialty Diagnoses / Procedures Referred By Contac t Referred To Contact Diagnoses 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) Procedures INJECTION, [place] [id number] [address] [id number] [facility] [address] [place] [address] Reason Onset Date Comments SPP Oral Oncology/hematology - Medication Refill 02/10/2023 Ibrance 125mg Reason Comments burning with urination Burning and urgen cy off and on x 2 weeks Reason Comments Care Coordination Follow Up Note Reason Comments Referral Information INFORMATION SOURCE (unrecogn ized section and content) DATE CREATED AUTHOR AUTHOR'S ORGANIZ ATION 12/17/2022 [employer] [facility] DATE CREATED AUTHOR AUTHOR'S ORGANIZ ATION 02/24/2023 [facility] DATE CREATED AUTHOR AUTHOR'S ORGANIZ ATION 04/07/2023 [facility] Scheduled Active and Recently Administ ered Medications (unrecognized section and content) Continuous Medication Order 11/15/2022 11/16/2022 11/17/2022 lactated Ringer's (LR) infusion 50 mL/hr, IntraVENous, Continuous, Starting on Nohemi 11/17/22 at 1245, Preprocedure, Upon admission to sameday - please start iv if patient does not have iv access. Use 500ml NS for patients on dialysis. 1301 (New Bag - Prov ider: Carolina Hansen, RN)1311 (New Bag - Provider: Carolina Hansen RN)1411 (Continued by Anesthesia - Provider: Thee Winter CRNA)1507 (New Bag - Provider: Francois Nix APRN - FLORENTINO)1522 (Anesthesia Volume Adjustment - Provider: JOSSY Sin CRNA) PRN Medication Order 11/15/2022 11/16/2022 11/17/2022 ALPRAZolam (Xanax) disintegrating tablet 0.25 mg 0.25 mg, Oral, PRN, anxiety, Starting on Nohemi 11/17/22 at 1243, For 1 dose, Preprocedure, Using dry hands, place tablet on top of tongue and allow to disintegrate. Administration with water is not necessary. dextrose 5 % infusion 100 mL/hr, IntraVENous, PRN, Blood sugar less than 70mg/dL, Starting on Nohemi 11/17/22 at 1243, Preprocedure, Start infusion following administration of dextrose 50% or glucagon. dextrose 50 % solution 12.5 g 12.5 g, IntraVENous, PRN, low blood sugar, Blood glucose less than 70 mg/dL and patient NOT ALERT or NPO., Starting on Nohemi 11/17/22 at 1243, Preprocedure, If patient does not respond within 5 minutes, repeat dose x1. Start D5W at 100 mL/hour until ordering provider can be reached. Repeat blood glucose in 15 minutes. If blood glucose is less than 70 mg/dL, repeat treatment and recheck blood glucose in 15 minutes x2. If using Glucostabilizer, dose as instructed per system. fentaNYL (Sublimaze) injection 25 mcg (CANCELED) 25 mcg, IntraVENous, Every 5 min PRN, moderate pain (4-6), Starting on Nohemi 11/17/22 at 1545, For 3 doses, Recovery (only), Phase I and Phase II- Initial therapy for moderate pain (4-6). Restricted to a 90 minute time frame starting when the patient can verbally state their pain score. If after 2 doses the pain score does not decrease by more than one point, then call the provider. If oral meds are utilized, do not return to initial therapy medications. 1656 (Given - Provid er: Annabella Silvestre RN) fentaNYL (Sublimaze) injection 50 mcg (CANCELED) 50 mcg, IntraVENous, Every 5 min PRN, severe pain (7-10), Starting on Nohemi 11/17/22 at 1545, For 3 doses, Recovery (only), Phase I and Phase II- Initial therapy for severe pain (7-10). Restricted to a 90 minute time frame starting when the patient can verbally state their pain score. If after 2 doses the pain score does not decrease by more than one point, then call the provider. If oral meds are utilized, do not return to initial therapy medications. 1620 (Given - Provid er: Annabella Silvestre RN) glucagon (human recombinant) injection 1 mg 1 mg, IntraMUSCular, PRN, low blood sugar, Blood glucose less than 70 mg/dL and patient NOT ALERT or NPO and does not have IV access., Starting on Mon11/17/22 at 1243, Preprocedure, After administration, attempt intravenous access and start D5W at 100 mL/hr. Repeat blood glucose in 15 minutes x2 and notify provider. glucose oral gel 15 g 15 g, Oral, As needed, low blood sugar, Starting on Mon11/17/22 at 1243, Preprocedure, If blood glucose less than 50 mg/dL and patient ALERT and NOT NPO, give 2 tubes glucose gel. If blood glucose less than 70 mg/dL and patient ALERT and NOT NPO, give 1 tube glucose gel. Repeat blood glucose in 15 minutes. If blood glucose is less than 70 mg/dL, repeat treatment and recheck blood glucose in 15 minutes x2 and notify provider. Insulin Lispro (Humalog) injection 0-12 Units 0-12 Units, SubCUTAneous, PRN, high blood sugar, Surgery patient, Starting on Mon11/17/22 at 1243, For 3 doses, Preprocedure, Corrective Low Dose Algorithm Glucose: Dose: 70-180 No Insulin 181-240 4 Unit 241-300 6 Units 301-350 8 Units 351-400 10 Units Over 400 12 Units and notify physician 1311 (Given - Provid er: Carolina Hansen, FROILAN - Comment: blood sugar of 223)1555 (Given - Provider: Chery Villaseñor, FROILAN - Comment: BGT 224) oxyCODONE (Roxicodone) immediate release tablet 10 mg (COMPLETED) 10 mg, Oral, PRN, severe pain (7-10), Starting on Nohemi 11/17/22 at 1545, For 1 dose, Recovery (only), PHASE II 1712 (Given - Provid er: Annabella Silvestre RN) sodium chloride 0.9 % infusion 5-250 mL/hr, IntraVENous, PRN, if patient receiving piggyback infusions and maintenance fluids are not ordered OR KVO fluids to protect IV site / prevent frequent line interruptions / long duration, Starting on Nohemi 11/17/22 at 1243, Preprocedure, For piggyback infusion, administer at same rate as piggyback for a total of 25 mL. Enter 25 mL into dose field and piggyback rate into rate field of order. If piggyback is infusing at a rate less than 100 mL/hr, enter 25 mL into dose field and 100 mL/hr into rate field of order. For KVO fluids, enter rate of 20 mL/hr or less into rate field of order. 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 If following IV push medication, administer flush at same rate as the IV push. Flush volume is determined by type of infusion therapy being given. For non-viscous solutions use: Peripheral IV = 5 mL Midline or Central Line = 10 mL/lumen For viscous solutions (i.e. blood components, parenteral nutrition, contrast media, or after obtaining blood sample) use: Peripheral IV = 10 mL Midline or Central Line = 20 mL/lumen sterile water irrigation solution (CANCELED) As needed, Starting on Nohemi 11/17/22 at 1428, Intraprocedure 1428 (Given - Provid er: Jarad Saba MD - Comment: FOR INSTRUMENTS) FOR RECORDS PERTAINING TO PATIENTS WHO ARE OR HAVE BEEN ENROLLED IN A CHEMICAL DEPENDENCY/SUBSTANCEABUSE PROGRAM, SOME INFORMATION MAY BE OMITTED. This clinical summary was aggregated from multiple sources. Caution should be exercised in using it in the provision of clinical care. This summary normalizes information from multiple sources, and as a consequence, information in this document may materially change the coding, format and clinical context of patient data. In addition, data may be omitted in some cases. CLINICAL DECISIONS SHOULD BE BASED ON THE PRIMARY CLINICAL RECORDS. [employer] provides no warranty or guarantee of the accuracy or completeness of information in this document.
[2023-04-08] VITALS (9 sets, daily range): BP systolic 114–128; BP diastolic 62–76; PULSE 83–90; RESP 16–25; TEMP 35.8–36.8; O2SAT 94–100; BMI 35.2
[2023-04-08 00:01] LABS: Differential Indicated MANUAL DIFF
[2023-04-08 00:11] LABS: International Normalized Ratio 1.8; Prothrombin Time (Protime)PT. 21.4 SECONDS (11.7-14.9)
[2023-04-08 00:13] LABS: ALB/GLOB Ratio 0.4 RATIO (0.9-2.4); AST(SGOT) 220 U/L (15-37); Alanine Aminotransfer ALT/SGPT 71 U/L (13-56); Albumin, Serum 1.8 g/dL (3.2-5.0); Alkaline Phosphatase 577 U/L (45-117); Anion Gap 9 (5-15); BUN 41 mg/dL (7-18); Chloride 100 mmol/L (98-107); Creatinine, Serum 1.05 mg/dL (0.55-1.02); EST Glomerular Filtration Rate 57 mL/min (>60); Est Glom Filt Rate - Afr Amer 68 mL/min (>60); Estimated Creatinine Clearance 62.17 ml/min; Globulin 4.4 g/dL (2.2-4.2); Glucose 155 mg/dL (74-106); Potassium 4.2 mmol/L (3.5-5.1); Protein, Total 6.2 g/dL (6.4-8.2); Sodium Level 129 mmol/L (136-145)
[2023-04-08 00:23] LABS: Lactic Acid 2.9 mmol/L (0.4-1.9)
[2023-04-08] MEDS: 0.9% Normal Saline (1000mL) 1,000 ML 250 ML IV (01:21)
--- NOTE | 2023-04-08 01:26 | PCM.HP.STD ---
HPI - General General Date of Admission: 04/08/23 Date of Service: 04/08/23 Chief Complaint: Fatigue, malaise, worsening jaundice, odynophagia, poor intake, decreased UOP. HPI Narrative The patient is a 62 y/o F w/ PMHx: CAD s/p PCI, Chronic anemia, Anxiety and Depression, Hypothyroidism, HTN, HLD, Diabetes mellitus type II, RLS, Former tobacco use, L 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 Oconnor who presents to the [facility] ED on 04/08/23 with history of family recently noting onset of jaundice the prior Monday with worsening oral intake and recent diagnosis of significant oral thrush prescribed oral nystatin suspension with difficulty swallowing and inability to speak secondary to discomfort with decreased urine output and orthostasis type symptoms with associated weight loss but no fevers or chills but given decline prompted family to bring her in for evaluation. From review of [facility] records patient has most recently been seen 04/07/2023 with IV hydration at that visit of note. Also recently because of the severity of her presentation she was switched to Taxol but was unable to tolerate this given her worsening status. Workup in the ED included T97.2, heart rate 90, BP 115/66, respiratory rate 16, 95% on room air, CBC with WBC 21.6, hemoglobin 13, MCV 100.3, platelet 175 without differential, CBC with WBC 21.6, hemoglobin 13, MCV 100.3, platelet 175 without differential, coags with INR 1.8, PT 21.4, CMP with sodium 129, carbon dioxide 20, BUN/creatinine 41/1.05, glucose 155, calcium 8, T. bili 13.20, AST/ALT 220/71, alk phos 577. In the ED patient administered maintenance IV fluids, 1 L normal saline as well as viscous oral lidocaine. [facility] Medical History Alcohol use Arthritis Atherosclerotic heart disease igiugig coronary artery w/angina pectoris Back pain BRCA2 gene mutation positive Breast cancer, left Cancer Cardiology follow-up encounter Depression Diabetes mellitus Dietary restriction Encounter for education ER+ (estrogen receptor positive status) Essential (primary) hypertension Former smoker Heartburn High cholesterol History of abnormal cervical Pap smear History of echocardiogram History of stress test Hyperlipidemia Hypertension Hypothyroidism Metastasis to bone Metastasis to liver Obesity Polycythemia, secondary Restless legs Shortness of breath on exertion Thyroid disease Type 2 diabetes mellitus Wears contact lenses Wears glasses Home Medications aspirin 81 mg tablet,delayed release (Adult Low Dose Aspirin) 81 mg PO DAILY heart 09/19/18 [History Last Taken 11/07/22] levothyroxine 25 mcg tablet 25 mcg PO DAILY hypothyroidism #90 tabs 09/19/18 [History Last Taken 05/16/22] lisinopril 10 mg tablet 10 mg PO DAILY htn #90 tabs 09/19/18 [History Last Taken 05/16/22] venlafaxine 150 mg capsule,extended release 24 hr 150 mg PO DAILY #90 caps 09/19/18 [History Last Taken Unknown] cholecalciferol (vitamin D3) 125 mcg (5,000 unit) tablet (Vitamin D3) 125 mcg PO DAILY osteoporosis 09/08/21 [History Last Taken Unknown] red yeast rice 600 mg capsule 1,200 mg PO DAILY supplement 09/08/21 [History Last Taken Unknown] zinc 50 mg tablet 50 mg PO DAILY . 11/02/21 [History Last Taken Unknown] metformin 500 mg tablet 1,000 mg PO DAILY 05/11/22 [History Last Taken Unknown] metformin 500 mg tablet 1,500 mg PO BID diabetes 11/08/22 [History Last Taken Unknown] glimepiride 4 mg tablet 4 mg PO DAILY diabetes 04/08/23 [History Last Taken Unknown] Allergy/AdvReac Type Severity Reaction Status Date / Time Hjcyptl-GYX-LpV Reductase AdvReac myalgias Verified 04/07/23 23:11 Inhibitor [Vhrmhoy-Ruh-Izm Reductase Inhibitor] Family History Father CAD (coronary artery disease) CABG Myocardial infarction Grandmother Diabetes Surgical History H/O LEEP History of cardiac catheterization History of coronary artery stent placement (12/15/03) History of hysterectomy History of hysteroscopy Hx of colonoscopy Status post left breast lumpectomy Social History household members: none number of children: 2 current occupational status: employed current occupation: [employer] history of recent travel: No sexually active: No Smoking Status: Former smoker how long ago did patient quit smokin years ago; [id number] alcohol intake: current alcohol intake frequency: a few times a month substance use type: does not use caffeine: Yes Type: coffee Number of servings: 2 seatbelt use: always do you feel safe at home: Yes additional social history: single ROS ROS Narrative Admission Review of Systems: CONSTITUTIONAL: No weight loss, fever, chills, + weakness or fatigue. HEENT: + Scleral icterus, oral thrush, odynophagia. Eyes: No visual loss, blurred vision, double vision. Ears, Nose, Throat: No hearing loss, sneezing, congestion, runny nose or sore throat. SKIN: No rash or itching, lesions, wounds except + jaundice, distal extremities telangiectasia-like appearing extremity skin changes. CARDIOVASCULAR: + LH/dizziness. No chest pain, chest pressure or chest discomfort, palpitations, edema, orthopnea, syncopal events. RESPIRATORY: No shortness of breath, cough or sputum, wheezing, hemoptysis. GASTROINTESTINAL: + anorexia, nausea. No vomiting or diarrhea, abdominal pain, melena, BRBPR. GENITOURINARY: No dysuria, frequency, urgency or retention. NEUROLOGICAL: + LH/Dizziness. No headache, syncope, paralysis, ataxia, numbness or tingling in the extremities, focal weakness, change in bowel or bladder control, seizure. MUSCULOSKELETAL: + muscle, back pain, joint pain or stiffness. HEMATOLOGIC: + anemia, easy bleeding/bruising. LYMPHATICS: No enlarged nodes. No history of splenectomy. PSYCHIATRIC: + history of depression and anxiety. ENDOCRINOLOGIC: No reports of sweating, cold or heat intolerance. No polyuria or polydipsia. ALLERGIES: No history of asthma, hives, eczema or rhinitis. Vital Signs Vital Signs Vital Signs: 04/07/23 23:11 04/07/23 23:16 04/07/23 23:18 Temperature 97.2 F L Temperature Source Temporal Pulse Rate 90 Respiratory Rate 16 Respiratory Pattern Normal Blood Pressure 115/66 Blood Pressure Mean 82 Pulse Ox 95 Weight Weight: 204 lb 14.4 oz Body Mass Index (BMI) 35.2 Physical Exam Narrative Physical Examination: General: Awake, alert, oriented to self, place and recent events, remains cooperative, seated upright in the ED bed, fatigued, ill appearing, severely jaundiced, notes some improvement in pain with talking/swallowing with viscous lidocaine. Skin: Decreased turgor, + icterus, no cyanosis, various staged ecchymoses, abrasions, significant jaundice as well as extremities telangiectasia-like appearing extremity skin changes.. HEENT: AT/NC, EOMI, PERRLA, severely dry MM, oral thrush and oral ulcerations, no carotid bruits or JVD noted. Lungs: Diminished, > decrease BL bases, no rales, ronchi or wheezing. Heart: Regular rate and rhythm; no gallop, rub audible. Abdomen: Soft, NTTP, no marked distention, no marked fluid wave noted, hypoactive BS, + HM. Extremities: No cyanosis, no clubbing, notable pedal to proximal BL LE pitting edema, 3+. Neurological: Patient awake, alert, oriented as noted, cognitive function intact; pupils equally reactive to light and accommodation, cranial nerves grossly normal, moving all 4 extremities, no focal deficits, strength severely globally decreased. Psychiatric: Affect appears flat, fatigued, no acute evidence of depressive or anxiety feelings. Results Lab / Micro Data 04/07/23 23:39 04/07/23 23:39 Labs: Laboratory Results - last 24 hr 04/07/23 23:39: WBC 21.6 H, RBC 3.59 L, Hgb 13.0, Hct 36.0 L, MCV 100.3 H, MCH 36.2 H, MCHC 36.1 H, RDW Std Deviation 70.4 H, RDW Coeff of Jenn 19.2 H, Plt Count 175, MPV 12.1 H, Neut % (Auto) Not Reportable, PT 21.4 H, INR 1.8, Sodium 129 L, Potassium 4.2, Chloride 100, Carbon Dioxide 20.0 L, Anion Gap 9, BUN 41 H, Creatinine 1.05 H, Estim Creat Clear Calc 62.17, Est GFR (MDRD) Af Amer 68, Est GFR (MDRD) Non-Af 57 L, BUN/Creatinine Ratio 39.0 H, Glucose 155 H, Lactic Acid 2.9 H*, Calcium 8.0 L, Total Bilirubin 13.20 H, AST 220 H, ALT 71 H, Alkaline Phosphatase 577 H, Total Protein 6.2 L, Albumin 1.8 L, Globulin 4.4 H, Albumin/Globulin Ratio 0.4 L Assessment & Plan Assessment/Plan (1) Hyperbilirubinemia: PLAN: Plan The patient is a 62 y/o F w/ PMHx: CAD s/p PCI, Chronic anemia, Anxiety and Depression, Hypothyroidism, HTN, HLD, Diabetes mellitus type II, RLS, Former tobacco use, L 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 Oconnor who presents to the [facility] ED on 04/08/23 with history of family recently noting onset of jaundice the prior Monday with worsening oral intake and recent diagnosis of significant oral thrush prescribed oral nystatin suspension with difficulty swallowing and inability to speak secondary to discomfort with decreased urine output and orthostasis type symptoms with associated weight loss but no fevers or chills but given decline prompted family to bring her in for evaluation. #1. L breast Invasive Ductal Cancer w/ metastatic disease to liver and bones (sacrum and left ilium) in addition to local regional recurrence in the left breast upstaged to stage IV with progressively worsening hyperbilirubinemia, transaminitis with notable jaundice onset: Patient initially with diagnosis L invasive ductal cancer of the left breast stage I (T1c, N0, M0) ER positive (over 95%, strong), ME positive (variable 15 to 65%, weak) HER2/emerald negative (0) overall grade 3, Ki-67 moderate 50%, s/p left partial mastectomy with sentinel lymph node biopsy September 2021, 04/2022 testing w/ + BRCA2 mutation. Treated w/ radiation therapy and started adjuvant hormonal therapy with an aromatase inhibitor 12/2021. 11/2022 prophylactic laparoscopic total hysterectomy with bilateral salpingo-oophorectomy w/ incidental liver lesion noted w/ Bx w/ metastatic breast cancer ER positive, ME negative HER2 negative (0, mismatch repair intact by IHC. Restaging by PET/CT confirmed metastatic disease to liver and bones (sacrum and left ilium) in addition to local regional recurrence in the left breast, upstaged to stage IV. Last noted Oncology visitation w/ Lyubov May[employer] 12/26/22 with discussions for initiation palliative Elacestrant 345 Mg. Patient transitioned from [facility]-->CC with Dr. Green with then initiation of Faslodex and Ibrance started 01/2023. Most recent CT imaging noted CT abdomen and pelvis 03/27/2023 with a stable size spiculated nodule left lateral breast, subcentimeter pulmonary nodules left lower lobe, findings of progressive osseous metastatic disease, numerous bilateral lobar hepatic metastases which have progressed with nodular hepatic contour potentially reflecting pseudocirrhosis in the setting of underlying metastases, mild increased retroperitoneal lymphadenopathy at that time new moderate volume abdominal pelvic ascites noted. Following this endocrine therapy was stopped and patient was switched to weekly Taxol starting 03/29/2023 although this was held secondary to severe stomatitis. 04/06/2023 [facility] labs including CBC with WBC 1.93, hemoglobin 12.7, MCV 96.9, platelet 124 with evidence of neutropenia, CMP with sodium 130, potassium 4.4, chloride 95, CO2 19, anion gap 16, BUN/creatinine 28/0.84, T. bili 10.5, AST/ALT 132/61, alk phos 429, calcium 7.9, albumin 2.7, protein 6.3, glucose 126--> 04/07/2023 CMP with sodium 129, BUN/creatinine 41/1.05, glucose 155, calcium 8, T. bili 13.20, AST/ALT 220/71, alk phos 577. Will admit to medical surgical floor, maintain on fall precautions, will allow clears but as noted given significant oropharyngeal possibly esophageal candidiasis will transition to also IV fluconazole and continue BMX with aggressive oral care, will trend CMP as well as CBC, will obtain NH level for baseline, magnesium and phosphorus levels requested with supplementation if necessary, recent CT abdomen and pelvis as noted thus will defer immediate imaging, given possibility of pseudocirrhosis may need to consider paracentesis but will continue to monitor, will judiciously hydrate given this history, will have nausea as well as pain regimen as needed, will need to continue to discuss possibility of palliative/hospice given patient's extensive metastatic disease her prognosis is poor. #2. Leukocytosis, unclear etiology, possibly dehydration component with lactic acidosis, possibly certainly could be primarily secondary to dehydration but infectious etiology unable to be at this time ruled out: Patient with recent labs 04/06/2023 at [facility] and at that time WBC was 1.93, given significant rise some concern for infection, recent CT abdomen and pelvis with no overt findings, urinalysis will be requested, will place on broad-spectrum antibiotic therapy with IV vancomycin and IV Zosyn in the interim with requested sputum culture, blood culture x 2 pending, urinalysis/urine culture pending, procalcitonin requested with de-escalation of abx therapy once assure no infectious etiology. Will continue hydration and repeat CBC in AM. #3. Hyponatremia, hypovolemic component given poor oral intake: Admission sodium 129, chloride 100, recently 130, patient has been requiring outpatient IV transfusions to maintain appropriate hydration, will continue judicious hydration with interventions as noted. #4. Acute renal insufficiency secondary to poor oral intake, dehydration: Admission BUN/creatinine 41/1.05, 04/06/2023 BUN/creatinine 28/0.84, will continue to hydrate as noted, repeat CMP in AM. #5. Oropharyngeal candidiasis, possibly esophageal involvement with severe odynophagia with resulting severe protein-calorie malnutrition: Recent outpatient evaluation at urgent care the Monday prior with diagnosis of thrush with initiation of nystatin rinse, will initiate BMX in addition and continue aggressive oral care, given severity of symptoms at this time and difficulty tolerating oral intake will initiate on IV fluconazole until able to transition to oral. Nutrition consulted for recommendations. Pending responsiveness may need to consider GI consultation/endoscopy. #6. Bilateral lower extremity edema, secondary to underlying metastatic cancer and poor nutritional status: Will place neck Baljinder wraps with elevation as able to tolerate. Of note recent 04/06/2023 bilateral lower extremity duplex ultrasound negative for DVT. #7. Chronic macrocytic anemia: Recent [facility] 04/06/2023 labs with hemoglobin 12.7, MCV 96.9, current presentation with hemoglobin 13, MCV 100.3, do suspect falsely elevated and again notable leukocytosis thus certainly dehydration playing a component, will repeat CBC in AM. #8. Diabetes mellitus type II: Hold oral home regimen, given difficulty with oral intake pending ST will allow clears, maintain on every 6 hours accu checks w/ ISS until diet transition. Most recent noted hemoglobin A1c in system 12/22/2022 9.4%. #9. Anxiety and depression: We will continue patient on venlafaxine regimen but decrease by 50% given liver findings. May need to further alter or hold pending further trending. #10. Hypothyroidism: Looking patient home levothyroxine regimen. #11. Hypertension: Hold lisinopril, PRN hydralazine. #12. Hyperlipidemia: Not on regimen, defer especially given presentation. #13. Former tobacco use: Encourage continued tobacco cessation, quit 02/14/2001 with prior to that 1/2 pack/day x 10 years. #14. CAD: s/p PCI 2003 PCI JOSE mid RCA, continue asa cautiously, not on BB, holding ACEI given renal insufficiency, not on statin but defer given acute presentation as noted. #15. DVT prophylaxis: Heparin cautiously given some component of auto anticoagulation with liver mets. #16. CODE status: Patient HCPOA and LW is reported in place per patient but she is unsure if it is both her children and her mother. Recommended she clarify upon her discharge and review. Discussed CODE status at length including difference between FULL code, DNR-CCA and DNR-CC status. Following discussions about the differences in these status, requested DNR-CCA, no intubation status. Advanced Care Planning Face to Face Time: 16 minutes. Charges/Coding Visit Charges Inpatient E&M: 52313 Init Hosp L3 Procedures Hospitalists Procedures: 60216 Advncd Care Plan 30 Min
[2023-04-08 02:01] LABS: Bacteria 0 SEEN /hpf (None Seen); Mucous, Urine 0 SEEN /hpf (<or=2+); Squamous Epithelial Cells - UA 0 SEEN /hpf (5-10)
[2023-04-08] MEDS: Piperacil/Tazobactam 4.5 GM in 0.9% Normal Saline (100mL MB+) 100 ML IV (02:01)
[2023-04-08 02:02] LABS: Color, Urine Yellow (Yellow); Glucose, Dipstick Normal (Normal); Ketone-Dipstick 15 mg/dl (Negative); Leukocyte Esterase-Dipstick 25 /ul (Negative); Nitrite-Dipstick Negative (Negative); Occult Blood-Urine 150 /ul (Negative); Protein-Dipstick 30 mg/dl (Negative); Specific Gravity, Urine 1.015 (1.002-1.030); Urine Clarity Sl. Cloudy (Clear); Urine Urobilinogen 8 mg/dl (Normal)
--- NOTE | 2023-04-08 02:05 | NURSING ---
Blood cultures and urine sent prior to Antibiotics being started.
[2023-04-08 02:06] LABS: Neutrophil-Segmented 63 % (47-70); Total Cells Counted 100 (MANUAL DIFF)
[2023-04-08 02:07] LABS: Myelocyte 13 % (0-0); Promyelocyte 2 % (0-0)
[2023-04-08 02:09] LABS: Lymphocyte 14 % (19-41); Monocyte 13 % (0-10)
[2023-04-08 02:10] LABS: Absolute Neutrophil Count 13.6 X10^3/uL (2.0-7.7); Anisocytosis 1+; Differential Comment SCANNED
[2023-04-08 02:11] LABS: Absolute Lymphocyte Count 3.03 X10^3/uL (0.83-4.51)
[2023-04-08 02:14] LABS: Magnesium 3.2 mg/dL (1.6-2.6); Phosphorus 1.8 mg/dL (2.5-4.9)
[2023-04-08 02:28] LABS: Red Blood Cells-Urine 0-5 SEEN /hpf (0-5); Urine Bilirubin Dipstick 6 mg/dL (Negative); White Blood Cells 0-5 SEEN /hpf (0-5)
[2023-04-08 02:40] LABS: Procalcitonin 3.08 ng/mL (0.00-0.09)
[2023-04-08] MEDS: 0.9% Normal Saline (1000mL) 1,000 ML 125 ML IV (03:25)
[2023-04-08] MEDS: Pantoprazole Sodium 40 MG in 0.9% Normal Saline (100mL MB+) 100 ML 330 MG IV ×3 (03:32→19:51)
[2023-04-08 03:47] LABS: Reflex Lactate? Y
[2023-04-08] MEDS: Vancomycin HCl 2,000 MG in 0.9% Normal Saline (500mL Bag) 500 ML 250 MG IV (03:58)
--- NOTE | 2023-04-08 04:01 | PCM.RX.CS ---
Consult Antibiotic Management Pharmacy has been consulted to manage selected antibiotic: Vancomycin Type of Intervention Type of Consult: New start Labs Labs: Sodium 129 mmol/L (136-145) L 04/07/23 23:39 Potassium 4.2 mmol/L (3.5-5.1) 04/07/23 23:39 Chloride 100 mmol/L (98-107) 04/07/23 23:39 Carbon Dioxide 20.0 mmol/L (21.0-32.0) L 04/07/23 23:39 Anion Gap 9 (5-15) 04/07/23 23:39 BUN 41 mg/dL (7-18) H 04/07/23 23:39 Creatinine 1.05 mg/dL (0.55-1.02) H 04/07/23 23:39 Est GFR (MDRD) Af Amer 68 mL/min (>60) 04/07/23 23:39 Est GFR (MDRD) Non-Af 57 mL/min (>60) L 04/07/23 23:39 BUN/Creatinine Ratio 39.0 RATIO (10-20) H 04/07/23 23:39 Glucose 155 mg/dL (74-106) H 04/07/23 23:39 Dosing Weight Weight used for dosin.3 kg Estimated Creatinine Clearance Estimated Creatinine Clearance: 60 Pharmacy Plan for Drug Dosing Pharmacy Plan for Drug Dosing: Pharmacy Service will continue to monitor and adjust dosing as required. Follow-Up Labs Follow-Up Labs: Trough: Vancomycin Date/Time Labs Ordered Labs to be done on [date and time ordered]: 04/09 @ 7031
[2023-04-08 04:24] LABS: Ammonia < 10.0 umol/L (11-32)
[2023-04-08 05:32] LABS: Hematocrit 31.9 % (37-47); Hemoglobin 11.3 g/dL (12.0-15.0); Mean Corp Hgb Conc 35.4 g/dL (32-36); Mean Corpuscular Hgb 35.9 pg (27.0-32.0); Mean Corpuscular Volume 101.3 fL (81-99); POSITIVE COUNT YES; POSITIVE DIFFERENTIAL YES; POSITIVE MORPHOLOGY YES; Platelet Count 148 K/mm3 (150-450); RBC Distribution Width CV 19.4 % (11.6-14.6); RBC Distribution Width SD 71.5 fl (35.1-43.9); Red Blood Count 3.15 M/mm3 (4.2-5.4); White Blood Count 23.2 K/mm3 (4.4-11.0)
[2023-04-08 05:48] LABS: Differential Indicated MANUAL DIFF
[2023-04-08] MEDS: 0.9% Saline Lock 10 ML Syringe IV (05:53)
[2023-04-08] MEDS: Piperacil/Tazobactam 3.375 GM in 0.9% Normal Saline (50mL MB+) 50 ML IV ×3 (05:58→22:29)
[2023-04-08 06:01] LABS: Lactic Acid 2.1 mmol/L (0.4-1.9)
[2023-04-08 06:05] LABS: ALB/GLOB Ratio 0.4 RATIO (0.9-2.4); AST(SGOT) 209 U/L (15-37); Alanine Aminotransfer ALT/SGPT 65 U/L (13-56); Albumin, Serum 1.6 g/dL (3.2-5.0); Alkaline Phosphatase 550 U/L (45-117); Anion Gap 8 (5-15); BUN 38 mg/dL (7-18); BUN/Creat Ratio 45.5 RATIO (10-20); Chloride 105 mmol/L (98-107); Creatinine, Serum 0.84 mg/dL (0.55-1.02); EST Glomerular Filtration Rate 74 mL/min (>60); Est Glom Filt Rate - Afr Amer 89 mL/min (>60); Estimated Creatinine Clearance 75.01 ml/min; Globulin 3.9 g/dL (2.2-4.2); Glucose 135 mg/dL (74-106); Potassium 4.1 mmol/L (3.5-5.1); Protein, Total 5.5 g/dL (6.4-8.2); Sodium Level 131 mmol/L (136-145)
[2023-04-08 06:12] LABS: Bedside Glucose 127 mg/dL (74-106)
[2023-04-08 06:44] LABS: M R Staph aureus DNA By PCR Negative (Negative); Probe Check PASS; Specimen Processing Control PASS
[2023-04-08 07:12] LABS: Lymphocyte 18 % (19-41); Metamyelocyte 2 % (0-1); Monocyte 6 % (0-10); Myelocyte 12 % (0-0); Neutrophil-Band 3 % (0-5); Neutrophil-Segmented 56 % (47-70); Promyelocyte 3 % (0-0); Total Cells Counted 100 (MANUAL DIFF)
[2023-04-08 07:13] LABS: Absolute Neutrophil Count 13.7 X10^3/uL (2.0-7.7)
[2023-04-08 07:14] LABS: Absolute Lymphocyte Count 4.17 X10^3/uL (0.83-4.51)
[2023-04-08 07:15] LABS: Atypical Lymphocyte 2+ %; Differential Comment SCANNED
[2023-04-08 07:16] LABS: Anisocytosis 2+
--- NOTE | 2023-04-08 08:50 | PCM.PN.HOSP ---
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 who presented with progressive generalized weakness with increasing decreased appetite and oral intake admitted to a monitored bed for further management Objective Data Objective Data Vital Signs: Vital Signs Temp Pulse Resp BP Pulse Ox O2 Del Method 97.6 F L 84 18 123/74 H 97 Room Air 04/08/23 08:01 04/08/23 08:01 04/08/23 08:01 04/08/23 08:01 04/08/23 08:03 04/08/23 08:03 Oxygen Delivery Method Room Air Weight: 90.3 kg Body Mass Index (BMI) 35.2 Intake & Output: Intake and Output for Last 24 Hours 04/06/23 04/07/23 04/08/23 23:59 23:59 23:59 Intake Total 2417 / 2417 Balance 2417 / 2417 Lab / Micro Data 04/08/23 05:25 04/08/23 05:25 Labs: Laboratory Results - last 24 hr 04/07/23 23:39: WBC 21.6 H, RBC 3.59 L, Hgb 13.0, Hct 36.0 L, MCV 100.3 H, MCH 36.2 H, MCHC 36.1 H, RDW Std Deviation 70.4 H, RDW Coeff of Jenn 19.2 H, Plt Count 175, MPV 12.1 H, Neut % (Auto) Not Reportable, Absolute Neuts (auto) 13.6 H, Absolute Lymphs (auto) 3.03, Total Counted 100, Neutrophils % (Manual) 63, Lymphocytes % (Manual) 14 L, Monocytes % (Manual) 13 H, Myelocytes % 13 H, Promyelocytes % 2 H, Differential Comment SCANNED, Diff Path Review May foll, Anisocytosis 1+, PT 21.4 H, INR 1.8, Sodium 129 L, Potassium 4.2, Chloride 100, Carbon Dioxide 20.0 L, Anion Gap 9, BUN 41 H, Creatinine 1.05 H, Estim Creat Clear Calc 62.17, Est GFR (MDRD) Af Amer 68, Est GFR (MDRD) Non-Af 57 L, BUN/Creatinine Ratio 39.0 H, Glucose 155 H, Lactic Acid 2.9 H*, Calcium 8.0 L, Phosphorus 1.8 L, Magnesium 3.2 H, Total Bilirubin 13.20 H, AST 220 H, ALT 71 H, Alkaline Phosphatase 577 H, Total Protein 6.2 L, Albumin 1.8 L, Globulin 4.4 H, Albumin/Globulin Ratio 0.4 L 04/08/23 01:53: Urine Color Yellow, Urine Clarity Sl. Cloudy, Urine pH 6.0, Ur Specific [place] 1.015, Urine Protein 30 H, Urine Glucose (UA) Normal, Urine Ketones 15 H, Urine Occult Blood 150 H, Urine Nitrite Negative, Urine Bilirubin 6 H, Urine Urobilinogen 8 H, Ur Leukocyte Esterase 25 H, Urine RBC 0-5 SEEN, Urine WBC 0-5 SEEN, Ur Squamous Epith Cells 0 SEEN, Urine Bacteria 0 SEEN, Urine Mucus 0 SEEN 04/08/23 02:00: Procalcitonin 3.08 H 04/08/23 03:11: Ammonia < 10.0 L 04/08/23 03:37: MRSA (PCR) Negative 04/08/23 05:25: WBC 23.2 H, RBC 3.15 L, Hgb 11.3 L, Hct 31.9 L, MCV 101.3 H, MCH 35.9 H, MCHC 35.4, RDW Std Deviation 71.5 H, RDW Coeff of Jenn 19.4 H, Plt Count 148 L, MPV 12.0, Neut % (Auto) Not Reportable, Absolute Neuts (auto) 13.7 H, Absolute Lymphs (auto) 4.17, Total Counted 100, Neutrophils % (Manual) 56, Band Neutrophils % 3, Lymphocytes % (Manual) 18 L, Monocytes % (Manual) 6, Metamyelocytes % 2 H, Myelocytes % 12 H, Promyelocytes % 3 H, Differential Comment SCANNED, Diff Path Review May foll, Atypical Lymphocytes 2+, Anisocytosis 2+, Sodium 131 L, Potassium 4.1, Chloride 105, Carbon Dioxide 18.0 L, Anion Gap 8, BUN 38 H, Creatinine 0.84, Estim Creat Clear Calc 75.01, Est GFR (MDRD) Af Amer 89, Est GFR (MDRD) Non-Af 74, BUN/Creatinine Ratio 45.5 H, Glucose 135 H, Lactic Acid 2.1 H*, Calcium 7.0 L, Total Bilirubin 11.80 H, AST 209 H, ALT 65 H, Alkaline Phosphatase 550 H, Total Protein 5.5 L, Albumin 1.6 L, Globulin 3.9, Albumin/Globulin Ratio 0.4 L 04/08/23 05:53: POC Glucose 127 H Physical Exam Narrative GENERAL: cooperative appears frail looking HEENT: Atraumatic; normocephalic EYES; icteric, Normal Conjunctiva NECK; supple, normal thyroid, RESPIRATORY: Diminished to auscultation CARDIOVASCULAR: Regular S1 S2, GI: soft, normoactive bowel sounds, : No Renal angle tenderness; EXTREMITIES: No edema, no clubbing, MUSCULOSKELETAL: no muscle wasting NEURO: Awake; no lateralizing signs. 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 Physical deconditioning ? In a patient with breast CA with mets to the liver and bone. Patient presented with progressive generalized weakness as well as decreased appetite admitted to regular nursing floor for further management 2. Severe protein calorie malnutrition ? Secondary to patient underlying breast CA with meds. Patient presented with decreased appetite admitted for rehydration consult placed to dietitian 3. Left breast invasive ductal carcinoma with metastasis to liver and bone ? Patient is followed by oncology as outpatient patient to continue with care once medically stable 4. Hypothyroidism - Patient is on levothyroxine home dose continued 5. Acute cystitis ? Patient did not have pyuria however had positive leukocyte esterase started on Zosyn pending culture result 6. Lactic acidosis ? Secondary to dehydration as well as patient being on metformin 7. Oropharyngeal candidiasis ? Patient placed on nystatin, given the severe nature of patient's symptoms added Diflucan 8. Diabetes mellitus type II -patient's oral hypoglycemics held. Placed on long acting insulin, Accu-Cheks a.c. and at bedtime and covered with sliding scale insulin 9. Anemia - Secondary to chronic disorder monitoring H&H and transfuse if patient becomes symptomatic or hemoglobin falls below 7 10. Class II obesity with BMI of 35.3 ? Complicating care weight loss advised 11. Depression with anxiety ? Patient is on venlafaxine plan is to continue 12. Hypophosphatemia ? Corrected per protocol 13. Abnormal LFTs ? Secondary to liver mets 14. Hyponatremia ? Secondary to hypovolemic hyponatremia started on IV fluid with subsequent monitoring of electrolytes ordered 15. Coronary artery disease ? With previous PCI with JOSE to mid RCA lesion 16. Hypertension - Blood pressure controlled, home medications continued with dose adjustment as needed 17. DVT prophylaxis ? SC heparin Time spent in the patient's overall evaluation,decision-making process, review of diagnostic data, adjustment of management, discussion with other providers, nursing nursing and ancillary staff involved in patient's care documentation, 50 Minutes Charges/Coding Visit Charges Inpatient E&M: 37478 [facility] Hosp L3
[2023-04-08] MEDS: NYSTATIN 500,000 UNIT/5 ML UDC 500000 UNIT PO ×3 (09:37→22:20)
[2023-04-08] MEDS: Heparin Injection (Vial) 5,000 UNIT/ML VIAL 5000 UNIT SC ×2 (09:39→22:20)
[2023-04-08] MEDS: BMX LIQUID 180 ML PO (11:38)
--- NOTE | 2023-04-08 11:50 | CASEMGMT ---
RN?CM?CELERY CUTTER?CM?to room to meet with patient for initial transition planning/care coordination?assessment.?RN?CM?introduced self and role at [facility].? Pt voices understanding and consents to?assessment?at this time.? Pt resting in bed in no distress at this time, but is having a lot of throat pain and having difficulty talking. Pt's mother and sister present at bedside and pt agreeable to them being present. Pt mostly shook or nodded her head to questions and family provided further information, as needed. ? Pt is A/O at this time. Care providers, pharmacy, and demographics verified/updated at this time. PCP: Dr Acevedo Specialists:Dr Dawson Oconnor, oncology--[facility], Dr Burch-[facility] Preferred Pharmacy: [facility] Insurance: [email or web address] Prescription Benefit:?Yes Living Will/HPOA:?Pt states she has completed both LW and HCPOA, but she is not certain who she named as her POA, stating it's either her mother or children. LNOK: Son, Ramírez. Dtr, Rachel. Mom, Meghan. Sister Living Arrangements: Lives alone in mobile home w/ramp entrance. Pt was independent w/ADL's up until recently. Family supportive. Transportation:?Pt states she was driving. Family can assist as needed. DME: ?States has the following DME:?shower chair, rollator, functioning glucometer w/supplies, W/C (family just got it for patient last evening). HHC/SNF: No hx of either. Pt would like to return home, if able, but is very weak and tired and started drifting off to sleep towards end of assessment. Pt and family made aware CM/SW to f/u on Monday to see how she is doing and to discuss discharge plan further. Pt and family voice no further concerns/needs at this time.? Advised them to ask for?CM/SW?if any further questions/concerns/needs arise.? They voice understanding. PLAN:??TBD by course of treatment and progress. Popeye BSN?RN?CM
[2023-04-08 12:02] LABS: Bedside Glucose 137 mg/dL (74-106)
[2023-04-08] MEDS: Vancomycin IV 1,000 MG/200 ML BAG 200 MG IV (15:41)
[2023-04-08 18:12] LABS: Bedside Glucose 161 mg/dL (74-106)
[2023-04-08 23:49] LABS: Bedside Glucose 173 mg/dL (74-106)
[2023-04-09 03:30] VITALS: BP 118/73; PULSE 85; RESP 16; TEMP 36.1; O2SAT 96
[2023-04-09] MEDS: Vancomycin IV 1,000 MG/200 ML BAG 200 MG IV (03:30)
[2023-04-09 03:42] VITALS: BMI 35.6
[2023-04-09 05:18] LABS: Absolute Lymphocyte Count 2.04 X10^3/uL (0.83-4.51); Basophil# 0.03 X10^3/uL; Hematocrit 32.1 % (37-47); Lymphocyte # 2.04 X10^3/ul (0.83-4.51); Mean Corp Hgb Conc 34.3 g/dL (32-36); Mean Corpuscular Hgb 35.4 pg (27.0-32.0); Mean Corpuscular Volume 103.2 fL (81-99); Mean Platelet Vol. 12.1 fl (6.2-12.0); Monocyte# 2.51 X10^3/uL; NRBC Flagged by Analyzer 3.8 % (0-5); Neutrophil # 18.01 X10^3/uL (2.7-7.7); POSITIVE COUNT YES; POSITIVE DIFFERENTIAL YES; POSITIVE MORPHOLOGY YES; Platelet Count 140 K/mm3 (150-450); RBC Distribution Width CV 19.9 % (11.6-14.6); RBC Distribution Width SD 74.7 fl (35.1-43.9); Red Blood Count 3.11 M/mm3 (4.2-5.4); White Blood Count 29.9 K/mm3 (4.4-11.0)
[2023-04-09] MEDS: Piperacil/Tazobactam 3.375 GM in 0.9% Normal Saline (50mL MB+) 50 ML IV ×3 (05:32→20:53)
[2023-04-09 05:33] LABS: Differential Indicated SCAN CRITERIA MET
[2023-04-09 05:39] LABS: AST(SGOT) 234 U/L (15-37); Alanine Aminotransfer ALT/SGPT 66 U/L (13-56); Albumin, Serum 1.6 g/dL (3.2-5.0); Alkaline Phosphatase 781 U/L (45-117); Anion Gap 8 (5-15); BUN 38 mg/dL (7-18); BUN/Creat Ratio 39.3 RATIO (10-20); Bilirubin, Direct 9.97 mg/dL (0.00-0.30); Calcium,Total 7.1 mg/dL (8.5-10.1); Chloride 102 mmol/L (98-107); Creatinine, Serum 0.97 mg/dL (0.55-1.02); EST Glomerular Filtration Rate 62 mL/min (>60); Est Glom Filt Rate - Afr Amer 75 mL/min (>60); Estimated Creatinine Clearance 65.38 ml/min; Globulin 3.9 g/dL (2.2-4.2); Glucose 177 mg/dL (74-106); Magnesium 3.1 mg/dL (1.6-2.6); Phosphorus 1.8 mg/dL (2.5-4.9); Protein, Total 5.5 g/dL (6.4-8.2); Sodium Level 128 mmol/L (136-145)
[2023-04-09 06:21] LABS: Bedside Glucose 187 mg/dL (74-106)
--- NOTE | 2023-04-09 07:11 | PCM.PN.HOSP ---
Reason for Visit Reason for Visit: Diagnoses Other disorders of bilirubin metabolism (04/08/23) Subjective Subjective Patient seen still complains of significant pain in the mouth. Currently on oral nystatin as well as BMX. Objective Data Objective Data Vital Signs: Vital Signs Temp Pulse Resp BP Pulse Ox O2 Del Method 97.0 F L 85 16 118/73 96 Room Air 04/09/23 03:30 04/09/23 03:30 04/09/23 03:30 04/09/23 03:30 04/09/23 03:30 04/09/23 03:34 Oxygen Delivery Method Room Air Weight: 91.4 kg Body Mass Index (BMI) 35.6 Intake & Output: Intake and Output for Last 24 Hours 04/07/23 04/08/23 04/09/23 23:59 23:59 23:59 Intake Total 4857.00 / 4857.00 350 / 350 Balance 4857.00 / 4857.00 350 / 350 Medical Nutrition Assessment Dietitian: Malnutrition Criteria Met Start: 04/08/23 15:31 Freq: Status: Active Protocol: Document 04/08/23 15:31 NABIL (Rec: 04/08/23 15:32 [facility] [id number]) Nutrition Malnutrition Evidence of Malnutrition Exists Yes Malnutrition (moderate): Chronic Evidenced By Suboptimal Energy Intake ( Moderate),Physical Changes ( Moderate) Clinical Problem Chronic Disease or Condition Related Malnutrition Etiology related to physiological changes decreasing appetite and oral intakes as well as chewing and swallowing capabilities Signs/Symptoms as evidenced by reported weight loss with 2+ pitting bilateral pedal edema, decreased appetite and oral intakes x 3-4 weeks with only liquid intakes x 1 week and mild to moderate muscle wasting per NFPA. Status Active Problem Recommendation Dietitian Recommendations/Changes Recommend diet advancement when appropriate. Pt cannot tolerate solids at this time with thrush. While on clear liquids, will trial Ensure Clear TID w/ meals to help increase oral intakes. Will continue to follow, monitor oral intakes and tolerance to ONS, and adjust interventions as needed. Lab / Micro Data 04/09/23 04:15 04/09/23 04:15 Labs: Laboratory Results - last 24 hr 04/08/23 05:25: Absolute Neuts (auto) 13.7 H, Absolute Lymphs (auto) 4.17, Total Counted 100, Neutrophils % (Manual) 56, Band Neutrophils % 3, Lymphocytes % (Manual) 18 L, Monocytes % (Manual) 6, Metamyelocytes % 2 H, Myelocytes % 12 H, Promyelocytes % 3 H, Differential Comment SCANNED, Diff Path Review May foll, Atypical Lymphocytes 2+, Anisocytosis 2+ 04/08/23 10:55: Urine Color Cancelled, Urine Clarity Cancelled, Urine pH Cancelled, Ur Specific [place] Cancelled, U Specif Grav (Refrac) Cancelled, Urine Protein Cancelled, Urine Glucose (UA) Cancelled, Urine Ketones Cancelled, Urine Occult Blood Cancelled, Urine Nitrite Cancelled, Urine Bilirubin Cancelled, Urine Urobilinogen Cancelled, Ur Leukocyte Esterase Cancelled, Urine RBC Cancelled, Urine WBC Cancelled, Ur Squamous Epith Cells Cancelled, Ur Transition Epith Cell Cancelled, Ur Renal Epithelial Cell Cancelled, Calcium Oxalate Crystal Cancelled, Uric Acid Crystals Cancelled, Triple Phos Crystals Cancelled, Other Crystals Cancelled, Amorphous Sediment Cancelled, Urine Bacteria Cancelled, Hyaline Casts Cancelled, Fine Granular Casts Cancelled, Coarse Granular Casts Cancelled, Waxy Casts Cancelled, RBC Casts Cancelled, WBC Casts Cancelled, Urine Mucus Cancelled, Urine Trichomonas Cancelled, Urine Yeast Cancelled 04/08/23 11:29: POC Glucose 137 H 04/08/23 17:49: POC Glucose 161 H 04/08/23 22:24: POC Glucose 173 H 04/09/23 04:15: WBC 29.9 H, RBC 3.11 L, Hgb 11.0 L, Hct 32.1 L, MCV 103.2 H, MCH 35.4 H, MCHC 34.3, RDW Std Deviation 74.7 H, RDW Coeff of Jenn 19.9 H, Plt Count 140 L, MPV 12.1 H, Immature Gran % (Auto) 24.400 H, Neut % (Auto) 60.3, Lymph % (Auto) 6.8 L, [place] % (Auto) 8.4, Eos % (Auto) 0.0, Baso % (Auto) 0.1, Absolute Neuts (auto) 18.0 H, Absolute Lymphs (auto) 2.04, Nucleated RBC % 3.8, Sodium 128 L, Potassium 4.0, Chloride 102, Carbon Dioxide 18.0 L, Anion Gap 8, BUN 38 H, Creatinine 0.97, Estim Creat Clear Calc 65.38, Est GFR (MDRD) Af Amer 75, Est GFR (MDRD) Non-Af 62, BUN/Creatinine Ratio 39.3 H, Glucose 177 H, Calcium 7.1 L, Phosphorus 1.8 L, Magnesium 3.1 H, Total Bilirubin 12.60 H, Direct Bilirubin 9.97 H, AST 234 H, ALT 66 H, Alkaline Phosphatase 781 H, Total Protein 5.5 L, Albumin 1.6 L, Globulin 3.9 04/09/23 05:35: POC Glucose 187 H Physical Exam Narrative GENERAL: cooperative appears frail looking HEENT: Atraumatic; normocephalic EYES; icteric, Normal Conjunctiva NECK; supple, normal thyroid, RESPIRATORY: Diminished to auscultation CARDIOVASCULAR: Regular S1 S2, GI: soft, normoactive bowel sounds, : No Renal angle tenderness; EXTREMITIES: No edema, no clubbing, MUSCULOSKELETAL: no muscle wasting NEURO: Awake; no lateralizing signs. 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 Physical deconditioning ? In a patient with breast CA with mets to the liver and bone. Patient presented with progressive generalized weakness as well as decreased appetite admitted to regular nursing floor for further management 2. Severe protein calorie malnutrition ? Secondary to patient underlying breast CA with meds. Patient presented with decreased appetite admitted for rehydration consult placed to dietitian 3. Left breast invasive ductal carcinoma with metastasis to liver and bone ? Patient is followed by oncology as outpatient patient to continue with care once medically stable 4. Hypothyroidism - Patient is on levothyroxine home dose continued 5. Acute cystitis ? Patient did not have pyuria however had positive leukocyte esterase started on Zosyn pending culture result 6. Lactic acidosis ? Secondary to dehydration as well as patient being on metformin 7. Oropharyngeal candidiasis/stomatitis ? Patient placed on nystatin, given the severe nature of patient's symptoms added Diflucan. Patient also on BMX for symptom relief 8. Diabetes mellitus type II -patient's oral hypoglycemics held. Placed on long acting insulin, Accu-Cheks a.c. and at bedtime and covered with sliding scale insulin 9. Anemia - Secondary to chronic disorder monitoring H&H and transfuse if patient becomes symptomatic or hemoglobin falls below 7 10. Class II obesity with BMI of 35.3 ? Complicating care weight loss advised 11. Depression with anxiety ? Patient is on venlafaxine plan is to continue 12. Hypophosphatemia ? Corrected per protocol 13. Abnormal LFTs ? Secondary to liver mets 14. Hyponatremia ? Secondary to hypovolemic hyponatremia started on IV fluid with subsequent monitoring of electrolytes ordered ? 04/01/2023 no improvement in sodium level do suspect component of SIADH however given patient decreased oral intake as a result of his severe stomatitis did continue with IV fluids 15. Coronary artery disease ? With previous PCI with JOSE to mid RCA lesion 16. Hypertension - Blood pressure controlled, home medications continued with dose adjustment as needed 17. DVT prophylaxis ? SC heparin Time spent in the patient's overall evaluation,decision-making process, review of diagnostic data, adjustment of management, discussion with other providers, nursing nursing and ancillary staff involved in patient's care documentation, 50 Minutes Charges/Coding Visit Charges Inpatient E&M: 95320 Subs Hosp L3
[2023-04-09 07:22] LABS: Lymphocyte 5 % (19-41); Monocyte 14 % (0-10); Myelocyte 10 % (0-0); Neutrophil-Segmented 58 % (47-70); Other WBC Type 9 %; Promyelocyte 4 % (0-0); Total Cells Counted 100 (MANUAL DIFF)
[2023-04-09 07:23] LABS: Anisocytosis 3+
[2023-04-09 07:24] LABS: Scan Smear per Review Criteria MANUAL DIFF
[2023-04-09 07:50] VITALS: O2SAT 95
[2023-04-09 09:45] VITALS: BP 115/67; PULSE 80; RESP 18; TEMP 35.9; O2SAT 98
[2023-04-09] MEDS: Heparin Injection (Vial) 5,000 UNIT/ML VIAL 5000 UNIT SC ×2 (09:47→20:51)
[2023-04-09] MEDS: NYSTATIN 500,000 UNIT/5 ML UDC 500000 UNIT PO ×4 (09:47→20:51)
[2023-04-09] MEDS: Pantoprazole Sodium 40 MG in 0.9% Normal Saline (100mL MB+) 100 ML 330 MG IV ×2 (09:52→20:48)
[2023-04-09 12:01] LABS: Bedside Glucose 168 mg/dL (74-106)
[2023-04-09 15:59] LABS: Vancomycin, Trough Level 20.4 ug/mL (5.0-15.0)
--- NOTE | 2023-04-09 16:25 | PCM.RX.CS ---
Consult Antibiotic Management Pharmacy has been consulted to manage selected antibiotic: Vancomycin Type of Intervention Type of Consult: Follow-up Labs Labs: Sodium 128 mmol/L (136-145) L 04/09/23 04:15 Potassium 4.0 mmol/L (3.5-5.1) 04/09/23 04:15 Chloride 102 mmol/L (98-107) 04/09/23 04:15 Carbon Dioxide 18.0 mmol/L (21.0-32.0) L 04/09/23 04:15 Anion Gap 8 (5-15) 04/09/23 04:15 BUN 38 mg/dL (7-18) H 04/09/23 04:15 Creatinine 0.97 mg/dL (0.55-1.02) 04/09/23 04:15 Est GFR (MDRD) Af Amer 75 mL/min (>60) 04/09/23 04:15 Est GFR (MDRD) Non-Af 62 mL/min (>60) 04/09/23 04:15 BUN/Creatinine Ratio 39.3 RATIO (10-20) H 04/09/23 04:15 Glucose 177 mg/dL (74-106) H 04/09/23 04:15 Vancomycin Trough 20.4 ug/mL (5.0-15.0) H 04/09/23 15:20 Microbiology Microbiology: Microbiology 04/08/23 01:53 Urine, Clean Catch Urine Culture - Preliminary Culture exhibits no growth. Goal Trough Goal Trough: 15-20 mcg/mL Pharmacy Plan for Drug Dosing Pharmacy Plan for Drug Dosing: VANCOMYCIN LEVEL RECEIVED Current Vancomycin Dose: 1000mg Q12H Number of Doses Received: 1000mg x2, 2000mg x1 Vancomycin Level: 20.4 Hours Since Last Dose: 11.75 Renal Function: sCr 0.97 / CrCl 65.38 Renal Function Trend: stable Lab/Micro: pending Vancomycin Plan/Comments: Adjust Vancomycin dosing regimen to 750mg Q12H Pending Level: Vancomycin trough @ 42904/11/23 Pharmacy Service will continue to monitor and adjust dosing as required. Follow-Up Labs Follow-Up Labs: Trough: Vancomycin (42904/11/23)
[2023-04-09 17:07] VITALS: BP 149/78; PULSE 85; RESP 20; TEMP 36.1; O2SAT 96
[2023-04-09] MEDS: Vancomycin HCl 750 MG in 0.9% Normal Saline (250mL Bag) 250 ML 250 MG IV (17:15)
[2023-04-09] MEDS: 0.9% Saline Lock 10 ML Syringe IV (17:20)
[2023-04-09 17:41] LABS: Bedside Glucose 179 mg/dL (74-106)
[2023-04-09 21:00] VITALS: BP 134/79; PULSE 78; RESP 18; TEMP 35.6; O2SAT 97
[2023-04-09 23:35] LABS: Bedside Glucose 172 mg/dL (74-106)
[2023-04-10 03:10] VITALS: BP 139/82; PULSE 77; RESP 18; TEMP 36; O2SAT 96
[2023-04-10] MEDS: Piperacil/Tazobactam 3.375 GM in 0.9% Normal Saline (50mL MB+) 50 ML IV ×3 (05:30→22:26)
[2023-04-10] MEDS: Vancomycin HCl 750 MG in 0.9% Normal Saline (250mL Bag) 250 ML 250 MG IV ×2 (05:30→16:08)
[2023-04-10] MEDS: 0.9% Saline Lock 10 ML Syringe IV ×3 (05:42→17:40)
[2023-04-10 05:58] LABS: Hematocrit 31.4 % (37-47); Hemoglobin 11.3 g/dL (12.0-15.0); Mean Corpuscular Hgb 35.8 pg (27.0-32.0); Mean Corpuscular Volume 99.4 fL (81-99); Mean Platelet Vol. 12.6 fl (6.2-12.0); POSITIVE COUNT YES; POSITIVE DIFFERENTIAL YES; POSITIVE MORPHOLOGY YES; Platelet Count 137 K/mm3 (150-450); RBC Distribution Width CV 19.4 % (11.6-14.6); RBC Distribution Width SD 69.9 fl (35.1-43.9); Red Blood Count 3.16 M/mm3 (4.2-5.4)
[2023-04-10 06:00] VITALS: BMI 38.6
[2023-04-10 06:05] LABS: Differential Indicated MANUAL DIFF
[2023-04-10 06:22] LABS: Bedside Glucose 161 mg/dL (74-106)
[2023-04-10 06:57] LABS: AST(SGOT) 253 U/L (15-37); Alanine Aminotransfer ALT/SGPT 68 U/L (13-56); Albumin, Serum 1.4 g/dL (3.2-5.0); Alkaline Phosphatase 916 U/L (45-117); Anion Gap 8 (5-15); BUN 40 mg/dL (7-18); BUN/Creat Ratio 38.8 RATIO (10-20); Bilirubin, Direct 10.72 mg/dL (0.00-0.30); Calcium,Total 5.4 mg/dL (8.5-10.1); Chloride 100 mmol/L (98-107); Creatinine, Serum 1.03 mg/dL (0.55-1.02); EST Glomerular Filtration Rate 58 mL/min (>60); Est Glom Filt Rate - Afr Amer 70 mL/min (>60); Estimated Creatinine Clearance 61.57 ml/min; Globulin 3.9 g/dL (2.2-4.2); Glucose 168 mg/dL (74-106); Protein, Total 5.3 g/dL (6.4-8.2); Sodium Level 124 mmol/L (136-145)
[2023-04-10 07:32] VITALS: O2SAT 95
[2023-04-10 07:53] LABS: White Blood Count 39.9 K/mm3 (4.4-11.0)
[2023-04-10 08:19] LABS: Lymphocyte 4 % (19-41); Metamyelocyte 3 % (0-1); Monocyte 3 % (0-10); Myelocyte 16 % (0-0); Neutrophil-Band 1 % (0-5); Neutrophil-Segmented 73 % (47-70); Nucleated Red Bld Cells,Manual 4 % (0-5); Total Cells Counted 100 (MANUAL DIFF)
[2023-04-10 08:24] LABS: Red Cell Morphology NORM C+C NORMAL (NORM C&C)
[2023-04-10 08:25] LABS: Toxic Granulation YES
[2023-04-10 08:26] LABS: Absolute Neutrophil Count 29.5 X10^3/uL (2.0-7.7)
[2023-04-10 08:27] LABS: Platelet Estimate ADEQUATE (ADEQ)
[2023-04-10 08:50] VITALS: BP 142/78; PULSE 78; RESP 20; TEMP 36.3; O2SAT 97
[2023-04-10] MEDS: Pantoprazole Sodium 40 MG in 0.9% Normal Saline (100mL MB+) 100 ML 330 MG IV ×2 (10:09→22:25)
[2023-04-10] MEDS: NYSTATIN 500,000 UNIT/5 ML UDC 500000 UNIT PO ×4 (10:13→22:25)
[2023-04-10] MEDS: Heparin Injection (Vial) 5,000 UNIT/ML VIAL 5000 UNIT SC ×2 (11:21→22:25)
[2023-04-10 11:46] VITALS: O2SAT 96
[2023-04-10 11:58] LABS: Bedside Glucose 176 mg/dL (74-106)
--- NOTE | 2023-04-10 12:28 | CASEMGMT ---
Addendum entered by Blanche Flanagan 04/10/23 14:38: FROILAN MCCANN followed up with patient and family for preferences for SNF: 1. [facility] 2. [facility] 3. [facility]. RN CM updated SW and discharge pre planning advisor. Original Note: RN RAMY updated by therapy that patient would be benefit from SNF at discharge. RN CM in to discuss needs at discharge and patient is agreeable to SNF at discharge. A list of SNF providers including quality and resource use data and consistent with the patient?s preferred geographical region, medical needs, and insurance network were provided from the [employer] Guide. Patient to review list and provide preferences. CM will continue to follow this patient and plan for a safe discharge.
[2023-04-10 12:56] LABS: Pathologist Review Reviewed
[2023-04-10 12:58] LABS: Pathologist Review Reviewed
[2023-04-10 13:05] LABS: Pathologist Review Reviewed
[2023-04-10 13:11] LABS: Pathologist Review Reviewed
--- NOTE | 2023-04-10 13:18 | PCM.PN.HOSP ---
Subjective Subjective Significant oral pain from possible thrush. Currently with significant liver injury from both cancer and chemotherapy Objective Data Objective Data Vital Signs: Vital Signs Temp Pulse Resp BP Pulse Ox O2 Del Method 97.4 F L 78 20 H 142/78 H 96 Room Air 04/10/23 08:50 04/10/23 08:50 04/10/23 08:50 04/10/23 08:50 04/10/23 11:46 04/10/23 09:13 Oxygen Delivery Method Room Air Weight: 201 lb 8.04 oz Body Mass Index (BMI) 35.6 Intake & Output: Intake and Output for Last 24 Hours 04/09/23 04/10/23 04/11/23 03:59 03:59 03:59 Intake Total 3230.00 / 3230.00 1555 / 1555 545 / 545 Balance 3230.00 / 3230.00 1555 / 1555 545 / 545 Medical Nutrition Assessment Dietitian: Malnutrition Criteria Met Start: 04/08/23 15:31 Freq: Status: Active Protocol: Document 04/08/23 15:31 LEI (Rec: 04/08/23 15:32 [facility] [id number]) Nutrition Malnutrition Evidence of Malnutrition Exists Yes Malnutrition (moderate): Chronic Evidenced By Suboptimal Energy Intake ( Moderate),Physical Changes ( Moderate) Clinical Problem Chronic Disease or Condition Related Malnutrition Etiology related to physiological changes decreasing appetite and oral intakes as well as chewing and swallowing capabilities Signs/Symptoms as evidenced by reported weight loss with 2+ pitting bilateral pedal edema, decreased appetite and oral intakes x 3-4 weeks with only liquid intakes x 1 week and mild to moderate muscle wasting per NFPA. Status Active Problem Recommendation Dietitian Recommendations/Changes Recommend diet advancement when appropriate. Pt cannot tolerate solids at this time with thrush. While on clear liquids, will trial Ensure Clear TID w/ meals to help increase oral intakes. Will continue to follow, monitor oral intakes and tolerance to ONS, and adjust interventions as needed. Lab / Micro Data 04/10/23 05:47 04/10/23 05:47 Labs: Laboratory Results - last 24 hr 04/07/23 23:39: Diff Path Review Reviewed 04/08/23 05:25: Diff Path Review Reviewed 04/09/23 04:15: Diff Path Review Reviewed 04/09/23 15:20: Vancomycin Trough 20.4 H 04/09/23 17:16: POC Glucose 179 H 04/09/23 20:59: POC Glucose 172 H 04/10/23 05:35: POC Glucose 161 H 04/10/23 05:47: WBC 39.9 H*, RBC 3.16 L, Hgb 11.3 L, Hct 31.4 L, MCV 99.4 H, MCH 35.8 H, MCHC 36.0, RDW Std Deviation 69.9 H, RDW Coeff of Jenn 19.4 H, Plt Count 137 L, MPV 12.6 H, Neut % (Auto) Not Reportable, Absolute Neuts (auto) 29.5 H, Absolute Lymphs (auto) 1.60, Total Counted 100, Neutrophils % (Manual) 73 H, Band Neutrophils % 1, Lymphocytes % (Manual) 4 L, Monocytes % (Manual) 3, Metamyelocytes % 3 H, Myelocytes % 16 H, Nucleated RBCs/100 WBC 4, Diff Path Review Reviewed, Toxic Granulation YES, Platelet Estimate ADEQUATE, RBC Morphology NORM C+C, Sodium 124 L, Potassium 4.0, Chloride 100, Carbon Dioxide 16.0 L, Anion Gap 8, BUN 40 H, Creatinine 1.03 H, Estim Creat Clear Calc 61.57, Est GFR (MDRD) Af Amer 70, Est GFR (MDRD) Non-Af 58 L, BUN/Creatinine Ratio 38.8 H, Glucose 168 H, Calcium 5.4 L*, Total Bilirubin 13.20 H, Direct Bilirubin 10.72 H, AST 253 H, ALT 68 H, Alkaline Phosphatase 916 H, Total Protein 5.3 L, Albumin 1.4 L, Globulin 3.9 04/10/23 11:20: POC Glucose 176 H Micro: Microbiology 04/08/23 01:53 Urine, Clean Catch Urine Culture - Final Culture exhibits no growth. 04/08/23 00:47 Blood Culture (Wb) - Anticubital Right Blood Culture - Preliminary No growth in 48 hours. 04/08/23 00:30 Blood Culture (Wb) - Anticubital Right Blood Culture - Preliminary No growth in 48 hours. Physical Exam Narrative General: Alert, Oriented x3, Cooperative, No apparent distress, in pain HEENT: Atraumatic, PERRLA, EOMI, Normocephalic, oral breakdown with thrush and stomatitis Oral: Moist Mucosa Neck: Supple, No JVD Lungs: Diminished, Normal air movement, No rhonchi, No wheeze, No rales Cardiovascular: Regular rate, Regular Rhythm, Normal S1, Normal S2, No murmurs Abdomen: Soft, Non Tender, Non-Distended, No Hepato-splenomegaly Extremities: No edema, Capillary Refill Less than 3 Seconds Skin: No rashes, No breakdown Musculoskeletal: No Tenderness to Palpation of Joints or Extremities Neurological: No focal neurological deficit, Motor Exam 5/5 strength throughout, Sensory exam intact to light touch and pain Psych/Mental Status: Flat Assessment & Plan Assessment/Plan (1) Hyperbilirubinemia: PLAN: Plan 1. Stage IV breast cancer with metastatic disease to the pelvic bone and liver with zone 3 liver injury due to chemotherapy with hyperbilirubinemia/stomatitis with thrush/acute cystitis ? Will consult gastroenterology as this has not been done for possible interventions including possible steroid usage ? I did have a 20-minute discussion on advance care planning with the difference between hospice and palliative care between her and her kids ? 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 Continue with nystatin as well as oral lidocaine ? Urine cultures pending 2. DM 2 ? Accu-Cheks ACHS ? Will monitor and make adjustments as necessary 3. Hyponatremia ? Level continues to drop, likely SIADH versus multifocal secondary to all of her other illnesses ? Will continue to monitor and encourage p.o. intake as pain improves 4. Hypothyroidism - Patient is on levothyroxine home dose continued ? Stable 5. Anxiety/depression ? Stable ? Continue with her home medications 6. HTN/HLD/CAD status post stent ? Continue with her home medications if indicated ? Blood pressure stable ? We will monitor make adjustments as necessary DVT: Heparin Charges/Coding Visit Charges Inpatient E&M: 42089 Subs Hosp L2
[2023-04-10] MEDS: BMX LIQUID 180 ML PO ×3 (15:00→22:25)
[2023-04-10 15:03] VITALS: BP 123/78; PULSE 73; RESP 16; TEMP 36.1; O2SAT 99
--- NOTE | 2023-04-10 15:04 | CT_ITS ---
STUDY: CT ABDOMEN AND PELVIS WITH CONTRAST REASON FOR EXAM: Female, 62 years old. obstructive jaundice RADIATION DOSAGE (If Supplied By Facility): CTDIvol = ( 16.96 ) mGy, DLP = ( 1438.31 ) mGycm TECHNIQUE: Transaxial images were obtained from the dome of the diaphragm to the symphysis pubis without oral contrast. IV 100mL Isovue-370 was administered. Sagittal and coronal images were reconstructed. Individualized dose optimization techniques were used for this CT. COMPARISON: None. FINDINGS: Mild left effusion with basilar atelectasis. The visualized portions of the heart are within normal limits. Cirrhosis of the liver with lobulated contour. Heterogeneous hepatic parenchyma. Normal gallbladder and extrahepatic biliary system. Normal spleen. Normal pancreas. Ascites. Normal bilateral adrenal glands. Normal right kidney. Normal left kidney. Slightly prominent ureters. Normal visualized stomach. Normal small intestine. Slightly gaseous distended colon. The appendix is visualized and appears normal. Normal abdominal aorta. Normal inferior vena cava. Normal retroperitoneum. Moderately distended urinary bladder. Subcutaneous edema of the abdominal wall. Degenerative changes. CT/Abdomen/Pelvis W IV Cont ONLY IMPRESSION: Slightly prominent ureters with moderately distended urinary bladder. Patchy heterogeneous hepatic parenchyma suspicious for underlying lesions. Cirrhosis of the liver with ascites. Electronically Signed: Beau Luna DO at 16:27 EST ,
--- NOTE | 2023-04-10 15:09 | MRI_ITS ---
EXAM: MR ABDOMEN WITHOUT INTRAVENOUS CONTRAST, MRCP PROTOCOL CLINICAL INDICATION: Obstructive Jaundice TECHNIQUE: Multiplanar and multisequence MR images of the abdomen without intravenous contrast obtained with MRCP sequence. Three-dimensional post-processing reconstructions were performed. COMPARISON: CT abdomen and pelvis, 04/10/2023 and PET/CT, 12/06/2022. FINDINGS: LOWER THORAX: Trace bilateral pleural effusion. LIVER: Heterogenous and lobulated liver correlating with known extensive hepatic metastasis. GALLBLADDER AND BILE DUCTS: Nonvisualization of the distal common bile duct. No dilation of the proximal bile duct or intrahepatic biliary ductal tree. Nondistended gallbladder. No definite gallstones visualized. PANCREAS: No significant abnormality. No focal cystic mass. No pancreatic duct dilation. SPLEEN: No significant abnormality. Non-enlarged. ADRENALS: No significant abnormality. No nodules. KIDNEYS AND URETERS: Mild nonspecific bilateral hydronephrosis perhaps related to urinary bladder distention as demonstrated on recent CT. Otherwise, normal renal size and position. INTRAPERITONEAL SPACE: Large volume ascites likely secondary to hepatic dysfunction and/or malignant ascites. SOFT TISSUES: Body wall edema/anasarca. VASCULATURE: No significant abnormality. Abdominal aorta is non-dilated. LYMPH NODES: No enlarged lymph nodes. BONES: Apparent osseous metastases better demonstrated on comparison CT exams. MRI/MRCP Abdomen without Contrast IMPRESSION: 1. Nonvisualization of the distal common bile duct. No dilation of the proximal bile duct or intrahepatic biliary ductal tree. 2. Body wall edema/anasarca. 3. Heterogenous and lobulated liver correlating with known extensive hepatic metastasis. 4. Large volume ascites likely secondary to hepatic dysfunction and/or malignant ascites. 5. Mild nonspecific bilateral hydronephrosis perhaps related to urinary bladder distention as demonstrated on recent CT. 6. Trace bilateral pleural effusion. Electronically Signed: Get Gunn DO at 22:52 EST ,
--- NOTE | 2023-04-10 15:32 | CASEMGMT ---
Addendum entered by Farida Michel 04/10/23 16:12: [facility] declined referral. SW updated. Farida Michel, Discharge Planning Asst. Original Note: Discharge Planning Referral sent via [facility] to [facility]. Farida Michel, Discharge Planning Asst.
--- NOTE | 2023-04-10 15:49 | NURSING ---
Called PCP office for updated med list, waiting for fax.
--- NOTE | 2023-04-10 16:16 | CON.PCM.GI_ITS ---
HPI Consult Data Date of Consult: 04/11/23 HPI Narrative Reason for Consultation: Jaundice HPI Narrative: 62 y/o F w/ PMHx: CAD s/p PCI L 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 Oconnor who presents to the [facility] ED on 04/08/23 with history of family recently noting onset of jaundice the prior Monday with worsening oral intake and recent diagnosis of significant oral thrush prescribed oral nystatin suspension with difficulty swallowing and inability to speak secondary to discomfort with decreased urine output and orthostasis type symptoms with associated weight loss but no fevers or chills but given decline prompted family to bring her in for evaluation. From review of [facility] records patient has most recently been seen 04/07/2023 with IV hydration at that visit of note. Also recently because of the severity of her presentation she was switched to Taxol but was unable to tolerate this given her worsening status. Workup in the ED included T97.2, heart rate 90, BP 115/66, respiratory rate 16, 95% on room air, CBC with WBC 21.6, hemoglobin 13, MCV 100.3, platelet 175 without differential, CBC with WBC 21.6, hemoglobin 13, MCV 100.3, platelet 175 without differential, coags with INR 1.8, PT 21.4, CMP with sodium 129, carbon dioxide 20, BUN/creatinine 41/1.05, glucose 155, calcium 8, T. bili 13.20, AST/ALT 220/71, alk phos 577. [facility] Medical History Alcohol use Arthritis Atherosclerotic heart disease [place] coronary artery w/angina pectoris Back pain BRCA2 gene mutation positive Breast cancer, left Cancer Cardiology follow-up encounter Depression Diabetes mellitus Dietary restriction Encounter for education ER+ (estrogen receptor positive status) Essential (primary) hypertension Former smoker Heartburn High cholesterol History of abnormal cervical Pap smear History of echocardiogram History of stress test Hyperlipidemia Hypertension Hypothyroidism Metastasis to bone Metastasis to liver Obesity Polycythemia, secondary Restless legs Shortness of breath on exertion Thyroid disease Type 2 diabetes mellitus Wears contact lenses Wears glasses Home Medications aspirin 81 mg tablet,delayed release (Adult Low Dose Aspirin) 81 mg PO DAILY heart 09/19/18 [History Last Taken 11/07/22] levothyroxine 25 mcg tablet 25 mcg PO DAILY hypothyroidism #90 tabs 09/19/18 [History Last Taken 05/16/22] lisinopril 10 mg tablet 10 mg PO DAILY htn #90 tabs 09/19/18 [History Last Taken 05/16/22] venlafaxine 150 mg capsule,extended release 24 hr 150 mg PO DAILY depression #90 caps 09/19/18 [History Last Taken Unknown] cholecalciferol (vitamin D3) 125 mcg (5,000 unit) tablet (Vitamin D3) 125 mcg PO DAILY osteoporosis 09/08/21 [History Last Taken Unknown] red yeast rice 600 mg capsule 1,200 mg PO DAILY supplement 09/08/21 [History Last Taken Unknown] zinc 50 mg tablet 50 mg PO DAILY . 11/02/21 [History Last Taken Unknown] metformin 500 mg tablet 1,000 mg PO BID DIABETES 05/11/22 [History Last Taken Unknown] glimepiride 4 mg tablet 4 mg PO DAILY diabetes 04/08/23 [History Last Taken Unknown] MAGIC MOUTH WASH (BMX) 180 mL suspension 5 ml PO Q4H PRN THRUSH #180 mL 04/11/23 [History Last Taken Unknown] cinnamon bark 500 mg capsule 500 mg PO DAILY UNKNOWN 04/11/23 [History Last Taken Unknown] coenzyme Q10 200 mg capsule (Co Q-10) 200 mg PO DAILY HEART HEALTH 04/11/23 [History Last Taken Unknown] loratadine 10 mg tablet (Claritin) 10 mg PO DAILY ALLERGIES 04/11/23 [History Last Taken Unknown] milk thistle 150 mg capsule 150 mg PO DAILY UNKNOWN 04/11/23 [History Last Taken Unknown] nystatin 100,000 unit/mL oral suspension 5 ml PO 4X/DAY THRUSH 04/11/23 [History Last Taken Unknown] ondansetron 8 mg disintegrating tablet 8 mg PO Q8H PRN nausea 04/11/23 [History Last Taken Unknown] prochlorperazine maleate 10 mg tablet 10 mg PO Q6H PRN nausea and vomiting 04/11/23 [History Last Taken Unknown] vitamin E (dl, acetate) 450 mg (1,000 unit) capsule 450 mg PO DAILY unknown 04/11/23 [History Last Taken Unknown] Allergy/AdvReac Type Severity Reaction Status Date / Time [id number] Reductase AdvReac myalgias Verified 04/08/23 02:59 Inhibitor [Xarvrqo-Fwo-Lbk Reductase Inhibitor] Family History Father CAD (coronary artery disease) CABG Myocardial infarction Grandmother Diabetes Surgical History H/O LEEP History of cardiac catheterization History of coronary artery stent placement (12/15/03) History of hysterectomy History of hysteroscopy Hx of colonoscopy Status post left breast lumpectomy Social History household members: none number of children: 2 current occupational status: employed current occupation: [employer] history of recent travel: No sexually active: No Smoking Status: Former smoker how long ago did patient quit smokin years ago; [id number] alcohol intake: current alcohol intake frequency: a few times a month substance use type: does not use caffeine: Yes Type: coffee Number of servings: 2 seatbelt use: always do you feel safe at home: Yes additional social history: single ROS ROS Narrative Admission Review of Systems: CONSTITUTIONAL: No weight loss, fever, chills, + weakness or fatigue. HEENT: + Scleral icterus, oral thrush, odynophagia. Eyes: No visual loss, blurred vision, double vision. Ears, Nose, Throat: No hearing loss, sneezing, congestion, runny nose or sore throat. SKIN: No rash or itching, lesions, wounds except + jaundice, distal extremities telangiectasia-like appearing extremity skin changes. CARDIOVASCULAR: + LH/dizziness. No chest pain, chest pressure or chest discomfort, palpitations, edema, orthopnea, syncopal events. RESPIRATORY: No shortness of breath, cough or sputum, wheezing, hemoptysis. GASTROINTESTINAL: + anorexia, nausea. No vomiting or diarrhea, abdominal pain, melena, BRBPR. GENITOURINARY: No dysuria, frequency, urgency or retention. NEUROLOGICAL: + LH/Dizziness. No headache, syncope, paralysis, ataxia, numbness or tingling in the extremities, focal weakness, change in bowel or bladder cont rol, seizure. MUSCULOSKELETAL: + muscle, back pain, joint pain or stiffness. HEMATOLOGIC: + anemia, easy bleeding/bruising. LYMPHATICS: No enlarged nodes. No history of splenectomy. PSYCHIATRIC: + history of depression and anxiety. ENDOCRINOLOGIC: No reports of sweating, cold or heat intolerance. No polyuria or polydipsia. ALLERGIES: No history of asthma, hives, eczema or rhinitis. Physical Exam Narrative General: Alert, Oriented x3, Cooperative, No apparent distress HEENT: Atraumatic, PERRLA, EOMI, Normocephalic, oral breakdown with thrush and stomatitis Oral: Moist Mucosa Neck: Supple, No JVD Lungs: Diminished, Normal air movement, No rhonchi, No wheeze, No rales Cardiovascular: Regular rate, Regular Rhythm, Normal S1, Normal S2, No murmurs Abdomen: Soft, Non Tender, Non-Distended, No Hepato-splenomegaly Extremities: Edema, Capillary Refill Less than 3 Seconds Skin: No rashes, No breakdown Musculoskeletal: No Tenderness to Palpation of Joints or Extremities Neurological: No focal neurological deficit, Motor Exam 5/5 strength throughout, Sensory exam intact to light touch and pain Psych/Mental Status: Flat Medical Records Data Medical Nutrition Assessment Dietitian: Malnutrition Criteria Met Start: 04/08/23 1 5:31 Freq: Status: Active Protocol: Document 04/08/23 15:31 [facility] (Rec: 04/08/23 15:32 [facility] [id number]) Nutrition Malnutrition Evidence of Malnutrition Exists Yes Malnutrition (moderate): Chronic Evidenced By Suboptimal Energy Intake ( Moderate),Physical Changes ( Moderate) Clinical Problem Chronic Disease or Condition Related Malnutrition Etiology related to physiological changes decreasing appetite and oral intakes as well as chewing and swallowing capabilities Signs/Symptoms as evidenced by reported weight loss with 2+ pitting bilateral pedal edema, decreased appetite and oral intakes x 3-4 weeks with only liquid intakes x 1 week and mild to moderate muscle wasting per NFPA. Status Active Problem Recommendation Dietitian Recommendations/Changes Recommend diet advancement when appropriate. Pt cannot tolerate solids at this time with thrush. While on clear liquids, will trial Ensure Clear TID w/ meals to help increase oral intakes. Will continue to follow, monitor oral intakes and tolerance to ONS, and adjust interventions as needed. Lab / Micro Data 04/11/23 04:36 04/11/23 04:36 Labs: Laboratory Results - last 24 hr 04/07/23 23:39: Diff Path Review Reviewed 04/08/23 05:25: Diff Path Review Reviewed 04/09/23 04:15: Diff Path Review Reviewed 04/09/23 17:16: POC Glucose 179 H 04/09/23 20:59: POC Glucose 172 H 04/10/23 05:35: POC Glucose 161 H 04/10/23 05:47: WBC 39.9 H*, RBC 3.16 L, Hgb 11.3 L, Hct 31.4 L, MCV 99.4 H, MCH 35.8 H, MCHC 36.0, RDW Std Deviation 69.9 H, RDW Coeff of Jenn 19.4 H, Plt Count 137 L, MPV 12.6 H, Neut % (Auto) Not Reportable, Absolute Neuts (auto) 29.5 H, Absolute Lymphs (auto) 1.60, Total Counted 100, Neutrophils % (Manual) 73 H, Band Neutrophils % 1, Lymphocytes % (Manual) 4 L, Monocytes % (Manual) 3, Metamyelocytes % 3 H, Myelocytes % 16 H, Nucleated RBCs/100 WBC 4, Diff Path Review Reviewed, Toxic Granulation YES, Platelet Estimate ADEQUATE, RBC Morphology NORM C+C, Sodium 124 L, Potassium 4.0, Chloride 100, Carbon Dioxide 16.0 L, Anion Gap 8, BUN 40 H, Creatinine 1.03 H, Estim Creat Clear Calc 61.57, Est GFR (MDRD) Af Amer 70, Est GFR (MDRD) Non-Af 58 L, BUN/Creatinine Ratio 38.8 H, Glucose 168 H, Calcium 5.4 L*, Total Bilirubin 13.20 H, Direct Bilirubin 10.72 H, AST 253 H, ALT 68 H, Alkaline Phosphatase 916 H, Total Protein 5.3 L, Albumin 1.4 L, Globulin 3.9 04/10/23 11:20: POC Glucose 176 H Micro: Microbiology 04/08/23 01:53 Urine, Clean Catch Urine Culture - Final Culture exhibits no growth. 04/08/23 00:47 Blood Culture (Wb) - Anticubital Right Blood Culture - Preliminary No growth in 48 hours. 04/08/23 00:30 Blood Culture (Wb) - Anticubital Right Blood Culture - Preliminary No growth in 48 hours. Assessment & Plan Assessment/Plan (1) Hyperbilirubinemia: PLAN: Plan The patient is a 62 y/o L 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 Oconnor who presents to the [facility] ED on 04/08/23 with history of family recently noting onset of jaundice. We ordered a CT scan of the abdomen pelvis and a MRI of the abdomen pelvis. 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 I had a long talk with the patient and the patient's daughter and family at the bedside and she decided to pursue hospice. She does not want to undergo paracentesis or upper endoscopy for evaluation of her upper GI tract. I told her is very reasonable due to the severity of her disease. If she does change her mind I would be glad to assist in her care. Charges/Coding Visit Charges Inpatient E&M: 92828 Init Hosp L3
[2023-04-10 17:01] LABS: Bedside Glucose 155 mg/dL (74-106)
[2023-04-10 21:00] VITALS: BP 124/81; PULSE 78; RESP 22; TEMP 36.3; O2SAT 97
[2023-04-10 23:08] LABS: Bedside Glucose 161 mg/dL (74-106)
[2023-04-11 03:00] VITALS: BP 120/74; PULSE 70; RESP 18; TEMP 36.1; O2SAT 96
[2023-04-11 04:46] VITALS: BMI 38.3
[2023-04-11 04:51] LABS: Hematocrit 32.4 % (37-47); Hemoglobin 11.5 g/dL (12.0-15.0); Mean Corp Hgb Conc 35.5 g/dL (32-36); Mean Corpuscular Hgb 35.5 pg (27.0-32.0); Mean Platelet Vol. 12.6 fl (6.2-12.0); POSITIVE COUNT YES; POSITIVE DIFFERENTIAL YES; POSITIVE MORPHOLOGY YES; Platelet Count 123 K/mm3 (150-450); RBC Distribution Width CV 19.7 % (11.6-14.6); RBC Distribution Width SD 71.1 fl (35.1-43.9); Red Blood Count 3.24 M/mm3 (4.2-5.4)
[2023-04-11 04:55] LABS: Differential Indicated MANUAL DIFF; White Blood Count 39.6 K/mm3 (4.4-11.0)
[2023-04-11 04:57] LABS: Ionized Calcium 3.83 mg/dL (4.36-5.20)
[2023-04-11] MEDS: Piperacil/Tazobactam 3.375 GM in 0.9% Normal Saline (50mL MB+) 50 ML IV ×3 (05:07→21:20)
[2023-04-11 05:22] LABS: ALB/GLOB Ratio 0.4 RATIO (0.9-2.4); AST(SGOT) 245 U/L (15-37); Alanine Aminotransfer ALT/SGPT 70 U/L (13-56); Albumin, Serum 1.4 g/dL (3.2-5.0); Alkaline Phosphatase 996 U/L (45-117); Anion Gap 7 (5-15); BUN 43 mg/dL (7-18); Calcium,Total 6.5 mg/dL (8.5-10.1); Chloride 101 mmol/L (98-107); EST Glomerular Filtration Rate 60 mL/min (>60); Est Glom Filt Rate - Afr Amer 72 mL/min (>60); Estimated Creatinine Clearance 65.96 ml/min; Globulin 3.8 g/dL (2.2-4.2); Glucose 146 mg/dL (74-106); Potassium 3.8 mmol/L (3.5-5.1); Protein, Total 5.2 g/dL (6.4-8.2); Sodium Level 124 mmol/L (136-145)
--- NOTE | 2023-04-11 05:49 | PCM.RX.CS ---
Consult Antibiotic Management Pharmacy has been consulted to manage selected antibiotic: Vancomycin Type of Intervention Type of Consult: Follow-up Labs Labs: Sodium 124 mmol/L (136-145) L 04/11/23 04:36 Potassium 3.8 mmol/L (3.5-5.1) 04/11/23 04:36 Chloride 101 mmol/L (98-107) 04/11/23 04:36 Carbon Dioxide 16.0 mmol/L (21.0-32.0) L 04/11/23 04:36 Anion Gap 7 (5-15) 04/11/23 04:36 BUN 43 mg/dL (7-18) H 04/11/23 04:36 Creatinine 1.00 mg/dL (0.55-1.02) 04/11/23 04:36 Est GFR (MDRD) Af Amer 72 mL/min (>60) 04/11/23 04:36 Est GFR (MDRD) Non-Af 60 mL/min (>60) 04/11/23 04:36 BUN/Creatinine Ratio 43.0 RATIO (10-20) H 04/11/23 04:36 Glucose 146 mg/dL (74-106) H 04/11/23 04:36 Vancomycin Trough 22.0 ug/mL (5.0-15.0) H 04/11/23 04:36 Microbiology Microbiology: Microbiology 04/08/23 01:53 Urine, Clean Catch Urine Culture - Final Culture exhibits no growth. 04/08/23 00:47 Blood Culture (Wb) - Anticubital Right Blood Culture - Preliminary No growth in 48 hours. 04/08/23 00:30 Blood Culture (Wb) - Anticubital Right Blood Culture - Preliminary No growth in 48 hours. Pharmacy Plan for Drug Dosing Pharmacy Plan for Drug Dosing: Pharmacy Service will continue to monitor and adjust dosing as required. TROUGH 22 @ 12.5 HOURS. HOLD DOSE AND DRAW RANDOM LEVEL IN 8 HOURS Follow-Up Labs Follow-Up Labs: Trough: Vancomycin Date/Time Labs Ordered Labs to be done on [date and time ordered]: 04/11 @ 1230
[2023-04-11 06:24] LABS: Neutrophil-Band 1 % (0-5); Neutrophil-Segmented 67 % (47-70); Total Cells Counted 100 (MANUAL DIFF)
[2023-04-11 06:25] LABS: Lymphocyte 11 % (19-41); Monocyte 4 % (0-10); Myelocyte 10 % (0-0); Promyelocyte 7 % (0-0)
[2023-04-11 06:26] LABS: Absolute Neutrophil Count 26.9 X10^3/uL (2.0-7.7)
[2023-04-11 06:27] LABS: Absolute Lymphocyte Count 4.36 X10^3/uL (0.83-4.51); Anisocytosis RARE
[2023-04-11 06:34] LABS: Differential Comment SCANNED
[2023-04-11 08:41] VITALS: BP 127/92; PULSE 72; RESP 18; TEMP 35.6; O2SAT 96
--- NOTE | 2023-04-11 08:47 | CASEMGMT ---
Addendum entered by Farida Michel 04/11/23 15:48: [facility] declined referral and [facility] accepted. [facility] will start precert. SW updated. Farida Michel, Discharge Planning Asst. Original Note: Discharge Planning Referrals sent via [facility] to [facility] and [facility]. Farida Michel, Discharge Planning Asst.
[2023-04-11 09:13] LABS: Phosphorus 2.3 mg/dL (2.5-4.9)
[2023-04-11] MEDS: Calcium Gluconate IV 2 GM in 0.9% Normal Saline (100mL Bag) 100 ML IV (10:03)
[2023-04-11] MEDS: NYSTATIN 500,000 UNIT/5 ML UDC 500000 UNIT PO ×4 (10:05→20:22)
[2023-04-11] MEDS: Pantoprazole Sodium 40 MG in 0.9% Normal Saline (100mL MB+) 100 ML 330 MG IV ×2 (10:09→20:21)
[2023-04-11] MEDS: BMX LIQUID 180 ML PO ×4 (10:09→21:20)
[2023-04-11] MEDS: Heparin Injection (Vial) 5,000 UNIT/ML VIAL 5000 UNIT SC (10:12)
[2023-04-11 11:19] LABS: Erythrocyte Sedimentation Rate 55 mm/hr (0-30)
[2023-04-11 11:29] LABS: International Normalized Ratio 1.7; Prothrombin Time (Protime)PT. 19.7 SECONDS (11.7-14.9)
[2023-04-11 11:36] LABS: LDH 804 U/L (84-246)
--- NOTE | 2023-04-11 11:49 | PN.HOSP_ITS ---
Subjective Subjective Feels a bit better today, her mouth pain is improved since her BMX liquid was scheduled Objective Data Objective Data Vital Signs: Vital Signs Temp Pulse Resp BP Pulse Ox O2 Del Method 96.1 F L 72 18 127/92 H 96 Room Air 04/11/23 08:41 04/11/23 08:41 04/11/23 08:41 04/11/23 08:41 04/11/23 08:41 04/11/23 08:41 Oxygen Delivery Method Room Air Weight: 216 lb 7.903 oz Body Mass Index (BMI) 38.3 Intake & Output: Intake and Output for Last 24 Hours 04/10/23 04/11/23 04/12/23 03:59 03:59 03:59 Intake Total 1555 / 1555 2660.00 / 2660.00 400 / 400 Balance 1555 / 1555 2660.00 / 2660.00 400 / 400 Medical Nutrition Assessment Dietitian: Malnutrition Criteria Met Start: 04/08/23 15:31 Freq: Status: Active Protocol: Document 04/08/23 15:31 LEI (Rec: 04/08/23 15:32 [facility] [id number]) Nutrition Malnutrition Evidence of Malnutrition Exists Yes Malnutrition (moderate): Chronic Evidenced By Suboptimal Energy Intake ( Moderate),Physical Changes ( Moderate) Clinical Problem Chronic Disease or Condition Related Malnutrition Etiology related to physiological changes decreasing appetite and oral intakes as well as chewing and swallowing capabilities Signs/Symptoms as evidenced by reported weight loss with 2+ pitting bilateral pedal edema, decreased appetite and oral intakes x 3-4 weeks with only liquid intakes x 1 week and mild to moderate muscle wasting per NFPA. Status Active Problem Recommendation Dietitian Recommendations/Changes Recommend diet advancement when appropriate. Pt cannot tolerate solids at this time with thrush. While on clear liquids, will trial Ensure Clear TID w/ meals to help increase oral intakes. Will continue to follow, monitor oral intakes and tolerance to ONS, and adjust interventions as needed. Lab / Micro Data 04/11/23 04:36 04/11/23 04:36 Labs: Laboratory Results - last 24 hr 04/07/23 23:39: Diff Path Review Reviewed 04/08/23 05:25: Diff Path Review Reviewed 04/09/23 04:15: Diff Path Review Reviewed 04/10/23 05:47: Diff Path Review Reviewed 04/10/23 11:20: POC Glucose 176 H 04/10/23 16:28: POC Glucose 155 H 04/10/23 22:42: POC Glucose 161 H 04/11/23 04:36: WBC 39.6 H*, RBC 3.24 L, Hgb 11.5 L, Hct 32.4 L, MCV 100.0 H, M CH 35.5 H, MCHC 35.5, RDW Std Deviation 71.1 H, RDW Coeff of Jenn 19.7 H, Plt Count 123 L, MPV 12.6 H, Neut % (Auto) Not Reportable, Absolute Neuts (auto) 26.9 H, Absolute Lymphs (auto) 4.36, Total Counted 100, Neutrophils % (Manual) 67, Band Neutrophils % 1, Lymphocytes % (Manual) 11 L, Monocytes % (Manual) 4, Myelocytes % 10 H, Promyelocytes % 7 H, Differential Comment SCANNED, Anisocytosis RARE, Sodium 124 L, Potassium 3.8, Chloride 101, Carbon Dioxide 16.0 L, Anion Gap 7, BUN 43 H, Creatinine 1.00, Estim Creat Clear Calc 65.96, Est GFR (MDRD) Af Amer 72, Est GFR (MDRD) Non-Af 60, BUN/Creatinine Ratio 43.0 H , Glucose 146 H, Calcium 6.5 L*, Phosphorus 2.3 L, Total Bilirubin 12.60 H, AST 245 H, ALT 70 H, Alkaline Phosphatase 996 H, Total Protein 5.2 L, Albumin 1.4 L, Globulin 3.8, Albumin/Globulin Ratio 0.4 L, Vancomycin Trough 22.0 H 04/11/23 04:52: Ionized Calcium 3.83 L 04/11/23 11:04: ESR 55 H, PT 19.7 H, INR 1.7, Lactate Dehydrogenase 804 H, C- React Prot Ext Range 78.80 H Micro: Microbiology 04/08/23 01:53 Urine, Clean Catch Urine Culture - Final Culture exhibits no growth. 04/08/23 00:47 Blood Culture (Wb) - Anticubital Right Blood Culture - Preliminary No growth in 48 hours. 04/08/23 00:30 Blood Culture (Wb) - Anticubital Right Blood Culture - Preliminary No growth in 48 hours. Radiography Diagnostic Testing: Radiology Impression Abdomen/Pelvis CT 04/10/23 15:04 IMPRESSION: Slightly prominent ureters with moderately distended urinary bladder. Patchy heterogeneous hepatic parenchyma suspicious for underlying lesions. Cirrhosis of the liver with ascites. Electronically Signed: Beau Luna, DO at 16:27 EST , MRCP 04/10/23 15:09 IMPRESSION: 1. Nonvisualization of the distal common bile duct. No dilation of the proximal bile duct or intrahepatic biliary ductal tree. 2. Body wall edema/anasarca. 3. Heterogenous and lobulated liver correlating with known extensive hepatic metastasis. 4. Large volume ascites likely secondary to hepatic dysfunction and/or malignant ascites. 5. Mild nonspecific bilateral hydronephrosis perhaps related to urinary bladder distention as demonstrated on recent CT. 6. Trace bilateral pleural effusion. Electronically Signed: Get Reza Gunn, DO at 22:52 EST , Physical Exam Narrative General: Alert, Oriented x3, Cooperative, No apparent distress HEENT: Atraumatic, PERRLA, EOMI, Normocephalic, oral breakdown with thrush and stomatitis Oral: Moist Mucosa Neck: Supple, No JVD Lungs: Diminished, Normal air movement, No rhonchi, No wheeze, No rales Cardiovascular: Regular rate, Regular Rhythm, Normal S1, Normal S2, No murmurs Abdomen: Soft, Non Tender, Non-Distended, No Hepato-splenomegaly Extremities: Edema, Capillary Refill Less than 3 Seconds Skin: No rashes, No breakdown Musculoskeletal: No Tenderness to Palpation of Joints or Extremities Neurological: No focal neurological deficit, Motor Exam 5/5 strength throughout, Sensory exam intact to light touch and pain Psych/Mental Status: Flat Assessment & Plan Assessment/Plan (1) Hyperbilirubinemia: PLAN: Plan 1. Stage IV breast cancer with metastatic disease to the pelvic bone and liver with zone 3 liver injury due to chemotherapy with hyperbilirubinemia/stomatitis with thrush/acute cystitis ? Will consult gastroenterology as this has not been done for possible interventions including possible steroid usage ? I did have a 20-minute discussion on advance care planning with the difference between hospice and palliative care between her and her kids ? 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 Continue with nystatin as well as oral lidocaine ? Urine cultures and blood cultures are negative ?CT of the abdomen pelvis obtained by GI yesterday demonstrates significant tu mor burden ? MRCP with no dilation of the proximal bile duct or intrahepatic biliary ductal tree significantly heterogeneous and lobulated liver with extensive hepatic metastases and cirrhosis with large volume ascites 2. DM 2 ? Accu-Cheks ACHS ? Will monitor and make adjustments as necessary 3. Hyponatremia ? Level continues to drop, likely SIADH versus multifocal secondary to all of her other illnesses ? Will continue to monitor and encourage p.o. intake as pain improves 4. Hypothyroidism - Patient is on levothyroxine home dose continued ? Stable 5. Anxiety/depression ? Stable ? Continue with her home medications 6. HTN/HLD/CAD status post stent ? Continue with her home medications if indicated ? Blood pressure stable ? We will monitor make adjustments as necessary DVT: Heparin Charges/Coding Visit Charges Inpatient E&M: 74234 Subs Hosp L2
[2023-04-11 11:50] LABS: Lactic Acid 1.7 mmol/L (0.4-1.9)
[2023-04-11 12:14] LABS: Pathologist Review Reviewed
[2023-04-11 13:11] LABS: Bedside Glucose 184 mg/dL (74-106)
--- NOTE | 2023-04-11 14:03 | PCM.RX.CS ---
Consult Antibiotic Management Pharmacy has been consulted to manage selected antibiotic: Vancomycin Type of Intervention Type of Consult: Follow-up Labs Labs: Sodium 124 mmol/L (136-145) L 04/11/23 04:36 Potassium 3.8 mmol/L (3.5-5.1) 04/11/23 04:36 Chloride 101 mmol/L (98-107) 04/11/23 04:36 Carbon Dioxide 16.0 mmol/L (21.0-32.0) L 04/11/23 04:36 Anion Gap 7 (5-15) 04/11/23 04:36 BUN 43 mg/dL (7-18) H 04/11/23 04:36 Creatinine 1.00 mg/dL (0.55-1.02) 04/11/23 04:36 Est GFR (MDRD) Af Amer 72 mL/min (>60) 04/11/23 04:36 Est GFR (MDRD) Non-Af 60 mL/min (>60) 04/11/23 04:36 BUN/Creatinine Ratio 43.0 RATIO (10-20) H 04/11/23 04:36 Glucose 146 mg/dL (74-106) H 04/11/23 04:36 Vancomycin Trough 22.0 ug/mL (5.0-15.0) H 04/11/23 04:36 Random Vancomycin 19.0 ug/mL (0.0-15.0) H 04/11/23 12:30 Microbiology Microbiology: Microbiology 04/08/23 01:53 Urine, Clean Catch Urine Culture - Final Culture exhibits no growth. 04/08/23 00:47 Blood Culture (Wb) - Anticubital Right Blood Culture - Preliminary No growth in 48 hours. 04/08/23 00:30 Blood Culture (Wb) - Anticubital Right Blood Culture - Preliminary No growth in 48 hours. Pharmacy Plan for Drug Dosing Pharmacy Plan for Drug Dosing: VANCOMYCIN LEVEL RECEIVED Current Vancomycin Dose: HOLD, LAST DOSE 750MG Q12 Number of Doses Received: 7 Vancomycin Level: 19 mg/dL Hours Since Last Dose: 20.5 Renal Function: SCr 1 mg/dL, CrCl 65 mL/min using adjusted body weight Renal Function Trend: stable Lab/Micro: blood and urine cx negative, WBC 39.6 K/mm3 Vancomycin Plan/Comments: Random level is now within therapeutic range at 19 mg/dL. Will restart dosing at 500mg Q12 and get a level prior to 4th dose. Pending Level: 04/13/23 @ 8223 Pharmacy Service will continue to monitor and adjust dosing as required.
[2023-04-11] MEDS: 0.9% Saline Lock 10 ML Syringe IV (14:56)
[2023-04-11] MEDS: Vancomycin IV 500 MG/100 ML BAG 100 MG IV (14:56)
[2023-04-11 15:15] VITALS: BP 125/66; PULSE 73; RESP 18; TEMP 36.3; O2SAT 97
[2023-04-11 16:19] LABS: Bedside Glucose 180 mg/dL (74-106)
[2023-04-11 20:15] VITALS: BP 133/75; PULSE 71; RESP 18; TEMP 36.4; O2SAT 100
--- NOTE | 2023-04-11 20:20 | NURSING ---
Pt tired and wanting vitals done early. Also requesting vitals to not be done again until in the morning.
[2023-04-11 21:46] LABS: Bedside Glucose 159 mg/dL (74-106)
[2023-04-12] MEDS: Vancomycin IV 500 MG/100 ML BAG 100 MG IV ×2 (02:16→16:01)
[2023-04-12 03:18] VITALS: BMI 38.2
[2023-04-12 04:30] VITALS: BP 119/71; PULSE 70; RESP 16; TEMP 36.1; O2SAT 99
[2023-04-12 04:31] LABS: Anion Gap 8 (5-15); BUN 49 mg/dL (7-18); BUN/Creat Ratio 47.6 RATIO (10-20); Calcium,Total 6.6 mg/dL (8.5-10.1); Chloride 99 mmol/L (98-107); Creatinine, Serum 1.03 mg/dL (0.55-1.02); EST Glomerular Filtration Rate 58 mL/min (>60); Est Glom Filt Rate - Afr Amer 70 mL/min (>60); Estimated Creatinine Clearance 63.96 ml/min; Glucose 144 mg/dL (74-106); Potassium 3.7 mmol/L (3.5-5.1); Sodium Level 124 mmol/L (136-145)
[2023-04-12] MEDS: Piperacil/Tazobactam 3.375 GM in 0.9% Normal Saline (50mL MB+) 50 ML IV ×2 (05:10→13:30)
--- NOTE | 2023-04-12 07:05 | EX.PCM.PN.GI ---
Subjective Subjective Patient says that her mouth is no longer better today. She has agreed to pursue hospice. Objective Data Objective Data Vital Signs: Vital Signs Temp Pulse Resp BP Pulse Ox O2 Del Method 96.9 F L 66 14 109/65 95 Room Air 04/12/23 16:04 04/12/23 16:04 04/12/23 16:05 04/12/23 16:04 04/12/23 16:04 04/12/23 16:05 Oxygen Delivery Method Room Air Weight: 216 lb 0.848 oz Body Mass Index (BMI) 38.2 Intake & Output: Intake and Output for Last 24 Hours 04/10/23 04/11/23 04/12/23 23:59 23:59 23:59 Intake Total 1760.00 / 2460.00 2430 / 2430 370 / 370 Output Total 1800 / 1800 320 / 320 Balance 1760.00 / 2460.00 630 / 630 50 / 50 Medical Nutrition Assessment Dietitian: Malnutrition Criteria Met Start: 04/08/23 15:31 Freq: Status: Active Protocol: Document 04/11/23 13:00 RMA (Rec: 04/11/23 13:01 RMA [id number]) Nutrition Malnutrition Evidence of Malnutrition Exists Yes Malnutrition (severe): Chronic Evidenced By Suboptimal Energy Intake ( Severe),Physical Changes ( Moderate) Clinical Problem Chronic Disease or Condition Related Malnutrition Etiology Severe protein-calorie malnutrition in the context of chronic disease related to inadequate oral intake and chewing/swallowing difficulty Signs/Symptoms as evidenced by reported weight loss with 4+ pitting bilateral pedal edema, decreased appetite and oral intakes x 3-4 weeks with only liquid intakes x 1 week, oral intake 0-50% meals since admit and mild to moderate muscle wasting per NFPA. Status Active Problem Recommendation Dietitian Recommendations/Changes Continue liberalized regular diet as tolerated with texture /consistency alteration as indicated. Will continue 240mL ensure clear BID w/ breakfast and dinner. Will offer 240mL ensure plus HP w/ lunch as tolerated. Adjust ONS as needed to optimize oral intake. Lab / Micro Data 04/11/23 04:36 04/12/23 04:10 Labs: Laboratory Results - last 24 hr 04/11/23 11:04: PAYTON-1 Antibody <0.2, SS-A/Ro IgG Antibody < 0.2, SS-B/La IgG Antibody < 0.2, Sm (Ascencio) Antibody <0.2, CYBER POLICY AND STRATEGY PLANNER Antibody <0.2, Scl-70 Scleroderma Ab <0.2, Double Strand DNA Ab 1, Centromere B Antibody <0.2, Anti-Smooth Muscle Ab 4 04/11/23 20:19: POC Glucose 159 H 04/12/23 04:10: Sodium 124 L, Potassium 3.7, Chloride 99, Carbon Dioxide 17.0 L, Anion Gap 8, BUN 49 H, Creatinine 1.03 H, Estim Creat Clear Calc 63.96, Est GFR (MDRD) Af Amer 70, Est GFR (MDRD) Non-Af 58 L, BUN/Creatinine Ratio 47.6 H, Glucose 144 H, Calcium 6.6 L 04/12/23 06:38: POC Glucose 122 H 04/12/23 10:59: POC Glucose 136 H Micro: Microbiology 04/08/23 01:53 Urine, Clean Catch Urine Culture - Final Culture exhibits no growth. 04/08/23 00:47 Blood Culture (Wb) - Anticubital Right Blood Culture - Preliminary No growth in 48 hours. 04/08/23 00:30 Blood Culture (Wb) - Anticubital Right Blood Culture - Preliminary No growth in 48 hours. Physical Exam Narrative General: Alert, Oriented x3, Cooperative, No apparent distress HEENT: Atraumatic, PERRLA, EOMI, Normocephalic, oral breakdown with thrush and stomatitis Oral: Moist Mucosa Neck: Supple, No JVD Lungs: Diminished, Normal air movement, No rhonchi, No wheeze, No rales Cardiovascular: Regular rate, Regular Rhythm, Normal S1, Normal S2, No murmurs Abdomen: Soft, Non Tender, Non-Distended, No Hepato-splenomegaly Extremities: Edema, Capillary Refill Less than 3 Seconds Skin: No rashes, No breakdown Musculoskeletal: No Tenderness to Palpation of Joints or Extremities Neurological: No focal neurological deficit, Motor Exam 5/5 strength throughout, Sensory exam intact to light touch and pain Psych/Mental Status: Flat Assessment & Plan Assessment/Plan (1) Hyperbilirubinemia: PLAN: Plan The patient is a 62 y/o L 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 Oconnor who presents to the [facility] ED on 04/08/23 with history of family recently noting onset of jaundice. We ordered a CT scan of the abdomen pelvis and a MRI of the abdomen pelvis. 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 I had a long talk with the patient and the patient's daughter and family at the bedside and she decided to pursue hospice. Charges/Coding Visit Charges Inpatient E&M: 85302 Subs Hosp L3
[2023-04-12 07:13] LABS: Bedside Glucose 122 mg/dL (74-106)
[2023-04-12 09:25] VITALS: BP 113/60; PULSE 69; RESP 20; TEMP 36.4; O2SAT 99
[2023-04-12] MEDS: BMX LIQUID 180 ML PO ×2 (09:28→13:31)
[2023-04-12] MEDS: Heparin Injection (Vial) 5,000 UNIT/ML VIAL 5000 UNIT SC (09:29)
[2023-04-12] MEDS: NYSTATIN 500,000 UNIT/5 ML UDC 500000 UNIT PO ×2 (09:29→13:31)
[2023-04-12] MEDS: Pantoprazole Sodium 40 MG in 0.9% Normal Saline (100mL MB+) 100 ML 330 MG IV (09:31)
--- NOTE | 2023-04-12 10:53 | CASEMGMT ---
SW was informed that patient would like to talk with Hospice. FARHANA spoke with patient's daughter Rachel as patient was sleeping. Rachel said that is correct. FARHANA let Rachel know SW will make the referral and someone from Hospice will call to set up a time to meet. SW called [facility] with referral and also faxed referral information. FARHANA notified [facility] [employer] executive community planning who notified [facility] ([facility]). [facility] said they would be willing to take her on hospice if that is what patient wants. Medina De León SIZING MACHINE OPERATOR ROSALVA
[2023-04-12 11:09] LABS: Anti-Centromere B Ab <0.2 AI (0.0-0.9); Anti-Chromatin <0.2 AI (0.0-0.9); Anti-Jo <0.2 AI (0.0-0.9); Anti-Scleroderma-70 AB <0.2 AI (0.0-0.9); Anti-dsDNA Ab 1 IU/mL (0-9); RNP Ab <0.2 AI (0.0-0.9); SJOGREN'S Anti-SS-A test < 0.2 AI (0.0-0.9); SJOGREN'S Anti-SS-B test < 0.2 AI (0.0-0.9); Smith Ab <0.2 AI (0.0-0.9)
--- NOTE | 2023-04-12 11:19 | CASEMGMT ---
SW received a phone call from [facility] with [facility]. They spoke with patient's daughter and Hospice will be meeting with patient and family today at 2p. FARHANA notified RN and physician. Medina BLACKWELL
[2023-04-12 11:38] LABS: Bedside Glucose 136 mg/dL (74-106)
--- NOTE | 2023-04-12 12:09 | PN.HOSP_ITS ---
Subjective Subjective Mouth pain is better with the lidocaine medication continues to have active thrush Objective Data Objective Data Vital Signs: Vital Signs Temp Pulse Resp BP Pulse Ox O2 Del Method 97.6 F L 69 20 H 113/60 99 Room Air 04/12/23 09:25 04/12/23 09:25 04/12/23 09:25 04/12/23 09:25 04/12/23 09:25 04/12/23 09:25 Oxygen Delivery Method Room Air Weight: 216 lb 0.848 oz Body Mass Index (BMI) 38.2 Intake & Output: Intake and Output for Last 24 Hours 04/11/23 04/12/23 04/13/23 03:59 03:59 03:59 Intake Total 2660.00 / 2660.00 1630 / 1630 160 / 160 Output Total 1800 / 1800 200 / 200 Balance 2660.00 / 2660.00 -170 / -170 -40 / -40 Medical Nutrition Assessment Dietitian: Malnutrition Criteria Met Start: 04/08/23 15:31 Freq: Status: Active Protocol: Document 04/11/23 13:00 RMA (Rec: 04/11/23 13:01 RMA [id number]) Nutrition Malnutrition Evidence of Malnutrition Exists Yes Malnutrition (severe): Chronic Evidenced By Suboptimal Energy Intake ( Severe),Physical Changes ( Moderate) Clinical Problem Chronic Disease or Condition Related Malnutrition Etiology Severe protein-calorie malnutrition in the context of chronic disease related to inadequate oral intake and chewing/swallowing difficulty Signs/Symptoms as evidenced by reported weight loss with 4+ pitting bilateral pedal edema, decreased appetite and oral intakes x 3-4 weeks with only liquid intakes x 1 week, oral intake 0-50% meals since admit and mild to moderate muscle wasting per NFPA. Status Active Problem Recommendation Dietitian Recommendations/Changes Continue liberalized regular diet as tolerated with texture /consistency alteration as indicated. Will continue 240mL ensure clear BID w/ breakfast and dinner. Will offer 240mL ensure plus HP w/ lunch as tolerated. Adjust ONS as needed to optimize oral intake. Lab / Micro Data 04/11/23 04:36 04/12/23 04:10 Labs: Laboratory Results - last 24 hr 04/11/23 04:36: Diff Path Review Reviewed 04/11/23 11:04: PAYTON-1 Antibody <0.2, SS-A/Ro IgG Antibody < 0.2, SS-B/La IgG Antibody < 0.2, Sm (Ascencio) Antibody <0.2, FORENSICS ANALYST Antibody <0.2, Scl-70 Scleroderma Ab <0.2, Double Strand DNA Ab 1, Centromere B Antibody <0.2 04/11/23 12:30: Random Vancomycin 19.0 H 04/11/23 12:52: POC Glucose 184 H 04/11/23 15:56: POC Glucose 180 H 04/11/23 20:19: POC Glucose 159 H 04/12/23 04:10: Sodium 124 L, Potassium 3.7, Chloride 99, Carbon Dioxide 17.0 L, Anion Gap 8, BUN 49 H, Creatinine 1.03 H, Estim Creat Clear Calc 63.96, Est GFR (MDRD) Af Amer 70, Est GFR (MDRD) Non-Af 58 L, BUN/Creatinine Ratio 47.6 H, Glucose 144 H, Calcium 6.6 L 04/12/23 06:38: POC Glucose 122 H 04/12/23 10:59: POC Glucose 136 H Micro: Microbiology 04/08/23 01:53 Urine, Clean Catch Urine Culture - Final Culture exhibits no growth. 04/08/23 00:47 Blood Culture (Wb) - Anticubital Right Blood Culture - Preliminary No growth in 48 hours. 04/08/23 00:30 Blood Culture (Wb) - Anticubital Right Blood Culture - Preliminary No growth in 48 hours. Physical Exam Narrative General: Alert, Oriented x3, Cooperative, No apparent distress HEENT: Atraumatic, PERRLA, EOMI, Normocephalic, oral breakdown with thrush and stomatitis Oral: Moist Mucosa Neck: Supple, No JVD Lungs: Diminished, Normal air movement, No rhonchi, No wheeze, No rales Cardiovascular: Regular rate, Regular Rhythm, Normal S1, Normal S2, No murmurs Abdomen: Soft, Non Tender, Non-Distended, No Hepato-splenomegaly Extremities: Edema, Capillary Refill Less than 3 Seconds Skin: No rashes, No breakdown Musculoskeletal: No Tenderness to Palpation of Joints or Extremities Neurological: No focal neurological deficit, Motor Exam 5/5 strength throughout, Sensory exam intact to light touch and pain Psych/Mental Status: Flat Assessment & Plan Assessment/Plan (1) Hyperbilirubinemia: PLAN: Plan 1. Stage IV breast cancer with metastatic disease to the pelvic bone and liver with zone 3 liver injury due to chemotherapy with hyperbilirubinemia/stomatitis with thrush/acute cystitis ? Will consult gastroenterology as this has not been done for possible interventions including possible steroid usage ? Had another 20-minute discussion on advance care planning as it appears that they would like to proceed with hospice at this time discussed what that would entail ? Continue with broad-spectrum antibiotics as her white count has climbed to 40,000 however no other signs of infection besides possible cholangitis though no obvious evidence of obstruction as her hyperbilirubinemia is likely secondary to her pseudocirrhosis and zone 3 liver injury. If they do proceed with hospice care will discontinue antibiotics ? Continue with nystatin as well as oral lidocaine ? Urine cultures with no growth 2. DM 2 ? Accu-Cheks ACHS ? Will monitor and make adjustments as necessary 3. Hyponatremia ? Level continues to drop, likely SIADH versus multifocal secondary to all of h er other illnesses ? Will continue to monitor and encourage p.o. intake as pain improves 4. Hypothyroidism - Patient is on levothyroxine home dose continued ? Stable 5. Anxiety/depression ? Stable ? Continue with her home medications 6. HTN/HLD/CAD status post stent ? Continue with her home medications if indicated ? Blood pressure stable ? We will monitor make adjustments as necessary DVT: Heparin Charges/Coding Visit Charges Inpatient E&M: 98404 Subs Hosp L2 Procedures Hospitalists Procedures: 74047 Advncd Care Plan 30 Min
[2023-04-12 15:08] LABS: Anti-Smooth Muscle ABS 4 Units (0-19)
--- NOTE | 2023-04-12 15:46 | CASEMGMT ---
Addendum entered by Medina De León 04/12/23 15:50: SW notified [facility] via [facility]. Medina BLACKWELL Original Note: Patient is going to [facility] inpatient hospice unit. Hospice will transport patient. Medina BLACKWELL
[2023-04-12 16:04] VITALS: BP 109/65; PULSE 66; RESP 14; TEMP 36.1; O2SAT 95
[2023-04-12 16:05] VITALS: RESP 14
--- NOTE | 2023-04-12 16:29 | DCINST_ITS ---
Discharge Instructions Diet Discharge Diet: No restrictions Activity Discharge Activity: Return to Normal Activity Follow Up Care Test Results: Test results from this visit will be discussed in further detail at your follow- up appointment, if applicable. Discharge Plan Admission Admit Date/Time: 04/08/23 01:46 Attending Provider: Marck Shelby Primary Care Provider: Jad Acevedo Consulting Providers: Nata Taveras; Ashwin Hector Discharge Orders/Prescriptions Prescriptions: Continued venlafaxine 150 mg capsule,extended release 24hr 150 mg PO DAILY Qty: 90 lisinopril 10 mg tablet 10 mg PO DAILY Qty: 90 Patient Comments: unknown dose levothyroxine 25 mcg tablet 25 mcg PO DAILY Qty: 90 Patient Comments: unknown dose aspirin [Adult Low Dose Aspirin] 81 mg tablet,delayed release (DR/EC) 81 mg PO DAILY zinc 50 mg tablet 50 mg PO DAILY red yeast rice 600 mg Capsule 1,200 mg PO DAILY Rx Instructions: give with meal/snack cholecalciferol (vitamin D3) [Vitamin D3] 125 mcg (5,000 unit) Tablet 125 mcg PO DAILY metformin 500 mg Tablet 1,000 mg PO BID glimepiride 4 mg tablet 4 mg PO DAILY Patient Comments: TAKE 1 TABLET BY MOUTH ONCE DAILY cinnamon bark 500 mg capsule 500 mg PO DAILY coenzyme Q10 [Co Q-10] 200 mg capsule 200 mg PO DAILY MAGIC MOUTH WASH (BMX) 180 mL suspension 5 ml PO Q4H PRN Qty: 180 loratadine [Claritin] 10 mg tablet 10 mg PO DAILY milk thistle 150 mg capsule 150 mg PO DAILY Rx Instructions: give with meal/snack nystatin 100,000 unit/mL suspension 5 ml PO 4X/DAY Rx Instructions: swish and swallow ondansetron 8 mg tablet,disintegrating 8 mg PO Q8H PRN (Reason: nausea) prochlorperazine maleate 10 mg tablet 10 mg PO Q6H PRN (Reason: nausea and vomiting) vitamin E (dl, acetate) 450 mg (1,000 unit) capsule 450 mg PO DAILY Referrals / Follow Up: Jad Acevedo MD [Primary Care Provider] - Disposition Disposition (needs filled in before D/C Order can be placed): Hospice in Medical Facility
--- NOTE | 2023-04-12 17:09 | PCM.DC.SUM ---
Providers Date of Admission: 04/08/23 Primary Care Physician: Dr. Jad Acevedo MD Consultations 04/10/23 13:16 Consult: Gastroenterology Routine Consulting Provider: [facility] Reason for Consult: Hyperbilirubenemia with liver injury from chemo EMERGENT Consult: No MD Notified: Yes Date Notified: 04/10/23 Time Notified: 13:17 Method of Notification: Verbal Reason For Visit: HYPERBILIRUBINEMIA, TRANSAMINITIS, METASTATIC CA, Diagnosis Discharge Diagnosis (1) Hyperbilirubinemia: Status: Acute Code(s): E80.6 - Other disorders of bilirubin metabolism Medications at Discharge Home Medications aspirin 81 mg tablet,delayed release (Adult Low Dose Aspirin) 81 mg PO DAILY heart 09/19/18 levothyroxine 25 mcg tablet 25 mcg PO DAILY hypothyroidism #90 tabs 09/19/18 lisinopril 10 mg tablet 10 mg PO DAILY htn #90 tabs 09/19/18 venlafaxine 150 mg capsule,extended release 24 hr 150 mg PO DAILY depression #90 caps 09/19/18 cholecalciferol (vitamin D3) 125 mcg (5,000 unit) tablet (Vitamin D3) 125 mcg PO DAILY osteoporosis 09/08/21 red yeast rice 600 mg capsule 1,200 mg PO DAILY supplement 09/08/21 zinc 50 mg tablet 50 mg PO DAILY . 11/02/21 metformin 500 mg tablet 1,000 mg PO BID DIABETES 05/11/22 glimepiride 4 mg tablet 4 mg PO DAILY diabetes 04/08/23 MAGIC MOUTH WASH (BMX) 180 mL suspension 5 ml PO Q4H PRN THRUSH #180 mL 04/11/23 cinnamon bark 500 mg capsule 500 mg PO DAILY UNKNOWN 04/11/23 coenzyme Q10 200 mg capsule (Co Q-10) 200 mg PO DAILY HEART HEALTH 04/11/23 loratadine 10 mg tablet (Claritin) 10 mg PO DAILY ALLERGIES 04/11/23 milk thistle 150 mg capsule 150 mg PO DAILY UNKNOWN 04/11/23 nystatin 100,000 unit/mL oral suspension 5 ml PO 4X/DAY THRUSH 04/11/23 ondansetron 8 mg disintegrating tablet 8 mg PO Q8H PRN nausea 04/11/23 prochlorperazine maleate 10 mg tablet 10 mg PO Q6H PRN nausea and vomiting 04/11/23 vitamin E (dl, acetate) 450 mg (1,000 unit) capsule 450 mg PO DAILY unknown 04/11/23 Hospital Course Operations None Procedures None Summary of Care Provided Minutes Spent on Discharge: 36 Hospital Course: Per HPI: The patient is a 62 y/o F w/ PMHx: CAD s/p PCI, Chronic anemia, Anxiety and Depression, Hypothyroidism, HTN, HLD, Diabetes mellitus type II, RLS, Former tobacco use, L 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 Oconnor who presents to the [facility] ED on 04/08/23 with history of family recently noting onset of jaundice the prior Monday with worsening oral intake and recent diagnosis of significant oral thrush prescribed oral nystatin suspension with difficulty swallowing and inability to speak secondary to discomfort with decreased urine output and orthostasis type symptoms with associated weight loss but no fevers or chills but given decline prompted family to bring her in for evaluation. From review of [facility] records patient has most recently been seen 04/07/2023 with IV hydration at that visit of note. Also recently because of the severity of her presentation she was switched to Taxol but was unable to tolerate this given her worsening status. Workup in the ED included T97.2, heart rate 90, BP 115/66, respiratory rate 16, 95% on room air, CBC with WBC 21.6, hemoglobin 13, MCV 100.3, platelet 175 without differential, CBC with WBC 21.6, hemoglobin 13, MCV 100.3, platelet 175 without differential, coags with INR 1.8, PT 21.4, CMP with sodium 129, carbon dioxide 20, BUN/creatinine 41/1.05, glucose 155, calcium 8, T. bili 13.20, AST/ALT 220/71, alk phos 577. In the ED patient administered maintenance IV fluids, 1 L normal saline as well as viscous oral lidocaine. Hospital Course: 1. Stage IV breast cancer with metastatic disease to her pelvis and liver with zones 3 liver injury due to chemotherapy and metastatic disease with pseudocirrhosis and hyperbilirubinemia/stomatitis with thrush?62-year-old female with aggressive stage IV breast cancer presented to the hospital with hyperbilirubinemia and liver failure. She was found to have extensive metastatic disease and gastroenterology was consulted for evaluation of her hyperbilirubinemia and felt this was zone 3 injury with an obstructive pattern due to significant tumor burden in the liver. MRCP did not demonstrate a clear obstruction. Multiple discussions were had over the course of her admission about the potential of continuing with chemotherapy versus proceeding with hospice. Gastroenterology did not feel the chemotherapy was now feasible given significant liver disease and patient did not feel that she wanted to even pursue any more doses of chemotherapy. Hospice was consulted on 04/12/2023 and proceeded to admit her to the inpatient hospice unit. Plan will be discharged today on hospice care. Her primary oncologist was notified on discharge. 2. Type 2 diabetes, hypothyroidism, anxiety, depression, hypertension, hyperlipidemia, coronary artery disease status post stent complicate care. Medical Records Data Medical Nutrition Assessment Dietitian: Malnutrition Criteria Met Start: 04/08/23 15:31 Freq: Status: Active Protocol: Document 04/11/23 13:00 RMA (Rec: 04/11/23 13:01 RMA [id number]) Nutrition Malnutrition Evidence of Malnutrition Exists Yes Malnutrition (severe): Chronic Evidenced By Suboptimal Energy Intake ( Severe),Physical Changes ( Moderate) Clinical Problem Chronic Disease or Condition Related Malnutrition Etiology Severe protein-calorie malnutrition in the context of chronic disease related to inadequate oral intake and chewing/swallowing difficulty Signs/Symptoms as evidenced by reported weight loss with 4+ pitting bilateral pedal edema, decreased appetite and oral intakes x 3-4 weeks with only liquid intakes x 1 week, oral intake 0-50% meals since admit and mild to moderate muscle wasting per NFPA. Status Active Problem Recommendation Dietitian Recommendations/Changes Continue liberalized regular diet as tolerated with texture /consistency alteration as indicated. Will continue 240mL ensure clear BID w/ breakfast and dinner. Will offer 240mL ensure plus HP w/ lunch as tolerated. Adjust ONS as needed to optimize oral intake. Weight / BMI Weight Weight: 216 lb 0.848 oz Body Mass Index (BMI) 38.2 ABG / Lab / Microbiology Data 04/11/23 04:36 04/12/23 04:10 Laboratory: Laboratory Results - last 24 hr 04/11/23 11:04: PAYTON-1 Antibody <0.2, SS-A/Ro IgG Antibody < 0.2, SS-B/La IgG Antibody < 0.2, Sm (Ascencio) Antibody <0.2, TOURIST [employer]IN KEEPER Antibody <0.2, Scl-70 Scleroderma Ab <0.2, Double Strand DNA Ab 1, Centromere B Antibody <0.2, Anti-Smooth Muscle Ab 4 04/11/23 20:19: POC Glucose 159 H 04/12/23 04:10: Sodium 124 L, Potassium 3.7, Chloride 99, Carbon Dioxide 17.0 L, Anion Gap 8, BUN 49 H, Creatinine 1.03 H, Estim Creat Clear Calc 63.96, Est GFR (MDRD) Af Amer 70, Est GFR (MDRD) Non-Af 58 L, BUN/Creatinine Ratio 47.6 H, Glucose 144 H, Calcium 6.6 L 04/12/23 06:38: POC Glucose 122 H 04/12/23 10:59: POC Glucose 136 H Microbiology: Microbiology 04/08/23 01:53 Urine, Clean Catch Urine Culture - Final Culture exhibits no growth. 04/08/23 00:47 Blood Culture (Wb) - Anticubital Right Blood Culture - Preliminary No growth in 48 hours. 04/08/23 00:30 Blood Culture (Wb) - Anticubital Right Blood Culture - Preliminary No growth in 48 hours. D/C Instructions Discharge Diet: No restrictions Meaningful Use Info Meaningful Use Diagnoses (Choose all that apply): None applicable Discharge Plan Admission Admit Date/Time: 04/08/23 01:46 Attending Provider: Marck Shelby Primary Care Provider: Jad Acevedo Consulting Providers: Nata Taveras; Ashwin Hector Discharge Orders/Prescriptions Prescriptions: Continued venlafaxine 150 mg capsule,extended release 24hr 150 mg PO DAILY Qty: 90 lisinopril 10 mg tablet 10 mg PO DAILY Qty: 90 Patient Comments: unknown dose levothyroxine 25 mcg tablet 25 mcg PO DAILY Qty: 90 Patient Comments: unknown dose aspirin [Adult Low Dose Aspirin] 81 mg tablet,delayed release (DR/EC) 81 mg PO DAILY zinc 50 mg tablet 50 mg PO DAILY red yeast rice 600 mg Capsule 1,200 mg PO DAILY Rx Instructions: give with meal/snack cholecalciferol (vitamin D3) [Vitamin D3] 125 mcg (5,000 unit) Tablet 125 mcg PO DAILY metformin 500 mg Tablet 1,000 mg PO BID glimepiride 4 mg tablet 4 mg PO DAILY Patient Comments: TAKE 1 TABLET BY MOUTH ONCE DAILY cinnamon bark 500 mg capsule 500 mg PO DAILY coenzyme Q10 [Co Q-10] 200 mg capsule 200 mg PO DAILY MAGIC MOUTH WASH (BMX) 180 mL suspension 5 ml PO Q4H PRN Qty: 180 loratadine [Claritin] 10 mg tablet 10 mg PO DAILY milk thistle 150 mg capsule 150 mg PO DAILY Rx Instructions: give with meal/snack nystatin 100,000 unit/mL suspension 5 ml PO 4X/DAY Rx Instructions: swish and swallow ondansetron 8 mg tablet,disintegrating 8 mg PO Q8H PRN (Reason: nausea) prochlorperazine maleate 10 mg tablet 10 mg PO Q6H PRN (Reason: nausea and vomiting) vitamin E (dl, acetate) 450 mg (1,000 unit) capsule 450 mg PO DAILY Referrals / Follow Up: Jad Acevedo MD [Primary Care Provider] - Disposition Disposition (needs filled in before D/C Order can be placed): Hospice in Medical Facility Charges/Coding Visit Charges Inpatient E&M: 43540 Disch Hosp >30min
[2023-04-12 17:15] LABS: Bedside Glucose 128 mg/dL (74-106)
== END 2023-04-12 17:33 | disposition hospice, inpatient (51) ==
LOC: ED 04-08 01:29 → PCU 04-08 02:42
PROVIDERS: Internal Medicine; Internal Medicine Gastroenterology; Admitting Provider Family Medicine; Emergency Provider Emergency Medicine; PCP Family Medicine; Visit Provider Family Medicine
DX: K71.10 Toxic liver disease with hepatic necrosis, without coma (principal); E44.0 Moderate protein-calorie malnutrition; E22.2 Syndrome of inappropriate secretion of antidiuretic hormone; C79.51 Secondary malignant neoplasm of bone; B37.81 Candidal esophagitis; B37.0 Candidal stomatitis; E87.21 Acute metabolic acidosis; E11.9 Type 2 diabetes mellitus without complications; C50.912 Malignant neoplasm of unspecified site of left female breast; C78.7 Secondary malignant neoplasm of liver and intrahepatic bile duct; I10 Essential (primary) hypertension; E03.9 Hypothyroidism, unspecified; F32.A Depression, unspecified; D63.0 Anemia in neoplastic disease; E78.00 Pure hypercholesterolemia, unspecified; I25.10 Atherosclerotic heart disease of native coronary artery without angina pectoris; F41.9 Anxiety disorder, unspecified; E86.0 Dehydration; E86.1 Hypovolemia; Z68.35 Body mass index [BMI] 35.0-35.9, adult; N30.00 Acute cystitis without hematuria; Z17.0 Estrogen receptor positive status [ER+]; E66.9 Obesity, unspecified; T45.1X5A Adverse effect of antineoplastic and immunosuppressive drugs, initial encounter; R18.8 Other ascites; Z66 Do not resuscitate; Z90.12 Acquired absence of left breast and nipple; Z95.5 Presence of coronary angioplasty implant and graft; Z79.82 Long term (current) use of aspirin; Z79.84 Long term (current) use of oral hypoglycemic drugs; Z79.899 Other long term (current) drug therapy; Z87.891 Personal history of nicotine dependence
CPT/HCPCS: 36415; 36569; 74177; 74181; 80048; 80053; 80076; 80202; 81001; 82140; 82330; 82962; 83516; 83605; 83615; 83735; 84100; 84145; 85025; 85610; 85652; 86140; 86225; 86235; 87040; 87086; 87641; 92507; 92526; 93005; 94668; 97162; 97166; 97530; 97535; 97802; 99285; J7030; J7040; J7050; Q9967; A4216; J0612